=== PATIENT | female | born 1955 | race Caucasian/White ===

== ENCOUNTER 2017-12-28 16:37 | Inpatient (IN) | payer OTHER ==
--- NOTE | 2017-12-28 17:05 | PDOC ---
Attending Attestation - HPI HPI: 12/28/17 20:10 CC: Left sided weakness and pain HPI: The patient is a 62 year old female, with a significant past medical history of COPD, diabetes, CVA with TPA in 02/07, CVA in 04/09, valve replacement, graves, and cholecystectomy, who presents to the emergency department via EMS with, 5 hours of left sided chest and shoulder pain. As per EMS, the patient had hyperglycemia within the 380s. Within the emergency department, the patient reports left arm weakness beginning at 3pm. Secondary to her symptoms she reports, shortness of breath. The patient reports to have a left arm and leg deficit in the past secondary to her CVA, however, reports that her left arm feels weaker now. She denies recent fevers, chills, headache or dizziness. She denies recent nausea, vomit, diarrhea or constipation. She denies recent dysuria, frequency, urgency or hematuria. Primary Care Physician: Dr. Gregg Patten - Physicial Exam PE: 12/28/17 20:35 Vitals: Triage vital signs reviewed General Appearance: No acute distress, well nourished, well developed Head: Atraumatic Eyes: Pupils equal reactive round, extraocular movement intact Neck: Supple; No nuchal rigidity Chest Wall: Nontender Cardiac: Regular rate and rhythm, no murmurs, no rubs, no gallops Lungs: Clear to auscultation bilateral, good air movement bilaterally Abdomen: Soft, nondistended, normal bowel sounds, nontender to palpation Genitourinary: Rectal: Exam deferred Extremities: No cyanosis, clubbing, or edema Skin: Warm and dry, no rashes or lesions, no rash, no petechiae Neuro: +Left sided weakness to the upper and lower extremities. AOX3; Cranial Nerves 2-12 grossly intact Psych: Normal mood, normal affect - Medical Decision Making 8:15pm Call placed to Dr. Engle's answering service for admission, awaiting call back. 8:50pm Second call placed to Dr. Engle's answering service for admission, awaiting call back. 9:18pm Third call placed to Dr. Engle's answering service for admission, case was discussed. <Ras Marrero - Last Filed: 12/28/17 23:38> - Resident Resident Name: Fred Miranda - ED Attending Attestation I have performed the following: I have examined & evaluated the patient, The case was reviewed & discussed with the resident, I agree w/resident's findings & plan, Exceptions are as noted - Medical Decision Making 12/28/17 18:30 62 years old with multiple medical issues presents to the ED with left-sided weakness since 3 PM Code Akins activated patient sent to CT no evidence of blood Reevaluation case discussed with Dr. Ballard neurology recommends CTA, hold on TPA at this time NIHSS stroke scale 4 Dr. Ballard following CTA no fixed vessel defect. Per discussion with Dr. Ballard Given patient with previous stroke on that side diabetes uncontrolled hyperglycemia and presentation more consistent with worsening of underlying stroke secondary to UTI and hyperglycemia patient not TPA candidate at this time we'll admit to medicine with neurology consulting for further management. <Ismael Roche - Last Filed: 12/29/17 00:08> Attestations - Attestations 12/28/17 20:10 Documentation prepared by Ras Marrero, acting as medical claims representative for Ismael Roche MD. <Ras Marrero - Last Filed: 12/28/17 23:38>
[2017-12-28 17:37] LABS: URINE APPEARANCE SLCLOUDY; URINE BILIRUBIN NEGATIVE (<2.0 mg/dL); URINE BLOOD 1+ (NEGATIVE); URINE COLOR LTYELLOW; URINE GLUCOSE (UA) 3+ (NEGATIVE); URINE KETONE NEGATIVE (NEGATIVE); URINE NITRITE POSITIVE (NEGATIVE); URINE UROBILINOGEN NEGATIVE mg/dL (0.2-1.0)
[2017-12-28 17:42] LABS: BASO % 1.3 % (0-2.0); EOS % 1.3 % (0-4.5); HEMOGLOBIN 16.4 GM/dL (10.7-15.3); LYMPH % 27.7 % (8-40); MCHC 34.1 g/dl (32.0-36.0); MEAN CELL VOLUME 90.8 fl (80-96); MEAN PLT VOLUME 11.2 fl (7.5-11.1); MONO % 4.7 % (3.8-10.2); PLATELET COUNT 129 K/MM3 (134-434); RBC 5.28 M/mm3 (3.60-5.2); RDW 14.2 % (11.6-15.6); WHITE BLOOD COUNT 9.4 K/mm3 (4.0-10.0)
[2017-12-28 17:45] LABS: URINE LEUK ESTERASE 2+ (NEGATIVE); URINE PROTEIN 1+ (NEGATIVE)
[2017-12-28 17:46] LABS: VENOUS PC02 51.7 mmHg (38-52); VENOUS PH 7.36 (7.32-7.42)
[2017-12-28 17:47] LABS: EPI CELLS RARE /HPF (FEW); URINE BACTERIA MANY /hpf (NONE SEEN); URINE MUCUS RARE; YEAST FEW
[2017-12-28 17:58] LABS: INR 1.13 (0.82-1.09); PROTHROMBIN TIME (PATIENT) 12.8 SEC (9.98-11.88)
--- NOTE | 2017-12-28 18:06 | PDOC ---
History of Present Illness - General History Source: Patient Exam Limitations: No Limitations - History of Present Illness Initial Comments: 12/28/17 18:59 Patient is 62F with history of COPD, DM, CVA with TPA in 02/07, CVA in 04/09, valve replacement, Graves, cholecystectomy here today complaining of pain to her left shoulder and chest. EMS reports hyperglycemia to 380s. Patient is also complaining of left arm weakness that started at 3pm. She states that she has had urinary frequency and felt constantly thirsty for the past few days. Her chest pain started at 10am with associated shortness of breath. Denies fevers, chills, nausea, vomiting. Patient reports having a left arm and leg deficit in the past due to her CVA, but says that her left arm feels weaker now. Left leg is at baseline per patient. <Fred Miranda - Last Filed: 12/28/17 19:38> <Ismael Roche - Last Filed: 12/28/17 20:17> - General Chief Complaint: Chest Pain Stated Complaint: HYPERGLYCEMIA Time Seen by Provider: 12/28/17 16:47 Past History - Past Medical History Asthma: Yes Cardiac Disorders: Yes (cardiac arrythmias) CVA: Yes (X2 02/07(TPA) 04/09) COPD: Yes HTN: Yes Hypercholesterolemia: Yes Thyroid Disease: Yes (hypo and hyper thyroid-varies) - Surgical History Cardiac Surgery: Yes (valve replacement) Cholecystectomy: Yes - Suicide/Smoking/Psychosocial Hx Smoking Status: No Smoking History: Current every day smoker Have you smoked in the past 12 months: Yes Number of Cigarettes Smoked Daily: 10 Cigars Per Day: 0 Information on smoking cessation initiated: No 'Breaking Loose' booklet given: 06/10/16 Hx Alcohol Use: No Drug/Substance Use Hx: No Substance Use Type: None Hx Substance Use Treatment: No <Fred Miranda - Last Filed: 12/28/17 19:38> <Ismael Roche - Last Filed: 12/28/17 20:17> - Past Medical History Allergies/Adverse Reactions: Allergies Allergy/AdvReac Type Severity Reaction Status Date / Time WILD Inhibitors Allergy Verified 12/28/17 17:07 Penicillins Allergy Rash Verified 12/28/17 17:07 aspirin AdvReac Verified 12/28/17 17:07 Home Medications: Ambulatory Orders Clopidogrel Bisulfate [Plavix -] 75 mg PO HS 06/04/12 Levothyroxine [Synthroid -] 0.125 mg PO HS 06/04/12 Metformin HCl [Riomet] 500 mg PO BID 06/04/12 Pyridostigmine [Mestinon -] 60 mg PO HS 06/04/12 Albuterol Sulfate [Proair Hfa -] 1 - 2 inh PO TID #0 06/11/12 Folic Acid 1 mg PO HS 06/10/16 Metoprolol Tartrate [Lopressor -] 25 mg PO HS 06/10/16 Mirtazapine 15 mg PO HS 06/10/16 Nifedipine [Procardia Xl] 60 mg PO HS 06/10/16 Albuterol Sulfate Inhaler - [Ventolin HFA Inhaler -] 2 puff IH Q4H PRN #0 inhaler 06/14/16 Insulin (Novolog 70/30) [Novolog Mix 70/30 Vial] 20 units SQ BIDAC #1 vial 06/14 Insulin Sliding Scale [Novolog Vial Sliding Scale -] 1 vial SQ TIDAC #1 units oxyCODONE HCL [Roxicodone -] 5 mg PO Q6H PRN #14 tablet MDD 4 06/14/16 Review of Systems - Review of Systems Comments:: 12/28/17 19:04 GENERAL/CONSTITUTIONAL: No fever or chills. No weakness. HEAD, EYES, EARS, NOSE AND THROAT: No change in vision. No sore throat. CARDIOVASCULAR: Positive chest pain and shortness of breath RESPIRATORY: No cough, wheezing, or hemoptysis. GASTROINTESTINAL: No nausea, vomiting, diarrhea or constipation. GENITOURINARY: No dysuria. Positive for frequency. MUSCULOSKELETAL: No joint or muscle swelling or pain. No neck or back pain. SKIN: No rash NEUROLOGIC: No headache, vertigo, loss of consciousness, or change in strength/ sensation. ENDOCRINE: No increased thirst. No abnormal weight change HEMATOLOGIC/LYMPHATIC: No anemia, easy bleeding, or history of blood clots. ALLERGIC/IMMUNOLOGIC: No hives or skin allergy. <Fred Miranda - Last Filed: 12/28/17 19:38> *Physical Exam - Physical Exam Comments: 12/28/17 19:05 GENERAL: Awake, alert, and fully oriented, in no acute distress HEAD: No signs of trauma, normocephalic, atraumatic EYES: PERRLA, EOMI, sclera anicteric, conjunctiva clear ENT: Auricles normal inspection, hearing grossly normal, nares patent, oropharynx clear without exudates. Moist mucosa NECK: Normal ROM, supple, no lymphadenopathy, JVD, or masses LUNGS: No distress, speaks full sentences, clear to auscultation bilaterally HEART: Regular rate and rhythm, normal S1 and S2, no murmurs, rubs or gallops, peripheral pulses normal and equal bilaterally. ABDOMEN: Soft, nontender, normoactive bowel sounds. No guarding, no rebound. No masses EXTREMITIES: Normal inspection, Normal range of motion, no edema. No clubbing or cyanosis. NEUROLOGICAL: Cranial nerves II through XII grossly intact. Normal speech, 4/5 left arm strength, 5/5 right arm and leg strength, 3/5 left leg strength. Numbness in V2/V3 distribution. SKIN: Warm, Dry, normal turgor, no rashes or lesions noted. <Fred Miranda - Last Filed: 12/28/17 19:38> - Vital Signs Last Vital Signs Temp Pulse Resp BP Pulse Ox 98.6 F 60 20 181/78 99 12/28/17 16:50 12/28/17 20:08 12/28/17 20:08 12/28/17 20:08 12/28/17 20:08 <Ismael Roche - Last Filed: 12/28/17 20:17> NIH Stroke Scale - Last Known Well Date/Time & Onset Date Last Known Well: 12/28/17 Time Last Known Well: 15:00 - Initial Evaluation Level of consciousness: Alert Ask patient the month and their age: Answers both correctly Ask patient to open & close eyes; make fist and let go: Obeys both correctly Best gaze (horizontal eye movement): Normal Visual field testing: No visual field loss Facial paresis (Show teeth/raise eyebrows/close eyes tight): Normal symmetrical movement Motor Function: Left Arm: Drift Motor Function: Right Arm: Normal (extends arm 90 (or 45) degrees for 10 seconds without drift Motor Function: Left Leg: Some effort against gravity Motor Function: Right Leg: Normal (extends leg 30 degrees for 5 seconds without drift) Limb Ataxia: No ataxia Sensory(Use pinprick test arms,legs,trunk,face/side to side): Mild to moderate decrease in sensation Best language (Describe picture, name items, read sentences): No Aphasia Dysarthria (read several words): Normal articulation Extinction and Inattention: No abnormality - Total Score NIH Stroke Scale Score: 4 <DlFred cardona - Last Filed: 12/28/17 19:38> tPA Exclusion checklist 3-4.5h - Time Elapsed Date last known well: 12/28/17 Time last known well: 15:00 Elaspsed time: Day(s) and 4 Hour(s) and 38 Minutes - Exclusion Criteria 3-4.5 hr SBP greater than 185 or DBP greater than 110mmHg despite tx: No Recent IC/spinal surgery,head trauma or stroke<3mos.: No Hx IC hemorrhage, IC neoplasm, AV malformation or aneurysm: No Active internal bleeding: No Blding diathesis(low plt ct, inc PTT,INR>1.7 or use of NOAC): No Symptoms suggest subarachnoid hemorrhage: No CT demonstrates multilobar infarct(>1/3 cerebral hemiphere): No Arterial puncture at noncompressible site in previous 7 days: No Blood glucose concentration less than 50mg/dL (2.7mmol/L): No - Relative Exclusion Criteria 3-4.5 hr Life expectancy <1 yr or severe co-morbid illness: No : No Patient/family refused: No Rapid improvement: No - Add'l Relative Exclusion 3-4.5 hr Age > 80: No Hx of both diabetes AND prior ischemic stroke: Yes Taking an oral anticoagulant regardless of INR: No NIHSS >25: No <RuthFred - Last Filed: 12/28/17 19:38> Critical Care Time/[facility] Note - Medical Decision Making Note: 12/28/17 19:09 Patient is 62F with history of DM, CVA, graves, copd here today with left arm and left leg weakness. Vital signs stable and normal. NIHSS 4, 2 pts for left leg, 1 pt for left arm, 1 point for reported sensory deficit. Code wall activated, taken to ct scan. Concern that patient may have unmasked prior stroke symptoms due to metabolic abnormality. Fingerstick 303 in ED after fluids administrated by paramedics. Differential includes, but is not limited to : DKA, HHS, UTI, Pneumonia, Stroke. 12/28/17 19:[address] shows no acute bleed or clear area of infarct. 12/28/17 19:13 Laboratory Tests 12/28/17 12/28/17 12/28/17 15:33 17:23 17:30 WBC 9.4 D Hgb 16.4 H D Hct 48.0 H Plt Count 129 L D INR POC VBG pO2 Carbon Dioxide Anion Gap POC Glucometer [phone] Random Glucose Troponin I Ur Leukocyte Esterase 2+ H Urine WBC (Auto) 88 12/28/17 12/28/17 12/28/17 17:30 17:30 17:30 WBC Hgb Hct Plt Count INR 1.13 POC VBG pO2 18.0 L* Carbon Dioxide 30 Anion Gap 5 L POC Glucometer Random Glucose 296 H Troponin I < 0.02 Ur Leukocyte Esterase Urine WBC (Auto) CBC shows evidence of hemoconcentration. Glucose normal. INR normal. VBG shows low pO2. Carbon dioxide normal. Gap normal. Troponin undetectable. Neuro Dr Ballard consulted, agrees with unclear picture if this is a candidate for tPA. Suggested getting tPA. Cr level not available at time of decision, shared decision making done with patient, agreed to get CT scan before getting Cr level. CTA results now pending. 12/28/17 19:30 Patient has UTI, labs appear dehydrated. Patient has penicillin allergy listed on chart. She states that she had an unknown reaction when she was [age] years old. She states that she had IM penicillin and keflex without complications. Will give fluids and ceftriaxone. Patient not a candidate for tPA at this point. Patient does not have a clear indication with relative indication of prior stroke with diabetes. Signed out to Dr Leon. <Fred Miranda - Last Filed: 12/28/17 19:38> Discharge Disposition - Discharge Dispostion Last Admission D/C Date: 06/14/16 <Fred Miranda - Last Filed: 12/28/17 19:38> - Discharge Dispostion Admit: Yes <Ismael Roche - Last Filed: 12/28/17 20:17> - Diagnosis UTI (urinary tract infection) Qualifiers: Urinary tract infection type: site unspecified Hematuria presence: without hematuria Qualified Code(s): N39.0 - Urinary tract infection, site not specified - Discharge Dispostion Condition at time of disposition: Stable - Referrals Referrals: Gregg Patten MD [Primary Care Provider] - - Patient Instructions - Post Discharge Activity
[2017-12-28 18:20] LABS: ALBUMIN 3.9 g/dl (3.4-5.0); ANION GAP 5 (8-16); BILIRUBIN,TOTAL 0.6 mg/dL (0.2-1.0); BLOOD UREA NITROGEN 9 mg/dL (7-18); CHLORIDE 102 mmol/L (98-107); CHOLESTEROL 189 mg/dL (50-200); CO2 30 mmol/L (21-32); GLUCOSE,RANDOM 296 mg/dL (74-106); LDL CHOLESTEROL (ONLY SJRH) 115 mg/dL (5-100); POTASSIUM 3.7 mmol/L (3.5-5.1); SGOT/AST 70 U/L (15-37); SGPT/ALT 72 U/L (12-78); SODIUM 137 mmol/L (136-145); TOT PROT 7.1 g/dl (6.4-8.2); TRIGLYCERIDES 294 mg/dL (35-160)
[2017-12-28 18:21] LABS: ALK PHOS 163 U/L (45-117); HDL CHOLESTEROL 35 mg/dL (40-60)
[2017-12-28] MEDS ORDERED: SODIUM CHLORIDE 1,000 ML IV STA (19:30)
[2017-12-28] MEDS ORDERED: CEFTRIAXONE 1,000 MG in DEXTROSE 5%-WATER - 50 ML IVPB ONE (19:35)
[2017-12-28] MEDS ORDERED: CEFTRIAXONE 1 GM/50 ML BAG ONE (19:45)
[2017-12-29 00:24] VITALS: BMI 43.0
[2017-12-29] MEDS: oxyCODONE HCL 5 MG TABLET PO PRN ×3 (02:35→22:47)
[2017-12-29] MEDS ORDERED: INSULIN (NOVOLOG MIX 70/30) 100 UNITS/ML MDV SQ ONE (06:17)
[2017-12-29] MEDS: INSULIN (NOVOLOG MIX 70/30) 100 UNITS/ML MDV SQ SCH ×2 (06:37→16:56)
[2017-12-29] MEDS: TIZANIDINE HCL 2 MG TABLET PO SCH ×3 (06:37→22:50)
[2017-12-29] MEDS: GABAPENTIN 300 MG CAPSULE (FP) PO SCH ×3 (06:37→22:46)
[2017-12-29] MEDS ORDERED: metFORMIN HCL 500 MG TABLET (FP) PO SCH (07:00)
[2017-12-29 08:31] LABS: BASO % 1.2 % (0-2.0); EOS % 1.5 % (0-4.5); HEMOGLOBIN 15.7 GM/dL (10.7-15.3); MCH 30.7 pg (25.7-33.7); MEAN CELL VOLUME 90.1 fl (80-96); MEAN PLT VOLUME 10.8 fl (7.5-11.1); MONO % 5.5 % (3.8-10.2); NEUT % 62.8 % (42.8-82.8); PLATELET COUNT 128 K/MM3 (134-434); RBC 5.11 M/mm3 (3.60-5.2); RDW 13.9 % (11.6-15.6); WHITE BLOOD COUNT 8.2 K/mm3 (4.0-10.0)
[2017-12-29] MEDS: HEPARIN NA (PORCINE) 5,000 UNITS/ML 1ML VIAL SQ SCH ×2 (09:14→22:45)
[2017-12-29] MEDS: CEFTRIAXONE 1 GM in DEXTROSE 5%-WATER - 50 ML IVPB SCH (09:15)
[2017-12-29 09:16] LABS: ALBUMIN 3.7 g/dl (3.4-5.0); ALK PHOS 154 U/L (45-117); ANION GAP 7 (8-16); BILIRUBIN,TOTAL 0.6 mg/dL (0.2-1.0); BLOOD UREA NITROGEN 10 mg/dL (7-18); CALCIUM 8.9 mg/dL (8.5-10.1); CHLORIDE 103 mmol/L (98-107); CO2 27 mmol/L (21-32); CREATININE 0.9 mg/dL (0.55-1.02); POTASSIUM 3.5 mmol/L (3.5-5.1); SGOT/AST 60 U/L (15-37); SGPT/ALT 64 U/L (12-78); SODIUM 137 mmol/L (136-145); TOT PROT 6.6 g/dl (6.4-8.2)
[2017-12-29 10:17] LABS: GLUCOSE,RANDOM 329 mg/dL (74-106)
--- NOTE | 2017-12-29 11:50 | CON.ID ---
Consult - History of Present Illness History of Present Illness: This is a 62 y.o. female with PMH of CVA x 2 on TPA in 2010 with Lt hemiplegia, DM, Graves Disease, valve repair (unclear which), COPD, active smoker, herpes zoster last year, nephrolithiasis 3 yrs ago, previous UTIs presenting with c/o chest tightness and Lt shoulder pain extending down her Lt arm with tingling sensation in her fingers. Pt states she was feeling weaker in her Lt arm than previously. These symptoms began yesterday at approximately 1 pm. States she was not feeling well and called the ambulance. In the ER she was noted to have hyperglycemia with glucose around 380s. Currently she states she feels better other than mild headache. She denies any history of recent fever/chills, cough, abd pain/n/v/d, or urinary f/u/d. 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, Other (Myasthenia Gravis) Cardio/Vascular: Yes: HTN Pulmonary: Yes: COPD Renal/: Yes: Renal Calculi, UTI Infectious Disease: Yes: Herpes Zoster Endocrine: Yes: Diabetes Mellitus - Past Surgical History Past Surgical History: Yes: Cholecystectomy, , Hernia Repair, Tonsillectomy, Tubal Ligation, Valve Replacement - Alcohol/Substance Use Hx Alcohol Use: No - Smoking History Smoking history: Current every day smoker Have you smoked in the past 12 months: Yes Aproximately how many cigarettes per day: 10 - Social History Usual Living Arrangement: With Spouse ADL: Independent 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, 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 Home Medications - Allergies Allergies/Adverse Reactions: Allergies Allergy/AdvReac Type Severity Reaction Status Date / Time WILD Inhibitors Allergy Verified 12/28/17 17:07 Penicillins Allergy Rash Verified 12/28/17 17:07 aspirin AdvReac Verified 12/28/17 17:07 - Home Medications Home Medications: Ambulatory Orders Clopidogrel Bisulfate [Plavix -] 75 mg PO HS 06/04/12 Levothyroxine [Synthroid -] 0.125 mg PO HS 06/04/12 Metformin HCl [Riomet] 500 mg PO BID 06/04/12 Pyridostigmine [Mestinon -] 60 mg PO HS 06/04/12 Albuterol Sulfate [Proair Hfa -] 1 - 2 inh PO TID #0 06/11/12 Folic Acid 1 mg PO HS 06/10/16 Metoprolol Tartrate [Lopressor -] 25 mg PO HS 06/10/16 Mirtazapine 15 mg PO HS 06/10/16 Nifedipine [Procardia Xl] 60 mg PO HS 06/10/16 Albuterol Sulfate Inhaler - [Ventolin HFA Inhaler -] 2 puff IH Q4H PRN #0 inhaler 06/14/16 Insulin (Novolog 70/30) [Novolog Mix 70/30 Vial] 20 units SQ BIDAC #1 vial 06/14 Insulin Sliding Scale [Novolog Vial Sliding Scale -] 1 vial SQ TIDAC #1 units oxyCODONE HCL [Roxicodone -] 5 mg PO Q6H PRN #14 tablet MDD 4 06/14/16 Atorvastatin Ca [Lipitor] 20 mg PO HS 12/29/17 Gabapentin 300 mg PO TID 12/29/17 Montelukast Sodium [Singulair] 10 mg PO HS 12/29/17 Tizanidine HCl 2 TID 12/29/17 Tizanidine HCl 2 mg PO TID 12/29/17 Family Disease History - Family Disease History Family Disease History: Heart Disease: Father ([place]) Review of Systems - Review of Systems Constitutional: reports: No Symptoms Eyes: reports: No Symptoms HENT: reports: No Symptoms Neck: reports: No Symptoms Cardiovascular: reports: No Symptoms Respiratory: reports: No Symptoms Gastrointestinal: reports: No Symptoms Genitourinary: reports: No Symptoms Breasts: reports: No Symptoms Reported Musculoskeletal: reports: No Symptoms Integumentary: reports: No Symptoms Neurological: reports: Headache (mild generalized), Weakness (minimal LUE, chronic LLE) Endocrine: reports: No Symptoms Hematology/Lymphatic: reports: No Symptoms Psychiatric: reports: No Symptoms Physical Exam Vital Signs: Vital Signs Temperature 98.4 F 12/29/17 10:00 Pulse Rate 73 12/29/17 10:00 Respiratory Rate 18 12/29/17 10:00 Blood Pressure 161/76 12/29/17 10:00 O2 Sat by Pulse Oximetry (%) 96 12/29/17 10:00 Constitutional: Yes: No Distress, Calm Eyes: Yes: WNL HENT: Yes: WNL Neck: Yes: WNL Cardiovascular: Yes: Regular Rate and Rhythm Respiratory: Yes: CTA Bilaterally Gastrointestinal: Yes: Normal Bowel Sounds, Soft, Abdomen, Obese Renal/: Yes: WNL Musculoskeletal: Yes: WNL Extremities: Yes: WNL Edema: No Integumentary: Yes: WNL Neurological: Yes: Alert, Oriented ...Motor Strength: LUE (4/5), LLE (3/5) Psychiatric: Yes: Alert, Oriented Labs: CBC, BMP 12/29/17 06:45 12/29/17 06:45 U/A: glucose 3+, Leuk est 2+, wbc 88, bact- many Imaging - Results X-ray: Report Reviewed Problem List - Problems (1) UTI (urinary tract infection) Code(s): N39.0 - URINARY TRACT INFECTION, SITE NOT SPECIFIED Qualifiers: Urinary tract infection type: site unspecified Hematuria presence: without hematuria Qualified Code(s): N39.0 - Urinary tract infection, site not specified (2) Diabetes Code(s): E11.9 - TYPE 2 DIABETES MELLITUS WITHOUT COMPLICATIONS (3) Graves' disease Code(s): E05.00 - THYROTOXICOSIS W DIFFUSE GOITER W/O THYROTOXIC CRISIS (4) Hypertension Code(s): I10 - ESSENTIAL (PRIMARY) HYPERTENSION (5) COPD (chronic obstructive pulmonary disease) Code(s): J44.9 - CHRONIC OBSTRUCTIVE PULMONARY DISEASE, UNSPECIFIED Assessment/Plan 62 y.o. female with PMH of DM, CVA on s/p TPA, Graves disease, COPD, nephrolithiasis, presenting with c/o chest tightness, Lt arm pain and weakness that began yesterday noted to have hyperglycemia and pyuria. UTI DM Hx of CVA Graves COPD Hx of Nephrolithiasis -- continue Ceftriaxone empirically for now -- urine culture -- glycemic control -- Neurology to evaluate, f/u CT/CTA pt currently afebrile, without leukocytosis continue monitor
--- NOTE | 2017-12-29 11:57 | CON.NEURO ---
Consult Consult Specialty:: NEUROLOGY-[facility] - History of Present Illness History of Present Illness: The patient is a 62 year old female, with a significant past medical history of COPD, diabetes, CVA with TPA in 02/07, CVA in 04/09, valve replacement, graves, and cholecystectomy, who presents to the emergency department via EMS with, 5 hours of left sided chest and shoulder pain. As per EMS, the patient had hyperglycemia within the 380s. Within the emergency department, the patient reports left arm weakness beginning at 3pm. Secondary to her symptoms she reports, shortness of breath. The patient reports to have a left arm and leg deficit in the past secondary to her CVA, however, reports that her left arm feels weaker now. She denies recent fevers, chills, headache or dizziness. She denies recent nausea, vomit, diarrhea or constipation. She denies recent dysuria, frequency, urgency or hematuria. -Pt. reports her left arm weakness has now improved but conts. to c/o left shoulder pain, deies numbness/tigling She reports persistent left leg weakess and miniimal left arm weakness since CVA in 2010. 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, Other (Myasthenia Gravis) Cardio/Vascular: Yes: HTN Pulmonary: Yes: COPD Renal/: Yes: Renal Calculi, UTI Infectious Disease: Yes: Herpes Zoster Endocrine: Yes: Diabetes Mellitus - Past Surgical History Past Surgical History: Yes: Cholecystectomy, , Hernia Repair, Tonsillectomy, Tubal Ligation, Valve Replacement - Alcohol/Substance Use Hx Alcohol Use: No - Smoking History Smoking history: Current every day smoker Have you smoked in the past 12 months: Yes Aproximately how many cigarettes per day: 10 - Social History Usual Living Arrangement: With Spouse ADL: Independent 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, 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 Home Medications - Allergies Allergies/Adverse Reactions: Allergies Allergy/AdvReac Type Severity Reaction Status Date / Time WILD Inhibitors Allergy Verified 12/28/17 17:07 Penicillins Allergy Rash Verified 12/28/17 17:07 aspirin AdvReac Verified 12/28/17 17:07 - Home Medications Home Medications: Ambulatory Orders Clopidogrel Bisulfate [Plavix -] 75 mg PO HS 06/04/12 Levothyroxine [Synthroid -] 0.125 mg PO HS 06/04/12 Metformin HCl [Riomet] 500 mg PO BID 06/04/12 Pyridostigmine [Mestinon -] 60 mg PO HS 06/04/12 Albuterol Sulfate [Proair Hfa -] 1 - 2 inh PO TID #0 06/11/12 Folic Acid 1 mg PO HS 06/10/16 Metoprolol Tartrate [Lopressor -] 25 mg PO HS 06/10/16 Mirtazapine 15 mg PO HS 06/10/16 Nifedipine [Procardia Xl] 60 mg PO HS 06/10/16 Albuterol Sulfate Inhaler - [Ventolin HFA Inhaler -] 2 puff IH Q4H PRN #0 inhaler 06/14/16 Insulin (Novolog 70/30) [Novolog Mix 70/30 Vial] 20 units SQ BIDAC #1 vial 06/14 Insulin Sliding Scale [Novolog Vial Sliding Scale -] 1 vial SQ TIDAC #1 units oxyCODONE HCL [Roxicodone -] 5 mg PO Q6H PRN #14 tablet MDD 4 06/14/16 Atorvastatin Ca [Lipitor] 20 mg PO HS 12/29/17 Gabapentin 300 mg PO TID 12/29/17 Montelukast Sodium [Singulair] 10 mg PO HS 12/29/17 Tizanidine HCl 2 TID 12/29/17 Tizanidine HCl 2 mg PO TID 12/29/17 Family Disease History - Family Disease History Family Disease History: Heart Disease: Father ([place]) Physical Exam-Neuro Vital Signs: Vital Signs Temperature 98.4 F 12/29/17 10:00 Pulse Rate 73 12/29/17 10:00 Respiratory Rate 18 12/29/17 10:00 Blood Pressure 161/76 12/29/17 10:00 O2 Sat by Pulse Oximetry (%) 96 12/29/17 10:00 Labs: CBC, BMP 12/29/17 06:45 12/29/17 06:45 INR, PTT INR 1.13 (0.82-1.09) 12/28/17 17:30 - Neuro Exam Cranial Nerves II-XII Intact: No (old left diminished nlf) DTR's: 1+ Right Bicep, 1+ Right Tricep, 1+ Right Brachioradialis, 1+ Right Achilles (left knee jerk-2+, right 1=), 2+ Left Bicep, 2+ Left Tricep, 2+ Left Brachioradialis, 2+ Left Achilles Motor Strength: 3/5: Left Leg (IP-4/5, Q/H-2/5, Df/PF-1/5), 01/02: Left Arm (LUE- limited exam due to pain but she has a left pronator drift and deltoid-4+/5, B/ T5-/5, hand grip5/5), 02/01: Right Arm, Right Leg Gait: Other (Left hemiparetic) Imaging - Results Cat Scan: Report Reviewed (By report from ER physician no new ischemic event noted upon CT head and CTA without stenosis of any large vessels.) Assessment/Plan Pt. with multiple strokes in past, has residual left leg weakness, now presents with resolving left arm weakess. Imaging without evid. of new ischemic event and left arm limited exam due to shoulder pain. She is on Plavix. NIHSS 4(tPA not given) If she has had an ischemic event likely pure motor, subcortical event. Suggest: 1) Cont. Plavix. 2) Will review past imaging and consider adding Dipyridamole to her regimen. 3) PT/Rehab 4) She will f/u in my office. ThanVishnu gonzalez MD
--- NOTE | 2017-12-29 14:55 | HP ---
Admitting History and Physical - Admission History of Present Illness: Pt is a 62 y.o. 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 Pt states she was feeling weaker in her Lt arm than previously. These symptoms began yesterday at approximately 1 pm. States she was not feeling well and called the ambulance. In the ER she was noted to have hyperglycemia with glucose around 380s. 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, Other (Myasthenia Gravis) Cardiovascular: Yes: HTN Pulmonary: Yes: COPD Renal/: Yes: Renal Calculi, UTI Infectious Disease: Yes: Herpes Zoster Endocrine: Yes: Diabetes Mellitus - Past Surgical History Past Surgical History: Yes: Cholecystectomy, , Hernia Repair, Tonsillectomy, Tubal Ligation, Valve Replacement - Smoking History Smoking history: Current every day smoker Have you smoked in the past 12 months: Yes Aproximately how many cigarettes per day: 10 - Alcohol/Substance Use Hx Alcohol Use: No - Social History ADL: Independent 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, 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 Home Medications - Allergies Allergies/Adverse Reactions: Allergies Allergy/AdvReac Type Severity Reaction Status Date / Time WILD Inhibitors Allergy Verified 12/28/17 17:07 Penicillins Allergy Rash Verified 12/28/17 17:07 aspirin AdvReac Verified 12/28/17 17:07 - Home Medications Home Medications: Ambulatory Orders Clopidogrel Bisulfate [Plavix -] 75 mg PO HS 06/04/12 Levothyroxine [Synthroid -] 0.125 mg PO HS 06/04/12 Metformin HCl [Riomet] 500 mg PO BID 06/04/12 Pyridostigmine [Mestinon -] 60 mg PO HS 06/04/12 Albuterol Sulfate [Proair Hfa -] 1 - 2 inh PO TID #0 06/11/12 Folic Acid 1 mg PO HS 06/10/16 Metoprolol Tartrate [Lopressor -] 25 mg PO HS 06/10/16 Mirtazapine 15 mg PO HS 06/10/16 Nifedipine [Procardia Xl] 60 mg PO HS 06/10/16 Albuterol Sulfate Inhaler - [Ventolin HFA Inhaler -] 2 puff IH Q4H PRN #0 inhaler 06/14/16 Insulin (Novolog 70/30) [Novolog Mix 70/30 Vial] 20 units SQ BIDAC #1 vial 06/14 Insulin Sliding Scale [Novolog Vial Sliding Scale -] 1 vial SQ TIDAC #1 units oxyCODONE HCL [Roxicodone -] 5 mg PO Q6H PRN #14 tablet MDD 4 06/14/16 Atorvastatin Ca [Lipitor] 20 mg PO HS 12/29/17 Gabapentin 300 mg PO TID 12/29/17 Montelukast Sodium [Singulair] 10 mg PO HS 12/29/17 Tizanidine HCl 2 TID 12/29/17 Tizanidine HCl 2 mg PO TID 12/29/17 Family Disease History - Family Disease History Family History: Unremarkable Family Disease History: Heart Disease: Father ([place]) Review of Systems - Review of Systems Constitutional: reports: Weakness Neck: reports: No Symptoms Cardiovascular: reports: Chest Pain Respiratory: reports: No Symptoms Gastrointestinal: reports: No Symptoms Physical Examination Vital Signs: Vital Signs Temperature 98.4 F 12/29/17 10:00 Pulse Rate 73 12/29/17 10:00 Respiratory Rate 18 12/29/17 10:00 Blood Pressure 161/76 12/29/17 10:00 O2 Sat by Pulse Oximetry (%) 96 12/29/17 10:00 Constitutional: Yes: Well Nourished Neck: Yes: WNL, Supple Cardiovascular: Yes: WNL, Regular Rate and Rhythm Respiratory: Yes: WNL, Regular, CTA Bilaterally Gastrointestinal: Yes: WNL, Normal Bowel Sounds, Soft Musculoskeletal: Yes: WNL Extremities: Yes: WNL Edema: No Neurological: Yes: WNL, Alert, Oriented ...Motor Strength: WNL Labs: CBC, BMP 12/29/17 06:45 12/29/17 06:45 Problem List - Problems (1) Chest pain Assessment/Plan: Admitted to tele Serial cpk/troponin to r/o ACS Echo Cardio consult Code(s): R07.9 - CHEST PAIN, UNSPECIFIED (2) Weakness Assessment/Plan: Admitted to tele to r/o CVA Check echo/carotid doppler Neuro/cardio consults Code(s): R53.1 - WEAKNESS (3) COPD (chronic obstructive pulmonary disease) Assessment/Plan: Cont inhalers Code(s): J44.9 - CHRONIC OBSTRUCTIVE PULMONARY DISEASE, UNSPECIFIED (4) Diabetes Assessment/Plan: Sliding scale w/ coverage Check HgA1c Code(s): E11.9 - TYPE 2 DIABETES MELLITUS WITHOUT COMPLICATIONS (5) Hypertension Code(s): I10 - ESSENTIAL (PRIMARY) HYPERTENSION
--- NOTE | 2017-12-29 16:11 | EKG ---
Test Reason : Blood Pressure : / mmHG Vent. Rate : 075 BPM Atrial Rate : 075 BPM P-R Int : 148 ms QRS Dur : 090 ms QT Int : 420 ms P-R-T Axes : -09 -32 110 degrees QTc Int : 469 ms SINUS RHYTHM WITH PREMATURE SUPRAVENTRICULAR COMPLEXES LEFT AXIS DEVIATION SEPTAL INFARCT , AGE UNDETERMINED ABNORMAL ECG QT HAS SHORTENED Confirmed by MD YOLANDA, KATE ([id number]) on 12/29/2017 4:10:46 PM Referred By: Confirmed By:KATE GUERRERO MD
[2017-12-29] MEDS: metFORMIN HCL 500 MG TABLET (FP) PO SCH (16:56)
[2017-12-29] MEDS ORDERED: PT OWN MED DRAWER 7, Y5N ONE (22:40)
[2017-12-29] MEDS: CLOPIDOGREL BISULFATE 75 MG TABLET (FP) PO SCH (22:46)
[2017-12-29] MEDS: FOLIC ACID 1 MG TABLET (FP) PO SCH (22:46)
[2017-12-29] MEDS: MONTELUKAST NA 10 MG TABLET PO SCH (22:46)
[2017-12-29] MEDS: NIFEdipine E.R 60 MG TABLET (UD) PO SCH (22:46)
[2017-12-29] MEDS: ATORVASTATIN CA 20 MG TABLET (FP) PO SCH (22:46)
[2017-12-29] MEDS: METOPROLOL TARTRATE 25 MG TABLET (FP) PO SCH (22:46)
[2017-12-29] MEDS: LEVOTHYROXINE NA 125 MCG TABLET (FP) PO SCH (22:47)
[2017-12-29] MEDS: MELATONIN 5 MG TABLETS PO PRN (22:48)
[2017-12-29] MEDS: ALBUTEROL SO4 18 GM HFA INHALER IH PRN (22:48)
[2017-12-30] MEDS ORDERED: PT OWN MED DRAWER 7, Y5N ONE ×5 (06:18→21:23)
[2017-12-30] MEDS: GABAPENTIN 300 MG CAPSULE (FP) PO SCH ×3 (06:20→21:32)
[2017-12-30] MEDS: metFORMIN HCL 500 MG TABLET (FP) PO SCH ×2 (06:20→16:53)
[2017-12-30] MEDS: TIZANIDINE HCL 2 MG TABLET PO SCH ×3 (06:21→21:32)
[2017-12-30] MEDS: INSULIN (NOVOLOG MIX 70/30) 100 UNITS/ML MDV SQ SCH ×2 (06:21→16:53)
[2017-12-30] MEDS ORDERED: INSULIN SLIDING SCALE (NOVOLOG) 1 VIAL SQ SCH (07:00)
[2017-12-30 07:10] LABS: BASO % 1.6 % (0-2.0); EOS % 1.5 % (0-4.5); HEMATOCRIT 47.3 % (32.4-45.2); LYMPH % 35.2 % (8-40); MCH 30.7 pg (25.7-33.7); MCHC 33.7 g/dl (32.0-36.0); MEAN PLT VOLUME 10.9 fl (7.5-11.1); MONO % 5.6 % (3.8-10.2); NEUT % 56.1 % (42.8-82.8); PLATELET COUNT 140 K/MM3 (134-434); WHITE BLOOD COUNT 8.9 K/mm3 (4.0-10.0)
[2017-12-30 08:08] LABS: CHLORIDE 101 mmol/L (98-107); POTASSIUM 3.5 mmol/L (3.5-5.1); SODIUM 136 mmol/L (136-145)
[2017-12-30 08:54] LABS: ALBUMIN 3.7 g/dl (3.4-5.0); ALK PHOS 163 U/L (45-117); ANION GAP 12 (8-16); BILIRUBIN,TOTAL 0.4 mg/dL (0.2-1.0); BLOOD UREA NITROGEN 17 mg/dL (7-18); CALCIUM 9.3 mg/dL (8.5-10.1); CO2 23 mmol/L (21-32); CREATININE 1.1 mg/dL (0.55-1.02); GLUCOSE,RANDOM 290 mg/dL (74-106); SGOT/AST 77 U/L (15-37); SGPT/ALT 65 U/L (12-78); TOT PROT 6.6 g/dl (6.4-8.2)
[2017-12-30] MEDS ORDERED: DEXTROSE 5%-WATER - 50 ML IVPB ONE (08:58)
[2017-12-30] MEDS ORDERED: cefTRIAXone SODIUM 1 GM VIAL ONE (08:58)
[2017-12-30] MEDS: CEFTRIAXONE 1 GM in DEXTROSE 5%-WATER - 50 ML IVPB SCH (09:24)
[2017-12-30] MEDS: HEPARIN NA (PORCINE) 5,000 UNITS/ML 1ML VIAL SQ SCH ×2 (09:24→21:30)
[2017-12-30] MEDS: ALBUTEROL SO4 18 GM HFA INHALER IH PRN ×2 (09:25→21:40)
--- NOTE | 2017-12-30 11:37 | PN ---
Physical Exam: SUBJECTIVE: Patient seen and examined at the bedside. came to ER for left shoulder pain that radiated down her arm with finger numbness. Symptoms better but shoulder still with some discomfort. Feels good, exhausted, did not sleep: melatonin not working>add benadryl for tonight c/o of bilateral flank pain, no pain with urination: will order renal u/s TSH elevated, does not recall last time Synthroid was increased, reports daily compliance: followed by Dr. Beach, will consult OBJECTIVE: Medical coverage for Dr. Engle. Period Temp Pulse Resp BP Sys/Hein Pulse Ox Last 24 Hr 97.7 F-98.3 F 61-91 18-20 118-172/58-98 93-94 GENERAL: The patient is awake, alert, and fully oriented, in no acute distress. HEAD: Normal with no signs of trauma. EYES: PERRL, extraocular movements intact, sclera anicteric, conjunctiva clear. No ptosis. ENT: Ears normal, nares patent, oropharynx clear without exudates, moist mucous membranes. NECK: Trachea midline, full range of motion, supple. LUNGS: Breath sounds equal, clear to auscultation bilaterally, no wheezes, no crackles, no accessory muscle use. HEART: Regular rate and rhythm ABDOMEN: Soft, nontender, nondistended, normoactive bowel sounds, no guarding, no rebound, no hepatosplenomegaly, no masses. EXTREMITIES: left leg with non pitting edema, left ided weakness left arm 3/5, left leg 3/5, right arm 5/5, right leg 5/5 NEUROLOGICAL: Normal speech, gait not observed. PSYCH: Normal mood, normal affect. SKIN: Warm, dry, normal turgor, no rashes or lesions noted Laboratory Results - last 24 hr 12/29/17 12/30/17 12/30/17 16:54 06:11 06:42 WBC 8.9 RBC 5.20 Hgb 16.0 H Hct 47.3 H MCV 91.0 MCH 30.7 MCHC 33.7 RDW 14.0 Plt Count 140 MPV 10.9 Neutrophils % 56.1 Lymphocytes % 35.2 D Monocytes % 5.6 Eosinophils % 1.5 Basophils % 1.6 Sodium Potassium Chloride Carbon Dioxide Anion Gap BUN Creatinine Creat Clearance w eGFR POC Glucometer 350 291 Random Glucose Calcium Total Bilirubin AST ALT Alkaline Phosphatase Total Protein Albumin TSH 12/30/17 06:42 WBC RBC Hgb Hct MCV MCH MCHC RDW Plt Count MPV Neutrophils % Lymphocytes % Monocytes % Eosinophils % Basophils % Sodium 136 Potassium 3.5 Chloride 101 Carbon Dioxide 23 Anion Gap 12 BUN 17 Creatinine 1.1 H Creat Clearance w eGFR 50.33 POC Glucometer Random Glucose 290 H Calcium 9.3 Total Bilirubin 0.4 D AST 77 H ALT 65 Alkaline Phosphatase 163 H Total Protein 6.6 Albumin 3.7 TSH 29.80 H Active Medications Generic Name Dose Route Start Last Admin Trade Name Freq PRN Reason Stop Dose Admin Albuterol Sulfate 2 puff 12/29/17 22:34 12/30/17 09:25 Ventolin Hfa Inhaler - IH 2 inh Q6H PRN Administration SHORTNESS OF BREATH Atorvastatin Calcium 20 mg 12/29/17 22:00 12/29/17 22:46 Lipitor - PO 20 mg HS MICHEAL Administration Clopidogrel Bisulfate 75 mg 12/29/17 22:00 12/29/17 22:46 Plavix - PO 75 mg HS MICHEAL Administration Folic Acid 1 mg 12/29/17 22:00 12/29/17 22:46 Folic Acid - PO 1 mg HS MICHEAL Administration Gabapentin 300 mg 12/29/17 06:00 12/30/17 06:20 Neurontin - PO 300 mg TID MICHEAL Administration Heparin Sodium (Porcine) 5,000 unit 12/29/17 10:00 12/30/17 09:24 Heparin - SQ 5,000 unit BID MICHEAL Administration Ceftriaxone Sodium 1 gm/ 50 mls @ 100 mls/hr 12/29/17 10:00 12/30/17 09:24 Dextrose IVPB 100 mls/hr DAILY MICHEAL Administration Insulin Aspart 20 units 12/29/17 07:00 12/30/17 06:21 Novolog Mix 70/30 Vial SQ 20 units BIDAC MICHEAL Administration Insulin Aspart 1 vial 12/30/17 08:08 Novolog Vial Sliding Scale - SQ ACHS [facility] Protocol Levothyroxine Sodium 125 mcg 12/29/17 22:00 12/29/17 22:47 Synthroid - PO 125 mcg HS MICHEAL Administration Melatonin 5 mg 12/29/17 22:34 12/29/17 22:48 Melatonin PO 5 mg HS PRN Administration INSOMNIA Metformin HCl 1,000 mg 12/29/17 16:30 12/30/17 06:20 Glucophage - PO 1,000 mg BIDAC MICHEAL Administration Metoprolol Tartrate 25 mg 12/29/17 22:00 12/29/17 22:46 Lopressor - PO 25 mg HS MICHEAL Administration Montelukast Sodium 10 mg 12/29/17 22:00 12/29/17 22:46 Singulair - PO 10 mg HS MICHEAL Administration Nifedipine 60 mg 12/29/17 22:00 12/29/17 22:46 Procardia Xl - PO 60 mg HS MICHEAL Administration Oxycodone HCl 5 mg 12/29/17 02:00 12/29/17 22:47 Roxicodone - PO 5 mg Q6H PRN Administration PAIN LEVEL 6-10 Tizanidine HCl 2 mg 12/29/17 06:00 12/30/17 06:21 Tizanidine Hcl PO 2 mg TID MICHEAL Administration ASSESSMENT/PLAN: Patient is a 62 year old female with a significant past medical history of 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 She presents to the ED with left arm shoulder pain radiating down to her left arm and tingling and numbness to her fingers. Also reported chest pain on admission. In the ED she was noted to be hyperglycemic with glucose in the 350s range. Cardiology: Chest pain, left arm pain Monitor on tele Noted to have left arm weakness 3/5 Echo pending Cardiology following Troponins neg x 2 Hypertension, chronic Monitor BP Hyperlipidemia On Lipitor @ HS Neuro: Left arm weakness/left leg weakness Rule out CVA Echo/Carotid doppler ordered and pending Neuro following On Lipitor, has ASA allergy Physical therapy Pulm COPD, chronic Tolerating room air, not in exacerbation Endo: TSH elevation, hx of Graves dx Endocrinology consult with Dr. Thompson Diabetes Mellitus Increased Novolog SS, on Metformin On 70/30 BID Monitor BGMs Diabetic diet HmgA1c 10.7 F.E.N. Fluids: tolerating PO Electrolytes: monitor Nutrition: diabetic Prophy: DVT: Heparin BID Disposition: full code
[2017-12-30] MEDS: INSULIN SLIDING SCALE (NOVOLOG) 1 VIAL SQ SCH ×3 (11:48→21:29)
--- NOTE | 2017-12-30 15:20 | PN ---
Progress Note, Physician History of Present Illness: doing well no complaints says she is feeling a little better still some complain of urination - Current Medication List Current Medications: Active Medications Albuterol Sulfate (Ventolin Hfa Inhaler -) 2 puff IH Q6H PRN PRN Reason: SHORTNESS OF BREATH Last Admin: 12/30/17 09:25 Dose: 2 inh Atorvastatin Calcium (Lipitor -) 20 mg PO HS [facility] Last Admin: 12/29/17 22:46 Dose: 20 mg Clopidogrel Bisulfate (Plavix -) 75 mg PO HS [facility] Last Admin: 12/29/17 22:46 Dose: 75 mg Folic Acid (Folic Acid -) 1 mg PO HS [facility] Last Admin: 12/29/17 22:46 Dose: 1 mg Gabapentin (Neurontin -) 300 mg PO TID [facility] Last Admin: 12/30/17 14:40 Dose: 300 mg Heparin Sodium (Porcine) (Heparin -) 5,000 unit SQ BID MICHEAL Last Admin: 12/30/17 09:24 Dose: 5,000 unit Ceftriaxone Sodium 1 gm/ (Dextrose) 50 mls @ 100 mls/hr IVPB DAILY [facility] Last Admin: 12/30/17 09:24 Dose: 100 mls/hr Insulin Aspart (Novolog Mix 70/30 Vial) 20 units SQ BIDAC [facility] Last Admin: 12/30/17 06:21 Dose: 20 units Insulin Aspart (Novolog Vial Sliding Scale -) 1 vial SQ ACHS MICHEAL PRN Reason: Protocol Last Admin: 12/30/17 11:48 Dose: 6 unit Levothyroxine Sodium (Synthroid -) 125 mcg PO HS [facility] Last Admin: 12/29/17 22:47 Dose: 125 mcg Melatonin (Melatonin) 5 mg PO HS PRN PRN Reason: INSOMNIA Last Admin: 12/29/17 22:48 Dose: 5 mg Metformin HCl (Glucophage -) 1,000 mg PO BIDAC [facility] Last Admin: 12/30/17 06:20 Dose: 1,000 mg Metoprolol Tartrate (Lopressor -) 25 mg PO [facility] Last Admin: 12/29/17 22:46 Dose: 25 mg Montelukast Sodium (Singulair -) 10 mg PO HS [facility] Last Admin: 12/29/17 22:46 Dose: 10 mg Nifedipine (Procardia Xl -) 60 mg PO [facility] Last Admin: 12/29/17 22:46 Dose: 60 mg Oxycodone HCl (Roxicodone -) 5 mg PO Q6H PRN PRN Reason: PAIN LEVEL 6-10 Last Admin: 12/29/17 22:47 Dose: 5 mg Tizanidine HCl (Tizanidine Hcl) 2 mg PO TID [facility] Last Admin: 12/30/17 14:40 Dose: 2 mg - Objective Vital Signs: Vital Signs Temperature 98.5 F 12/30/17 14:40 Pulse Rate 68 12/30/17 14:40 Respiratory Rate 20 12/30/17 14:40 Blood Pressure 183/76 12/30/17 14:40 O2 Sat by Pulse Oximetry (%) 94 L 12/30/17 10:00 Constitutional: Yes: No Distress, Calm, Obese Neck: Yes: Supple Cardiovascular: Yes: Regular Rate and Rhythm Respiratory: Yes: Regular, CTA Bilaterally Gastrointestinal: Yes: Normal Bowel Sounds, Soft Musculoskeletal: Yes: WNL Extremities: Yes: WNL Neurological: Yes: Alert, Oriented Psychiatric: Yes: Alert, Oriented Labs: CBC, BMP 12/30/17 06:42 12/30/17 06:42 INR, PTT INR 1.13 (0.82-1.09) 12/28/17 17:30 Assessment/Plan Problem List - Problems (1) UTI (urinary tract infection) Code(s): N39.0 - URINARY TRACT INFECTION, SITE NOT SPECIFIED Qualifiers: Urinary tract infection type: site unspecified Hematuria presence: without hematuria Qualified Code(s): N39.0 - Urinary tract infection, site not specified (2) Diabetes Code(s): E11.9 - TYPE 2 DIABETES MELLITUS WITHOUT COMPLICATIONS (3) Graves' disease Code(s): E05.00 - THYROTOXICOSIS W DIFFUSE GOITER W/O THYROTOXIC CRISIS (4) Hypertension Code(s): I10 - ESSENTIAL (PRIMARY) HYPERTENSION (5) COPD (chronic obstructive pulmonary disease) Code(s): J44.9 - CHRONIC OBSTRUCTIVE PULMONARY DISEASE, UNSPECIFIED Assessment/Plan 62 y.o. female with PMH of DM, CVA on s/p TPA, Graves disease, COPD, nephrolithiasis, presenting with c/o chest tightness, Lt arm pain and weakness that began yesterday noted to have hyperglycemia and pyuria. plan continue current mgmt abx monitor for any symptoms await for cx report
--- NOTE | 2017-12-30 16:11 | CON.CARD ---
Consult Consult Specialty:: Cardiology dr. Nelson Reason for Consultation:: TIA chest pain - History of Present Illness History of Present Illness: The patient is a 62 year old female, with a significant past medical history of COPD, diabetes, CVA with TPA in 02/07, CVA in 04/09, valve replacement, graves, and cholecystectomy, who presents to the emergency department via EMS with, 5 hours of left sided chest and shoulder pain. As per EMS, the patient had hyperglycemia within the 380s. Within the emergency department, the patient reports left arm weakness beginning at 3pm. Secondary to her symptoms she reports, shortness of breath. The patient reports to have a left arm and leg deficit in the past secondary to her CVA, however, reports that her left arm feels weaker now. She denies recent fevers, chills, headache or dizziness. She denies recent nausea, vomit, diarrhea or constipation. She denies recent dysuria, frequency, urgency or hematuria. Primary Care Physician: Dr. 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: CVA, Other (Myasthenia Gravis) Cardio/Vascular: Yes: HTN Pulmonary: Yes: COPD Renal/: Yes: Renal Calculi, UTI Infectious Disease: Yes: Herpes Zoster Endocrine: Yes: Diabetes Mellitus - Past Surgical History Past Surgical History: Yes: Cholecystectomy, , Hernia Repair, Tonsillectomy, Tubal Ligation, Valve Replacement - Alcohol/Substance Use Hx Alcohol Use: No - Smoking History Smoking history: Current every day smoker Have you smoked in the past 12 months: Yes Aproximately how many cigarettes per day: 10 - Social History Usual Living Arrangement: With Spouse ADL: Independent 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, 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 [employer] Home Medications - Allergies Allergies/Adverse Reactions: Allergies Allergy/AdvReac Type Severity Reaction Status Date / Time WILD Inhibitors Allergy Verified 12/28/17 17:07 Penicillins Allergy Rash Verified 12/28/17 17:07 aspirin AdvReac Verified 12/28/17 17:07 - Home Medications Home Medications: Ambulatory Orders Clopidogrel Bisulfate [Plavix -] 75 mg PO HS 06/04/12 Levothyroxine [Synthroid -] 0.125 mg PO HS 06/04/12 Metformin HCl [Riomet] 500 mg PO BID 06/04/12 Pyridostigmine [Mestinon -] 60 mg PO HS 06/04/12 Albuterol Sulfate [Proair Hfa -] 1 - 2 inh PO TID #0 06/11/12 Folic Acid 1 mg PO HS 06/10/16 Metoprolol Tartrate [Lopressor -] 25 mg PO HS 06/10/16 Mirtazapine 15 mg PO HS 06/10/16 Nifedipine [Procardia Xl] 60 mg PO HS 06/10/16 Albuterol Sulfate Inhaler - [Ventolin HFA Inhaler -] 2 puff IH Q4H PRN #0 inhaler 06/14/16 Insulin (Novolog 70/30) [Novolog Mix 70/30 Vial] 20 units SQ BIDAC #1 vial 06/14 Insulin Sliding Scale [Novolog Vial Sliding Scale -] 1 vial SQ TIDAC #1 units oxyCODONE HCL [Roxicodone -] 5 mg PO Q6H PRN #14 tablet MDD 4 06/14/16 Atorvastatin Ca [Lipitor] 20 mg PO HS 12/29/17 Gabapentin 300 mg PO TID 12/29/17 Montelukast Sodium [Singulair] 10 mg PO HS 12/29/17 Tizanidine HCl 2 TID 12/29/17 Tizanidine HCl 2 mg PO TID 12/29/17 Family Disease History - Family Disease History Family Disease History: Heart Disease: Father ([place]) Review of Systems - Review of Systems Constitutional: reports: No Symptoms Eyes: reports: No Symptoms HENT: reports: No Symptoms Neck: reports: No Symptoms Cardiovascular: reports: Chest Pain Gastrointestinal: reports: No Symptoms Genitourinary: reports: No Symptoms Breasts: reports: No Symptoms Reported Musculoskeletal: reports: No Symptoms Integumentary: reports: No Symptoms Neurological: reports: Weakness Endocrine: reports: No Symptoms Hematology/Lymphatic: reports: No Symptoms Psychiatric: reports: No Symptoms Vital Signs: Vital Signs Temperature 98.5 F 12/30/17 14:40 Pulse Rate 68 12/30/17 14:40 Respiratory Rate 20 12/30/17 14:40 Blood Pressure 183/76 12/30/17 14:40 O2 Sat by Pulse Oximetry (%) 94 L 12/30/17 10:00 Constitutional: Yes: Well Nourished, No Distress, Calm Eyes: Yes: WNL, Conjunctiva Clear, EOM Intact HENT: Yes: WNL, Atraumatic, Normocephalic Neck: Yes: WNL, Supple, Trachea Midline Respiratory: Yes: WNL, Regular, CTA Bilaterally Gastrointestinal: Yes: WNL, Normal Bowel Sounds Renal/: Yes: WNL Cardiovascular: Yes: WNL, Regular Rate and Rhythm Musculoskeletal: Yes: WNL Extremities: Yes: WNL Integumentary: Yes: WNL Neurological: Yes: WNL, Alert, Oriented ...Motor Strength: WNL Psychiatric: Yes: WNL, Alert, Oriented - Other Data Labs, Other Data: CBC, BMP 12/30/17 06:42 12/30/17 06:42 INR, PTT INR 1.13 (0.82-1.09) 12/28/17 17:30 Laboratory Tests 12/28/17 12/28/17 12/28/17 15:33 17:23 17:30 WBC 9.4 D RBC 5.28 H Hgb 16.4 H D Hct 48.0 H MCV 90.8 MCH 31.0 MCHC 34.1 RDW 14.2 Plt Count 129 L D MPV 11.2 H Neutrophils % 65.0 D Lymphocytes % 27.7 D Monocytes % 4.7 D Eosinophils % 1.3 D Basophils % 1.3 PT with INR INR VBG pH POC VBG pCO2 POC VBG pO2 Mixed VBG HCO3 Sodium Potassium Chloride Carbon Dioxide Anion Gap BUN Creatinine Creat Clearance w eGFR POC Glucometer [phone] Random Glucose Hemoglobin A1c % Calcium Total Bilirubin AST ALT Alkaline Phosphatase Creatine Kinase Troponin I Total Protein Albumin Triglycerides Cholesterol Total LDL Cholesterol HDL Cholesterol TSH Urine Color Ltyellow Urine Appearance Slcloudy Urine pH 7.0 D Ur Specific [place] 1.009 Urine Protein 1+ H Urine Glucose (UA) 3+ H Urine Ketones Negative Urine Blood 1+ H Urine Nitrite Positive Urine Bilirubin Negative Urine Urobilinogen Negative Ur Leukocyte Esterase 2+ H Urine WBC (Auto) 88 Urine RBC (Auto) 2 Ur Epithelial Cells Rare Urine Bacteria Many Urine Mucus Rare Urine Yeast Few Acetone, Qual Blood Type Antibody Screen 12/28/17 12/28/17 12/28/17 17:30 17:30 17:30 WBC RBC Hgb Hct MCV MCH MCHC RDW Plt Count MPV Neutrophils % Lymphocytes % Monocytes % Eosinophils % Basophils % PT with INR 12.80 H INR 1.13 VBG pH POC VBG pCO2 POC VBG pO2 Mixed VBG HCO3 Sodium 137 Potassium 3.7 Chloride 102 Carbon Dioxide 30 Anion Gap 5 L BUN 9 Creatinine 1.0 Creat Clearance w eGFR 56.18 POC Glucometer Random Glucose 296 H Hemoglobin A1c % Calcium 9.0 Total Bilirubin 0.6 AST 70 H ALT 72 Alkaline Phosphatase 163 H Creatine Kinase 146 Troponin I < 0.02 < 0.03 Total Protein 7.1 Albumin 3.9 Triglycerides 294 H Cholesterol 189 Total LDL Cholesterol 115 H HDL Cholesterol 35 L TSH Urine Color Urine Appearance Urine pH Ur Specific [place] Urine Protein Urine Glucose (UA) Urine Ketones Urine Blood Urine Nitrite Urine Bilirubin Urine Urobilinogen Ur Leukocyte Esterase Urine WBC (Auto) Urine RBC (Auto) Ur Epithelial Cells Urine Bacteria Urine Mucus Urine Yeast Acetone, Qual Blood Type Antibody Screen 12/28/17 12/28/17 12/28/17 17:30 17:30 17:30 WBC RBC Hgb Hct MCV MCH MCHC RDW Plt Count MPV Neutrophils % Lymphocytes % Monocytes % Eosinophils % Basophils % PT with INR INR VBG pH 7.36 POC VBG pCO2 51.7 POC VBG pO2 18.0 L* Mixed VBG HCO3 28.8 H Sodium Potassium Chloride Carbon Dioxide Anion Gap BUN Creatinine Creat Clearance w eGFR POC Glucometer Random Glucose Hemoglobin A1c % Calcium Total Bilirubin AST ALT Alkaline Phosphatase Creatine Kinase Troponin I Total Protein Albumin Triglycerides Cholesterol Total LDL Cholesterol HDL Cholesterol TSH Urine Color Urine Appearance Urine pH Ur Specific [place] Urine Protein Urine Glucose (UA) Urine Ketones Urine Blood Urine Nitrite Urine Bilirubin Urine Urobilinogen Ur Leukocyte Esterase Urine WBC (Auto) Urine RBC (Auto) Ur Epithelial Cells Urine Bacteria Urine Mucus Urine Yeast Acetone, Qual Negative L Blood Type O POSITIVE Antibody Screen Negative 12/28/17 12/29/17 12/29/17 Unknown 06:14 06:45 WBC 8.2 RBC 5.11 Hgb 15.7 H Hct 46.0 H MCV 90.1 MCH 30.7 MCHC 34.0 RDW 13.9 Plt Count 128 L MPV 10.8 Neutrophils % 62.8 Lymphocytes % 29.0 Monocytes % 5.5 Eosinophils % 1.5 Basophils % 1.2 PT with INR INR VBG pH POC VBG pCO2 POC VBG pO2 Mixed VBG HCO3 Sodium Potassium Chloride Carbon Dioxide Anion Gap BUN Creatinine Creat Clearance w eGFR POC Glucometer 333 Random Glucose Hemoglobin A1c % Calcium Total Bilirubin AST ALT Alkaline Phosphatase Creatine Kinase Troponin I Total Protein Albumin Triglycerides Cholesterol Total LDL Cholesterol HDL Cholesterol TSH 7.52 H Urine Color Urine Appearance Urine pH Ur Specific [place] Urine Protein Urine Glucose (UA) Urine Ketones Urine Blood Urine Nitrite Urine Bilirubin Urine Urobilinogen Ur Leukocyte Esterase Urine WBC (Auto) Urine RBC (Auto) Ur Epithelial Cells Urine Bacteria Urine Mucus Urine Yeast Acetone, Qual Blood Type Antibody Screen 12/29/17 12/29/17 12/30/17 06:45 16:54 06:11 WBC RBC Hgb Hct MCV MCH MCHC RDW Plt Count MPV Neutrophils % Lymphocytes % Monocytes % Eosinophils % Basophils % PT with INR INR VBG pH POC VBG pCO2 POC VBG pO2 Mixed VBG HCO3 Sodium 137 Potassium 3.5 Chloride 103 Carbon Dioxide 27 Anion Gap 7 L BUN 10 Creatinine 0.9 Creat Clearance w eGFR > 60 POC Glucometer 350 291 Random Glucose 329 H* Hemoglobin A1c % Calcium 8.9 Total Bilirubin 0.6 AST 60 H ALT 64 Alkaline Phosphatase 154 H Creatine Kinase Troponin I Total Protein 6.6 Albumin 3.7 Triglycerides Cholesterol Total LDL Cholesterol HDL Cholesterol TSH Urine Color Urine Appearance Urine pH Ur Specific [place] Urine Protein Urine Glucose (UA) Urine Ketones Urine Blood Urine Nitrite Urine Bilirubin Urine Urobilinogen Ur Leukocyte Esterase Urine WBC (Auto) Urine RBC (Auto) Ur Epithelial Cells Urine Bacteria Urine Mucus Urine Yeast Acetone, Qual Blood Type Antibody Screen 12/30/17 12/30/17 12/30/17 06:42 06:42 06:42 WBC 8.9 RBC 5.20 Hgb 16.0 H Hct 47.3 H MCV 91.0 MCH 30.7 MCHC 33.7 RDW 14.0 Plt Count 140 MPV 10.9 Neutrophils % 56.1 Lymphocytes % 35.2 D Monocytes % 5.6 Eosinophils % 1.5 Basophils % 1.6 PT with INR INR VBG pH POC VBG pCO2 POC VBG pO2 Mixed VBG HCO3 Sodium 136 Potassium 3.5 Chloride 101 Carbon Dioxide 23 Anion Gap 12 BUN 17 Creatinine 1.1 H Creat Clearance w eGFR 50.33 POC Glucometer Random Glucose 290 H Hemoglobin A1c % 10.7 H Calcium 9.3 Total Bilirubin 0.4 D AST 77 H ALT 65 Alkaline Phosphatase 163 H Creatine Kinase Troponin I Total Protein 6.6 Albumin 3.7 Triglycerides Cholesterol Total LDL Cholesterol HDL Cholesterol TSH 29.80 H Urine Color Urine Appearance Urine pH Ur Specific [place] Urine Protein Urine Glucose (UA) Urine Ketones Urine Blood Urine Nitrite Urine Bilirubin Urine Urobilinogen Ur Leukocyte Esterase Urine WBC (Auto) Urine RBC (Auto) Ur Epithelial Cells Urine Bacteria Urine Mucus Urine Yeast Acetone, Qual Blood Type Antibody Screen 12/30/17 11:45 WBC RBC Hgb Hct MCV MCH MCHC RDW Plt Count MPV Neutrophils % Lymphocytes % Monocytes % Eosinophils % Basophils % PT with INR INR VBG pH POC VBG pCO2 POC VBG pO2 Mixed VBG HCO3 Sodium Potassium Chloride Carbon Dioxide Anion Gap BUN Creatinine Creat Clearance w eGFR POC Glucometer 207 Random Glucose Hemoglobin A1c % Calcium Total Bilirubin AST ALT Alkaline Phosphatase Creatine Kinase Troponin I Total Protein Albumin Triglycerides Cholesterol Total LDL Cholesterol HDL Cholesterol TSH Urine Color Urine Appearance Urine pH Ur Specific [place] Urine Protein Urine Glucose (UA) Urine Ketones Urine Blood Urine Nitrite Urine Bilirubin Urine Urobilinogen Ur Leukocyte Esterase Urine WBC (Auto) Urine RBC (Auto) Ur Epithelial Cells Urine Bacteria Urine Mucus Urine Yeast Acetone, Qual Blood Type Antibody Screen Imaging - Results Chest X-ray: Image Reviewed (no i/e) EKG: Image Reviewed (sr apc's old septal NE) Problem List - Problems (1) COPD (chronic obstructive pulmonary disease) Code(s): J44.9 - CHRONIC OBSTRUCTIVE PULMONARY DISEASE, UNSPECIFIED (2) Chest pain Code(s): R07.9 - CHEST PAIN, UNSPECIFIED (3) UTI (urinary tract infection) Code(s): N39.0 - URINARY TRACT INFECTION, SITE NOT SPECIFIED Qualifiers: Qualified Code(s): N39.0 - Urinary tract infection, site not specified (4) Weakness Code(s): R53.1 - WEAKNESS (5) Angioedema Code(s): T78.3XXA - ANGIONEUROTIC EDEMA, INITIAL ENCOUNTER Qualifiers: Qualified Code(s): T78.3XXA - Angioneurotic edema, initial encounter (6) DVT prophylaxis Code(s): KJD9906 - (7) Diabetes Code(s): E11.9 - TYPE 2 DIABETES MELLITUS WITHOUT COMPLICATIONS (8) Graves' disease Code(s): E05.00 - THYROTOXICOSIS W DIFFUSE GOITER W/O THYROTOXIC CRISIS (9) Hypertension Code(s): I10 - ESSENTIAL (PRIMARY) HYPERTENSION (10) Myasthenia gravis Code(s): G70.00 - MYASTHENIA GRAVIS WITHOUT (ACUTE) EXACERBATION Assessment/Plan COPD, diabetes mellitus, CVA with TPA in 02/07, CVA in 04/09, valve replacement, graves, and cholecystectomy, TIA r/o NE negative Plan telemetry echo records of prior cardiac w/u cont plavix and dipiramidole will need a stress test if not done recently neurology f/u
[2017-12-30] MEDS ORDERED: INSULIN (NOVOLOG) ASPART 100 UNITS/ML 10ML VIAL ONE (21:22)
--- NOTE | 2017-12-30 21:28 | HOSP ---
Subjective - Review of Symptoms Events since last encounter: Hospitalist Encounter Was notified by the RN to review an EKG that was ordered due to the patient having irregularities on the monitoring specialist The EKG was ordered by GRADING SUPERVISOR Resendez the environmental services associate provider. Physical Examination Vital Signs: Vital Signs Temperature 98.1 F 12/30/17 19:36 Pulse Rate 61 12/30/17 19:36 Respiratory Rate 18 12/30/17 19:36 Blood Pressure 130/67 12/30/17 19:36 O2 Sat by Pulse Oximetry (%) 94 L 12/30/17 10:00 Labs: CBC, BMP 12/30/17 06:42 12/30/17 06:42
[2017-12-30] MEDS: METOPROLOL TARTRATE 25 MG TABLET (FP) PO SCH (21:31)
[2017-12-30] MEDS: MONTELUKAST NA 10 MG TABLET PO SCH (21:32)
[2017-12-30] MEDS: LEVOTHYROXINE NA 125 MCG TABLET (FP) PO SCH (21:32)
[2017-12-30] MEDS: CLOPIDOGREL BISULFATE 75 MG TABLET (FP) PO SCH (21:32)
[2017-12-30] MEDS: FOLIC ACID 1 MG TABLET (FP) PO SCH (21:32)
[2017-12-30] MEDS: NIFEdipine E.R 60 MG TABLET (UD) PO SCH (21:32)
[2017-12-30] MEDS: ATORVASTATIN CA 20 MG TABLET (FP) PO SCH (21:32)
[2017-12-30] MEDS: MELATONIN 5 MG TABLETS PO PRN (21:34)
[2017-12-30] MEDS ORDERED: diphenhydrAMINE HCL 25 MG CAPSULE (FP) PO SCH (22:00)
[2017-12-31] MEDS ORDERED: PT OWN MED DRAWER 7, Y5N ONE ×3 (06:14→21:11)
[2017-12-31] MEDS: GABAPENTIN 300 MG CAPSULE (FP) PO SCH ×3 (06:28→21:22)
[2017-12-31] MEDS: metFORMIN HCL 500 MG TABLET (FP) PO SCH ×2 (06:28→17:09)
[2017-12-31] MEDS: TIZANIDINE HCL 2 MG TABLET PO SCH ×3 (06:29→21:28)
[2017-12-31] MEDS: INSULIN (NOVOLOG MIX 70/30) 100 UNITS/ML MDV SQ SCH ×2 (06:29→17:15)
[2017-12-31] MEDS: INSULIN SLIDING SCALE (NOVOLOG) 1 VIAL SQ SCH ×4 (06:31→21:25)
[2017-12-31] MEDS ORDERED: cefTRIAXone SODIUM 1 GM VIAL ONE (09:02)
[2017-12-31] MEDS ORDERED: DEXTROSE 5%-WATER - 50 ML IVPB ONE (09:03)
[2017-12-31 09:06] LABS: BASO % 1.5 % (0-2.0); EOS % 1.9 % (0-4.5); HEMATOCRIT 47.4 % (32.4-45.2); HEMOGLOBIN 16.1 GM/dL (10.7-15.3); LYMPH % 29.9 % (8-40); MCH 30.8 pg (25.7-33.7); MCHC 33.9 g/dl (32.0-36.0); MEAN CELL VOLUME 90.8 fl (80-96); MEAN PLT VOLUME 11.1 fl (7.5-11.1); MONO % 5.7 % (3.8-10.2); PLATELET COUNT 147 K/MM3 (134-434); RBC 5.22 M/mm3 (3.60-5.2); WHITE BLOOD COUNT 8.5 K/mm3 (4.0-10.0)
[2017-12-31] MEDS: HEPARIN NA (PORCINE) 5,000 UNITS/ML 1ML VIAL SQ SCH ×2 (09:26→21:22)
[2017-12-31] MEDS: CEFTRIAXONE 1 GM in DEXTROSE 5%-WATER - 50 ML IVPB SCH (09:26)
[2017-12-31 09:30] LABS: ANION GAP 6 (8-16); CHLORIDE 106 mmol/L (98-107); CO2 27 mmol/L (21-32); SODIUM 139 mmol/L (136-145)
[2017-12-31 09:39] LABS: ALBUMIN 3.5 g/dl (3.4-5.0); ALK PHOS 147 U/L (45-117); BILIRUBIN,TOTAL 0.5 mg/dL (0.2-1.0); BLOOD UREA NITROGEN 17 mg/dL (7-18); CREATININE 0.9 mg/dL (0.55-1.02); GLUCOSE,RANDOM 131 mg/dL (74-106); MAGNESIUM 1.6 mg/dL (1.8-2.4); SGOT/AST 90 U/L (15-37); SGPT/ALT 64 U/L (12-78); TOT PROT 6.3 g/dl (6.4-8.2)
[2017-12-31] MEDS ORDERED: SODIUM CHLORIDE 250 ML IV STA (10:04)
--- NOTE | 2017-12-31 10:04 | PN ---
Physical Exam: SUBJECTIVE: Patient seen and examined. Called by primary RN that patient was hypotensive this a.m. Patient received Lopressor, oxycodone, Melatonin and Benadryl overnight which may be causing her hypotension as well as dizziness. OBJECTIVE: Patient awake, alert, facial symmetry, no slurred speech Will stop sedating meds, and add parameters to lopressor and other cardiac medications Give 250cc fluid bolus now Hypomag @ 1.6, give Mag 2 grams now Monitor BP Vital Signs Period Temp Pulse Resp BP Sys/Hein Pulse Ox Last 24 Hr 97.6 F-98.7 F 60-68 16-20 87-183/40-79 95 GENERAL: The patient is awake, alert, and fully oriented, in no acute distress. HEAD: Normal with no signs of trauma. EYES: PERRL, extraocular movements intact, sclera anicteric, conjunctiva clear. No ptosis. ENT: Ears normal, nares patent, oropharynx clear without exudates, moist mucous membranes. NECK: Trachea midline, full range of motion, supple. LUNGS: Breath sounds equal, clear to auscultation bilaterally, no wheezes, no crackles, no accessory muscle use. HEART: Regular rate and rhythm ABDOMEN: Soft, nontender, nondistended, normoactive bowel sounds, no guarding, no rebound, no hepatosplenomegaly, no masses. EXTREMITIES: left leg with non pitting edema, left ided weakness left arm 3/5, left leg 3/5, right arm 5/5, right leg 5/5 NEUROLOGICAL: Normal speech, gait not observed. PSYCH: Normal mood, normal affect. SKIN: Warm, dry, normal turgor, no rashes or lesions noted Laboratory Results - last 24 hr 12/30/17 12/30/17 12/30/17 06:42 11:45 16:53 WBC RBC Hgb Hct MCV MCH MCHC RDW Plt Count MPV Neutrophils % Lymphocytes % Monocytes % Eosinophils % Basophils % Sodium Potassium Chloride Carbon Dioxide Anion Gap BUN Creatinine Creat Clearance w eGFR POC Glucometer 207 234 Random Glucose Hemoglobin A1c % 10.7 H Calcium Magnesium Total Bilirubin AST ALT Alkaline Phosphatase Total Protein Albumin 12/30/17 12/31/17 12/31/17 21:28 06:09 08:35 WBC 8.5 RBC 5.22 H Hgb 16.1 H Hct 47.4 H MCV 90.8 MCH 30.8 MCHC 33.9 RDW 14.0 Plt Count 147 MPV 11.1 Neutrophils % 61.0 Lymphocytes % 29.9 Monocytes % 5.7 Eosinophils % 1.9 Basophils % 1.5 Sodium Potassium Chloride Carbon Dioxide Anion Gap BUN Creatinine Creat Clearance w eGFR POC Glucometer 190 175 Random Glucose Hemoglobin A1c % Calcium Magnesium Total Bilirubin AST ALT Alkaline Phosphatase Total Protein Albumin 12/31/17 08:35 WBC RBC Hgb Hct MCV MCH MCHC RDW Plt Count MPV Neutrophils % Lymphocytes % Monocytes % Eosinophils % Basophils % Sodium 139 Potassium 4.0 Chloride 106 Carbon Dioxide 27 Anion Gap 6 L BUN 17 Creatinine 0.9 Creat Clearance w eGFR > 60 POC Glucometer Random Glucose 131 H Hemoglobin A1c % Calcium 10.0 Magnesium 1.6 L Total Bilirubin 0.5 D AST 90 H ALT 64 Alkaline Phosphatase 147 H Total Protein 6.3 L Albumin 3.5 Active Medications Generic Name Dose Route Start Last Admin Trade Name Freq PRN Reason Stop Dose Admin Albuterol Sulfate 2 puff 12/29/17 22:34 12/30/17 21:40 Ventolin Hfa Inhaler - IH 2 inh Q6H PRN Administration SHORTNESS OF BREATH Atorvastatin Calcium 20 mg 12/29/17 22:00 12/30/17 21:32 Lipitor - PO 20 mg HS MICHEAL Administration Clopidogrel Bisulfate 75 mg 12/29/17 22:00 12/30/17 21:32 Plavix - PO 75 mg HS MICHEAL Administration Folic Acid 1 mg 12/29/17 22:00 12/30/17 21:32 Folic Acid - PO 1 mg HS MICHEAL Administration Gabapentin 300 mg 12/29/17 06:00 12/31/17 06:28 Neurontin - PO 300 mg TID MICHEAL Administration Heparin Sodium (Porcine) 5,000 unit 12/29/17 10:00 12/31/17 09:26 Heparin - SQ 5,000 unit BID MICHEAL Administration Ceftriaxone Sodium 1 gm/ 50 mls @ 100 mls/hr 12/29/17 10:00 12/31/17 09:26 Dextrose IVPB 100 mls/hr DAILY MICHEAL Administration Insulin Aspart 20 units 12/29/17 07:00 12/31/17 06:29 Novolog Mix 70/30 Vial SQ 20 units BIDAC MICHEAL Administration Insulin Aspart 1 vial 12/30/17 08:08 12/31/17 06:31 Novolog Vial Sliding Scale - SQ 4 units ACHS MICHEAL Administration Protocol Levothyroxine Sodium 125 mcg 12/29/17 22:00 12/30/17 21:32 Synthroid - PO 125 mcg HS MICHEAL Administration Magnesium Sulfate 2 gm 12/31/17 10:01 Magnesium Sulfate IVPB 12/31/17 10:02 ONCE ONE Metformin HCl 1,000 mg 12/29/17 16:30 12/31/17 06:28 Glucophage - PO 1,000 mg BIDAC MICHEAL Administration Metoprolol Tartrate 25 mg 12/31/17 10:02 Lopressor - PO HS MICHEAL Montelukast Sodium 10 mg 12/29/17 22:00 12/30/17 21:32 Singulair - PO 10 mg HS MICHEAL Administration Nifedipine 60 mg 12/29/17 22:00 12/30/17 21:32 Procardia Xl - PO 60 mg HS MICHEAL Administration Oxycodone HCl 5 mg 12/29/17 02:00 12/29/17 22:47 Roxicodone - PO 5 mg Q6H PRN Administration PAIN LEVEL 6-10 Tizanidine HCl 2 mg 12/29/17 06:00 12/31/17 06:29 Tizanidine Hcl PO 2 mg TID MICHEAL Administration ASSESSMENT/PLAN: Patient is a 62 year old female with a significant past medical history of 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 She presents to the ED with left arm shoulder pain radiating down to her left arm and tingling and numbness to her fingers. Also reported chest pain on admission. In the ED she was noted to be hyperglycemic with glucose in the 350s range. Cardiology: Chest pain, left arm pain Monitor on tele, noted to be SB 50s today Noted to have left arm weakness 3/5 which appears to be chronic Echo EF 55-60%, trace MR, no pericardial effusion, no changes since previous echo 2011 Cardiology following Troponins neg x 2 Hypertension, chronic Hypotensive today, likely secondary to sedating meds overnight with cardiac meds Stop sedating meds, add parameters to BP meds BP now improved Hyperlipidemia On Lipitor @ HS Vascular Left lower leg weaker, now slightly more edematous with intermittent pain Doppler ordered to r/o DVT Neuro: Left arm weakness/left leg weakness Rule out acute CVA Cardotid doppler with no stenosis On Lipitor, has ASA allergy Physical therapy daily Pulm COPD, chronic Tolerating room air, not in exacerbation Endo: TSH elevation, hx of Graves dx Endocrinology consult with Dr. Thompson Continue synthroid at current dose until endocrine evaluates Diabetes Mellitus Increased Novolog SS for elevated blood sugars, on Metformin On 70/30 BID Monitor BGMs Diabetic diet HmgA1c 10.7 F.E.N. Fluids: tolerating PO Electrolytes: monitor Nutrition: diabetic Prophy: DVT: Heparin BID Disposition: full code Visit type - Emergency Visit Emergency Visit: Yes ED Registration Date: 12/28/17 Care time: The patient presented to the Emergency Department on the above date and was hospitalized for further evaluation of their emergent condition. - New Patient This patient is new to me today: No - Critical Care Critical Care patient: No - Discharge Referral Referred to [facility] No
--- NOTE | 2017-12-31 10:08 | EKG ---
Test Reason : Blood Pressure : / mmHG Vent. Rate : 062 BPM Atrial Rate : 062 BPM P-R Int : 164 ms QRS Dur : 096 ms QT Int : 434 ms P-R-T Axes : -04 -25 104 degrees QTc Int : 440 ms SINUS RHYTHM WITH PREMATURE ATRIAL COMPLEXES T WAVE ABNORMALITY, CONSIDER LATERAL ISCHEMIA ABNORMAL ECG Confirmed by Royce Cleaning MD ([id number]) on 12/31/2017 10:07:58 AM Referred By: Confirmed By:Royce Cleaning MD
[2017-12-31] MEDS ORDERED: MAGNESIUM 2GM/50ML STERILE WATER IVPB IVPB ONE (11:00)
[2017-12-31] MEDS ORDERED: INSULIN (NOVOLOG) ASPART 100 UNITS/ML 10ML VIAL ONE ×2 (12:48→21:10)
--- NOTE | 2017-12-31 14:01 | PN ---
Progress Note, Physician History of Present Illness: patient doing well no complaints feels much better today - Current Medication List Current Medications: Active Medications Albuterol Sulfate (Ventolin Hfa Inhaler -) 2 puff IH Q6H PRN PRN Reason: SHORTNESS OF BREATH Last Admin: 12/30/17 21:40 Dose: 2 inh Atorvastatin Calcium (Lipitor -) 20 mg PO HS [facility] Last Admin: 12/30/17 21:32 Dose: 20 mg Clopidogrel Bisulfate (Plavix -) 75 mg PO HS [facility] Last Admin: 12/30/17 21:32 Dose: 75 mg Folic Acid (Folic Acid -) 1 mg PO HS [facility] Last Admin: 12/30/17 21:32 Dose: 1 mg Gabapentin (Neurontin -) 300 mg PO TID [facility] Last Admin: 12/31/17 06:28 Dose: 300 mg Heparin Sodium (Porcine) (Heparin -) 5,000 unit SQ BID [facility] Last Admin: 12/31/17 09:26 Dose: 5,000 unit Ceftriaxone Sodium 1 gm/ (Dextrose) 50 mls @ 100 mls/hr IVPB DAILY [facility] Last Admin: 12/31/17 09:26 Dose: 100 mls/hr Insulin Aspart (Novolog Mix 70/30 Vial) 20 units SQ BIDAC [facility] Last Admin: 12/31/17 06:29 Dose: 20 units Insulin Aspart (Novolog Vial Sliding Scale -) 1 vial SQ ACHS [facility] PRN Reason: Protocol Last Admin: 12/31/17 12:49 Dose: 4 units Levothyroxine Sodium (Synthroid -) 125 mcg PO [facility] Last Admin: 12/30/17 21:32 Dose: 125 mcg Metformin HCl (Glucophage -) 1,000 mg PO BIDAC [facility] Last Admin: 12/31/17 06:28 Dose: 1,000 mg Metoprolol Tartrate (Lopressor -) 25 mg PO HS [facility] Montelukast Sodium (Singulair -) 10 mg PO [facility] Last Admin: 12/30/17 21:32 Dose: 10 mg Nifedipine (Procardia Xl -) 60 mg PO HS [facility] Oxycodone HCl (Roxicodone -) 5 mg PO Q6H PRN PRN Reason: PAIN LEVEL 6-10 Last Admin: 12/29/17 22:47 Dose: 5 mg Tizanidine HCl (Tizanidine Hcl) 2 mg PO TID [facility] Last Admin: 12/31/17 06:29 Dose: 2 mg - Objective Vital Signs: Vital Signs Temperature 98.2 F 12/31/17 09:50 Pulse Rate 64 12/31/17 09:50 Respiratory Rate 16 12/31/17 09:50 Blood Pressure 95/41 12/31/17 09:50 O2 Sat by Pulse Oximetry (%) 95 12/30/17 21:00 Constitutional: Yes: No Distress, Calm, Obese Cardiovascular: Yes: Regular Rate and Rhythm Respiratory: Yes: Regular, CTA Bilaterally Gastrointestinal: Yes: Normal Bowel Sounds, Soft Musculoskeletal: Yes: WNL Extremities: Yes: WNL Neurological: Yes: Alert, Oriented Psychiatric: Yes: Alert, Oriented Labs: CBC, BMP 12/31/17 08:35 12/31/17 08:35 INR, PTT INR 1.13 (0.82-1.09) 12/28/17 17:30 Assessment/Plan Problem List - Problems (1) UTI (urinary tract infection) Code(s): N39.0 - URINARY TRACT INFECTION, SITE NOT SPECIFIED Qualifiers: Urinary tract infection type: site unspecified Hematuria presence: without hematuria Qualified Code(s): N39.0 - Urinary tract infection, site not specified (2) Diabetes Code(s): E11.9 - TYPE 2 DIABETES MELLITUS WITHOUT COMPLICATIONS (3) Graves' disease Code(s): E05.00 - THYROTOXICOSIS W DIFFUSE GOITER W/O THYROTOXIC CRISIS (4) Hypertension Code(s): I10 - ESSENTIAL (PRIMARY) HYPERTENSION (5) COPD (chronic obstructive pulmonary disease) Code(s): J44.9 - CHRONIC OBSTRUCTIVE PULMONARY DISEASE, UNSPECIFIED Assessment/Plan 62 y.o. female with PMH of DM, CVA on s/p TPA, Graves disease, COPD, nephrolithiasis, presenting with c/o chest tightness, Lt arm pain and weakness that began yesterday noted to have hyperglycemia and pyuria. plan cx reports noted abx will consider stopping abx after tomorrows dose
--- NOTE | 2017-12-31 17:35 | PN ---
Progress Note, Physician Chief Complaint: Pt A&Ox3; no chest pain or dyspnea presently. History of Present Illness: The patient is an 62 year old white female, with a significant past medical history of diabetes, CVA with TPA in 02/07, CVA in 04/09, valve repair (?mitral), Grave's disease, bronchial asthma, COPD (cut down, but still smokes 1/2 ppd.) and cholecystectomy, who presents to the emergency department via EMS with, 5 hours of left sided chest and shoulder pain. As per EMS, the patient had hyperglycemia >300. Within the emergency department, the patient reports left arm weakness beginning at 3pm. Secondary to her symptoms she reports, shortness of breath. The patient reports to have a left arm and leg deficit in the past secondary to her CVA, however, reports that her left arm feels weaker now. She denies recent fevers, chills, headache or dizziness. She denies recent nausea, vomit, diarrhea or constipation. She denies recent dysuria, frequency, urgency or hematuria. Primary Care Physician: Dr. Gregg Patten Cardiologistr: Dr. Nelson - Current Medication List Current Medications: Active Medications Albuterol Sulfate (Ventolin Hfa Inhaler -) 2 puff IH Q6H PRN PRN Reason: SHORTNESS OF BREATH Last Admin: 12/30/17 21:40 Dose: 2 inh Atorvastatin Calcium (Lipitor -) 20 mg PO HS [facility] Last Admin: 12/30/17 21:32 Dose: 20 mg Clopidogrel Bisulfate (Plavix -) 75 mg PO HS [facility] Last Admin: 12/30/17 21:32 Dose: 75 mg Folic Acid (Folic Acid -) 1 mg PO HS [facility] Last Admin: 12/30/17 21:32 Dose: 1 mg Gabapentin (Neurontin -) 300 mg PO TID [facility] Last Admin: 12/31/17 17:13 Dose: 300 mg Heparin Sodium (Porcine) (Heparin -) 5,000 unit SQ BID [facility] Last Admin: 12/31/17 09:26 Dose: 5,000 unit Ceftriaxone Sodium 1 gm/ (Dextrose) 50 mls @ 100 mls/hr IVPB DAILY [facility] Last Admin: 12/31/17 09:26 Dose: 100 mls/hr Insulin Aspart (Novolog Mix 70/30 Vial) 20 units SQ BIDAC [facility] Last Admin: 12/31/17 17:15 Dose: 20 units Insulin Aspart (Novolog Vial Sliding Scale -) 1 vial SQ ACHS [facility] PRN Reason: Protocol Last Admin: 12/31/17 17:13 Dose: 4 units Levothyroxine Sodium (Synthroid -) 125 mcg PO HS [facility] Last Admin: 12/30/17 21:32 Dose: 125 mcg Metformin HCl (Glucophage -) 1,000 mg PO BIDAC [facility] Last Admin: 12/31/17 17:09 Dose: 1,000 mg Metoprolol Tartrate (Lopressor -) 25 mg PO HS [facility] Montelukast Sodium (Singulair -) 10 mg PO HS [facility] Last Admin: 12/30/17 21:32 Dose: 10 mg Nifedipine (Procardia Xl -) 60 mg PO HS [facility] Oxycodone HCl (Roxicodone -) 5 mg PO Q6H PRN PRN Reason: PAIN LEVEL 6-10 Last Admin: 12/29/17 22:47 Dose: 5 mg Tizanidine HCl (Tizanidine Hcl) 2 mg PO TID [facility] Last Admin: 12/31/17 17:17 Dose: 2 mg - Objective Vital Signs: Vital Signs Temperature 98.1 F 12/31/17 14:24 Pulse Rate 70 12/31/17 14:24 Respiratory Rate 16 12/31/17 14:24 Blood Pressure 134/68 12/31/17 14:24 O2 Sat by Pulse Oximetry (%) 95 12/31/17 10:00 Constitutional: Yes: Obese Eyes: Yes: WNL HENT: Yes: WNL Neck: Yes: WNL Cardiovascular: Yes: Regular Rate and Rhythm Respiratory: Yes: SOB Gastrointestinal: Yes: Soft, Abdomen, Obese ...Rectal Exam: Yes: Deferred Genitourinary: No: Anuria Breast(s): Yes: WNL Musculoskeletal: Yes: WNL Extremities: Yes: WNL Edema: Yes Edema: LLE: Trace, RLE: Trace Peripheral Pulses WNL: Yes Integumentary: Yes: WNL Neurological: Yes: WNL Psychiatric: Yes: WNL Labs: CBC, BMP 12/31/17 08:35 12/31/17 08:35 INR, PTT INR 1.13 (0.82-1.09) 12/28/17 17:30 - ....Imaging Chest X-ray: Image Reviewed (no acute pathology) Ultrasound: Image Reviewed (no significant carotid artery stenoses) EKG: Image Reviewed (NSR; T wave changes: r/o lateral ischemia) Problem List - Problems (1) Morbid obesity Assessment/Plan: diet change, weight loss will be essential Code(s): E66.01 - MORBID (SEVERE) OBESITY DUE TO EXCESS CALORIES (2) COPD (chronic obstructive pulmonary disease) Assessment/Plan: still smokes; does not want patch or pill presntly Code(s): J44.9 - CHRONIC OBSTRUCTIVE PULMONARY DISEASE, UNSPECIFIED (3) Chest pain Assessment/Plan: TNI < 0.02; f/u serially. EKG: NSR: lateral T wave changes. Multiple CAD risks; last stress test ? 2 [address] Nelson: will do stress MIBI. Code(s): R07.9 - CHEST PAIN, UNSPECIFIED (4) Diabetes Code(s): E11.9 - TYPE 2 DIABETES MELLITUS WITHOUT COMPLICATIONS (5) Graves' disease Assessment/Plan: f/u free Te and Free T4; TSH ? 5-20 within 24 hours Code(s): E05.00 - THYROTOXICOSIS W DIFFUSE GOITER W/O THYROTOXIC CRISIS (6) Hypertension Code(s): I10 - ESSENTIAL (PRIMARY) HYPERTENSION
[2017-12-31] MEDS: FOLIC ACID 1 MG TABLET (FP) PO SCH (21:22)
[2017-12-31] MEDS: LEVOTHYROXINE NA 125 MCG TABLET (FP) PO SCH (21:22)
[2017-12-31] MEDS: NIFEdipine E.R 60 MG TABLET (UD) PO SCH (21:22)
[2017-12-31] MEDS: ATORVASTATIN CA 20 MG TABLET (FP) PO SCH (21:22)
[2017-12-31] MEDS: CLOPIDOGREL BISULFATE 75 MG TABLET (FP) PO SCH (21:22)
[2017-12-31] MEDS: METOPROLOL TARTRATE 25 MG TABLET (FP) PO SCH (21:22)
[2017-12-31] MEDS: ALBUTEROL SO4 18 GM HFA INHALER IH PRN (21:22)
[2017-12-31] MEDS: MONTELUKAST NA 10 MG TABLET PO SCH (21:22)
--- NOTE | 2018-01-01 02:46 | CONSULT ---
Consult Consult Specialty:: ENDOCRINE Referred by:: DR.ROCCO GUTHRIE Reason for Consultation:: HYPOTHYROIDISM - History of Present Illness Chief Complaint: WEAKNESS,AND CHEST PAIN History of Present Illness: 62 y.o. female with PMH of CVA x 2 on TPA in 2010 with Lt hemiplegia, DM, Graves Disease, valve repair (unclear which), COPD, active smoker, herpes zoster last year, nephrolithiasis 3 yrs ago, previous UTIs presenting with c/o chest tightness and Lt shoulder pain extending down her Lt arm with tingling sensation in her fingers. 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, Other (Myasthenia Gravis) Cardio/Vascular: Yes: HTN Pulmonary: Yes: COPD Renal/: Yes: Renal Calculi, UTI Infectious Disease: Yes: Herpes Zoster Endocrine: Yes: Diabetes Mellitus - Past Surgical History Past Surgical History: Yes: Cholecystectomy, , Hernia Repair, Tonsillectomy, Tubal Ligation, Valve Replacement - Alcohol/Substance Use Hx Alcohol Use: No - Smoking History Smoking history: Current every day smoker Have you smoked in the past 12 months: Yes Aproximately how many cigarettes per day: 10 - Social History Usual Living Arrangement: With Spouse ADL: Independent 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, 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 Home Medications - Allergies Allergies/Adverse Reactions: Allergies Allergy/AdvReac Type Severity Reaction Status Date / Time WILD Inhibitors Allergy Verified 12/28/17 17:07 Penicillins Allergy Rash Verified 12/28/17 17:07 aspirin AdvReac Verified 12/28/17 17:07 - Home Medications Home Medications: Ambulatory Orders Clopidogrel Bisulfate [Plavix -] 75 mg PO HS 06/04/12 Levothyroxine [Synthroid -] 0.125 mg PO HS 06/04/12 Metformin HCl [Riomet] 500 mg PO BID 06/04/12 Pyridostigmine [Mestinon -] 60 mg PO HS 06/04/12 Albuterol Sulfate [Proair Hfa -] 1 - 2 inh PO TID #0 06/11/12 Folic Acid 1 mg PO HS 06/10/16 Metoprolol Tartrate [Lopressor -] 25 mg PO HS 06/10/16 Mirtazapine 15 mg PO HS 06/10/16 Nifedipine [Procardia Xl] 60 mg PO HS 06/10/16 Albuterol Sulfate Inhaler - [Ventolin HFA Inhaler -] 2 puff IH Q4H PRN #0 inhaler 06/14/16 Insulin (Novolog 70/30) [Novolog Mix 70/30 Vial] 20 units SQ BIDAC #1 vial 06/14 Insulin Sliding Scale [Novolog Vial Sliding Scale -] 1 vial SQ TIDAC #1 units oxyCODONE HCL [Roxicodone -] 5 mg PO Q6H PRN #14 tablet MDD 4 06/14/16 Atorvastatin Ca [Lipitor] 20 mg PO HS 12/29/17 Gabapentin 300 mg PO TID 12/29/17 Montelukast Sodium [Singulair] 10 mg PO HS 12/29/17 Tizanidine HCl 2 TID 12/29/17 Tizanidine HCl 2 mg PO TID 12/29/17 Family Disease History - Family Disease History Family Disease History: Heart Disease: Father ([place]) Review of Systems - Review of Systems Constitutional: reports: Lethargy, Weakness Eyes: reports: Blurred Vision HENT: reports: No Symptoms Neck: reports: Pain on Movement Cardiovascular: reports: Edema Respiratory: reports: Exercise Intolerance, SOB on Exertion Gastrointestinal: reports: Abdominal Pain Genitourinary: reports: No Symptoms Breasts: reports: No Symptoms Reported Musculoskeletal: reports: Muscle Pain, Muscle Cramps, Muscle Weakness Integumentary: reports: No Symptoms Neurological: reports: Numbness, Weakness Endocrine: reports: Unexplained Weight Gain Physical Exam Vital Signs: Vital Signs Temperature 97.3 F L 01/01/18 02:35 Pulse Rate 55 L 01/01/18 02:35 Respiratory Rate 18 01/01/18 02:35 Blood Pressure 125/63 01/01/18 02:35 O2 Sat by Pulse Oximetry (%) 95 12/31/17 21:00 Constitutional: Yes: Well Nourished Eyes: Yes: EOM Intact, Other HENT: Yes: Normocephalic Neck: Yes: Trachea Midline Cardiovascular: Yes: Regular Rate and Rhythm Respiratory: Yes: CTA Bilaterally Gastrointestinal: Yes: Normal Bowel Sounds ...Rectal Exam: Yes: Deferred Renal/: Yes: WNL Musculoskeletal: Yes: WNL, Muscle Weakness Extremities: Yes: WNL Neurological: Yes: Alert, Oriented, Weakness Labs: CBC, BMP 12/31/17 08:35 12/31/17 08:35 Problem List - Problems (1) Hypothyroidism, unspecified Code(s): E03.9 - HYPOTHYROIDISM, UNSPECIFIED (2) COPD (chronic obstructive pulmonary disease) Code(s): J44.9 - CHRONIC OBSTRUCTIVE PULMONARY DISEASE, UNSPECIFIED (3) Chest pain Code(s): R07.9 - CHEST PAIN, UNSPECIFIED (4) Morbid obesity Code(s): E66.01 - MORBID (SEVERE) OBESITY DUE TO EXCESS CALORIES (5) UTI (urinary tract infection) Code(s): N39.0 - URINARY TRACT INFECTION, SITE NOT SPECIFIED Qualifiers: Urinary tract infection type: site unspecified Hematuria presence: without hematuria Qualified Code(s): N39.0 - Urinary tract infection, site not specified (6) Angioedema Code(s): T78.3XXA - ANGIONEUROTIC EDEMA, INITIAL ENCOUNTER Qualifiers: Encounter type: initial encounter Qualified Code(s): T78.3XXA - Angioneurotic edema, initial encounter Assessment/Plan Current Active Problems Bronchial asthma (Acute) COPD (chronic obstructive pulmonary disease) (Acute) Chest pain (Acute) Morbid obesity (Acute) UTI (urinary tract infection) (Acute) Weakness (Acute) diabetes mellitus hyperglycemia hypothyroidism sp i131 THERAPY Current Active Problems Laboratory Results - last 24 hr 12/31/17 12/31/17 12/31/17 06:09 08:30 08:35 WBC 8.5 RBC 5.22 H Hgb 16.1 H Hct 47.4 H MCV 90.8 MCH 30.8 MCHC 33.9 RDW 14.0 Plt Count 147 MPV 11.1 Neutrophils % 61.0 Lymphocytes % 29.9 Monocytes % 5.7 Eosinophils % 1.9 Basophils % 1.5 Sodium Potassium Chloride Carbon Dioxide Anion Gap BUN Creatinine Creat Clearance w eGFR POC Glucometer 175 Random Glucose Calcium Magnesium Total Bilirubin AST ALT Alkaline Phosphatase Creatine Kinase Creatine Kinase Index CK-MB (CK-2) Troponin I Total Protein Albumin Free T4 Cancelled 12/31/17 12/31/17 12/31/17 08:35 12:47 17:10 WBC RBC Hgb Hct MCV MCH MCHC RDW Plt Count MPV Neutrophils % Lymphocytes % Monocytes % Eosinophils % Basophils % Sodium 139 Potassium 4.0 Chloride 106 Carbon Dioxide 27 Anion Gap 6 L BUN 17 Creatinine 0.9 Creat Clearance w eGFR > 60 POC Glucometer 156 165 Random Glucose 131 H Calcium 10.0 Magnesium 1.6 L Total Bilirubin 0.5 D AST 90 H ALT 64 Alkaline Phosphatase 147 H Creatine Kinase 157 Creatine Kinase Index 0.9 CK-MB (CK-2) 1.483 Troponin I < 0.02 Total Protein 6.3 L Albumin 3.5 Free T4 0.99 12/31/17 21:24 WBC RBC Hgb Hct MCV MCH MCHC RDW Plt Count MPV Neutrophils % Lymphocytes % Monocytes % Eosinophils % Basophils % Sodium Potassium Chloride Carbon Dioxide Anion Gap BUN Creatinine Creat Clearance w eGFR POC Glucometer 131 Random Glucose Calcium Magnesium Total Bilirubin AST ALT Alkaline Phosphatase Creatine Kinase Creatine Kinase Index CK-MB (CK-2) Troponin I Total Protein Albumin Free T4 Laboratory Results - last 24 hr 12/31/17 12/31/17 12/31/17 06:09 08:30 08:35 WBC 8.5 RBC 5.22 H Hgb 16.1 H Hct 47.4 H MCV 90.8 MCH 30.8 MCHC 33.9 RDW 14.0 Plt Count 147 MPV 11.1 Neutrophils % 61.0 Lymphocytes % 29.9 Monocytes % 5.7 Eosinophils % 1.9 Basophils % 1.5 Sodium Potassium Chloride Carbon Dioxide Anion Gap BUN Creatinine Creat Clearance w eGFR POC Glucometer 175 Random Glucose Calcium Magnesium Total Bilirubin AST ALT Alkaline Phosphatase Creatine Kinase Creatine Kinase Index CK-MB (CK-2) Troponin I Total Protein Albumin Free T4 Cancelled 12/31/17 12/31/17 12/31/17 08:35 12:47 17:10 WBC RBC Hgb Hct MCV MCH MCHC RDW Plt Count MPV Neutrophils % Lymphocytes % Monocytes % Eosinophils % Basophils % Sodium 139 Potassium 4.0 Chloride 106 Carbon Dioxide 27 Anion Gap 6 L BUN 17 Creatinine 0.9 Creat Clearance w eGFR > 60 POC Glucometer 156 165 Random Glucose 131 H Calcium 10.0 Magnesium 1.6 L Total Bilirubin 0.5 D AST 90 H ALT 64 Alkaline Phosphatase 147 H Creatine Kinase 157 Creatine Kinase Index 0.9 CK-MB (CK-2) 1.483 Troponin I < 0.02 Total Protein 6.3 L Albumin 3.5 Free T4 0.99 04/03/18 21:24 WBC RBC Hgb Hct MCV MCH MCHC RDW Plt Count MPV Neutrophils % Lymphocytes % Monocytes % Eosinophils % Basophils % Sodium Potassium Chloride Carbon Dioxide Anion Gap BUN Creatinine Creat Clearance w eGFR POC Glucometer 131 Random Glucose Calcium Magnesium Total Bilirubin AST ALT Alkaline Phosphatase Creatine Kinase Creatine Kinase Index CK-MB (CK-2) Troponin I Total Protein Albumin Free T4 PLAN: BGM QID NOVOLOG INSULIN DOSES CONTINUE SYNTHROID 125 MCG DAILY Q AM ALONE METFORMIN 1000MG BID JANUVIA 100MG DAILY
[2018-01-01] MEDS: sitaGLIPtin PHOSPHATE 100 MG TABLET (FP) PO SCH (06:08)
[2018-01-01] MEDS: INSULIN SLIDING SCALE (NOVOLOG) 1 VIAL SQ SCH ×4 (06:08→22:15)
[2018-01-01] MEDS: INSULIN (NOVOLOG MIX 70/30) 100 UNITS/ML MDV SQ SCH ×2 (06:08→17:36)
[2018-01-01] MEDS: TIZANIDINE HCL 2 MG TABLET PO SCH ×3 (06:08→22:15)
[2018-01-01] MEDS: metFORMIN HCL 500 MG TABLET (FP) PO SCH ×2 (06:08→17:34)
[2018-01-01] MEDS: GABAPENTIN 300 MG CAPSULE (FP) PO SCH ×3 (06:08→22:15)
[2018-01-01 09:00] LABS: BASO % 1.5 % (0-2.0); EOS % 2.3 % (0-4.5); HEMATOCRIT 43.4 % (32.4-45.2); HEMOGLOBIN 14.3 GM/dL (10.7-15.3); LYMPH % 34.9 % (8-40); MCH 30.3 pg (25.7-33.7); MEAN PLT VOLUME 11.2 fl (7.5-11.1); NEUT % 54.3 % (42.8-82.8); PLATELET COUNT 123 K/MM3 (134-434); RBC 4.72 M/mm3 (3.60-5.2); RDW 14.3 % (11.6-15.6); WHITE BLOOD COUNT 8.2 K/mm3 (4.0-10.0)
[2018-01-01 09:37] LABS: ALBUMIN 3.3 g/dl (3.4-5.0); ANION GAP 5 (8-16); BILIRUBIN,TOTAL 0.3 mg/dL (0.2-1.0); BLOOD UREA NITROGEN 20 mg/dL (7-18); CALCIUM 9.3 mg/dL (8.5-10.1); CHLORIDE 105 mmol/L (98-107); CO2 29 mmol/L (21-32); GLUCOSE,RANDOM 164 mg/dL (74-106); MAGNESIUM 1.7 mg/dL (1.8-2.4); SGOT/AST 69 U/L (15-37); SGPT/ALT 55 U/L (12-78); SODIUM 139 mmol/L (136-145); TOT PROT 5.8 g/dl (6.4-8.2)
[2018-01-01 09:38] LABS: ALK PHOS 138 U/L (45-117)
[2018-01-01] MEDS ORDERED: cefTRIAXone SODIUM 1 GM VIAL ONE (09:53)
[2018-01-01] MEDS ORDERED: DEXTROSE 5%-WATER - 50 ML IVPB ONE (09:53)
[2018-01-01] MEDS ORDERED: REGADENOSON 0.4 MG/5 ML PRE-FILLED SYRINGE IVPUSH ONE ×2 (10:07→10:30)
--- NOTE | 2018-01-01 10:34 | PN ---
Progress Note, Physician History of Present Illness: patient doing well no complaints - Current Medication List Current Medications: Active Medications Albuterol Sulfate (Ventolin Hfa Inhaler -) 2 puff IH Q6H PRN PRN Reason: SHORTNESS OF BREATH Last Admin: 12/31/17 21:22 Dose: 2 puff Atorvastatin Calcium (Lipitor -) 20 mg PO HS [facility] Last Admin: 12/31/17 21:22 Dose: 20 mg Clopidogrel Bisulfate (Plavix -) 75 mg PO HS [facility] Last Admin: 12/31/17 21:22 Dose: 75 mg Folic Acid (Folic Acid -) 1 mg PO HS [facility] Last Admin: 12/31/17 21:22 Dose: 1 mg Gabapentin (Neurontin -) 300 mg PO TID [facility] Last Admin: 01/01/18 06:08 Dose: Not Given Heparin Sodium (Porcine) (Heparin -) 5,000 unit SQ BID [facility] Last Admin: 12/31/17 21:22 Dose: 5,000 unit Ceftriaxone Sodium 1 gm/ (Dextrose) 50 mls @ 100 mls/hr IVPB DAILY [facility] Last Admin: 12/31/17 09:26 Dose: 100 mls/hr Insulin Aspart (Novolog Mix 70/30 Vial) 20 units SQ BIDAC [facility] Last Admin: 01/01/18 06:08 Dose: Not Given Insulin Aspart (Novolog Vial Sliding Scale -) 1 vial SQ ACHS [facility] PRN Reason: Protocol Last Admin: 01/01/18 06:08 Dose: Not Given Levothyroxine Sodium (Synthroid -) 125 mcg PO [facility] Last Admin: 12/31/17 21:22 Dose: 125 mcg Metformin HCl (Glucophage -) 1,000 mg PO BIDAC [facility] Last Admin: 01/01/18 06:08 Dose: Not Given Metoprolol Tartrate (Lopressor -) 25 mg PO [facility] Last Admin: 12/31/17 21:22 Dose: 25 mg Montelukast Sodium (Singulair -) 10 mg PO [facility] Last Admin: 12/31/17 21:22 Dose: 10 mg Nifedipine (Procardia Xl -) 60 mg PO HS [facility] Last Admin: 12/31/17 21:22 Dose: 60 mg Oxycodone HCl (Roxicodone -) 5 mg PO Q6H PRN PRN Reason: PAIN LEVEL 6-10 Last Admin: 12/29/17 22:47 Dose: 5 mg Sitagliptin Phosphate (Januvia -) 100 mg PO DAILY@0700 [facility] Last Admin: 01/01/18 06:08 Dose: Not Given Tizanidine HCl (Tizanidine Hcl) 2 mg PO TID [facility] Last Admin: 01/01/18 06:08 Dose: Not Given - Objective Vital Signs: Vital Signs Temperature 98.0 F 01/01/18 06:00 Pulse Rate 60 01/01/18 06:00 Respiratory Rate 20 01/01/18 06:00 Blood Pressure 107/50 01/01/18 06:00 O2 Sat by Pulse Oximetry (%) 95 12/31/17 21:00 Constitutional: Yes: No Distress, Calm, Obese Eyes: Yes: Conjunctiva Clear Cardiovascular: Yes: Regular Rate and Rhythm Respiratory: Yes: Regular, CTA Bilaterally Gastrointestinal: Yes: Normal Bowel Sounds, Soft Musculoskeletal: Yes: WNL Extremities: Yes: WNL Neurological: Yes: Alert, Oriented Psychiatric: Yes: Alert, Oriented Labs: CBC, BMP 01/01/18 06:00 01/01/18 06:05 INR, PTT INR 1.13 (0.82-1.09) 12/28/17 17:30 Assessment/Plan Problem List - Problems (1) UTI (urinary tract infection) Code(s): N39.0 - URINARY TRACT INFECTION, SITE NOT SPECIFIED Qualifiers: Urinary tract infection type: site unspecified Hematuria presence: without hematuria Qualified Code(s): N39.0 - Urinary tract infection, site not specified (2) Diabetes Code(s): E11.9 - TYPE 2 DIABETES MELLITUS WITHOUT COMPLICATIONS (3) Graves' disease Code(s): E05.00 - THYROTOXICOSIS W DIFFUSE GOITER W/O THYROTOXIC CRISIS (4) Hypertension Code(s): I10 - ESSENTIAL (PRIMARY) HYPERTENSION (5) COPD (chronic obstructive pulmonary disease) Code(s): J44.9 - CHRONIC OBSTRUCTIVE PULMONARY DISEASE, UNSPECIFIED Assessment/Plan 62 y.o. female with PMH of DM, CVA on s/p TPA, Graves disease, COPD, nephrolithiasis, presenting with c/o chest tightness, Lt arm pain and weakness that began yesterday noted to have hyperglycemia and pyuria. plan continue abx for now will deescaalte abx soon patient says feeling much better no chest pain
--- NOTE | 2018-01-01 11:08 | PN ---
Progress Note, Physician History of Present Illness: The patient is a 62 year old female, with a significant past medical history of COPD, diabetes, CVA with TPA in 02/07, CVA in 04/09, valve replacement, graves, and cholecystectomy, who presents to the emergency department via EMS with, 5 hours of left sided chest and shoulder pain. As per EMS, the patient had hyperglycemia within the 380s. Within the emergency department, the patient reports left arm weakness beginning at 3pm. Secondary to her symptoms she reports, shortness of breath. The patient reports to have a left arm and leg deficit in the past secondary to her CVA, however, reports that her left arm feels weaker now. She denies recent fevers, chills, headache or dizziness. She denies recent nausea, vomit, diarrhea or constipation. She denies recent dysuria, frequency, urgency or hematuria. Primary Care Physician: Dr. Gregg Patten - Current Medication List Current Medications: Active Medications Albuterol Sulfate (Ventolin Hfa Inhaler -) 2 puff IH Q6H PRN PRN Reason: SHORTNESS OF BREATH Last Admin: 12/31/17 21:22 Dose: 2 puff Atorvastatin Calcium (Lipitor -) 20 mg PO HS [facility] Last Admin: 12/31/17 21:22 Dose: 20 mg Clopidogrel Bisulfate (Plavix -) 75 mg PO HS [facility] Last Admin: 12/31/17 21:22 Dose: 75 mg Folic Acid (Folic Acid -) 1 mg PO HS [facility] Last Admin: 12/31/17 21:22 Dose: 1 mg Gabapentin (Neurontin -) 300 mg PO TID [facility] Last Admin: 01/01/18 06:08 Dose: Not Given Heparin Sodium (Porcine) (Heparin -) 5,000 unit SQ BID [facility] Last Admin: 12/31/17 21:22 Dose: 5,000 unit Ceftriaxone Sodium 1 gm/ (Dextrose) 50 mls @ 100 mls/hr IVPB DAILY [facility] Last Admin: 12/31/17 09:26 Dose: 100 mls/hr Insulin Aspart (Novolog Mix 70/30 Vial) 20 units SQ BIDAC [facility] Last Admin: 01/01/18 06:08 Dose: Not Given Insulin Aspart (Novolog Vial Sliding Scale -) 1 vial SQ ACHS [facility] PRN Reason: Protocol Last Admin: 01/01/18 06:08 Dose: Not Given Levothyroxine Sodium (Synthroid -) 125 mcg PO [facility] Last Admin: 12/31/17 21:22 Dose: 125 mcg Metformin HCl (Glucophage -) 1,000 mg PO BIDAC [facility] Last Admin: 01/01/18 06:08 Dose: Not Given Metoprolol Tartrate (Lopressor -) 25 mg PO [facility] Last Admin: 12/31/17 21:22 Dose: 25 mg Montelukast Sodium (Singulair -) 10 mg PO [facility] Last Admin: 12/31/17 21:22 Dose: 10 mg Nifedipine (Procardia Xl -) 60 mg PO [facility] Last Admin: 12/31/17 21:22 Dose: 60 mg Oxycodone HCl (Roxicodone -) 5 mg PO Q6H PRN PRN Reason: PAIN LEVEL 6-10 Last Admin: 12/29/17 22:47 Dose: 5 mg Sitagliptin Phosphate (Januvia -) 100 mg PO DAILY@0700 [facility] Last Admin: 01/01/18 06:08 Dose: Not Given Tizanidine HCl (Tizanidine Hcl) 2 mg PO TID [facility] Last Admin: 01/01/18 06:08 Dose: Not Given - Objective Vital Signs: Vital Signs Temperature 98.0 F 01/01/18 06:00 Pulse Rate 60 01/01/18 06:00 Respiratory Rate 20 01/01/18 06:00 Blood Pressure 107/50 01/01/18 06:00 O2 Sat by Pulse Oximetry (%) 96 01/01/18 10:00 Eyes: Yes: WNL, Conjunctiva Clear, EOM Intact HENT: Yes: WNL, Atraumatic, Normocephalic Neck: Yes: WNL, Supple, Trachea Midline Cardiovascular: Yes: WNL, Regular Rate and Rhythm Respiratory: Yes: WNL, Regular, CTA Bilaterally Gastrointestinal: Yes: WNL, Normal Bowel Sounds Genitourinary: Yes: WNL Musculoskeletal: Yes: WNL Extremities: Yes: WNL Edema: No Integumentary: Yes: WNL Neurological: Yes: WNL, Alert, Oriented ...Motor Strength: WNL Psychiatric: Yes: WNL Labs: CBC, BMP 01/01/18 06:00 01/01/18 06:05 INR, PTT INR 1.13 (0.82-1.09) 12/28/17 17:30 Problem List - Problems (1) COPD (chronic obstructive pulmonary disease) Code(s): J44.9 - CHRONIC OBSTRUCTIVE PULMONARY DISEASE, UNSPECIFIED (2) Chest pain Code(s): R07.9 - CHEST PAIN, UNSPECIFIED (3) UTI (urinary tract infection) Code(s): N39.0 - URINARY TRACT INFECTION, SITE NOT SPECIFIED Qualifiers: Urinary tract infection type: site unspecified Hematuria presence: without hematuria Qualified Code(s): N39.0 - Urinary tract infection, site not specified (4) Weakness Code(s): R53.1 - WEAKNESS (5) Angioedema Code(s): T78.3XXA - ANGIONEUROTIC EDEMA, INITIAL ENCOUNTER Qualifiers: Encounter type: initial encounter Qualified Code(s): T78.3XXA - Angioneurotic edema, initial encounter (6) DVT prophylaxis Code(s): [id number] - (7) Diabetes Code(s): E11.9 - TYPE 2 DIABETES MELLITUS WITHOUT COMPLICATIONS (8) Graves' disease Code(s): E05.00 - THYROTOXICOSIS W DIFFUSE GOITER W/O THYROTOXIC CRISIS (9) Hypertension Code(s): I10 - ESSENTIAL (PRIMARY) HYPERTENSION (10) Myasthenia gravis Code(s): G70.00 - MYASTHENIA GRAVIS WITHOUT (ACUTE) EXACERBATION Assessment/Plan - Problems (1) Morbid obesity Assessment/Plan: diet change, weight loss will be essential Code(s): E66.01 - MORBID (SEVERE) OBESITY DUE TO EXCESS CALORIES (2) COPD (chronic obstructive pulmonary disease) Assessment/Plan: still smokes; does not want patch or pill presntly Code(s): J44.9 - CHRONIC OBSTRUCTIVE PULMONARY DISEASE, UNSPECIFIED (3) Chest pain Assessment/Plan: TNI < 0.02; f/u serially. EKG: NSR: lateral T wave changes. Multiple CAD risks; last stress test ? 2 [address] Nelson: will do stress MIBI. Code(s): R07.9 - CHEST PAIN, UNSPECIFIED (4) Diabetes Code(s): E11.9 - TYPE 2 DIABETES MELLITUS WITHOUT COMPLICATIONS (5) Graves' disease Assessment/Plan: f/u free Te and Free T4; TSH ? 5-20 within 24 hours Code(s): E05.00 - THYROTOXICOSIS W DIFFUSE GOITER W/O THYROTOXIC CRISIS (6) Hypertension Code(s): I10 - ESSENTIAL (PRIMARY) HYPERTENSION
[2018-01-01] MEDS: HEPARIN NA (PORCINE) 5,000 UNITS/ML 1ML VIAL SQ SCH ×2 (12:43→22:15)
[2018-01-01] MEDS: CEFTRIAXONE 1 GM in DEXTROSE 5%-WATER - 50 ML IVPB SCH (12:44)
[2018-01-01] MEDS ORDERED: INSULIN (NOVOLOG) ASPART 100 UNITS/ML 10ML VIAL ONE (12:46)
[2018-01-01] MEDS ORDERED: PT OWN MED DRAWER 7, Y5N ONE ×3 (12:47→22:24)
[2018-01-01] MEDS: oxyCODONE HCL 5 MG TABLET PO PRN ×2 (12:48→22:27)
[2018-01-01] MEDS: LEVOTHYROXINE NA 125 MCG TABLET (FP) PO SCH (22:15)
[2018-01-01] MEDS: CLOPIDOGREL BISULFATE 75 MG TABLET (FP) PO SCH (22:15)
[2018-01-01] MEDS: ATORVASTATIN CA 20 MG TABLET (FP) PO SCH (22:15)
[2018-01-01] MEDS: MONTELUKAST NA 10 MG TABLET PO SCH (22:15)
[2018-01-01] MEDS: FOLIC ACID 1 MG TABLET (FP) PO SCH (22:15)
[2018-01-01] MEDS: NIFEdipine E.R 60 MG TABLET (UD) PO SCH (22:15)
[2018-01-01] MEDS: METOPROLOL TARTRATE 25 MG TABLET (FP) PO SCH (22:15)
[2018-01-01] MEDS: ALBUTEROL SO4 18 GM HFA INHALER IH PRN (22:27)
--- NOTE | 2018-01-01 23:16 | PN ---
Progress Note, Physician History of Present Illness: Pt still complains of intermittent chest pressure - Current Medication List Current Medications: Active Medications Albuterol Sulfate (Ventolin Hfa Inhaler -) 2 puff IH Q6H PRN PRN Reason: SHORTNESS OF BREATH Last Admin: 01/01/18 22:27 Dose: 2 puff Atorvastatin Calcium (Lipitor -) 20 mg PO HS [facility] Last Admin: 01/01/18 22:15 Dose: 20 mg Clopidogrel Bisulfate (Plavix -) 75 mg PO HS [facility] Last Admin: 01/01/18 22:15 Dose: 75 mg Folic Acid (Folic Acid -) 1 mg PO HS [facility] Last Admin: 01/01/18 22:15 Dose: 1 mg Gabapentin (Neurontin -) 300 mg PO TID [facility] Last Admin: 01/01/18 22:15 Dose: 300 mg Heparin Sodium (Porcine) (Heparin -) 5,000 unit SQ BID [facility] Last Admin: 01/01/18 22:15 Dose: 5,000 unit Ceftriaxone Sodium 1 gm/ (Dextrose) 50 mls @ 100 mls/hr IVPB DAILY [facility] Last Admin: 01/01/18 12:44 Dose: 100 mls/hr Insulin Aspart (Novolog Mix 70/30 Vial) 20 units SQ BIDAC [facility] Last Admin: 01/01/18 17:36 Dose: 20 units Insulin Aspart (Novolog Vial Sliding Scale -) 1 vial SQ ACHS [facility] PRN Reason: Protocol Last Admin: 01/01/18 22:15 Dose: Not Given Levothyroxine Sodium (Synthroid -) 125 mcg PO [facility] Last Admin: 01/01/18 22:15 Dose: 125 mcg Metformin HCl (Glucophage -) 1,000 mg PO BIDAC [facility] Last Admin: 01/01/18 17:34 Dose: 1,000 mg Metoprolol Tartrate (Lopressor -) 25 mg PO [facility] Last Admin: 01/01/18 22:15 Dose: 25 mg Montelukast Sodium (Singulair -) 10 mg PO [facility] Last Admin: 01/01/18 22:15 Dose: 10 mg Nifedipine (Procardia Xl -) 60 mg PO HS [facility] Last Admin: 01/01/18 22:15 Dose: 60 mg Oxycodone HCl (Roxicodone -) 5 mg PO Q6H PRN PRN Reason: PAIN LEVEL 6-10 Last Admin: 01/01/18 22:27 Dose: 5 mg Sitagliptin Phosphate (Januvia -) 100 mg PO DAILY@0700 [facility] Last Admin: 01/01/18 06:08 Dose: Not Given Tizanidine HCl (Tizanidine Hcl) 2 mg PO TID [facility] Last Admin: 01/01/18 22:15 Dose: 2 mg - Objective Vital Signs: Vital Signs Temperature 97.9 F 01/01/18 18:24 Pulse Rate 59 L 01/01/18 18:24 Respiratory Rate 18 01/01/18 18:24 Blood Pressure 151/87 01/01/18 18:24 O2 Sat by Pulse Oximetry (%) 96 01/01/18 10:00 Constitutional: Yes: Well Nourished Neck: Yes: WNL, Supple Cardiovascular: Yes: WNL, Regular Rate and Rhythm Respiratory: Yes: WNL, Regular, CTA Bilaterally Gastrointestinal: Yes: WNL, Normal Bowel Sounds, Soft Edema: No Labs: CBC, BMP 01/01/18 06:00 01/01/18 06:05 INR, PTT INR 1.13 (0.82-1.09) 12/28/17 17:30 Problem List - Problems (1) Chest pain Assessment/Plan: Possible dc planning if stress test is negative Code(s): R07.9 - CHEST PAIN, UNSPECIFIED (2) Weakness Assessment/Plan: Improved Code(s): R53.1 - WEAKNESS (3) COPD (chronic obstructive pulmonary disease) Assessment/Plan: Cont inhalers Code(s): J44.9 - CHRONIC OBSTRUCTIVE PULMONARY DISEASE, UNSPECIFIED (4) Diabetes Assessment/Plan: Sliding scale w/ coverage Cont metformin/januvia Code(s): E11.9 - TYPE 2 DIABETES MELLITUS WITHOUT COMPLICATIONS (5) Hypertension Code(s): I10 - ESSENTIAL (PRIMARY) HYPERTENSION
[2018-01-02] MEDS ORDERED: INSULIN (NOVOLOG) ASPART 100 UNITS/ML 10ML VIAL ONE (06:22)
[2018-01-02] MEDS ORDERED: PT OWN MED DRAWER 7, Y5N ONE ×4 (06:23→22:59)
[2018-01-02] MEDS: INSULIN SLIDING SCALE (NOVOLOG) 1 VIAL SQ SCH ×4 (06:39→22:50)
[2018-01-02] MEDS: metFORMIN HCL 500 MG TABLET (FP) PO SCH ×2 (06:39→17:04)
[2018-01-02] MEDS: TIZANIDINE HCL 2 MG TABLET PO SCH ×3 (06:40→22:49)
[2018-01-02] MEDS: sitaGLIPtin PHOSPHATE 100 MG TABLET (FP) PO SCH (06:40)
[2018-01-02] MEDS: GABAPENTIN 300 MG CAPSULE (FP) PO SCH ×3 (06:40→22:49)
[2018-01-02] MEDS: INSULIN (NOVOLOG MIX 70/30) 100 UNITS/ML MDV SQ SCH ×2 (06:40→17:04)
[2018-01-02] MEDS ORDERED: DEXTROSE 5%-WATER - 50 ML IVPB ONE (09:44)
[2018-01-02] MEDS ORDERED: cefTRIAXone SODIUM 1 GM VIAL ONE (09:44)
[2018-01-02] MEDS: CEFTRIAXONE 1 GM in DEXTROSE 5%-WATER - 50 ML IVPB SCH (09:51)
[2018-01-02] MEDS: oxyCODONE HCL 5 MG TABLET PO PRN ×2 (09:52→22:49)
[2018-01-02] MEDS: HEPARIN NA (PORCINE) 5,000 UNITS/ML 1ML VIAL SQ SCH ×2 (09:52→22:45)
--- NOTE | 2018-01-02 12:02 | PN ---
Progress Note, Physician History of Present Illness: patient doing well no complaints - Current Medication List Current Medications: Active Medications Albuterol Sulfate (Ventolin Hfa Inhaler -) 2 puff IH Q6H PRN PRN Reason: SHORTNESS OF BREATH Last Admin: 01/01/18 22:27 Dose: 2 puff Atorvastatin Calcium (Lipitor -) 20 mg PO HS [facility] Last Admin: 01/01/18 22:15 Dose: 20 mg Clopidogrel Bisulfate (Plavix -) 75 mg PO [facility] Last Admin: 01/01/18 22:15 Dose: 75 mg Folic Acid (Folic Acid -) 1 mg PO HS [facility] Last Admin: 01/01/18 22:15 Dose: 1 mg Gabapentin (Neurontin -) 300 mg PO TID [facility] Last Admin: 01/02/18 06:40 Dose: 300 mg Heparin Sodium (Porcine) (Heparin -) 5,000 unit SQ BID [facility] Last Admin: 01/02/18 09:52 Dose: 5,000 unit Ceftriaxone Sodium 1 gm/ (Dextrose) 50 mls @ 100 mls/hr IVPB DAILY [facility] Last Admin: 01/02/18 09:51 Dose: 100 mls/hr Insulin Aspart (Novolog Mix 70/30 Vial) 20 units SQ BIDAC [facility] Last Admin: 01/02/18 06:40 Dose: 20 units Insulin Aspart (Novolog Vial Sliding Scale -) 1 vial SQ ACHS [facility] PRN Reason: Protocol Last Admin: 01/02/18 11:35 Dose: Not Given Levothyroxine Sodium (Synthroid -) 125 mcg PO [facility] Last Admin: 01/01/18 22:15 Dose: 125 mcg Metformin HCl (Glucophage -) 1,000 mg PO BIDAC [facility] Last Admin: 01/02/18 06:39 Dose: 1,000 mg Metoprolol Tartrate (Lopressor -) 25 mg PO [facility] Last Admin: 01/01/18 22:15 Dose: 25 mg Montelukast Sodium (Singulair -) 10 mg PO [facility] Last Admin: 01/01/18 22:15 Dose: 10 mg Nifedipine (Procardia Xl -) 60 mg PO [facility] Last Admin: 01/01/18 22:15 Dose: 60 mg Oxycodone HCl (Roxicodone -) 5 mg PO Q6H PRN PRN Reason: PAIN LEVEL 6-10 Last Admin: 01/02/18 09:52 Dose: 5 mg Sitagliptin Phosphate (Januvia -) 100 mg PO DAILY@0700 [facility] Last Admin: 01/02/18 06:40 Dose: 100 mg Tizanidine HCl (Tizanidine Hcl) 2 mg PO TID [facility] Last Admin: 01/02/18 06:40 Dose: 2 mg - Objective Vital Signs: Vital Signs Temperature 97.6 F 01/02/18 10:00 Pulse Rate 57 L 01/02/18 10:00 Respiratory Rate 19 01/02/18 10:00 Blood Pressure 101/56 01/02/18 10:00 O2 Sat by Pulse Oximetry (%) 97 01/01/18 21:00 Constitutional: Yes: No Distress, Calm, Obese Cardiovascular: Yes: Regular Rate and Rhythm Respiratory: Yes: Regular, CTA Bilaterally Musculoskeletal: Yes: WNL Extremities: Yes: Other (left leg swelling) Neurological: Yes: Alert, Oriented Psychiatric: Yes: Alert, Oriented Labs: CBC, BMP 01/01/18 06:00 01/01/18 06:05 INR, PTT INR 1.13 (0.82-1.09) 12/28/17 17:30 Assessment/Plan Problem List - Problems (1) UTI (urinary tract infection) Code(s): N39.0 - URINARY TRACT INFECTION, SITE NOT SPECIFIED Qualifiers: Urinary tract infection type: site unspecified Hematuria presence: without hematuria Qualified Code(s): N39.0 - Urinary tract infection, site not specified (2) Diabetes Code(s): E11.9 - TYPE 2 DIABETES MELLITUS WITHOUT COMPLICATIONS (3) Graves' disease Code(s): E05.00 - THYROTOXICOSIS W DIFFUSE GOITER W/O THYROTOXIC CRISIS (4) Hypertension Code(s): I10 - ESSENTIAL (PRIMARY) HYPERTENSION (5) COPD (chronic obstructive pulmonary disease) Code(s): J44.9 - CHRONIC OBSTRUCTIVE PULMONARY DISEASE, UNSPECIFIED Assessment/Plan 62 y.o. female with PMH of DM, CVA on s/p TPA, Graves disease, COPD, nephrolithiasis, presenting with c/o chest tightness, Lt arm pain and weakness that began yesterday noted to have hyperglycemia and pyuria. plan will stop abx tomorrow rest continue current mgmt
[2018-01-02] MEDS ORDERED: MAGNESIUM SULFATE IN WATER 2 GM/50 ML IVPB IVPB ONE (12:45)
--- NOTE | 2018-01-02 17:59 | PN ---
Progress Note, Physician Chief Complaint: Pt A&Ox3; no chest pain or dyspnea presently.c/o left leg swelling ("I can cross my right leg, but not my left"). History of Present Illness: The patient is a 62 year old white female, with a significant past medical history of diabetes, CVA with TPA in 02/07, CVA in 04/09, valve repair (?mitral), Grave's disease, bronchial asthma, COPD (cut down, but still smokes 1/2 ppd.) and cholecystectomy, who presents to the emergency department via EMS with, 5 hours of left sided chest and shoulder pain. As per EMS, the patient had hyperglycemia >300. Within the emergency department, the patient reports left arm weakness beginning at 3pm. Secondary to her symptoms she reports, shortness of breath. The patient reports to have a left arm and leg deficit in the past secondary to her CVA, however, reports that her left arm feels weaker now. She denies recent fevers, chills, headache or dizziness. She denies recent nausea, vomit, diarrhea or constipation. She denies recent dysuria, frequency, urgency or hematuria. Primary Care Physician: Dr. Gregg Patten Cardiologistr: Dr. Nelson - Current Medication List Current Medications: Active Medications Albuterol Sulfate (Ventolin Hfa Inhaler -) 2 puff IH Q6H PRN PRN Reason: SHORTNESS OF BREATH Last Admin: 01/01/18 22:27 Dose: 2 puff Atorvastatin Calcium (Lipitor -) 20 mg PO [facility] Last Admin: 01/01/18 22:15 Dose: 20 mg Clopidogrel Bisulfate (Plavix -) 75 mg PO [facility] Last Admin: 01/01/18 22:15 Dose: 75 mg Folic Acid (Folic Acid -) 1 mg PO [facility] Last Admin: 01/01/18 22:15 Dose: 1 mg Gabapentin (Neurontin -) 300 mg PO TID [facility] Last Admin: 01/02/18 13:02 Dose: 300 mg Heparin Sodium (Porcine) (Heparin -) 5,000 unit SQ BID [facility] Last Admin: 01/02/18 09:52 Dose: 5,000 unit Ceftriaxone Sodium 1 gm/ (Dextrose) 50 mls @ 100 mls/hr IVPB DAILY [facility] Last Admin: 01/02/18 09:51 Dose: 100 mls/hr Insulin Aspart (Novolog Mix 70/30 Vial) 20 units SQ BIDAC [facility] Last Admin: 01/02/18 17:04 Dose: 20 units Insulin Aspart (Novolog Vial Sliding Scale -) 1 vial SQ ACHS [facility] PRN Reason: Protocol Last Admin: 01/02/18 17:01 Dose: Not Given Levothyroxine Sodium (Synthroid -) 125 mcg PO [facility] Last Admin: 01/01/18 22:15 Dose: 125 mcg Metformin HCl (Glucophage -) 1,000 mg PO BIDAC [facility] Last Admin: 01/02/18 17:04 Dose: 1,000 mg Metoprolol Succinate (Toprol Xl -) 50 mg PO DAILY [facility] Last Admin: 01/02/18 12:56 Dose: 50 mg Montelukast Sodium (Singulair -) 10 mg PO [facility] Last Admin: 01/01/18 22:15 Dose: 10 mg Nifedipine (Procardia Xl -) 60 mg PO [facility] Last Admin: 01/01/18 22:15 Dose: 60 mg Oxycodone HCl (Roxicodone -) 5 mg PO Q6H PRN PRN Reason: PAIN LEVEL 6-10 Last Admin: 01/02/18 09:52 Dose: 5 mg Sitagliptin Phosphate (Januvia -) 100 mg PO DAILY@0700 [facility] Last Admin: 01/02/18 06:40 Dose: 100 mg Tizanidine HCl (Tizanidine Hcl) 2 mg PO TID [facility] Last Admin: 01/02/18 13:02 Dose: 2 mg - Objective Vital Signs: Vital Signs Temperature 98.3 F 01/02/18 14:00 Pulse Rate 63 01/02/18 14:00 Respiratory Rate 20 01/02/18 14:00 Blood Pressure 155/79 01/02/18 14:00 O2 Sat by Pulse Oximetry (%) 97 01/02/18 09:00 Constitutional: Yes: Obese Eyes: Yes: WNL HENT: Yes: WNL Neck: Yes: WNL Cardiovascular: Yes: Regular Rate and Rhythm Respiratory: Yes: Regular Gastrointestinal: Yes: Soft, Abdomen, Obese ...Rectal Exam: Yes: Deferred Genitourinary: No: Anuria Breast(s): Yes: WNL Musculoskeletal: Yes: Joint Stiffness, Joint Swelling Extremities: Yes: Cool Edema: Yes Edema: LUE: 2+, RUE: 1+ Peripheral Pulses WNL: Yes Integumentary: Yes: WNL Neurological: Yes: WNL Psychiatric: Yes: WNL Labs: CBC, BMP 01/01/18 06:00 01/01/18 06:05 INR, PTT INR 1.13 (0.82-1.09) 12/28/17 17:30 Abnormal Lab Results 01/01/18 05:35 Free T3 1.9 L Problem List - Problems (1) Morbid obesity Assessment/Plan: diet change, weight loss will be essential Code(s): E66.01 - MORBID (SEVERE) OBESITY DUE TO EXCESS CALORIES (2) COPD (chronic obstructive pulmonary disease) Assessment/Plan: still smokes; does not want patch or pill presntly Code(s): J44.9 - CHRONIC OBSTRUCTIVE PULMONARY DISEASE, UNSPECIFIED (3) Chest pain Assessment/Plan: TNI < 0.02; f/u serially. EKG: NSR: lateral T wave changes. Stress Lexiscan MIBI: no myocardial ischemia. Code(s): R07.9 - CHEST PAIN, UNSPECIFIED (4) Diabetes Code(s): E11.9 - TYPE 2 DIABETES MELLITUS WITHOUT COMPLICATIONS (5) Graves' disease Assessment/Plan: Free T4: mildly decreased. On synthroid. Code(s): E05.00 - THYROTOXICOSIS W DIFFUSE GOITER W/O THYROTOXIC CRISIS (6) Hypertension Code(s): I10 - ESSENTIAL (PRIMARY) HYPERTENSION (7) Leg edema, left Assessment/Plan: Left LE edema>right; pain in left kn ee, calf. Venous doppler 12/31/2017: no DVT Code(s): R60.0 - LOCALIZED EDEMA
[2018-01-02] MEDS: NIFEdipine E.R 60 MG TABLET (UD) PO SCH ×3 (22:48→22:58)
[2018-01-02] MEDS: FOLIC ACID 1 MG TABLET (FP) PO SCH (22:49)
[2018-01-02] MEDS: MONTELUKAST NA 10 MG TABLET PO SCH (22:49)
[2018-01-02] MEDS: LEVOTHYROXINE NA 125 MCG TABLET (FP) PO SCH (22:49)
[2018-01-02] MEDS: ATORVASTATIN CA 20 MG TABLET (FP) PO SCH (22:49)
[2018-01-02] MEDS: CLOPIDOGREL BISULFATE 75 MG TABLET (FP) PO SCH (22:49)
[2018-01-02] MEDS: ALBUTEROL SO4 18 GM HFA INHALER IH PRN (22:55)
--- NOTE | 2018-01-02 23:06 | PN ---
Progress Note, Physician - Current Medication List Current Medications: Active Medications Albuterol Sulfate (Ventolin Hfa Inhaler -) 2 puff IH Q6H PRN PRN Reason: SHORTNESS OF BREATH Last Admin: 01/02/18 22:55 Dose: 2 puff Atorvastatin Calcium (Lipitor -) 20 mg PO HS [facility] Last Admin: 01/02/18 22:49 Dose: 20 mg Clopidogrel Bisulfate (Plavix -) 75 mg PO [facility] Last Admin: 01/02/18 22:49 Dose: 75 mg Folic Acid (Folic Acid -) 1 mg PO HS [facility] Last Admin: 01/02/18 22:49 Dose: 1 mg Gabapentin (Neurontin -) 300 mg PO TID [facility] Last Admin: 01/02/18 22:49 Dose: 300 mg Heparin Sodium (Porcine) (Heparin -) 5,000 unit SQ BID [facility] Last Admin: 01/02/18 22:45 Dose: 5,000 unit Ceftriaxone Sodium 1 gm/ (Dextrose) 50 mls @ 100 mls/hr IVPB DAILY [facility] Last Admin: 01/02/18 09:51 Dose: 100 mls/hr Insulin Aspart (Novolog Mix 70/30 Vial) 20 units SQ BIDAC [facility] Last Admin: 01/02/18 17:04 Dose: 20 units Insulin Aspart (Novolog Vial Sliding Scale -) 1 vial SQ ACHS [facility] PRN Reason: Protocol Last Admin: 01/02/18 22:50 Dose: Not Given Levothyroxine Sodium (Synthroid -) 125 mcg PO [facility] Last Admin: 01/02/18 22:49 Dose: 125 mcg Metformin HCl (Glucophage -) 1,000 mg PO BIDAC [facility] Last Admin: 01/02/18 17:04 Dose: 1,000 mg Metoprolol Succinate (Toprol Xl -) 50 mg PO DAILY [facility] Last Admin: 01/02/18 12:56 Dose: 50 mg Montelukast Sodium (Singulair -) 10 mg PO [facility] Last Admin: 01/02/18 22:49 Dose: 10 mg Nifedipine (Procardia Xl -) 60 mg PO [facility] Last Admin: 01/02/18 22:58 Dose: Not Given Oxycodone HCl (Roxicodone -) 5 mg PO Q6H PRN PRN Reason: PAIN LEVEL 6-10 Last Admin: 01/02/18 22:49 Dose: 5 mg Sitagliptin Phosphate (Januvia -) 100 mg PO DAILY@0700 [facility] Last Admin: 01/02/18 06:40 Dose: 100 mg Tizanidine HCl (Tizanidine Hcl) 2 mg PO TID [facility] Last Admin: 01/02/18 22:49 Dose: 2 mg - Objective Vital Signs: Vital Signs Temperature 98.2 F 01/02/18 18:13 Pulse Rate 61 01/02/18 18:13 Respiratory Rate 18 01/02/18 18:13 Blood Pressure 153/75 01/02/18 18:13 O2 Sat by Pulse Oximetry (%) 97 01/02/18 09:00 Labs: CBC, BMP 01/01/18 06:00 01/01/18 06:05 INR, PTT INR 1.13 (0.82-1.09) 12/28/17 17:30 Problem List - Problems (1) Chest pain Code(s): R07.9 - CHEST PAIN, UNSPECIFIED (2) Weakness Code(s): R53.1 - WEAKNESS (3) COPD (chronic obstructive pulmonary disease) Code(s): J44.9 - CHRONIC OBSTRUCTIVE PULMONARY DISEASE, UNSPECIFIED (4) Diabetes Code(s): E11.9 - TYPE 2 DIABETES MELLITUS WITHOUT COMPLICATIONS (5) Hypertension Code(s): I10 - ESSENTIAL (PRIMARY) HYPERTENSION
[2018-01-03] MEDS: INSULIN SLIDING SCALE (NOVOLOG) 1 VIAL SQ SCH ×2 (06:22→12:29)
[2018-01-03] MEDS ORDERED: PT OWN MED DRAWER 7, Y5N ONE ×3 (06:28→06:51)
[2018-01-03] MEDS: metFORMIN HCL 500 MG TABLET (FP) PO SCH (06:30)
[2018-01-03] MEDS: sitaGLIPtin PHOSPHATE 100 MG TABLET (FP) PO SCH (06:30)
[2018-01-03] MEDS: GABAPENTIN 300 MG CAPSULE (FP) PO SCH ×2 (06:30→13:38)
[2018-01-03] MEDS: INSULIN (NOVOLOG MIX 70/30) 100 UNITS/ML MDV SQ SCH (06:30)
[2018-01-03] MEDS: TIZANIDINE HCL 2 MG TABLET PO SCH ×2 (06:30→13:39)
[2018-01-03] MEDS: ALBUTEROL SO4 18 GM HFA INHALER IH PRN (06:39)
[2018-01-03 07:40] LABS: BASO % 1.4 % (0-2.0); EOS % 2.2 % (0-4.5); HEMATOCRIT 42.8 % (32.4-45.2); HEMOGLOBIN 14.3 GM/dL (10.7-15.3); LYMPH % 35.1 % (8-40); MCH 30.6 pg (25.7-33.7); MCHC 33.4 g/dl (32.0-36.0); MEAN CELL VOLUME 91.6 fl (80-96); MEAN PLT VOLUME 11.1 fl (7.5-11.1); MONO % 7.4 % (3.8-10.2); NEUT % 53.9 % (42.8-82.8); PLATELET COUNT 120 K/MM3 (134-434); RBC 4.67 M/mm3 (3.60-5.2); RDW 14.2 % (11.6-15.6); WHITE BLOOD COUNT 7.3 K/mm3 (4.0-10.0)
[2018-01-03 08:15] LABS: ALBUMIN 3.4 g/dl (3.4-5.0); ANION GAP 6 (8-16); BLOOD UREA NITROGEN 23 mg/dL (7-18); CALCIUM 10.2 mg/dL (8.5-10.1); CHLORIDE 104 mmol/L (98-107); CO2 30 mmol/L (21-32); GLUCOSE,RANDOM 135 mg/dL (74-106); POTASSIUM 4.4 mmol/L (3.5-5.1); SGOT/AST 56 U/L (15-37); SGPT/ALT 51 U/L (12-78); SODIUM 140 mmol/L (136-145)
[2018-01-03 08:17] LABS: ALK PHOS 131 U/L (45-117); BILIRUBIN,TOTAL 0.3 mg/dL (0.2-1.0)
[2018-01-03] MEDS ORDERED: cefTRIAXone SODIUM 1 GM VIAL ONE (09:37)
[2018-01-03] MEDS ORDERED: DEXTROSE 5%-WATER - 50 ML IVPB ONE (09:37)
[2018-01-03] MEDS: HEPARIN NA (PORCINE) 5,000 UNITS/ML 1ML VIAL SQ SCH (09:46)
[2018-01-03] MEDS: CEFTRIAXONE 1 GM in DEXTROSE 5%-WATER - 50 ML IVPB SCH (09:46)
--- NOTE | 2018-01-03 11:46 | PN ---
Progress Note, Physician History of Present Illness: The patient is a 62 year old female, with a significant past medical history of COPD, diabetes, CVA with TPA in 02/07, CVA in 04/09, valve replacement, graves, and cholecystectomy, who presents to the emergency department via EMS with, 5 hours of left sided chest and shoulder pain. As per EMS, the patient had hyperglycemia within the 380s. Within the emergency department, the patient reports left arm weakness beginning at 3pm. Secondary to her symptoms she reports, shortness of breath. The patient reports to have a left arm and leg deficit in the past secondary to her CVA, however, reports that her left arm feels weaker now. She denies recent fevers, chills, headache or dizziness. She denies recent nausea, vomit, diarrhea or constipation. She denies recent dysuria, frequency, urgency or hematuria. Primary Care Physician: Dr. Gregg Patten - Current Medication List Current Medications: Active Medications Albuterol Sulfate (Ventolin Hfa Inhaler -) 2 puff IH Q6H PRN PRN Reason: SHORTNESS OF BREATH Last Admin: 01/03/18 06:39 Dose: 2 puff Atorvastatin Calcium (Lipitor -) 20 mg PO HS [facility] Last Admin: 01/02/18 22:49 Dose: 20 mg Clopidogrel Bisulfate (Plavix -) 75 mg PO HS [facility] Last Admin: 01/02/18 22:49 Dose: 75 mg Folic Acid (Folic Acid -) 1 mg PO HS [facility] Last Admin: 01/02/18 22:49 Dose: 1 mg Gabapentin (Neurontin -) 300 mg PO TID [facility] Last Admin: 01/03/18 06:30 Dose: 300 mg Heparin Sodium (Porcine) (Heparin -) 5,000 unit SQ BID [facility] Last Admin: 01/03/18 09:46 Dose: 5,000 unit Ceftriaxone Sodium 1 gm/ (Dextrose) 50 mls @ 100 mls/hr IVPB DAILY [facility] Last Admin: 01/03/18 09:46 Dose: 100 mls/hr Insulin Aspart (Novolog Mix 70/30 Vial) 20 units SQ BIDAC [facility] Last Admin: 01/03/18 06:30 Dose: 20 units Insulin Aspart (Novolog Vial Sliding Scale -) 1 vial SQ ACHS [facility] PRN Reason: Protocol Last Admin: 01/03/18 06:22 Dose: Not Given Levothyroxine Sodium (Synthroid -) 125 mcg PO HS [facility] Last Admin: 01/02/18 22:49 Dose: 125 mcg Metformin HCl (Glucophage -) 1,000 mg PO BIDAC [facility] Last Admin: 01/03/18 06:30 Dose: 1,000 mg Metoprolol Succinate (Toprol Xl -) 50 mg PO DAILY [facility] Last Admin: 01/03/18 09:46 Dose: 50 mg Montelukast Sodium (Singulair -) 10 mg PO [facility] Last Admin: 01/02/18 22:49 Dose: 10 mg Nifedipine (Procardia Xl -) 60 mg PO HS [facility] Last Admin: 01/02/18 22:58 Dose: Not Given Sitagliptin Phosphate (Januvia -) 100 mg PO DAILY@0700 [facility] Last Admin: 01/03/18 06:30 Dose: 100 mg Tizanidine HCl (Tizanidine Hcl) 2 mg PO TID [facility] Last Admin: 01/03/18 06:30 Dose: 2 mg - Objective Vital Signs: Vital Signs Temperature 98.4 F 01/03/18 09:00 Pulse Rate 58 L 01/03/18 09:00 Respiratory Rate 18 01/03/18 09:00 Blood Pressure 150/67 01/03/18 09:00 O2 Sat by Pulse Oximetry (%) 95 01/03/18 09:00 Eyes: Yes: WNL, Conjunctiva Clear, EOM Intact HENT: Yes: WNL, Atraumatic, Normocephalic Neck: Yes: WNL, Supple, Trachea Midline Cardiovascular: Yes: WNL, Regular Rate and Rhythm Respiratory: Yes: WNL, Regular, CTA Bilaterally Gastrointestinal: Yes: WNL, Normal Bowel Sounds Genitourinary: Yes: WNL Musculoskeletal: Yes: WNL Extremities: Yes: WNL Edema: Yes Integumentary: Yes: WNL Neurological: Yes: WNL, Alert, Oriented ...Motor Strength: WNL Psychiatric: Yes: WNL Labs: CBC, BMP 01/03/18 06:30 01/03/18 06:30 INR, PTT INR 1.13 (0.82-1.09) 12/28/17 17:30 Problem List - Problems (1) COPD (chronic obstructive pulmonary disease) Code(s): J44.9 - CHRONIC OBSTRUCTIVE PULMONARY DISEASE, UNSPECIFIED (2) Chest pain Code(s): R07.9 - CHEST PAIN, UNSPECIFIED (3) UTI (urinary tract infection) Code(s): N39.0 - URINARY TRACT INFECTION, SITE NOT SPECIFIED Qualifiers: Urinary tract infection type: site unspecified Hematuria presence: without hematuria Qualified Code(s): N39.0 - Urinary tract infection, site not specified (4) Weakness Code(s): R53.1 - WEAKNESS (5) Angioedema Code(s): T78.3XXA - ANGIONEUROTIC EDEMA, INITIAL ENCOUNTER Qualifiers: Encounter type: initial encounter Qualified Code(s): T78.3XXA - Angioneurotic edema, initial encounter (6) DVT prophylaxis Code(s): [id number] - (7) Diabetes Code(s): E11.9 - TYPE 2 DIABETES MELLITUS WITHOUT COMPLICATIONS (8) Graves' disease Code(s): E05.00 - THYROTOXICOSIS W DIFFUSE GOITER W/O THYROTOXIC CRISIS (9) Hypertension Code(s): I10 - ESSENTIAL (PRIMARY) HYPERTENSION (10) Myasthenia gravis Code(s): G70.00 - MYASTHENIA GRAVIS WITHOUT (ACUTE) EXACERBATION Assessment/Plan - Problems (1) Morbid obesity Assessment/Plan: diet change, weight loss will be essential Code(s): E66.01 - MORBID (SEVERE) OBESITY DUE TO EXCESS CALORIES (2) COPD (chronic obstructive pulmonary disease) Assessment/Plan: still smokes; does not want patch or pill presntly Code(s): J44.9 - CHRONIC OBSTRUCTIVE PULMONARY DISEASE, UNSPECIFIED (3) Chest pain Assessment/Plan: TNI < 0.02; f/u serially. EKG: NSR: lateral T wave changes. Stress Lexiscan MIBI: no myocardial ischemia.?mild TID Code(s): R07.9 - CHEST PAIN, UNSPECIFIED (4) Diabetes Code(s): E11.9 - TYPE 2 DIABETES MELLITUS WITHOUT COMPLICATIONS (5) Graves' disease Assessment/Plan: Free T4: mildly decreased. On synthroid. Code(s): E05.00 - THYROTOXICOSIS W DIFFUSE GOITER W/O THYROTOXIC CRISIS (6) Hypertension Code(s): I10 - ESSENTIAL (PRIMARY) HYPERTENSION (7) Leg edema, left Assessment/Plan: Left LE edema>right; pain in left kn ee, calf. Venous doppler 12/31/2017: no DVT Code(s): R60.0 - LOCALIZED EDEMA
--- NOTE | 2018-01-03 14:29 | PN ---
Progress Note, Physician Chief Complaint: LEFT LEG PAIN AND NUMBNESS SWELLING, History of Present Illness: DM,TYPE 2,NIDDM,HYPOTHYROIDISM CLINICALLY HYPOTHYROID AND WEIGHT GAIN LIKELY SECONDARY - Current Medication List Current Medications: Active Medications Albuterol Sulfate (Ventolin Hfa Inhaler -) 2 puff IH Q6H PRN PRN Reason: SHORTNESS OF BREATH Last Admin: 01/03/18 06:39 Dose: 2 puff Atorvastatin Calcium (Lipitor -) 20 mg PO [facility] Last Admin: 01/02/18 22:49 Dose: 20 mg Clopidogrel Bisulfate (Plavix -) 75 mg PO [facility] Last Admin: 01/02/18 22:49 Dose: 75 mg Folic Acid (Folic Acid -) 1 mg PO HS [facility] Last Admin: 01/02/18 22:49 Dose: 1 mg Gabapentin (Neurontin -) 300 mg PO TID [facility] Last Admin: 01/03/18 13:38 Dose: 300 mg Heparin Sodium (Porcine) (Heparin -) 5,000 unit SQ BID [facility] Last Admin: 01/03/18 09:46 Dose: 5,000 unit Ceftriaxone Sodium 1 gm/ (Dextrose) 50 mls @ 100 mls/hr IVPB DAILY [facility] Last Admin: 01/03/18 09:46 Dose: 100 mls/hr Insulin Aspart (Novolog Mix 70/30 Vial) 20 units SQ BIDAC [facility] Last Admin: 01/03/18 06:30 Dose: 20 units Insulin Aspart (Novolog Vial Sliding Scale -) 1 vial SQ ACHS [facility] PRN Reason: Protocol Last Admin: 01/03/18 12:29 Dose: Not Given Levothyroxine Sodium (Synthroid -) 150 mcg PO [facility] Metformin HCl (Glucophage -) 1,000 mg PO BIDAC [facility] Last Admin: 01/03/18 06:30 Dose: 1,000 mg Metoprolol Succinate (Toprol Xl -) 50 mg PO DAILY [facility] Last Admin: 01/03/18 09:46 Dose: 50 mg Montelukast Sodium (Singulair -) 10 mg PO [facility] Last Admin: 01/02/18 22:49 Dose: 10 mg Nifedipine (Procardia Xl -) 60 mg PO [facility] Last Admin: 01/02/18 22:58 Dose: Not Given Sitagliptin Phosphate (Januvia -) 100 mg PO DAILY@0700 [facility] Last Admin: 01/03/18 06:30 Dose: 100 mg Tizanidine HCl (Tizanidine Hcl) 2 mg PO TID [facility] Last Admin: 01/03/18 13:39 Dose: 2 mg - Objective Vital Signs: Vital Signs Temperature 98.4 F 01/03/18 09:00 Pulse Rate 58 L 01/03/18 09:00 Respiratory Rate 18 01/03/18 09:00 Blood Pressure 150/67 01/03/18 09:00 O2 Sat by Pulse Oximetry (%) 95 01/03/18 09:00 Constitutional: Yes: Well Nourished Eyes: Yes: EOM Intact HENT: Yes: Normocephalic Neck: Yes: Trachea Midline, Thyromegaly Cardiovascular: Yes: Regular Rate and Rhythm Respiratory: Yes: CTA Bilaterally Gastrointestinal: Yes: Normal Bowel Sounds ...Rectal Exam: Yes: Deferred Genitourinary: Yes: WNL Musculoskeletal: Yes: WNL, Muscle Weakness Extremities: Yes: Delayed Capillary Refill Peripheral Pulses WNL: Yes Integumentary: Yes: Onychomycosis Neurological: Yes: Alert, Oriented Labs: CBC, BMP 01/03/18 06:30 01/03/18 06:30 INR, PTT INR 1.13 (0.82-1.09) 12/28/17 17:30 Problem List - Problems (1) Hypothyroidism, unspecified Code(s): E03.9 - HYPOTHYROIDISM, UNSPECIFIED (2) COPD (chronic obstructive pulmonary disease) Code(s): J44.9 - CHRONIC OBSTRUCTIVE PULMONARY DISEASE, UNSPECIFIED (3) Chest pain Code(s): R07.9 - CHEST PAIN, UNSPECIFIED (4) Morbid obesity Code(s): E66.01 - MORBID (SEVERE) OBESITY DUE TO EXCESS CALORIES (5) UTI (urinary tract infection) Code(s): N39.0 - URINARY TRACT INFECTION, SITE NOT SPECIFIED Qualifiers: Urinary tract infection type: site unspecified Hematuria presence: without hematuria Qualified Code(s): N39.0 - Urinary tract infection, site not specified (6) Angioedema Code(s): T78.3XXA - ANGIONEUROTIC EDEMA, INITIAL ENCOUNTER Qualifiers: Encounter type: initial encounter Qualified Code(s): T78.3XXA - Angioneurotic edema, initial encounter Assessment/Plan Current Active Problems COPD (chronic obstructive pulmonary disease) (Acute) Chest pain (Acute) Hypothyroidism, unspecified (Acute) Leg edema, left (Acute) Morbid obesity (Acute) UTI (urinary tract infection) (Acute) Weakness (Acute) Abnormal Lab Results 01/03/18 01/03/18 06:30 06:30 Plt Count 120 L Anion Gap 6 L BUN 23 H Random Glucose 135 H Calcium 10.2 H AST 56 H Alkaline Phosphatase 131 H Total Protein 6.0 L Laboratory Results - last 24 hr 01/02/18 01/02/18 01/03/18 16:57 22:46 06:16 WBC RBC Hgb Hct MCV MCH MCHC RDW Plt Count MPV Neutrophils % Lymphocytes % Monocytes % Eosinophils % Basophils % Sodium Potassium Chloride Carbon Dioxide Anion Gap BUN Creatinine Creat Clearance w eGFR POC Glucometer 143 131 133 Random Glucose Calcium Total Bilirubin AST ALT Alkaline Phosphatase Total Protein Albumin 01/03/18 01/03/18 01/03/18 06:30 06:30 12:13 WBC 7.3 RBC 4.67 Hgb 14.3 Hct 42.8 MCV 91.6 MCH 30.6 MCHC 33.4 RDW 14.2 Plt Count 120 L MPV 11.1 Neutrophils % 53.9 Lymphocytes % 35.1 Monocytes % 7.4 Eosinophils % 2.2 Basophils % 1.4 Sodium 140 Potassium 4.4 Chloride 104 Carbon Dioxide 30 Anion Gap 6 L BUN 23 H Creatinine 1.0 Creat Clearance w eGFR 56.18 POC Glucometer 130 Random Glucose 135 H Calcium 10.2 H Total Bilirubin 0.3 AST 56 H ALT 51 Alkaline Phosphatase 131 H Total Protein 6.0 L Albumin 3.4 Laboratory Tests 12/30/17 06:42 TSH 29.80 H PLAN; SYNTHROID 175 MCG DAILY REPEAT TFT IN 3-4 WEEKS
[2018-01-03 15:09] VITALS: BP 138/99; PULSE 59; TEMP 97.9
--- NOTE | 2018-01-03 15:16 | PN ---
Progress Note, Physician History of Present Illness: patient doing well no complaints feels much better - Current Medication List Current Medications: Active Medications Albuterol Sulfate (Ventolin Hfa Inhaler -) 2 puff IH Q6H PRN PRN Reason: SHORTNESS OF BREATH Last Admin: 01/03/18 06:39 Dose: 2 puff Atorvastatin Calcium (Lipitor -) 20 mg PO [facility] Last Admin: 01/02/18 22:49 Dose: 20 mg Clopidogrel Bisulfate (Plavix -) 75 mg PO [facility] Last Admin: 01/02/18 22:49 Dose: 75 mg Folic Acid (Folic Acid -) 1 mg PO HS [facility] Last Admin: 01/02/18 22:49 Dose: 1 mg Gabapentin (Neurontin -) 300 mg PO TID [facility] Last Admin: 01/03/18 13:38 Dose: 300 mg Heparin Sodium (Porcine) (Heparin -) 5,000 unit SQ BID [facility] Last Admin: 01/03/18 09:46 Dose: 5,000 unit Ceftriaxone Sodium 1 gm/ (Dextrose) 50 mls @ 100 mls/hr IVPB DAILY [facility] Last Admin: 01/03/18 09:46 Dose: 100 mls/hr Insulin Aspart (Novolog Mix 70/30 Vial) 20 units SQ BIDAC [facility] Last Admin: 01/03/18 06:30 Dose: 20 units Insulin Aspart (Novolog Vial Sliding Scale -) 1 vial SQ ACHS [facility] PRN Reason: Protocol Last Admin: 01/03/18 12:29 Dose: Not Given Levothyroxine Sodium (Synthroid -) 150 mcg PO [facility] Metformin HCl (Glucophage -) 1,000 mg PO BIDAC [facility] Last Admin: 01/03/18 06:30 Dose: 1,000 mg Metoprolol Succinate (Toprol Xl -) 50 mg PO DAILY [facility] Last Admin: 01/03/18 09:46 Dose: 50 mg Montelukast Sodium (Singulair -) 10 mg PO [facility] Last Admin: 01/02/18 22:49 Dose: 10 mg Nifedipine (Procardia Xl -) 60 mg PO [facility] Last Admin: 01/02/18 22:58 Dose: Not Given Sitagliptin Phosphate (Januvia -) 100 mg PO DAILY@0700 [facility] Last Admin: 01/03/18 06:30 Dose: 100 mg Tizanidine HCl (Tizanidine Hcl) 2 mg PO TID [facility] Last Admin: 01/03/18 13:39 Dose: 2 mg - Objective Vital Signs: Vital Signs Temperature 97.9 F 01/03/18 13:20 Pulse Rate 59 L 01/03/18 13:20 Respiratory Rate 20 01/03/18 13:20 Blood Pressure 138/99 01/03/18 13:20 O2 Sat by Pulse Oximetry (%) 95 01/03/18 09:00 Constitutional: Yes: No Distress, Calm, Obese Cardiovascular: Yes: Regular Rate and Rhythm Respiratory: Yes: Regular, CTA Bilaterally Gastrointestinal: Yes: Normal Bowel Sounds, Soft Musculoskeletal: Yes: WNL Extremities: Yes: Other (left leg mild swelling) Neurological: Yes: Alert, Oriented Psychiatric: Yes: Alert, Oriented Labs: CBC, BMP 01/03/18 06:30 01/03/18 06:30 INR, PTT INR 1.13 (0.82-1.09) 12/28/17 17:30 Assessment/Plan Problem List - Problems (1) UTI (urinary tract infection) Code(s): N39.0 - URINARY TRACT INFECTION, SITE NOT SPECIFIED Qualifiers: Urinary tract infection type: site unspecified Hematuria presence: without hematuria Qualified Code(s): N39.0 - Urinary tract infection, site not specified (2) Diabetes Code(s): E11.9 - TYPE 2 DIABETES MELLITUS WITHOUT COMPLICATIONS (3) Graves' disease Code(s): E05.00 - THYROTOXICOSIS W DIFFUSE GOITER W/O THYROTOXIC CRISIS (4) Hypertension Code(s): I10 - ESSENTIAL (PRIMARY) HYPERTENSION (5) COPD (chronic obstructive pulmonary disease) Code(s): J44.9 - CHRONIC OBSTRUCTIVE PULMONARY DISEASE, UNSPECIFIED Assessment/Plan 62 y.o. female with PMH of DM, CVA on s/p TPA, Graves disease, COPD, nephrolithiasis, presenting with c/o chest tightness, Lt arm pain and weakness that began yesterday noted to have hyperglycemia and pyuria. plan stopped abx rest continue current mgmt
[2018-01-03] MEDS ORDERED: LEVOTHYROXINE NA 150 MCG TABLET PO SCH (22:00)
== END 2018-01-03 16:13 | disposition home or self-care (01) | DRG 638 ==
LOC: JER 16:37 → JERBED 20:17 → J6S 23:10 → J4S 12-29 09:43
PROVIDERS: ADMIT Internal Medicine; ATTEND Internal Medicine
DX: E11.65 Type 2 diabetes mellitus with hyperglycemia (principal); N39.0 Urinary tract infection, site not specified; I69.354 Hemiplegia and hemiparesis following cerebral infarction affecting left non-dominant side; Z68.43 Body mass index [BMI] 50.0-59.9, adult; Z68.41 Body mass index [BMI] 40.0-44.9, adult; J44.9 Chronic obstructive pulmonary disease, unspecified; Z95.0 Presence of cardiac pacemaker; F17.210 Nicotine dependence, cigarettes, uncomplicated; E78.5 Hyperlipidemia, unspecified; Z79.84 Long term (current) use of oral hypoglycemic drugs; E83.42 Hypomagnesemia; E66.01 Morbid (severe) obesity due to excess calories; E03.9 Hypothyroidism, unspecified; G70.00 Myasthenia gravis without (acute) exacerbation; Z95.4 Presence of other heart-valve replacement; I95.2 Hypotension due to drugs; R42 Dizziness and giddiness; T44.7X5A Adverse effect of beta-adrenoreceptor antagonists, initial encounter; T40.2X5A Adverse effect of other opioids, initial encounter; T45.0X5A Adverse effect of antiallergic and antiemetic drugs, initial encounter
CPT/HCPCS: 36415; 70450-TC; 70496-TC; 71045-TC-FY; 76775-TC; 78452-TC; 80053; 81003; 81015; 82009; 82465; 82550; 82553; 82803; 82962; 83036; 83718; 83721; 83735; 84439; 84443; 84478; 84481; 84484; 85025; 85610; 86850; 86900; 86901; 87086; 93005; 93010; 93017; 93306-TC; 93880-TC; 93971-TC; 97116-GP; 97161-GP; 99282-25; A9502; J1644; J2785; J7030

== ENCOUNTER 2018-11-21 09:45 | Inpatient (IN) | payer OTHER ==
--- NOTE | 2018-11-21 10:24 | PDOC ---
History of Present Illness - General Chief Complaint: Pain Stated Complaint: PAIN Time Seen by Provider: 11/21/18 10:17 History Source: Patient Exam Limitations: No Limitations - History of Present Illness Initial Comments: 11/21/18 10:55 Patient is a 62-year-old female with past medical history of COPD, insulin- dependent diabetes, multiple TIAs and CVAs, Graves' disease, hypertension, hyperlipidemia, morbid obesity, who presents to the ER today from her doctor's office with a complaint of a boil near her butt. She states she has 3 of them and they started approximately 2 days ago. She states they're very painful to touch. She states that one ruptured in the doctor's office and that it "smells" . Denies fevers, chills, numbness and tingling to the area, weakness to the extremity, nausea, vomiting, diarrhea, frequency, urgency, hematuria, chest pain and shortness of breath. Past History - Travel Traveled outside of the country in the last 30 days: No Close contact w/someone who was outside of country & ill: No - Past Medical History Allergies/Adverse Reactions: Allergies Allergy/AdvReac Type Severity Reaction Status Date / Time WILD Inhibitors Allergy Verified 12/28/17 17:07 Penicillins Allergy Rash Verified 12/28/17 17:07 aspirin AdvReac Verified 12/28/17 17:07 Home Medications: Ambulatory Orders Clopidogrel Bisulfate [Plavix -] 75 mg PO HS 06/04/12 Levothyroxine [Synthroid -] 0.125 mg PO HS 06/04/12 Metformin HCl [Riomet] 500 mg PO BID 06/04/12 Pyridostigmine [Mestinon -] 60 mg PO HS 06/04/12 Albuterol Sulfate [Proair Hfa -] 1 - 2 inh PO TID #0 06/11/12 Folic Acid 1 mg PO HS 06/10/16 Metoprolol Tartrate [Lopressor -] 25 mg PO HS 06/10/16 Mirtazapine 15 mg PO HS 06/10/16 Nifedipine [Procardia Xl] 60 mg PO HS 06/10/16 Albuterol Sulfate Inhaler - [Ventolin HFA Inhaler -] 2 puff IH Q4H PRN #0 inhaler 06/14/16 Insulin (Novolog 70/30) [Novolog Mix 70/30 Vial -] 20 units SQ BIDAC #1 vial Insulin Sliding Scale [Novolog Vial Sliding Scale -] 1 vial SQ TIDAC #1 units oxyCODONE HCL [Roxicodone -] 5 mg PO Q6H PRN #14 tablet MDD 4 06/14/16 Atorvastatin Ca [Lipitor] 20 mg PO HS 12/29/17 Gabapentin 300 mg PO TID 12/29/17 Montelukast Sodium [Singulair] 10 mg PO HS 12/29/17 Tizanidine HCl 2 TID 12/29/17 Tizanidine HCl 2 mg PO TID 12/29/17 Sitagliptin Phosphate [Januvia -] 100 mg PO DAILY@0700 #30 ud 01/03/18 Asthma: Yes Cardiac Disorders: Yes (cardiac arrythmias) CVA: Yes (X2 02/07(TPA) 04/09) COPD: Yes HTN: Yes Hypercholesterolemia: Yes Thyroid Disease: Yes (hypo and hyper thyroid-varies) - Surgical History Cardiac Surgery: Yes (valve replacement) Cholecystectomy: Yes - Suicide/Smoking/Psychosocial Hx Smoking Status: No Smoking History: Current every day smoker Have you smoked in the past 12 months: Yes Number of Cigarettes Smoked Daily: 10 Cigars Per Day: 0 'Breaking Loose' booklet given: 06/10/16 Hx Alcohol Use: No Drug/Substance Use Hx: No Substance Use Type: None Hx Substance Use Treatment: No Review of Systems - Review of Systems Able to Perform ROS?: Yes Comments:: 11/21/18 10:56 CONSTITUTIONAL: Absent: fever, chills, diaphoresis, generalized weakness, malaise, loss of appetite HEENT: Absent: rhinorrhea, nasal congestion, throat pain, throat swelling, difficulty swallowing, mouth swelling, ear pain, eye pain, visual Changes CARDIOVASCULAR: Absent: chest pain, loss of consciousness, palpitations, irregular heart rate, peripheral edema RESPIRATORY: Absent: cough, shortness of breath, dyspnea with exertion, orthopnea, wheezing, stridor, hemoptysis GASTROINTESTINAL: Absent: abdominal pain, abdominal distension, nausea, vomiting, diarrhea, constipation, melena, hematochezia GENITOURINARY: Absent: dysuria, frequency, urgency, hesitancy, hematuria, flank pain, genital pain MUSCULOSKELETAL: Absent: myalgia, arthralgia, joint swelling SKIN: Present: abscesses/infection to L upper leg with foul smelling drainage Absent: rash, itching, pallor HEMATOLOGIC/IMMUNOLOGIC: Absent: easy bleeding, easy bruising, lymphadenopathy, frequent infections ENDOCRINE: Absent: unexplained weight gain, unexplained weight loss, heat intolerance, cold intolerance NEUROLOGIC: Absent: headache, focal weakness or paresthesias, dizziness, unsteady gait, seizure, mental status changes, bladder or bowel incontinence PSYCHIATRIC: Absent: anxiety, depression, suicidal or homicidal ideation, hallucinations. Is the patient limited [place] proficient: No *Physical Exam - Physical Exam Comments: 11/21/18 10:57 GENERAL: Well developed, well nourished. Awake and alert. No acute distress. HEENT: Normocephalic, atraumatic. PERRLA, EOMI. No conjunctival pallor. Sclera are non- icteric. Moist mucous membranes. Oropharynx is clear. NECK: Supple. Full ROM. No JVD. Carotid pulses 2+ and symmetric, without bruits. No thyromegaly. No lymphadenopathy. CARDIOVASCULAR: Regular rate and rhythm. No murmurs, rubs, or gallops. Distal pulses are 2+ and symmetric. PULMONARY: No evidence of respiratory distress. Lungs clear to auscultation bilaterally. No wheezing, rales or rhonchi. ABDOMINAL: Soft. Non-tender. Non-distended. No rebound or guarding. No organomegaly. Normoactive bowel sounds. MUSCULOSKELETAL Normal range of motion at all joints. No bony deformities or tenderness. No CVA tenderness. EXTREMITIES: No cyanosis. No clubbing. No edema. No calf tenderness. SKIN: [id number] round area of necrotic tissue to the L medial gluteal fold with TTP with light touch and foul smelling drainage. There is also associated cellulitis traveling up the medial leg. Normal capillary refill. No jaundice. NEUROLOGICAL: Alert, awake, appropriate. Cranial nerves 2-12 intact. No deficits to light touch and temperature in face, upper extremities and lower extremities. No motor deficits in the in face, upper extremities and lower extremities. Normoreflexic in the upper and lower extremities. Normal speech. Toes are down- going bilaterally. Gait is normal without ataxia. PSYCHIATRIC: Cooperative. Good eye contact. Appropriate mood and affect. ED Treatment Course - LABORATORY CBC & Chemistry Diagram: 11/23/18 05:30 11/23/18 05:30 Medical Decision Making - Critical Care Time Total Critical Care Time (minutes): 45 Critical Care Statement: The care of this patient involved high complexity decision making to prevent further life threatening deterioration of the patient 's condition and/or to evaluate & treat vital organ system(s) failure or risk of failure. - Medical Decision Making 11/21/18 10:59 Patient is a 62-year-old female with past medical history of COPD, uncontrolled insulin-dependent diabetes, multiple TIAs and CVAs, Graves' disease, hypertension, hyperlipidemia, morbid obesity, who presents to the ED with a necrotic abscess to her L medial gluteal fold. -Pre-op labs/septic work-up drawn -Given area of necrotic tissue, pen allergic, given clindamycin and vancomycin at this time -Surgery consulted at bedside. Dr. Kramer to take to the OR for debridement/ necrotizing facitits. 11/21/18 11:25 WBC 23,000, Lactic 5.3 Meropenem added; fluids running Last oral intact 5:30 this morning: Half a cup of coffee and banana Spoke with Dr. Engle and discussed case. Accepts for admission at this time. Dr. Hawkins for ID consult. *DC/Admit/Observation/Transfer Diagnosis at time of Disposition: Necrotizing fasciitis - Discharge Dispostion Condition at time of disposition: Improved Decision to Admit order: Yes - Referrals - Patient Instructions - Post Discharge Activity
[2018-11-21] MEDS ORDERED: CLINDAMYCIN 600MG PREMIX IVPB 600 MG/50 ML BAG IVPB ONE ×2 (10:25→10:34)
[2018-11-21 11:00] LABS: BASO % 0.2 % (0-2.0); EOS % 0.1 % (0-4.5); HEMOGLOBIN 16.2 GM/dL (10.7-15.3); LYMPH % 8.7 % (8-40); MCH 32.1 pg (25.7-33.7); MCHC 34.3 g/dl (32.0-36.0); MEAN CELL VOLUME 93.4 fl (80-96); MEAN PLT VOLUME 10.9 fl (7.5-11.1); MONO % 4.8 % (3.8-10.2); NEUT % 86.2 % (42.8-82.8); PLATELET COUNT 96 K/MM3 (134-434); RBC 5.04 M/mm3 (3.60-5.2); RDW 14.3 % (11.6-15.6); WHITE BLOOD COUNT 26.7 K/mm3 (4.0-10.0)
[2018-11-21 11:15] LABS: INR 1.25 (0.83-1.09); PROTHROMBIN TIME (PATIENT) 14.8 SEC (9.7-13.0)
[2018-11-21 11:17] LABS: URINE APPEARANCE CLOUDY; URINE GLUCOSE (UA) 3+ (NEGATIVE); URINE KETONE NEGATIVE (NEGATIVE); URINE LEUK ESTERASE 3+ (NEGATIVE); URINE NITRITE NEGATIVE (NEGATIVE); URINE PROTEIN 2+ (NEGATIVE); URINE UROBILINOGEN 4.0 E.U/dl mg/dL (0.2-1.0)
[2018-11-21] MEDS ORDERED: MEROPENEM 1 GM in DEXTROSE 5%-WATER 100 ML IVPB ONE (11:17)
[2018-11-21] MEDS ORDERED: VANCOMYCIN 1 GM PREMIX - 1 GM/200 ML BAG IVPB ONE (11:17)
--- NOTE | 2018-11-21 11:19 | CONSULT ---
Consult Consult Specialty:: General Surgery Reason for Consultation:: left gluteal soft tissue infection - History of Present Illness Chief Complaint: draining abscess History of Present Illness: 63yo female PMH DM, obesity, HTN, COPD, Myesthenia Gravis, Graves disease with left gluteal necrotizing soft tissue infection noticed 3 days ago by patient. Tender and draining foul smelling odor. We were called to assess. 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, Other (Myasthenia Gravis) Cardio/Vascular: Yes: HTN Pulmonary: Yes: COPD Renal/: Yes: UTI, Renal Calculi Infectious Disease: Yes: Herpes Zoster Endocrine: Yes: Diabetes Mellitus Additional Medical History: obesity - Past Surgical History Past Surgical History: Yes: , Hernia Repair, Tubal Ligation, Tonsillectomy, Cholecystectomy, Valve Replacement - Alcohol/Substance Use Hx Alcohol Use: No - Smoking History Smoking history: Current every day smoker Have you smoked in the past 12 months: Yes Aproximately how many cigarettes per day: 10 - Social History Usual Living Arrangement: With Spouse ADL: Independent 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, 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 Home Medications - Allergies Allergies/Adverse Reactions: Allergies Allergy/AdvReac Type Severity Reaction Status Date / Time WILD Inhibitors Allergy Verified 12/28/17 17:07 Penicillins Allergy Rash Verified 12/28/17 17:07 aspirin AdvReac Verified 12/28/17 17:07 - Home Medications Home Medications: Ambulatory Orders Clopidogrel Bisulfate [Plavix -] 75 mg PO HS 06/04/12 Levothyroxine [Synthroid -] 0.125 mg PO HS 06/04/12 Metformin HCl [Riomet] 500 mg PO BID 06/04/12 Pyridostigmine [Mestinon -] 60 mg PO HS 06/04/12 Albuterol Sulfate [Proair Hfa -] 1 - 2 inh PO TID #0 06/11/12 Folic Acid 1 mg PO HS 06/10/16 Metoprolol Tartrate [Lopressor -] 25 mg PO HS 06/10/16 Mirtazapine 15 mg PO HS 06/10/16 Nifedipine [Procardia Xl] 60 mg PO HS 06/10/16 Albuterol Sulfate Inhaler - [Ventolin HFA Inhaler -] 2 puff IH Q4H PRN #0 inhaler 06/14/16 Insulin (Novolog 70/30) [Novolog Mix 70/30 Vial -] 20 units SQ BIDAC #1 vial Insulin Sliding Scale [Novolog Vial Sliding Scale -] 1 vial SQ TIDAC #1 units oxyCODONE HCL [Roxicodone -] 5 mg PO Q6H PRN #14 tablet MDD 4 06/14/16 Atorvastatin Ca [Lipitor] 20 mg PO HS 12/29/17 Gabapentin 300 mg PO TID 12/29/17 Montelukast Sodium [Singulair] 10 mg PO HS 12/29/17 Tizanidine HCl 2 TID 12/29/17 Tizanidine HCl 2 mg PO TID 12/29/17 Sitagliptin Phosphate [Januvia -] 100 mg PO DAILY@0700 #30 ud 01/03/18 Family Disease History - Family Disease History Family Disease History: Heart Disease: Father (MD) Review of Systems - Review of Systems Constitutional: reports: Chills. denies: Fever Eyes: denies: Blind Spots, Double Vision HENT: denies: Difficult Swallowing, Toothache Neck: denies: Decreased ROM, Pain on Movement Cardiovascular: denies: Chest Pain, Palpitations Respiratory: denies: Cough, SOB Gastrointestinal: denies: Abdominal Pain, Constipation, Diarrhea Genitourinary: denies: Burning, Discharge, Dysuria Breasts: reports: No Symptoms Reported. denies: Breast Implants, Discharge from Nipple, Pain Musculoskeletal: denies: Muscle Cramps, Muscle Weakness Integumentary: denies: Eczema, Rash, Wound Neurological: denies: Seizure, Syncope Endocrine: denies: Unexplained Weight Gain, Unexplained Weight Loss Hematology/Lymphatic: denies: Easily Bruised, Excessive Bleeding Psychiatric: denies: Anxiety, Depression Physical Exam Vital Signs: Vital Signs Temperature 98.7 F 11/21/18 10:00 Pulse Rate 98 H 11/21/18 10:00 Respiratory Rate 16 11/21/18 10:00 Blood Pressure 144/54 L 11/21/18 10:00 O2 Sat by Pulse Oximetry (%) 100 11/21/18 10:00 Vital Signs Period Temp Pulse Resp BP Sys/Hein Pulse Ox Last 24 Hr 98.7 F-98.9 F 98-98 16-18 144-153/54-83 100-100 Constitutional: Yes: Well Nourished, No Distress, Calm Eyes: Yes: Conjunctiva Clear, EOM Intact HENT: Yes: Atraumatic, Normocephalic Neck: Yes: Supple, Trachea Midline Cardiovascular: Yes: Regular Rate and Rhythm, S1, S2 Respiratory: Yes: Regular, CTA Bilaterally Gastrointestinal: Yes: Normal Bowel Sounds, Soft, Abdomen, Obese. No: Tenderness, Tenderness, Epigastrium, Tenderness, Rebound ...Rectal Exam: Yes: Deferred Renal/: No: CVA Tenderness - Left, CVA Tenderness - Right Breast(s): No: Breast Implants, Gynecomastia, Nipple Inversion Musculoskeletal: No: Muscle Pain, Muscle Weakness Extremities: No: Cool, Cyanosis Edema: Yes Peripheral Pulses WNL: Yes Integumentary: No: Jaundice, Pressure Ulcer, Venous Stasis Changes Wound/Incision: Yes: Open to air, Draining (4cm^2 area left gluteal) Neurological: Yes: Alert, Oriented Psychiatric: Yes: Alert, Oriented Labs: CBC, BMP 11/21/18 10:50 Imaging - Results EKG: Report Reviewed, Image Reviewed Problem List - Problems (1) Necrotizing fasciitis Assessment/Plan: 63yo female MMP Diabetic with necrotizing left gluteal soft tissue infection. She will need surgical debridement for source control Consider monitored setting/ ICU NPO and IVF hydration IV antibiotics adequate analgeisa Discussed with patient risks, benefits and alternatives of sharp surgical debridement left gluteal infection, including but not limited to bleeding, infection, injury to adjacent structures, need for further procedures, ; alternatives include antibiotics, delayed or no surgery - risks of this include failure of nonoperative therapy, sepsis, recurrence, . Patient desires to proceed with operation - will take to OR for above. Informed consent signed for same. Thank you for the opportunity to participate in the care of this patient. Code(s): M72.6 - NECROTIZING FASCIITIS (2) COPD (chronic obstructive pulmonary disease) Code(s): J44.9 - CHRONIC OBSTRUCTIVE PULMONARY DISEASE, UNSPECIFIED (3) Diabetes Code(s): E11.9 - TYPE 2 DIABETES MELLITUS WITHOUT COMPLICATIONS (4) Graves' disease Code(s): E05.00 - THYROTOXICOSIS W DIFFUSE GOITER W/O THYROTOXIC CRISIS (5) Hypertension Code(s): I10 - ESSENTIAL (PRIMARY) HYPERTENSION Qualifiers: Qualified Code(s): I10 - Essential (primary) hypertension (6) Hypothyroidism, unspecified Code(s): E03.9 - HYPOTHYROIDISM, UNSPECIFIED (7) Myasthenia gravis Code(s): G70.00 - MYASTHENIA GRAVIS WITHOUT (ACUTE) EXACERBATION
--- NOTE | 2018-11-21 11:21 | PDOC ---
*Physical Exam - Vital Signs Last Vital Signs Temp Pulse Resp BP Pulse Ox 98.7 F 98 H 16 144/54 L 100 11/21/18 10:00 11/21/18 10:00 11/21/18 10:00 11/21/18 10:00 11/21/18 10:00 ED Treatment Course - LABORATORY CBC & Chemistry Diagram: 11/22/18 05:30 11/22/18 05:30 - ADDITIONAL ORDERS Additional order review: Laboratory Results 11/21/18 10:50 PT with INR 14.80 H INR 1.25 H 11/21/18 10:50 RBC 5.04 MCV 93.4 MCHC 34.3 RDW 14.3 MPV 10.9 Neutrophils % 86.2 H D Lymphocytes % 8.7 D Monocytes % 4.8 Eosinophils % 0.1 D Basophils % 0.2 - Medications Given in the ED: ED Medications Discontinued Medications Generic Name Dose Route Start Last Admin Trade Name Freq PRN Reason Stop Dose Admin Clindamycin Phosphate 600 mg in 50 mls @ 100 mls/hr 11/21/18 10:25 11/21/18 10:59 Cleocin 600 Mg Premix Ivpb - IVPB 11/21/18 10:54 100 mls/hr ONCE ONE Administration Protocol Medical Decision Making - Critical Care Time Total Critical Care Time (minutes): 60 Critical Care Statement: The care of this patient involved high complexity decision making to prevent further life threatening deterioration of the patient 's condition and/or to evaluate & treat vital organ system(s) failure or risk of failure. - Medical Decision Making 11/21/18 11:19 Pt seen by Midlevel Provider under my direct supervision Pt interviewed and examined Ancillary studies reviewed I agree with plan as outlined by Midlevel Provider Consult to Dr Kramer who has seen this patient in the ER Will take to the OR broad Spectrum Abx ordered - Vanco/Merop/Clinda Consult to Dr Hawkins EKG - NSR rate of 100 bpm, axis nml, intervals nml, no st elevation or depression 11/21/18 12:07 Laboratory Tests 01/03/18 11/21/18 11/21/18 06:30 10:50 10:50 Sodium 127 L Potassium 3.9 Chloride 92 L Carbon Dioxide 21 Anion Gap 6 L 13 BUN 30 H Creatinine 1.0 2.3 H Random Glucose 135 H 443 H* Lactic Acid 5.4 H* Total Bilirubin 1.7 H AST 62 H ALT 97 H Alkaline Phosphatase 167 H Total Protein 6.2 L Albumin 3.6 Urine Ketones Urine Nitrite Ur Leukocyte Esterase Urine WBC (Auto) Urine RBC (Auto) Urine Bacteria 11/21/18 10:55 Sodium Potassium Chloride Carbon Dioxide Anion Gap BUN Creatinine Random Glucose Lactic Acid Total Bilirubin AST ALT Alkaline Phosphatase Total Protein Albumin Urine Ketones Negative Urine Nitrite Negative Ur Leukocyte Esterase 3+ H Urine WBC (Auto) 432 Urine RBC (Auto) 14 Urine Bacteria Moderate Necrotizing faciitis - abx ordered, to or today Acute kidney injury - IVF Hyperglycemia - IVF ordered UTI - most likely contaminated Transaminitis - unclear cause *DC/Admit/Observation/Transfer Diagnosis at time of Disposition: Necrotizing fasciitis - Discharge Dispostion Condition at time of disposition: Improved - Referrals - Patient Instructions - Post Discharge Activity
[2018-11-21] MEDS ORDERED: SODIUM CHLORIDE 1,000 ML IV STA ×2 (11:26→11:46)
--- NOTE | 2018-11-21 11:26 | OP ---
Operative Note - Note: Operative Date: 11/21/18 Pre-Operative Diagnosis: left gluteal necrotizing soft tissue infection Operation: sharp surgical debridement of Left gluteal soft tissue infection Findings: necrotic plug on left gluteal area [id number], debrided to healthy bleeding tissue Surgeon: Gregg Kramer Anesthesiologist/GRAPPLER: Colin Capone Anesthesia: General Specimens Removed: necrotic plug left gluteal area Estimated Blood Loss (mls): 20 Instrument used (Debridements only): cautery, scapel Drains & Tubes with Location: uribe Fluid Volume Replaced (mls): 500 Operative Report Dictated: Yes
[2018-11-21 11:31] LABS: ALBUMIN 3.6 g/dl (3.4-5.0); ALK PHOS 167 U/L (45-117); ANION GAP 13 MMOL/L (8-16); BILIRUBIN,TOTAL 1.7 mg/dL (0.2-1); BLOOD UREA NITROGEN 30 mg/dL (7-18); CALCIUM 9.7 mg/dL (8.5-10.1); CHLORIDE 92 mmol/L (98-107); CO2 21 mmol/L (21-32); CREATININE 2.3 mg/dL (0.55-1.3); POTASSIUM 3.9 mmol/L (3.5-5.1); SGOT/AST 62 U/L (15-37); SGPT/ALT 97 U/L (13-61); SODIUM 127 mmol/L (136-145); TOT PROT 6.2 g/dl (6.4-8.2)
[2018-11-21 11:32] LABS: GLUCOSE,RANDOM 443 mg/dL (74-106)
[2018-11-21 11:34] LABS: URINE COLOR DK YELLOW
[2018-11-21 11:35] LABS: EPI CELLS MODERATE /HPF (FEW); URINE BACTERIA MODERATE /hpf (NONE SEEN); URINE HYALINE CAST 15 /lpf; URINE MUCUS RARE
[2018-11-21] MEDS ORDERED: INSULIN REGULAR HUMAN 100 UNITS/ML *VIAL IVPUSH ONE ×2 (11:38→20:11)
[2018-11-21] MEDS ORDERED: INSULIN (NOVOLOG) ASPART 100 UNITS/ML 10ML VIAL ONE (11:44)
[2018-11-21] MEDS ORDERED: LACTATED RINGERS SOLUTION 1000 ML INFUS.BAG IV ONE (12:11)
--- NOTE | 2018-11-21 12:44 | CON.ID ---
Consult Consult Specialty:: infectious diseases Referred by:: Reason for Consultation:: wound infection with drainage gluteal region - History of Present Illness Chief Complaint: pain and draining wound in the gluteal region History of Present Illness: 60 year old female with a PMHx of Myasthenia Gravis, Hyperthyroidism/Grave's disease, IDDMII, HTN, Asthma/COPD, depression, morbid obesity, CVA with TPA in 02/07, CVA in 04/09 was send to the hospital due to an abscess near the gluteal area that formed two days prior. Patient reported they were extremely tender to touch with a foul smelling discharge. 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, Other (Myasthenia Gravis) Cardio/Vascular: Yes: HTN Pulmonary: Yes: COPD Renal/: Yes: UTI, Renal Calculi Infectious Disease: Yes: Herpes Zoster Endocrine: Yes: Diabetes Mellitus Additional Medical History: obesity - Past Surgical History Past Surgical History: Yes: , Hernia Repair, Tubal Ligation, Tonsillectomy, Cholecystectomy, Valve Replacement - Alcohol/Substance Use Hx Alcohol Use: No - Smoking History Smoking history: Current every day smoker Have you smoked in the past 12 months: Yes Aproximately how many cigarettes per day: 10 - Social History Usual Living Arrangement: With Spouse ADL: Independent 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, 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 Home Medications - Allergies Allergies/Adverse Reactions: Allergies Allergy/AdvReac Type Severity Reaction Status Date / Time WILD Inhibitors Allergy Verified 12/28/17 17:07 Penicillins Allergy Rash Verified 12/28/17 17:07 aspirin AdvReac Verified 12/28/17 17:07 - Home Medications Home Medications: Ambulatory Orders RX: Clopidogrel Bisulfate [Plavix -] 75 mg PO HS 06/04/12 RX: Levothyroxine [Synthroid -] 0.125 mg PO HS 06/04/12 RX: Metformin HCl [Riomet] 500 mg PO BID 06/04/12 RX: Pyridostigmine [Mestinon -] 60 mg PO HS 06/04/12 RX: Albuterol Sulfate [Proair Hfa -] 1 - 2 inh PO TID #0 06/11/12 RX: Folic Acid 1 mg PO HS 06/10/16 RX: Metoprolol Tartrate [Lopressor -] 25 mg PO HS 06/10/16 RX: Mirtazapine 15 mg PO HS 06/10/16 RX: Nifedipine [Procardia Xl] 60 mg PO HS 06/10/16 RX: Albuterol Sulfate Inhaler - [Ventolin HFA Inhaler -] 2 puff IH Q4H PRN #0 inhaler 06/14/16 RX: Insulin (Novolog 70/30) [Novolog Mix 70/30 Vial -] 20 units SQ BIDAC #1 vial 06/14/16 RX: Insulin Sliding Scale [Novolog Vial Sliding Scale -] 1 vial SQ TIDAC #1 units 06/14/16 RX: oxyCODONE HCL [Roxicodone -] 5 mg PO Q6H PRN #14 tablet MDD 4 06/14/16 RX: Atorvastatin Ca [Lipitor] 20 mg PO HS 12/29/17 RX: Gabapentin 300 mg PO TID 12/29/17 RX: Montelukast Sodium [Singulair] 10 mg PO HS 12/29/17 RX: Tizanidine HCl 2 TID 12/29/17 RX: Tizanidine HCl 2 mg PO TID 12/29/17 RX: Sitagliptin Phosphate [Januvia -] 100 mg PO DAILY@0700 #30 ud 01/03/18 Family Disease History - Family Disease History Family Disease History: Heart Disease: Father ([place]) Review of Systems - Review of Systems Constitutional: reports: No Symptoms Eyes: reports: No Symptoms HENT: reports: No Symptoms Neck: reports: No Symptoms Cardiovascular: reports: No Symptoms Respiratory: reports: No Symptoms Gastrointestinal: reports: No Symptoms Genitourinary: reports: Other (abscess draiaing from the gluteal region) Musculoskeletal: reports: No Symptoms Integumentary: reports: Wound Neurological: reports: No Symptoms Endocrine: reports: No Symptoms Hematology/Lymphatic: reports: No Symptoms Psychiatric: reports: No Symptoms Physical Exam Vital Signs: Vital Signs Temperature 98.7 F 11/21/18 10:00 Pulse Rate 98 H 11/21/18 10:00 Respiratory Rate 16 11/21/18 10:00 Blood Pressure 144/54 L 11/21/18 10:00 O2 Sat by Pulse Oximetry (%) 100 02/22/19 10:00 Constitutional: Yes: Well Nourished, Calm, Mild Distress Eyes: Yes: Conjunctiva Clear HENT: Yes: Atraumatic, Normocephalic Neck: Yes: Supple, Trachea Midline Cardiovascular: Yes: Regular Rate and Rhythm Respiratory: Yes: Regular, CTA Bilaterally Gastrointestinal: Yes: Normal Bowel Sounds, Soft ...Rectal Exam: Yes: Other (abscess in the gluteal region) Musculoskeletal: Yes: WNL Extremities: Yes: WNL Integumentary: Yes: Erythema, Other Wound/Incision: Yes: Draining, Other (Open to air, Draining area left gluteal) Neurological: Yes: Alert, Oriented Psychiatric: Yes: Alert, Oriented Labs: CBC, BMP 11/21/18 10:50 11/21/18 10:50 Imaging - Results Chest X-ray: Report Reviewed, Image Reviewed Assessment/Plan Problem List - Problems (1) Necrotizing fasciitis plkThank you for the opportunity to participate in the care of this patient. Code(s): M72.6 - NECROTIZING FASCIITIS (2) COPD (chronic obstructive pulmonary disease) Code(s): J44.9 - CHRONIC OBSTRUCTIVE PULMONARY DISEASE, UNSPECIFIED (3) Diabetes Code(s): E11.9 - TYPE 2 DIABETES MELLITUS WITHOUT COMPLICATIONS (4) Graves' disease Code(s): E05.00 - THYROTOXICOSIS W DIFFUSE GOITER W/O THYROTOXIC CRISIS (5) Hypertension Code(s): I10 - ESSENTIAL (PRIMARY) HYPERTENSION Qualifiers: Qualified Code(s): I10 - Essential (primary) hypertension (6) Hypothyroidism, unspecified Code(s): E03.9 - HYPOTHYROIDISM, UNSPECIFIED (7) Myasthenia gravis Code(s): G70.00 - MYASTHENIA GRAVIS WITHOUT (ACUTE) EXACERBATION plan will start patient on vanco jamal and clinda going to the or will adjust abx after the or very close watch on the patient going to need icu post op as patient has lot of problems await for all cx reports rest as per surgery
[2018-11-21] MEDS: CLINDAMYCIN 300 MG PREMIX IVPB 300 MG/50 ML BAG IVPB SCH ×2 (14:25→22:01)
[2018-11-21 14:28] LABS: PLATELET ESTIMATE MOD DECREASED
[2018-11-21] MEDS ORDERED: fentaNYL CITRATE 250 MCG/5 ML VIAL ONE ×2 (15:26)
[2018-11-21] MEDS ORDERED: SUCCINYLCHOLINE CHLORIDE 200 MG/10 ML VIAL ONE (15:27)
[2018-11-21] MEDS ORDERED: PROPOFOL 20 ML ONE (15:27)
[2018-11-21] MEDS ORDERED: MIDAZOLAM HCL 2 MG/2 ML SINGLE DOSE VIAL ONE ×2 (15:27)
[2018-11-21] MEDS ORDERED: ROCURONIUM BROMIDE 50 MG/5 ML VIAL ONE ×2 (15:27)
[2018-11-21] MEDS ORDERED: ePHEDrine SULFATE 50 MG/1 ML AMPULE ONE (15:33)
[2018-11-21] MEDS ORDERED: BENZOIN TINCTURE SWABSTICK TP ONE (16:08)
[2018-11-21] MEDS ORDERED: NEOSTIGMINE METHYLSULFATE 0.5 MG/ML - 10 ML MDV ONE (16:56)
--- NOTE | 2018-11-21 17:02 | CONSULT ---
Consultation: REQUESTING PROVIDER: Dr. Engle CONSULT REQUEST: We have been asked to medically evaluate this patient for Necrotizing Gluteal. HISTORY OF PRESENT ILLNESS: Patient currently intubated and unable to obtain information Patient is a 60 year old female with a PMHx of Myasthenia Gravis, Hyperthyroidism/Grave's disease, IDDMII, HTN, Asthma/COPD, depression, morbid obesity, CVA with TPA in 02/07, CVA in 04/09 who presented to the ED from her doctors office due to an abscess near the gluteal area that formed two days prior. Patient reported they were extremely tender to touch with a foul smelling discharge. Patient was evaluated by surgery and was found to have a necrotizing left gluteal necrotizing soft tissue infection. She was taken to the OR for a sharp surgical debridement of Left gluteal soft tissue infection and was intubated. REVIEW OF SYSTEMS: Unable to obtain PHYSICAL EXAMINATION Vital Signs 11/21/18 11/21/18 11/21/18 10:00 12:46 13:55 Temperature 98.7 F 98.7 F 98.9 F Pulse Rate 98 H 98 H 98 H Respiratory 16 18 Rate Blood Pressure 144/54 L 144/54 L 153/83 O2 Sat by Pulse 100 100 Oximetry (%) GENERAL: Intubated and sedated HEAD: Normal with no signs of trauma. EYES: Exophthalmos. Pupils equal, round and reactive to light extraocular movements intact, sclera anicteric, conjunctiva clear. ENT: ET tube in place NECK: (-) JVD. LUNGS: Distant Breath sounds, no wheezes, and no crackles. No accessory muscle use. HEART: Regular rate and rhythm, normal S1 and S2 without murmur, rub or gallop. ABDOMEN: Soft, Obese, nontender, not distended, normoactive bowel sounds. NEUROLOGICAL: Unable to assess. Sedated Laboratory Results 11/21/18 10:50 11/21/18 10:50 11/21/18 11/21/18 10:50 10:50 Lactic Acid 5.4 H* Total Bilirubin 1.7 H AST 62 H ALT 97 H Alkaline Phosphatase 167 H Urine Test Results Urine Color Dk yellow 11/21/18 10:55 Urine Appearance Cloudy 11/21/18 10:55 Urine pH 5.0 (5.0-8.0) D 11/21/18 10:55 Ur Specific [place] 1.021 (1.010-1.035) 11/21/18 10:55 Urine Protein 2+ (NEGATIVE) H 11/21/18 10:55 Urine Glucose (UA) 3+ (NEGATIVE) H 11/21/18 10:55 Urine Ketones Negative (NEGATIVE) 11/21/18 10:55 Urine Blood 1+ (NEGATIVE) H 11/21/18 10:55 Urine Nitrite Negative (NEGATIVE) 11/21/18 10:55 Urine Bilirubin 2.0 (<2.0 mg/dL) 11/21/18 10:55 Ur Leukocyte Esterase 3+ (NEGATIVE) H 11/21/18 10:55 Ur Epithelial Cells Moderate /HPF (FEW) 11/21/18 10:55 Urine Bacteria Moderate /hpf (NONE SEEN) 11/21/18 10:55 Urine Mucus Rare 11/21/18 10:55 Active Medications Generic Name Dose Route Start Last Admin Trade Name Freq PRN Reason Stop Dose Admin Sodium Chloride 1,000 mls @ 125 mls/hr 11/21/18 11:46 Normal Saline - IV 11/21/18 19:45 ASDIR STA Meropenem 1 gm/ Dextrose 100 mls @ 200 mls/hr 11/21/18 22:00 IVPB Q12H MICHEAL Clindamycin Phosphate 300 mg in 50 mls @ 100 mls/hr 11/21/18 15:00 11/21/18 14:25 Cleocin 300 Mg Premix Ivpb IVPB 100 mls/hr Q6H-IV MICHEAL Administration Protocol Vancomycin HCl 1,500 mg/ 500 mls @ 250 mls/hr 11/22/18 11:00 Dextrose IVPB Q24H MICHEAL Protocol ASSESSMENT/PLAN: Patient is a 63 year old female who presented to the ED for a foul smelling, draining and painful gluteal lesion and was found to have a necrotizing soft tissue infection of the left gluteal. Patient was taken to the OR for a debridement and was intubated prior to the surgery and unable to extubate due to comorbidities. Patient transferred to the ICU for further monitoring and management. NEURO -Intubated and Sedated at this time #History of CVA x2 -On no ASA but on Plavix. Will hold for now as patient had recent I&D -Continue to monitor for any focal deficits PULMONARY #COPD/Asthma -DuoNebs standing TID and Albuterol Q6H PRN -Currently intubated -Continue to monitor 02 saturations and maintain >90% INFECTIOUS DISEASE #Necrotizing Soft Tissue Infection of Left Gluteal -S/P sharp surgical debridement of Left gluteal (11/21/18) -Found to have a [id number] necrotic plug of the left gluteal area -Continue IV abx with Meropenem 1gm Q12H and Vancomycin 1500 IVPB, as per ID -Contineu IV Fluids with NS -Wound cultures and blood cultures pending MSK #Myasthenia Gravis -On home medication Pyridostigmine and Tizanidine -Will hold for now as patient is currently intubated and sedated ENDOCRINOLOGY #Hyperthyroidism/Grave's Disease -Resume home medication Levothyroxine 125mcg in the morning #IDDMII -BGM and ISS CARDIOLOGY #HTN -Normotensive currently -Hold medications -Continue to monitor BP #HLD -Will need to med/rec and then resume statin F/E/N -IV NS @100 -Electrolytes wnl -NPO Prophylaxis -SCD's for DVT -Protonix for GI Disposition -Full code -ICU monitoring Katharine Yen [id number] Visit type - Emergency Visit Emergency Visit: Yes ED Registration Date: 11/21/18 Care time: The patient presented to the Emergency Department on the above date and was hospitalized for further evaluation of their emergent condition. - New Patient This patient is new to me today: Yes Date on this admission: 11/21/18 - Critical Care Critical Care patient: Yes Total Critical Care Time (in minutes): 45 Critical Care Statement: The care of this patient involved high complexity decision making to prevent further life threatening deterioration of the patient 's condition and/or to evaluate & treat vital organ system(s) failure or risk of failure.
[2018-11-21] MEDS ORDERED: ALBUTEROL SO4 0.083% IH SOL 2.5 MG/3 ML VIAL.NEB. NEB PRN (17:25)
[2018-11-21] MEDS ORDERED: PT OWN MED DRAWER 7, Y5N ONE (17:34)
[2018-11-21] MEDS ORDERED: PROPOFOL 1,000,000 MCG/100 ML VIAL IVPB SCH (18:15)
[2018-11-21 19:05] LABS: HEMOGLOBIN 15.4 GM/dL (10.7-15.3); MCH 31.8 pg (25.7-33.7); MCHC 34.3 g/dl (32.0-36.0); MEAN CELL VOLUME 92.7 fl (80-96); MEAN PLT VOLUME 10.9 fl (7.5-11.1); PLATELET COUNT 81 K/MM3 (134-434); RBC 4.86 M/mm3 (3.60-5.2); RDW 14.8 % (11.6-15.6); WHITE BLOOD COUNT 23.4 K/mm3 (4.0-10.0)
[2018-11-21 19:28] LABS: ALBUMIN 3.2 g/dl (3.4-5.0); ALK PHOS 155 U/L (45-117); ANION GAP 12 MMOL/L (8-16); BILIRUBIN,TOTAL 1.9 mg/dL (0.2-1); BLOOD UREA NITROGEN 30 mg/dL (7-18); CHLORIDE 93 mmol/L (98-107); CO2 24 mmol/L (21-32); CREATININE 1.6 mg/dL (0.55-1.3); POTASSIUM 3.7 mmol/L (3.5-5.1); SGOT/AST 53 U/L (15-37); SGPT/ALT 90 U/L (13-61); SODIUM 129 mmol/L (136-145); TOT PROT 5.8 g/dl (6.4-8.2)
[2018-11-21 19:32] LABS: GLUCOSE,RANDOM 365 mg/dL (74-106)
[2018-11-21] MEDS ORDERED: INSULIN (NOVOLOG) ASPART 100 UNITS/ML 10ML VIAL SQ ONE (20:18)
[2018-11-21] MEDS: ALBUTEROL SO4 2.5/IPRATROPIUM 0.5 INH SOL 3 ML VIAL.NEB. NEB SCH (21:05)
[2018-11-21] MEDS ORDERED: INSULIN SLIDING SCALE (NOVOLOG) 1 VIAL SQ SCH (22:00)
[2018-11-21] MEDS ORDERED: MEROPENEM 1 GM in DEXTROSE 5%-WATER 100 ML IVPB SCH (22:00)
[2018-11-21] MEDS: MUPIROCIN 2% TOPICAL OINTMENT FOR DECOLONIZATION NS SCH (22:02)
[2018-11-21] MEDS: CHLORHEXIDINE GLUCONATE 4% CLEANSER FOR DECOLONIZATION TP SCH (22:07)
--- NOTE | 2018-11-22 00:40 | HP ---
Admitting History and Physical - Admission History of Present Illness: 60 year old female with a PMHx of Myasthenia Gravis, Hyperthyroidism/Grave's disease, IDDMII, HTN, Asthma/COPD, depression, morbid obesity, CVA with TPA in 02/07, CVA in 04/09 was send to the hospital due to an abscess near the gluteal area that formed two days prior. Patient reported they were extremely tender to touch with a foul smelling discharge. 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, Other (Myasthenia Gravis) Cardiovascular: Yes: HTN Pulmonary: Yes: COPD Renal/: Yes: UTI, Renal Calculi Infectious Disease: Yes: Herpes Zoster Endocrine: Yes: Diabetes Mellitus - Past Surgical History Past Surgical History: Yes: , Hernia Repair, Tubal Ligation, Tonsillectomy, Cholecystectomy, Valve Replacement - Smoking History Smoking history: Current every day smoker Have you smoked in the past 12 months: Yes Aproximately how many cigarettes per day: 10 - Alcohol/Substance Use Hx Alcohol Use: No - Social History ADL: Independent 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, 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 Home Medications - Allergies Allergies/Adverse Reactions: Allergies Allergy/AdvReac Type Severity Reaction Status Date / Time WILD Inhibitors Allergy Verified 12/28/17 17:07 Penicillins Allergy Rash Verified 12/28/17 17:07 aspirin AdvReac Verified 12/28/17 17:07 - Home Medications Home Medications: Ambulatory Orders Clopidogrel Bisulfate [Plavix -] 75 mg PO HS 06/04/12 Levothyroxine [Synthroid -] 0.125 mg PO HS 06/04/12 Metformin HCl [Riomet] 500 mg PO BID 06/04/12 Pyridostigmine [Mestinon -] 60 mg PO HS 06/04/12 Albuterol Sulfate [Proair Hfa -] 1 - 2 inh PO TID #0 06/11/12 Folic Acid 1 mg PO HS 06/10/16 Metoprolol Tartrate [Lopressor -] 25 mg PO HS 06/10/16 Mirtazapine 15 mg PO HS 06/10/16 Nifedipine [Procardia Xl] 60 mg PO HS 06/10/16 Albuterol Sulfate Inhaler - [Ventolin HFA Inhaler -] 2 puff IH Q4H PRN #0 inhaler 06/14/16 Insulin (Novolog 70/30) [Novolog Mix 70/30 Vial -] 20 units SQ BIDAC #1 vial Insulin Sliding Scale [Novolog Vial Sliding Scale -] 1 vial SQ TIDAC #1 units Atorvastatin Ca [Lipitor] 20 mg PO HS 12/29/17 Gabapentin 300 mg PO TID 12/29/17 Montelukast Sodium [Singulair] 10 mg PO HS 12/29/17 Tizanidine HCl 2 TID 12/29/17 Tizanidine HCl 2 mg PO TID 12/29/17 Sitagliptin Phosphate [Januvia -] 100 mg PO DAILY@0700 #30 ud 01/03/18 Acetaminophen [Tylenol .Regular Strength -] 650 mg PO Q6H PRN #100 tablet Clindamycin [Cleocin -] 300 mg PO Q6HPO #20 capsule 12/03/18 Hydrochlorothiazide [Hctz -] 25 mg PO DAILY #30 tablet 12/03/18 Nifedipine ER [Procardia XL -] 90 mg PO DAILY #30 tab.er.24 12/03/18 Pyridostigmine [Mestinon -] 60 mg PO BID tablet 12/03/18 Tizanidine HCl 2 mg PO Q8H PRN tablet 12/03/18 Family Disease History - Family Disease History Family History: Unremarkable Family Disease History: Heart Disease: Father ([place]) Review of Systems - Review of Systems Constitutional: reports: Lethargy, Loss of Appetite, Weakness Eyes: reports: No Symptoms HENT: reports: No Symptoms Neck: reports: No Symptoms Cardiovascular: reports: No Symptoms Respiratory: reports: No Symptoms Gastrointestinal: reports: No Symptoms Genitourinary: reports: No Symptoms Physical Examination Vital Signs: Vital Signs Temperature 98.1 F 11/21/18 23:46 Pulse Rate 83 11/21/18 23:09 Respiratory Rate 14 11/21/18 23:09 Blood Pressure 141/61 11/21/18 23:09 O2 Sat by Pulse Oximetry (%) 98 11/21/18 18:35 Constitutional: Yes: Well Nourished HENT: Yes: WNL Neck: Yes: WNL, Supple Cardiovascular: Yes: WNL, Regular Rate and Rhythm Respiratory: Yes: WNL, Regular, CTA Bilaterally Gastrointestinal: Yes: WNL, Normal Bowel Sounds, Soft Extremities: Yes: Other ((+) erythema Lt thigh and perianal area w/ increased warmth and discharge) Labs: CBC, BMP 11/21/18 18:15 11/21/18 18:15 Problem List - Problems (1) Necrotizing fasciitis Assessment/Plan: Cont IV antibxs Follow cultures ID/Surgical consults noted Code(s): M72.6 - NECROTIZING FASCIITIS (2) Sepsis Code(s): A41.9 - SEPSIS, UNSPECIFIED ORGANISM (3) Diabetes Code(s): E11.9 - TYPE 2 DIABETES MELLITUS WITHOUT COMPLICATIONS Qualifiers: Diabetes mellitus type: type 2 (4) Graves' disease Code(s): E05.00 - THYROTOXICOSIS W DIFFUSE GOITER W/O THYROTOXIC CRISIS (5) Hypertension Code(s): I10 - ESSENTIAL (PRIMARY) HYPERTENSION Qualifiers: Hypertension type: unspecified Qualified Code(s): I10 - Essential (primary ) hypertension (6) Hypothyroidism, unspecified Code(s): E03.9 - HYPOTHYROIDISM, UNSPECIFIED
[2018-11-22] MEDS: CLINDAMYCIN 300 MG PREMIX IVPB 300 MG/50 ML BAG IVPB SCH ×4 (02:37→21:06)
[2018-11-22] MEDS: INSULIN (NOVOLOG MIX 70/30) 100 UNITS/ML MDV SQ SCH ×2 (06:19→16:16)
[2018-11-22] MEDS: INSULIN SLIDING SCALE (NOVOLOG) 1 VIAL SQ SCH ×4 (06:19→21:05)
[2018-11-22] MEDS: LEVOTHYROXINE NA 125 MCG TABLET (FP) PO SCH (06:20)
[2018-11-22] MEDS: GABAPENTIN 300 MG CAPSULE (FP) PO SCH ×3 (06:20→21:05)
[2018-11-22] MEDS: metFORMIN HCL 500 MG TABLET (FP) PO SCH ×2 (06:23→16:16)
[2018-11-22] MEDS: sitaGLIPtin PHOSPHATE 100 MG TABLET (FP) PO SCH (06:23)
[2018-11-22 06:57] LABS: BASO % 0.5 % (0-2.0); EOS % 0.4 % (0-4.5); HEMATOCRIT 42.3 % (32.4-45.2); HEMOGLOBIN 14.5 GM/dL (10.7-15.3); LYMPH % 13.2 % (8-40); MCH 31.7 pg (25.7-33.7); MCHC 34.2 g/dl (32.0-36.0); MEAN CELL VOLUME 92.6 fl (80-96); MEAN PLT VOLUME 10.8 fl (7.5-11.1); MONO % 6.5 % (3.8-10.2); NEUT % 79.4 % (42.8-82.8); PLATELET COUNT 75 K/MM3 (134-434); RBC 4.57 M/mm3 (3.60-5.2); RDW 14.7 % (11.6-15.6); WHITE BLOOD COUNT 17.6 K/mm3 (4.0-10.0)
[2018-11-22] MEDS ORDERED: LEVOTHYROXINE NA 125 MCG TABLET (FP) PO SCH (07:00)
[2018-11-22 07:06] LABS: ALBUMIN 2.8 g/dl (3.4-5.0); ALK PHOS 152 U/L (45-117); ANION GAP 7 MMOL/L (8-16); BILIRUBIN,TOTAL 1.2 mg/dL (0.2-1); BLOOD UREA NITROGEN 25 mg/dL (7-18); CALCIUM 8.8 mg/dL (8.5-10.1); CHLORIDE 98 mmol/L (98-107); CO2 26 mmol/L (21-32); CREATININE 1.3 mg/dL (0.55-1.3); MAGNESIUM 1.5 mg/dL (1.8-2.4); PHOSPHOROUS 2.6 mg/dL (2.5-4.9); POTASSIUM 3.6 mmol/L (3.5-5.1); SGOT/AST 48 U/L (15-37); SGPT/ALT 88 U/L (13-61); SODIUM 131 mmol/L (136-145); TOT PROT 5.3 g/dl (6.4-8.2)
[2018-11-22 07:28] LABS: GLUCOSE,RANDOM 359 mg/dL (74-106)
--- NOTE | 2018-11-22 07:43 | OP ---
DATE OF OPERATION: 11/21/2018 PREOPERATIVE DIAGNOSIS: Left gluteal necrotizing soft tissue infection. POSTOPERATIVE DIAGNOSIS: Left gluteal necrotizing soft tissue infection. PROCEDURE: Sharp surgical debridement left gluteal soft tissue infection. ATTENDING SURGEON: Gregg Kramer MD ASSOCIATE: No one. ANESTHESIA: ANESTHESIA: General. SPECIMEN: Necrotic gluteal plug. ESTIMATED BLOOD LOSS: 20 mL. IV FLUID ADMINISTERED: 500 mL crystalloid. Kramer drained 100 mL intraoperative and was left in place postoperatively. INSTRUMENT USE FOR DEBRIDEMENT: Cautery and scalpel. BRIEF FINDINGS: The patient had a necrotic plug left gluteal area surgical created was 4 cm x 6 cm x 2 cm and was debrided to healthy bleeding tissue. Necrotic plug was sent for pathologic tissue culture. INDICATION: The patient is a 63-year-old female. She has had major medical problems including diabetes. Presented in diabetic ketoacidosis with septic source of a gluteal necrotic soft tissue infection. She was counseled regarding risks, benefits, and alternatives to surgical procedure. Signed informed consent. Was taken to the procedure. DESCRIPTION OF PROCEDURE: The patient was brought to the operating room and placed in a supine position. Lower extremity had SCDs placed to compression. She was induced with general anesthesia and endotracheally intubated. She received intravenous antibiotics prior to the start of surgery. The patient was then placed into lithotripsy padding all areas carefully. With the patient in adequate position, a formal time-out was completed identifying the operative site and operative team. With all parties in agreement, began first with circumferential Bovie cautery incision around the necrotic plug. A swab culture was initially sent. There appeared to be very little actual lashell pus and more necrotic tissue. It was debrided to healthy bleeding edges circumferentially. It was cored out its base and checked for undermining with a digit. When it was clear that no areas were undermined, the necrotic plug was sent for pathologic diagnosis. The remainder of the crater was debrided with a scalpel. Bovie cautery was used to obtain hemostasis throughout dissection of the base of the surgical crater. When hemostasis was obtained, additional hemostatic agents were applied temporarily and then the crater was irrigated with a liter of sterile irrigation fluid. The wound was ultimately packed with 2-inch iodoform packing and dressed after skin was cleaned with sterile 4 x 4's, ABD pad, and tape. The patient tolerated the procedure well and was transferred to the ICU in stable condition. MD FELICIA Sanchez/[id number]
[2018-11-22] MEDS: ALBUTEROL SO4 2.5/IPRATROPIUM 0.5 INH SOL 3 ML VIAL.NEB. NEB SCH ×3 (08:15→20:10)
[2018-11-22] MEDS ORDERED: ALBUTEROL SO4 0.083% IH SOL 2.5 MG/3 ML VIAL.NEB. NEB PRN (08:20)
--- NOTE | 2018-11-22 08:22 | PN ---
Progress Note (short form) - Note Progress Note: PULML/CCM Pt seen and examined in ICU 24HR: -came overnight from OR -extubated -mild pain this am, eating -afebrile, stable hemodynamics Vital Signs Temp 99.3 F 11/22/18 03:57 Pulse 78 11/22/18 03:00 Resp 16 11/22/18 03:00 BP 153/103 H 11/22/18 03:00 Pulse Ox 98 11/21/18 18:35 Intake & Output 11/21/18 11/21/18 11/22/18 11:59 23:59 11:59 Intake Total 500 1041 Output Total 120 1800 Balance 380 -759 Weight 81.647 kg 81.647 kg Intake: IV 500 1041 Normal Saline - 1,000 ml 1041 @ 125 mls/hr IV ASDIR STA Rx#:[id number] Oral 0 Output: Urine 100 1800 Kramer 1800 Estimated Blood Loss 20 Other: Voiding Method Indwelling Catheter Height 5 ft 4 in 5 ft 4 in Body Mass Index (BMI) 30.9 30.9 CBC, BMP 11/22/18 05:30 11/22/18 05:30 Active Medications Albuterol Sulfate (Ventolin 0.083% Nebulizer Soln -) 1 amp NEB Q6H PRN PRN Reason: SHORT OF BREATH/WHEEZING Albuterol/Ipratropium (Duoneb -) 1 amp NEB RTID [facility] Atorvastatin Calcium (Lipitor -) 20 mg PO HS [facility] Chlorhexidine Gluconate (Hibiclens For Decolonization -) 1 applic TP HS [facility] Last Admin: 11/21/18 22:07 Dose: 1 applic Clopidogrel Bisulfate (Plavix -) 75 mg PO HS [facility] Folic Acid (Folic Acid -) 1 mg PO HS [facility] Gabapentin (Neurontin -) 300 mg PO TID [facility] Last Admin: 11/22/18 06:20 Dose: 300 mg Heparin Sodium (Porcine) (Heparin -) 5,000 unit SQ BID [facility] Clindamycin Phosphate (Cleocin 300 Mg Premix Ivpb) 300 mg in 50 mls @ 100 mls/ hr IVPB Q6H-IV [facility]; Protocol Meropenem 1 gm/ Dextrose 100 mls @ 200 mls/hr IVPB Q12H [facility] Vancomycin HCl 1,500 mg/ (Dextrose) 500 mls @ 250 mls/hr IVPB Q24H [facility]; Protocol Insulin Aspart (Novolog Mix 70/30 Vial) 20 units SQ BIDAC [facility] Last Admin: 11/22/18 06:19 Dose: 20 units Insulin Aspart (Novolog Vial Sliding Scale -) 1 vial SQ ACHS [facility]; Protocol Last Admin: 11/22/18 06:19 Dose: 10 units Levothyroxine Sodium (Synthroid -) 125 mcg PO DAILY@0700 [facility] Last Admin: 11/22/18 06:20 Dose: 125 mcg Metformin HCl (Glucophage -) 500 mg PO BIDAC [facility] Last Admin: 11/22/18 06:23 Dose: Not Given Metoprolol Tartrate (Lopressor -) 25 mg PO HS [facility] Mirtazapine (Remeron -) 15 mg PO HS [facility] Montelukast Sodium (Singulair -) 10 mg PO HS [facility] Morphine Sulfate (Morphine Sulfate) 2 mg IVPUSH Q3H PRN PRN Reason: PAIN LEVEL 1-5 Mupirocin (Bactroban Ointment (For Decolonization) -) 1 applic NS BID [facility] Stop: 11/26/18 21:59 Last Admin: 11/21/18 22:02 Dose: 1 applic Nifedipine (Procardia Xl -) 60 mg PO HS [facility] Pantoprazole Sodium (Protonix Iv) 40 mg IVPUSH DAILY [facility] Sitagliptin Phosphate (Januvia -) 100 mg PO DAILY@0700 [facility] Last Admin: 11/22/18 06:23 Dose: Not Given PE: Gen: awake, alert, non-toxic appearing HEENT: NCAT, neck supple PULM: clear anterior, no wheezes CV: Regular, normal s1 s2 ABD: obese, soft, NT, +BS EXT: dressed L gluetal fold, minimal drainage NEURO: grossly intact ASSESSMENT/PLAN: 63 year old female w/ necrotizing soft tissue infection of the left gluteal now s/p surgical debridement. NEURO: hx of myasthenia gravis, pain at surgical site - restart Pyridostigmine and Tizanidine - morphine PRN, transition to PO PULMONARY : hx of COPD -DuoNebs standing TID and Albuterol Q6H PRN -Continue to monitor 02 saturations and maintain >90% INFECTIOUS DISEASE: Necrotizing Soft Tissue Infection of Left Gluteal -S/P sharp surgical debridement of Left gluteal (11/21/18) with [place] -cont Vanc, jamal, clinda, narrow on cxl/clinical status -Wound cultures and blood cultures pending ENDO: hypothyroid, NIDDM - Levothyroxine 125mcg -januvia and metformin -BGM and ISS F/E/N -diabetic diet Prophylaxis -SCD's for DVT -Protonix for GI Disposition -Full code -OK for med surg floor today Sara ACNP [id number]
[2018-11-22] MEDS ORDERED: TIZANIDINE HCL 2 MG TABLET PO PRN (08:31)
[2018-11-22] MEDS: MORPHINE SULFATE 2 MG/ML VIAL IVPUSH PRN ×3 (08:34→19:21)
[2018-11-22] MEDS: MEROPENEM 1 GM in DEXTROSE 5%-WATER 100 ML IVPB SCH ×2 (09:41→21:06)
[2018-11-22] MEDS: HEPARIN NA (PORCINE) 5,000 UNITS/ML 1ML VIAL SQ SCH ×2 (09:43→21:06)
[2018-11-22] MEDS: PANTOPRAZOLE SODIUM 40 MG VIAL IVPUSH SCH (09:44)
[2018-11-22] MEDS ORDERED: PANTOPRAZOLE SODIUM 40 MG VIAL IVPUSH SCH (10:00)
[2018-11-22] MEDS: MUPIROCIN 2% TOPICAL OINTMENT FOR DECOLONIZATION NS SCH ×2 (10:10→21:06)
[2018-11-22] MEDS ORDERED: metFORMIN HCL 500 MG TABLET (FP) PO ONE (10:52)
[2018-11-22] MEDS ORDERED: sitaGLIPtin PHOSPHATE 100 MG TABLET (FP) PO ONE (10:53)
--- NOTE | 2018-11-22 10:58 | PN ---
Progress Note, Physician Chief Complaint: gluteal pain and swelling History of Present Illness: 63yo female PMH DM, obesity, HTN, COPD, Myesthenia Gravis, Graves disease with left gluteal necrotizing soft tissue infection noticed 3 days ago by patient. stable post operatively. Extubated yesterday. - Current Medication List Current Medications: Active Medications Albuterol Sulfate (Ventolin 0.083% Nebulizer Soln -) 1 amp NEB Q6H PRN PRN Reason: SHORT OF BREATH/WHEEZING Albuterol/Ipratropium (Duoneb -) 1 amp NEB RTID [facility] Atorvastatin Calcium (Lipitor -) 20 mg PO HS [facility] Chlorhexidine Gluconate (Hibiclens For Decolonization -) 1 applic TP HS [facility] Last Admin: 11/21/18 22:07 Dose: 1 applic Clopidogrel Bisulfate (Plavix -) 75 mg PO HS [facility] Folic Acid (Folic Acid -) 1 mg PO HS [facility] Gabapentin (Neurontin -) 300 mg PO TID [facility] Last Admin: 11/22/18 06:20 Dose: 300 mg Heparin Sodium (Porcine) (Heparin -) 5,000 unit SQ BID [facility] Last Admin: 11/22/18 09:43 Dose: 5,000 unit Clindamycin Phosphate (Cleocin 300 Mg Premix Ivpb) 300 mg in 50 mls @ 100 mls/ hr IVPB Q6H-IV [facility]; Protocol Last Admin: 11/22/18 09:41 Dose: 100 mls/hr Meropenem 1 gm/ Dextrose 100 mls @ 200 mls/hr IVPB BID [facility] Last Admin: 11/22/18 09:41 Dose: 200 mls/hr Vancomycin HCl 1,500 mg/ (Dextrose) 500 mls @ 250 mls/hr IVPB Q24H [facility]; Protocol Insulin Aspart (Novolog Mix 70/30 Vial) 20 units SQ BIDAC [facility] Last Admin: 11/22/18 06:19 Dose: 20 units Insulin Aspart (Novolog Vial Sliding Scale -) 1 vial SQ ACHS [facility]; Protocol Last Admin: 11/22/18 06:19 Dose: 10 units Levothyroxine Sodium (Synthroid -) 125 mcg PO DAILY@0700 [facility] Last Admin: 11/22/18 06:20 Dose: 125 mcg Metformin HCl (Glucophage -) 500 mg PO BIDAC [facility] Last Admin: 11/22/18 06:23 Dose: Not Given Metformin HCl (Glucophage -) 500 mg PO ONCE ONE Stop: 11/22/18 10:53 Metoprolol Tartrate (Lopressor -) 25 mg PO HS [facility] Mirtazapine (Remeron -) 15 mg PO HS [facility] Montelukast Sodium (Singulair -) 10 mg PO HS [facility] Morphine Sulfate (Morphine Sulfate) 2 mg IVPUSH Q3H PRN PRN Reason: PAIN LEVEL 1-5 Last Admin: 11/22/18 08:34 Dose: 2 mg Mupirocin (Bactroban Ointment (For Decolonization) -) 1 applic NS BID [facility] Stop: 11/26/18 21:59 Last Admin: 11/22/18 10:10 Dose: 1 applic Nifedipine (Procardia Xl -) 60 mg PO HS [facility] Pantoprazole Sodium (Protonix Iv) 40 mg IVPUSH DAILY [facility] Last Admin: 11/22/18 09:44 Dose: 40 mg Sitagliptin Phosphate (Januvia -) 100 mg PO DAILY@0700 [facility] Last Admin: 11/22/18 06:23 Dose: Not Given Sitagliptin Phosphate (Januvia -) 100 mg PO ONCE ONE Stop: 11/22/18 10:54 Tizanidine HCl (Tizanidine Hcl) 2 mg PO Q8H PRN PRN Reason: MUSCLE SPASMS - Objective Vital Signs: Vital Signs Temperature 99.3 F 11/22/18 03:57 Pulse Rate 78 11/22/18 03:00 Respiratory Rate 16 11/22/18 03:00 Blood Pressure 153/103 H 11/22/18 03:00 O2 Sat by Pulse Oximetry (%) 98 11/21/18 18:35 Intake & Output 11/21/18 11/22/18 11/22/18 23:59 07:59 15:59 Intake Total 500 1041 120 Output Total 120 1800 Balance 380 -759 120 Intake: IV 500 1041 Normal Saline - 1,000 ml 1041 @ 125 mls/hr IV ASDIR STA Rx#:[id number] Oral 120 Output: Urine 100 1800 Kramer 1800 Estimated Blood Loss 20 Other: Voiding Method Indwelling Catheter Constitutional: Yes: Well Nourished, No Distress, Calm, Obese Eyes: Yes: Conjunctiva Clear, EOM Intact HENT: Yes: Atraumatic, Normocephalic Neck: Yes: Supple, Trachea Midline Cardiovascular: Yes: Regular Rate and Rhythm, S1, S2 Respiratory: Yes: Regular, CTA Bilaterally Gastrointestinal: Yes: Normal Bowel Sounds, Soft. No: Tenderness, Tenderness, Epigastrium, Tenderness, Rebound ...Rectal Exam: Yes: Deferred Genitourinary: No: CVA Tenderness - Left, CVA Tenderness - Right Musculoskeletal: No: Muscle Pain, Muscle Weakness Extremities: No: Cool, Cyanosis Peripheral Pulses WNL: Yes Peripheral Pulses: Left Radial: 2+, Right Radial: 2+, Left Doralis Pedis: 2+, Right Dorsalis Pedis: 2+, Left Femoral: 2+, Right Femoral: 2+ Integumentary: Yes: Venous Stasis Changes. No: Jaundice Wound/Incision: Yes: Clean/Dry, Open to air, Unapproximated (4.5cm circular, clean base) Neurological: Yes: Alert, Oriented Psychiatric: Yes: Alert, Oriented Labs: CBC, BMP 11/22/18 05:30 11/22/18 05:30 INR, PTT INR 1.25 (0.83-1.09) H 11/21/18 10:50 Problem List - Problems (1) Necrotizing fasciitis Assessment/Plan: 63yo female MMP Diabetic with necrotizing left gluteal soft tissue infection. POD#1 s/p Debridement of left gluteal area for necrotizing soft tissue infection. Dressing change Diet as tolerated continue IV antibiotics f/u cultures OOB and ambulate adequate analgesia transfer to floor This patient is in guarded condition. Time spent reviewing chart, examining patient, talking with providers and/or family and documentation is XX minutes. Code(s): M72.6 - NECROTIZING FASCIITIS (2) COPD (chronic obstructive pulmonary disease) Code(s): J44.9 - CHRONIC OBSTRUCTIVE PULMONARY DISEASE, UNSPECIFIED Qualifiers: COPD type: chronic bronchitis (3) Diabetes Code(s): E11.9 - TYPE 2 DIABETES MELLITUS WITHOUT COMPLICATIONS Qualifiers: Diabetes mellitus type: type 2 (4) Graves' disease Code(s): E05.00 - THYROTOXICOSIS W DIFFUSE GOITER W/O THYROTOXIC CRISIS (5) Hypertension Code(s): I10 - ESSENTIAL (PRIMARY) HYPERTENSION Qualifiers: Hypertension type: unspecified Qualified Code(s): I10 - Essential (primary ) hypertension (6) Hypothyroidism, unspecified Code(s): E03.9 - HYPOTHYROIDISM, UNSPECIFIED (7) Myasthenia gravis Code(s): G70.00 - MYASTHENIA GRAVIS WITHOUT (ACUTE) EXACERBATION
[2018-11-22] MEDS ORDERED: VANCOMYCIN HCL 1,500 MG in DEXTROSE 5%-WATER - 500 ML IVPB SCH (11:00)
[2018-11-22] MEDS: VANCOMYCIN HCL 1,500 MG in DEXTROSE 5%-WATER - 500 ML IVPB SCH (11:06)
[2018-11-22] MEDS ORDERED: PT OWN MED DRAWER 7, Y5N ONE ×2 (15:54→21:03)
--- NOTE | 2018-11-22 17:30 | PN ---
Progress Note, Physician History of Present Illness: Pt seen and examined. Records reviewed, labs/imaging results noted. Pt is s/p debridement of Lt gluteal region, extubated. States she feels much better, no current pain. Has no specific complaints. and daughter at bedside. - Current Medication List Current Medications: Active Medications Albuterol Sulfate (Ventolin 0.083% Nebulizer Soln -) 1 amp NEB Q6H PRN PRN Reason: SHORT OF BREATH/WHEEZING Albuterol/Ipratropium (Duoneb -) 1 amp NEB RTID [facility] Last Admin: 11/22/18 14:00 Dose: 1 amp Atorvastatin Calcium (Lipitor -) 20 mg PO HS [facility] Chlorhexidine Gluconate (Hibiclens For Decolonization -) 1 applic TP HS [facility] Last Admin: 11/21/18 22:07 Dose: 1 applic Clopidogrel Bisulfate (Plavix -) 75 mg PO HS [facility] Folic Acid (Folic Acid -) 1 mg PO HS [facility] Gabapentin (Neurontin -) 300 mg PO TID [facility] Last Admin: 11/22/18 14:08 Dose: 300 mg Heparin Sodium (Porcine) (Heparin -) 5,000 unit SQ BID [facility] Last Admin: 11/22/18 09:43 Dose: 5,000 unit Clindamycin Phosphate (Cleocin 300 Mg Premix Ivpb) 300 mg in 50 mls @ 100 mls/ hr IVPB Q6H-IV [facility]; Protocol Last Admin: 11/22/18 15:56 Dose: 100 mls/hr Meropenem 1 gm/ Dextrose 100 mls @ 200 mls/hr IVPB BID [facility] Last Admin: 11/22/18 09:41 Dose: 200 mls/hr Vancomycin HCl 1,500 mg/ (Dextrose) 500 mls @ 250 mls/hr IVPB Q24H [facility]; Protocol Last Admin: 11/22/18 11:06 Dose: 250 mls/hr Insulin Aspart (Novolog Mix 70/30 Vial) 20 units SQ BIDAC [facility] Last Admin: 11/22/18 16:16 Dose: 20 units Insulin Aspart (Novolog Vial Sliding Scale -) 1 vial SQ ACHS [facility]; Protocol Last Admin: 11/22/18 16:03 Dose: 12 units Levothyroxine Sodium (Synthroid -) 125 mcg PO DAILY@0700 [facility] Last Admin: 11/22/18 06:20 Dose: 125 mcg Metformin HCl (Glucophage -) 500 mg PO BIDAC [facility] Last Admin: 11/22/18 16:16 Dose: 500 mg Metoprolol Tartrate (Lopressor -) 25 mg PO HS [facility] Mirtazapine (Remeron -) 15 mg PO HS [facility] Montelukast Sodium (Singulair -) 10 mg PO HS [facility] Morphine Sulfate (Morphine Sulfate) 2 mg IVPUSH Q3H PRN PRN Reason: PAIN LEVEL 1-5 Last Admin: 11/22/18 14:07 Dose: 2 mg Mupirocin (Bactroban Ointment (For Decolonization) -) 1 applic NS BID [facility] Stop: 11/26/18 21:59 Last Admin: 11/22/18 10:10 Dose: 1 applic Nifedipine (Procardia Xl -) 60 mg PO HS [facility] Pantoprazole Sodium (Protonix Iv) 40 mg IVPUSH DAILY [facility] Last Admin: 11/22/18 09:44 Dose: 40 mg Pyridostigmine [place] (Mestinon -) 60 mg PO BID [facility] Sitagliptin Phosphate (Januvia -) 100 mg PO DAILY@0700 [facility] Last Admin: 11/22/18 06:23 Dose: Not Given Tizanidine HCl (Tizanidine Hcl) 2 mg PO Q8H PRN PRN Reason: MUSCLE SPASMS - Objective Vital Signs: Vital Signs Temperature 98.2 F 11/22/18 16:53 Pulse Rate 86 11/22/18 16:53 Respiratory Rate 17 11/22/18 16:53 Blood Pressure 144/57 L 11/22/18 16:53 O2 Sat by Pulse Oximetry (%) 96 11/22/18 09:00 Constitutional: Yes: No Distress, Calm Cardiovascular: Yes: Regular Rate and Rhythm Respiratory: Yes: Regular Gastrointestinal: Yes: Normal Bowel Sounds, Soft, Abdomen, Obese Genitourinary: Yes: Kramer Present (draining clear yellow urine) Wound/Incision: Yes: Other (Gluteal dressing intact) Neurological: Yes: Alert, Oriented Labs: CBC, BMP 11/22/18 05:30 11/22/18 05:30 INR, PTT INR 1.25 (0.83-1.09) H 11/21/18 10:50 Laboratory Tests 11/21/18 11/21/18 11/21/18 10:50 10:50 10:50 WBC 26.7 H RBC 5.04 Hgb 16.2 H Hct 47.0 H MCV 93.4 MCH 32.1 MCHC 34.3 RDW 14.3 Plt Count 96 L MPV 10.9 Absolute Neuts (auto) 23.0 H Total Counted 100 Neutrophils % 86.2 H D Neutrophils % (Manual) 77.0 Band Neutrophils % 6.0 Lymphocytes % 8.7 D Lymphocytes % (Manual) 14.0 Monocytes % 4.8 Monocytes % (Manual) 2 L Eosinophils % 0.1 D Eosinophils % (Manual) 0.0 Basophils % 0.2 Basophils % (Manual) 1.0 Nucleated RBC % 0 Platelet Estimate Mod decreased Platelet Comment No clumping noted PT with INR 14.80 H INR 1.25 H Sodium 127 L Potassium 3.9 Chloride 92 L Carbon Dioxide 21 Anion Gap 13 BUN 30 H Creatinine 2.3 H Creat Clearance w eGFR 21.42 POC Glucometer Random Glucose 443 H* Hemoglobin A1c % Lactic Acid Calcium 9.7 Phosphorus Magnesium Total Bilirubin 1.7 H AST 62 H ALT 97 H Alkaline Phosphatase 167 H Total Protein 6.2 L Albumin 3.6 Urine Color Urine Appearance Urine pH Ur Specific [place] Urine Protein Urine Glucose (UA) Urine Ketones Urine Blood Urine Nitrite Urine Bilirubin Urine Urobilinogen Ur Leukocyte Esterase Urine WBC (Auto) Urine RBC (Auto) Ur Epithelial Cells Urine Bacteria Hyaline Casts Urine Mucus Urine Yeast Blood Type Antibody Screen 11/21/18 11/21/18 11/21/18 10:50 10:50 10:55 WBC RBC Hgb Hct MCV MCH MCHC RDW Plt Count MPV Absolute Neuts (auto) Total Counted Neutrophils % Neutrophils % (Manual) Band Neutrophils % Lymphocytes % Lymphocytes % (Manual) Monocytes % Monocytes % (Manual) Eosinophils % Eosinophils % (Manual) Basophils % Basophils % (Manual) Nucleated RBC % Platelet Estimate Platelet Comment PT with INR INR Sodium Potassium Chloride Carbon Dioxide Anion Gap BUN Creatinine Creat Clearance w eGFR POC Glucometer Random Glucose Hemoglobin A1c % Lactic Acid 5.4 H* Calcium Phosphorus Magnesium Total Bilirubin AST ALT Alkaline Phosphatase Total Protein Albumin Urine Color Dk yellow Urine Appearance Cloudy Urine pH 5.0 D Ur Specific [place] 1.021 Urine Protein 2+ H Urine Glucose (UA) 3+ H Urine Ketones Negative Urine Blood 1+ H Urine Nitrite Negative Urine Bilirubin 2.0 Urine Urobilinogen 4.0 e.u/dl H Ur Leukocyte Esterase 3+ H Urine WBC (Auto) 432 Urine RBC (Auto) 14 Ur Epithelial Cells Moderate Urine Bacteria Moderate Hyaline Casts 15 Urine Mucus Rare Urine Yeast No Result Required. Blood Type O POSITIVE Antibody Screen Negative 11/21/18 11/21/18 11/21/18 18:15 18:15 18:15 WBC 23.4 H RBC 4.86 Hgb 15.4 H Hct 45.0 MCV 92.7 MCH 31.8 MCHC 34.3 RDW 14.8 Plt Count 81 L MPV 10.9 Absolute Neuts (auto) Total Counted Neutrophils % Neutrophils % (Manual) Band Neutrophils % Lymphocytes % Lymphocytes % (Manual) Monocytes % Monocytes % (Manual) Eosinophils % Eosinophils % (Manual) Basophils % Basophils % (Manual) Nucleated RBC % Platelet Estimate Platelet Comment PT with INR INR Sodium 129 L Potassium 3.7 Chloride 93 L Carbon Dioxide 24 Anion Gap 12 BUN 30 H Creatinine 1.6 H Creat Clearance w eGFR 32.55 POC Glucometer Random Glucose 365 H* Hemoglobin A1c % Lactic Acid 2.0 Calcium 9.0 Phosphorus Magnesium Total Bilirubin 1.9 H AST 53 H ALT 90 H Alkaline Phosphatase 155 H Total Protein 5.8 L Albumin 3.2 L Urine Color Urine Appearance Urine pH Ur Specific [place] Urine Protein Urine Glucose (UA) Urine Ketones Urine Blood Urine Nitrite Urine Bilirubin Urine Urobilinogen Ur Leukocyte Esterase Urine WBC (Auto) Urine RBC (Auto) Ur Epithelial Cells Urine Bacteria Hyaline Casts Urine Mucus Urine Yeast Blood Type Antibody Screen 11/21/18 11/21/18 11/22/18 20:22 21:30 05:30 WBC RBC Hgb Hct MCV MCH MCHC RDW Plt Count MPV Absolute Neuts (auto) Total Counted Neutrophils % Neutrophils % (Manual) Band Neutrophils % Lymphocytes % Lymphocytes % (Manual) Monocytes % Monocytes % (Manual) Eosinophils % Eosinophils % (Manual) Basophils % Basophils % (Manual) Nucleated RBC % Platelet Estimate Platelet Comment PT with INR INR Sodium Potassium Chloride Carbon Dioxide Anion Gap BUN Creatinine Creat Clearance w eGFR POC Glucometer 424 384 Random Glucose Hemoglobin A1c % 12.2 H Lactic Acid Calcium Phosphorus Magnesium Total Bilirubin AST ALT Alkaline Phosphatase Total Protein Albumin Urine Color Urine Appearance Urine pH Ur Specific [place] Urine Protein Urine Glucose (UA) Urine Ketones Urine Blood Urine Nitrite Urine Bilirubin Urine Urobilinogen Ur Leukocyte Esterase Urine WBC (Auto) Urine RBC (Auto) Ur Epithelial Cells Urine Bacteria Hyaline Casts Urine Mucus Urine Yeast Blood Type Antibody Screen 11/22/18 11/22/18 11/22/18 05:30 05:30 05:30 WBC 17.6 H RBC 4.57 Hgb 14.5 Hct 42.3 MCV 92.6 MCH 31.7 MCHC 34.2 RDW 14.7 Plt Count 75 L MPV 10.8 Absolute Neuts (auto) 13.9 H Total Counted Neutrophils % 79.4 Neutrophils % (Manual) Band Neutrophils % Lymphocytes % 13.2 D Lymphocytes % (Manual) Monocytes % 6.5 Monocytes % (Manual) Eosinophils % 0.4 D Eosinophils % (Manual) Basophils % 0.5 Basophils % (Manual) Nucleated RBC % 0 Platelet Estimate Platelet Comment PT with INR INR Sodium 131 L Potassium 3.6 Chloride 98 Carbon Dioxide 26 Anion Gap 7 L BUN 25 H Creatinine 1.3 Creat Clearance w eGFR 41.37 POC Glucometer 363 Random Glucose 359 H* Hemoglobin A1c % Lactic Acid Calcium 8.8 Phosphorus 2.6 Magnesium 1.5 L Total Bilirubin 1.2 H AST 48 H ALT 88 H Alkaline Phosphatase 152 H Total Protein 5.3 L Albumin 2.8 L Urine Color Urine Appearance Urine pH Ur Specific [place] Urine Protein Urine Glucose (UA) Urine Ketones Urine Blood Urine Nitrite Urine Bilirubin Urine Urobilinogen Ur Leukocyte Esterase Urine WBC (Auto) Urine RBC (Auto) Ur Epithelial Cells Urine Bacteria Hyaline Casts Urine Mucus Urine Yeast Blood Type Antibody Screen 11/22/18 11/22/18 11:04 16:00 WBC RBC Hgb Hct MCV MCH MCHC RDW Plt Count MPV Absolute Neuts (auto) Total Counted Neutrophils % Neutrophils % (Manual) Band Neutrophils % Lymphocytes % Lymphocytes % (Manual) Monocytes % Monocytes % (Manual) Eosinophils % Eosinophils % (Manual) Basophils % Basophils % (Manual) Nucleated RBC % Platelet Estimate Platelet Comment PT with INR INR Sodium Potassium Chloride Carbon Dioxide Anion Gap BUN Creatinine Creat Clearance w eGFR POC Glucometer 425 432 Random Glucose Hemoglobin A1c % Lactic Acid Calcium Phosphorus Magnesium Total Bilirubin AST ALT Alkaline Phosphatase Total Protein Albumin Urine Color Urine Appearance Urine pH Ur Specific [place] Urine Protein Urine Glucose (UA) Urine Ketones Urine Blood Urine Nitrite Urine Bilirubin Urine Urobilinogen Ur Leukocyte Esterase Urine WBC (Auto) Urine RBC (Auto) Ur Epithelial Cells Urine Bacteria Hyaline Casts Urine Mucus Urine Yeast Blood Type Antibody Screen Microbiology 11/21/18 16:40 Buttock - Left Gram Stain - Final 11/21/18 10:50 Blood - Peripheral Venous Blood Culture - Preliminary NO GROWTH OBTAINED AFTER 24 HOURS, INCUBATION TO CONTINUE FOR 4 DAYS. 11/21/18 10:50 Blood - Peripheral Venous Blood Culture - Preliminary NO GROWTH OBTAINED AFTER 24 HOURS, INCUBATION TO CONTINUE FOR 4 DAYS. 11/21/18 10:55 Urine - Urine Clean Catch Urine Culture - Preliminary Non Lactose Fermenting Gnb Pending Organism - ....Imaging Chest X-ray: Report Reviewed Problem List - Problems (1) Necrotizing fasciitis Code(s): M72.6 - NECROTIZING FASCIITIS (2) COPD (chronic obstructive pulmonary disease) Code(s): J44.9 - CHRONIC OBSTRUCTIVE PULMONARY DISEASE, UNSPECIFIED Qualifiers: COPD type: chronic bronchitis (3) Diabetes Code(s): E11.9 - TYPE 2 DIABETES MELLITUS WITHOUT COMPLICATIONS Qualifiers: Diabetes mellitus type: type 2 (4) Graves' disease Code(s): E05.00 - THYROTOXICOSIS W DIFFUSE GOITER W/O THYROTOXIC CRISIS (5) Hypertension Code(s): I10 - ESSENTIAL (PRIMARY) HYPERTENSION Qualifiers: Hypertension type: unspecified Qualified Code(s): I10 - Essential (primary ) hypertension (6) Hypothyroidism, unspecified Code(s): E03.9 - HYPOTHYROIDISM, UNSPECIFIED (7) Morbid obesity Code(s): E66.01 - MORBID (SEVERE) OBESITY DUE TO EXCESS CALORIES (8) Myasthenia gravis Code(s): G70.00 - MYASTHENIA GRAVIS WITHOUT (ACUTE) EXACERBATION Assessment/Plan 63 y.o. female with PMH of Uncontrolled DM, morbid obesity, Myasthenia gravis, COPD presenting with Lt buttock necrotizing infection/pain with malodor/ drainage and leukocytosis Lt gluteus Necrotizing soft tissue infection s/p debridement Leukocytosis MARKO UTI Uncontrolled DM MG COPD Morbid obesity -- pt alert/vitals stable, wbc trending down, afebrile -- continue current antibiotics -- follow up wound and urine culture results -- renal function improving -- continue monitor cbc/bmp -- wound care, surgery following -- needs tight glycemic control cc time: 40 min
[2018-11-22] MEDS: MONTELUKAST NA 10 MG TABLET PO SCH (21:04)
[2018-11-22] MEDS: MIRTAZAPINE 15 MG TABLET (FP) PO SCH (21:05)
[2018-11-22] MEDS: ATORVASTATIN CA 20 MG TABLET (FP) PO SCH (21:05)
[2018-11-22] MEDS: FOLIC ACID 1 MG TABLET (FP) PO SCH (21:05)
[2018-11-22] MEDS: METOPROLOL TARTRATE 25 MG TABLET (FP) PO SCH (21:05)
[2018-11-22] MEDS: CLOPIDOGREL BISULFATE 75 MG TABLET (FP) PO SCH (21:05)
[2018-11-22] MEDS: NIFEdipine E.R 60 MG TABLET (UD) PO SCH (21:07)
[2018-11-22] MEDS: CHLORHEXIDINE GLUCONATE 4% CLEANSER FOR DECOLONIZATION TP SCH (21:32)
[2018-11-22] MEDS: PYRIDOSTIGMINE BROMIDE 60 MG TABLET PO SCH (21:32)
[2018-11-22] MEDS ORDERED: PYRIDOSTIGMINE BROMIDE 180 MG PO SCH (22:00)
--- NOTE | 2018-11-22 22:08 | EKG ---
Test Reason : Blood Pressure : / mmHG Vent. Rate : 100 BPM Atrial Rate : 100 BPM P-R Int : 154 ms QRS Dur : 100 ms QT Int : 332 ms P-R-T Axes : 017 -27 144 degrees QTc Int : 428 ms NORMAL SINUS RHYTHM ABNORMAL ECG WHEN COMPARED WITH ECG OF 30-DEC-2017 21:04, PREMATURE ATRIAL COMPLEXES ARE NO LONGER PRESENT VENT. RATE HAS INCREASED BY 38 BPM Confirmed by ANNA DEL ANGEL MD ([id number]) on 11/22/2018 10:08:04 PM Referred By: Confirmed By:ANNA DEL ANGEL MD
[2018-11-23] MEDS ORDERED: PT OWN MED DRAWER 7, Y5N ONE ×3 (01:43→11:27)
[2018-11-23] MEDS: CLINDAMYCIN 300 MG PREMIX IVPB 300 MG/50 ML BAG IVPB SCH ×4 (02:06→22:14)
[2018-11-23] MEDS: GABAPENTIN 300 MG CAPSULE (FP) PO SCH ×3 (05:51→22:17)
[2018-11-23 06:03] LABS: HEMATOCRIT 43.8 % (32.4-45.2); MCH 31.6 pg (25.7-33.7); MCHC 34.2 g/dl (32.0-36.0); MEAN CELL VOLUME 92.6 fl (80-96); MEAN PLT VOLUME 10.6 fl (7.5-11.1); PLATELET COUNT 105 K/MM3 (134-434); RBC 4.73 M/mm3 (3.60-5.2); RDW 14.5 % (11.6-15.6); WHITE BLOOD COUNT 14.8 K/mm3 (4.0-10.0)
[2018-11-23 06:31] LABS: ANION GAP 7 MMOL/L (8-16); BLOOD UREA NITROGEN 18 mg/dL (7-18); CHLORIDE 98 mmol/L (98-107); CO2 27 mmol/L (21-32); GLUCOSE,RANDOM 256 mg/dL (74-106); MAGNESIUM 1.4 mg/dL (1.8-2.4); PHOSPHOROUS 2.5 mg/dL (2.5-4.9); POTASSIUM 3.5 mmol/L (3.5-5.1); SODIUM 133 mmol/L (136-145)
[2018-11-23] MEDS: metFORMIN HCL 500 MG TABLET (FP) PO SCH ×2 (06:33→16:47)
[2018-11-23] MEDS: LEVOTHYROXINE NA 125 MCG TABLET (FP) PO SCH (06:33)
[2018-11-23] MEDS: INSULIN SLIDING SCALE (NOVOLOG) 1 VIAL SQ SCH ×4 (06:33→22:24)
[2018-11-23] MEDS: sitaGLIPtin PHOSPHATE 100 MG TABLET (FP) PO SCH (06:34)
[2018-11-23] MEDS: INSULIN (NOVOLOG MIX 70/30) 100 UNITS/ML MDV SQ SCH ×2 (06:34→16:47)
[2018-11-23] MEDS: MORPHINE SULFATE 2 MG/ML VIAL IVPUSH PRN ×4 (06:51→22:24)
[2018-11-23] MEDS: ALBUTEROL SO4 2.5/IPRATROPIUM 0.5 INH SOL 3 ML VIAL.NEB. NEB SCH ×3 (08:33→19:50)
[2018-11-23] MEDS: MEROPENEM 1 GM in DEXTROSE 5%-WATER 100 ML IVPB SCH ×2 (09:24→22:14)
[2018-11-23] MEDS: PANTOPRAZOLE SODIUM 40 MG VIAL IVPUSH SCH (09:25)
[2018-11-23] MEDS: HEPARIN NA (PORCINE) 5,000 UNITS/ML 1ML VIAL SQ SCH ×2 (09:26→22:18)
[2018-11-23] MEDS: PYRIDOSTIGMINE BROMIDE 60 MG TABLET PO SCH ×2 (09:26→22:15)
[2018-11-23] MEDS: MUPIROCIN 2% TOPICAL OINTMENT FOR DECOLONIZATION NS SCH ×2 (09:27→22:15)
[2018-11-23] MEDS: VANCOMYCIN HCL 1,500 MG in DEXTROSE 5%-WATER - 500 ML IVPB SCH (11:32)
--- NOTE | 2018-11-23 14:39 | PN ---
Progress Note, Physician History of Present Illness: patient doing well pain main issue but her pain is better from the initial pain - Current Medication List Current Medications: Active Medications Albuterol Sulfate (Ventolin 0.083% Nebulizer Soln -) 1 amp NEB Q6H PRN PRN Reason: SHORT OF BREATH/WHEEZING Albuterol/Ipratropium (Duoneb -) 1 amp NEB RTID [facility] Last Admin: 11/23/18 13:17 Dose: 1 amp Atorvastatin Calcium (Lipitor -) 20 mg PO HS [facility] Last Admin: 11/22/18 21:05 Dose: 20 mg Chlorhexidine Gluconate (Hibiclens For Decolonization -) 1 applic TP HS [facility] Last Admin: 11/22/18 21:32 Dose: 1 applic Clopidogrel Bisulfate (Plavix -) 75 mg PO HS [facility] Last Admin: 11/22/18 21:05 Dose: 75 mg Folic Acid (Folic Acid -) 1 mg PO HS [facility] Last Admin: 11/22/18 21:05 Dose: 1 mg Gabapentin (Neurontin -) 300 mg PO TID [facility] Last Admin: 11/23/18 05:51 Dose: 300 mg Heparin Sodium (Porcine) (Heparin -) 5,000 unit SQ BID [facility] Last Admin: 11/23/18 09:26 Dose: 5,000 unit Clindamycin Phosphate (Cleocin 300 Mg Premix Ivpb) 300 mg in 50 mls @ 100 mls/ hr IVPB Q6H-IV [facility]; Protocol Last Admin: 11/23/18 09:24 Dose: 100 mls/hr Meropenem 1 gm/ Dextrose 100 mls @ 200 mls/hr IVPB BID [facility] Last Admin: 11/23/18 09:24 Dose: 200 mls/hr Vancomycin HCl 1,500 mg/ (Dextrose) 500 mls @ 250 mls/hr IVPB Q24H [facility]; Protocol Last Admin: 11/23/18 11:32 Dose: 250 mls/hr Influenza Virus Vaccine Quadrival (Flulaval Quad [id number]) 60 mcg IM .ONCE ONE Stop: 11/23/18 18:01 Insulin Aspart (Novolog Mix 70/30 Vial) 20 units SQ BIDAC [facility] Last Admin: 11/23/18 06:34 Dose: 20 units Insulin Aspart (Novolog Vial Sliding Scale -) 1 vial SQ ACHS [facility]; Protocol Last Admin: 11/23/18 11:36 Dose: 10 units Levothyroxine Sodium (Synthroid -) 125 mcg PO DAILY@0700 [facility] Last Admin: 11/23/18 06:33 Dose: 125 mcg Metformin HCl (Glucophage -) 500 mg PO BIDAC [facility] Last Admin: 11/23/18 06:33 Dose: 500 mg Metoprolol Tartrate (Lopressor -) 25 mg PO [facility] Last Admin: 11/22/18 21:05 Dose: 25 mg Mirtazapine (Remeron -) 15 mg PO [facility] Last Admin: 11/22/18 21:05 Dose: 15 mg Montelukast Sodium (Singulair -) 10 mg PO [facility] Last Admin: 11/22/18 21:04 Dose: 10 mg Morphine Sulfate (Morphine Sulfate) 2 mg IVPUSH Q3H PRN PRN Reason: PAIN LEVEL 1-5 Last Admin: 11/23/18 11:39 Dose: 2 mg Mupirocin (Bactroban Ointment (For Decolonization) -) 1 applic NS BID [facility] Stop: 11/26/18 21:59 Last Admin: 11/23/18 09:27 Dose: 1 applic Nifedipine (Procardia Xl -) 60 mg PO [facility] Last Admin: 11/22/18 21:07 Dose: 60 mg Pantoprazole Sodium (Protonix Iv) 40 mg IVPUSH DAILY [facility] Last Admin: 11/23/18 09:25 Dose: 40 mg Pyridostigmine [place] (Mestinon -) 60 mg PO BID [facility] Last Admin: 11/23/18 09:26 Dose: 60 mg Sitagliptin Phosphate (Januvia -) 100 mg PO DAILY@0700 [facility] Last Admin: 11/23/18 06:34 Dose: 100 mg Tizanidine HCl (Tizanidine Hcl) 2 mg PO Q8H PRN PRN Reason: MUSCLE SPASMS - Objective Vital Signs: Vital Signs Temperature 98.2 F 11/23/18 11:43 Pulse Rate 81 11/23/18 11:43 Respiratory Rate 18 11/23/18 11:43 Blood Pressure 139/63 11/23/18 11:43 O2 Sat by Pulse Oximetry (%) 98 11/23/18 09:00 Constitutional: Yes: Calm, Mild Distress Cardiovascular: Yes: Regular Rate and Rhythm Respiratory: Yes: Regular, CTA Bilaterally Gastrointestinal: Yes: Normal Bowel Sounds, Soft Musculoskeletal: Yes: WNL Extremities: Yes: Other Wound/Incision: Yes: Dressing Dry and Intact Neurological: Yes: Alert, Oriented Psychiatric: Yes: Alert, Oriented Labs: CBC, BMP 11/23/18 05:30 11/23/18 05:30 INR, PTT INR 1.25 (0.83-1.09) H 11/21/18 10:50 Assessment/Plan Problem List - Problems (1) Necrotizing fasciitis plkThank you for the opportunity to participate in the care of this patient. Code(s): M72.6 - NECROTIZING FASCIITIS (2) COPD (chronic obstructive pulmonary disease) Code(s): J44.9 - CHRONIC OBSTRUCTIVE PULMONARY DISEASE, UNSPECIFIED (3) Diabetes Code(s): E11.9 - TYPE 2 DIABETES MELLITUS WITHOUT COMPLICATIONS (4) Graves' disease Code(s): E05.00 - THYROTOXICOSIS W DIFFUSE GOITER W/O THYROTOXIC CRISIS (5) Hypertension Code(s): I10 - ESSENTIAL (PRIMARY) HYPERTENSION Qualifiers: Qualified Code(s): I10 - Essential (primary) hypertension (6) Hypothyroidism, unspecified Code(s): E03.9 - HYPOTHYROIDISM, UNSPECIFIED (7) Myasthenia gravis Code(s): G70.00 - MYASTHENIA GRAVIS WITHOUT (ACUTE) EXACERBATION plan continue abx close watch rest as per icu wound care as per surgery wound cx noted urine cx noted cc 40 min
[2018-11-23] MEDS ORDERED: INSULIN (NOVOLOG MIX 70/30) 100 UNITS/ML MDV SQ ONE ×2 (16:46→17:06)
[2018-11-23] MEDS ORDERED: FLU VACCINE QUAD 60 MCG/0.5 ML (MDV 18-19) IM ONE (18:00)
[2018-11-23] MEDS: CLOPIDOGREL BISULFATE 75 MG TABLET (FP) PO SCH (22:16)
[2018-11-23] MEDS: METOPROLOL TARTRATE 25 MG TABLET (FP) PO SCH (22:16)
[2018-11-23] MEDS: FOLIC ACID 1 MG TABLET (FP) PO SCH (22:16)
[2018-11-23] MEDS: ATORVASTATIN CA 20 MG TABLET (FP) PO SCH (22:16)
[2018-11-23] MEDS: NIFEdipine E.R 60 MG TABLET (UD) PO SCH (22:16)
[2018-11-23] MEDS: MIRTAZAPINE 15 MG TABLET (FP) PO SCH (22:17)
[2018-11-23] MEDS: MONTELUKAST NA 10 MG TABLET PO SCH (22:17)
[2018-11-23] MEDS: CHLORHEXIDINE GLUCONATE 4% CLEANSER FOR DECOLONIZATION TP SCH (22:18)
--- NOTE | 2018-11-23 23:23 | PN ---
Progress Note, Physician History of Present Illness: No new complaints - Current Medication List Current Medications: Active Medications Albuterol Sulfate (Ventolin 0.083% Nebulizer Soln -) 1 amp NEB Q6H PRN PRN Reason: SHORT OF BREATH/WHEEZING Albuterol/Ipratropium (Duoneb -) 1 amp NEB RTID [facility] Last Admin: 11/23/18 19:50 Dose: 1 amp Atorvastatin Calcium (Lipitor -) 20 mg PO HS [facility] Last Admin: 11/23/18 22:16 Dose: 20 mg Chlorhexidine Gluconate (Hibiclens For Decolonization -) 1 applic TP HS [facility] Last Admin: 11/23/18 22:18 Dose: Not Given Clopidogrel Bisulfate (Plavix -) 75 mg PO HS [facility] Last Admin: 11/23/18 22:16 Dose: 75 mg Folic Acid (Folic Acid -) 1 mg PO HS [facility] Last Admin: 11/23/18 22:16 Dose: 1 mg Gabapentin (Neurontin -) 300 mg PO TID [facility] Last Admin: 11/23/18 22:17 Dose: 300 mg Heparin Sodium (Porcine) (Heparin -) 5,000 unit SQ BID [facility] Last Admin: 11/23/18 22:18 Dose: 5,000 unit Clindamycin Phosphate (Cleocin 300 Mg Premix Ivpb) 300 mg in 50 mls @ 100 mls/ hr IVPB Q6H-IV [facility]; Protocol Last Admin: 11/23/18 22:14 Dose: 100 mls/hr Meropenem 1 gm/ Dextrose 100 mls @ 200 mls/hr IVPB BID [facility] Last Admin: 11/23/18 22:14 Dose: 200 mls/hr Vancomycin HCl 1,500 mg/ (Dextrose) 500 mls @ 250 mls/hr IVPB Q24H [facility]; Protocol Last Admin: 11/23/18 11:32 Dose: 250 mls/hr Insulin Aspart (Novolog Mix 70/30 Vial) 20 units SQ BIDAC [facility] Last Admin: 11/23/18 16:47 Dose: 20 units Insulin Aspart (Novolog Vial Sliding Scale -) 1 vial SQ ACHS [facility]; Protocol Last Admin: 11/23/18 22:24 Dose: 4 units Levothyroxine Sodium (Synthroid -) 125 mcg PO DAILY@0700 [facility] Last Admin: 11/23/18 06:33 Dose: 125 mcg [facility]) [facility] Admin: 11/23/18 16:47 Dose: 500 mg Metoprolol Tartrate (Lopressor -) 25 mg PO [facility] Last Admin: 11/23/18 22:16 Dose: 25 mg Mirtazapine (Remeron -) 15 mg PO [facility] Last Admin: 11/23/18 22:17 Dose: 15 mg Montelukast Sodium (Singulair -) 10 mg PO [facility] Last Admin: 11/23/18 22:17 Dose: 10 mg Morphine Sulfate (Morphine Sulfate) 2 mg IVPUSH Q3H PRN PRN Reason: PAIN LEVEL 1-5 Last Admin: 11/23/18 22:24 Dose: 2 mg Mupirocin (Bactroban Ointment (For Decolonization) -) 1 applic NS BID [facility] Stop: 11/26/18 21:59 Last Admin: 11/23/18 22:15 Dose: Not Given Nifedipine (Procardia Xl -) 60 mg PO [facility] Last Admin: 11/23/18 22:16 Dose: 60 mg Pantoprazole Sodium (Protonix Iv) 40 mg IVPUSH DAILY [facility] Last Admin: 11/23/18 09:25 Dose: 40 mg Pyridostigmine [place] (Mestinon -) 60 mg PO BID [facility] Last Admin: 11/23/18 22:15 Dose: 60 mg Sitagliptin Phosphate (Januvia -) 100 mg PO DAILY@0700 [facility] Last Admin: 11/23/18 06:34 Dose: 100 mg Tizanidine HCl (Tizanidine Hcl) 2 mg PO Q8H PRN PRN Reason: MUSCLE SPASMS - Objective Vital Signs: Vital Signs Temperature 98.3 F 11/23/18 15:30 Pulse Rate 88 11/23/18 15:30 Respiratory Rate 18 11/23/18 15:40 Blood Pressure 164/75 11/23/18 15:30 O2 Sat by Pulse Oximetry (%) 98 11/23/18 15:40 Neck: Yes: WNL, Supple Cardiovascular: Yes: WNL, Regular Rate and Rhythm Respiratory: Yes: WNL, Regular, CTA Bilaterally Gastrointestinal: Yes: WNL, Normal Bowel Sounds, Soft Wound/Incision: Yes: Other ((+) Lt gluteal dressing) Labs: CBC, BMP 11/23/18 05:30 11/23/18 05:30 INR, PTT INR 1.25 (0.83-1.09) H 11/21/18 10:50 Problem List - Problems (1) Necrotizing fasciitis Assessment/Plan: S/P debridement t gluteal abscess Cont Iv meropenem/vanco/clinda BC/woud culture remain negative Code(s): M72.6 - NECROTIZING FASCIITIS (2) Diabetes Assessment/Plan: Cont sliding scale w/ coverage Cont januvia/Novolog 70/30/metformin Code(s): E11.9 - TYPE 2 DIABETES MELLITUS WITHOUT COMPLICATIONS Qualifiers: Diabetes mellitus type: type 2 (3) Graves' disease Assessment/Plan: Cont pyridostigmine/tizanidine Code(s): E05.00 - THYROTOXICOSIS W DIFFUSE GOITER W/O THYROTOXIC CRISIS (4) Hypertension Assessment/Plan: Cont metoprolol/nifedipine Code(s): I10 - ESSENTIAL (PRIMARY) HYPERTENSION Qualifiers: Hypertension type: unspecified Qualified Code(s): I10 - Essential (primary ) hypertension (5) Hypothyroidism, unspecified Assessment/Plan: Cont levothyroxine Code(s): E03.9 - HYPOTHYROIDISM, UNSPECIFIED (6) COPD (chronic obstructive pulmonary disease) Assessment/Plan: Cont nebulizer prn Code(s): J44.9 - CHRONIC OBSTRUCTIVE PULMONARY DISEASE, UNSPECIFIED Qualifiers: COPD type: chronic bronchitis
[2018-11-24] MEDS: CLINDAMYCIN 300 MG PREMIX IVPB 300 MG/50 ML BAG IVPB SCH ×4 (03:30→23:26)
[2018-11-24] MEDS: metFORMIN HCL 500 MG TABLET (FP) PO SCH ×2 (06:48→17:22)
[2018-11-24] MEDS: LEVOTHYROXINE NA 125 MCG TABLET (FP) PO SCH (06:48)
[2018-11-24] MEDS: sitaGLIPtin PHOSPHATE 100 MG TABLET (FP) PO SCH (06:48)
[2018-11-24] MEDS: INSULIN (NOVOLOG MIX 70/30) 100 UNITS/ML MDV SQ SCH ×2 (06:48→17:21)
[2018-11-24] MEDS: GABAPENTIN 300 MG CAPSULE (FP) PO SCH ×3 (06:48→23:19)
[2018-11-24] MEDS: INSULIN SLIDING SCALE (NOVOLOG) 1 VIAL SQ SCH ×4 (06:49→23:36)
[2018-11-24] MEDS: ALBUTEROL SO4 2.5/IPRATROPIUM 0.5 INH SOL 3 ML VIAL.NEB. NEB SCH ×3 (07:31→19:06)
[2018-11-24] MEDS ORDERED: PT OWN MED DRAWER 7, Y5N ONE ×4 (10:02→17:44)
[2018-11-24] MEDS: MORPHINE SULFATE 2 MG/ML VIAL IVPUSH PRN ×2 (10:07→17:48)
[2018-11-24] MEDS: PANTOPRAZOLE SODIUM 40 MG VIAL IVPUSH SCH (10:13)
[2018-11-24] MEDS: PYRIDOSTIGMINE BROMIDE 60 MG TABLET PO SCH ×2 (10:13→23:26)
[2018-11-24] MEDS: HEPARIN NA (PORCINE) 5,000 UNITS/ML 1ML VIAL SQ SCH ×2 (10:15→23:27)
[2018-11-24] MEDS: MUPIROCIN 2% TOPICAL OINTMENT FOR DECOLONIZATION NS SCH ×2 (10:16→23:27)
[2018-11-24] MEDS: MEROPENEM 1 GM in DEXTROSE 5%-WATER 100 ML IVPB SCH ×2 (10:22→23:37)
--- NOTE | 2018-11-24 11:08 | PN ---
Progress Note, Physician History of Present Illness: patient stable no new issues patients perineal area red pain present - Current Medication List Current Medications: Active Medications Albuterol Sulfate (Ventolin 0.083% Nebulizer Soln -) 1 amp NEB Q6H PRN PRN Reason: SHORT OF BREATH/WHEEZING Albuterol/Ipratropium (Duoneb -) 1 amp NEB RTID [facility] Last Admin: 11/24/18 07:31 Dose: 1 amp Atorvastatin Calcium (Lipitor -) 20 mg PO HS [facility] Last Admin: 11/23/18 22:16 Dose: 20 mg Chlorhexidine Gluconate (Hibiclens For Decolonization -) 1 applic TP HS [facility] Last Admin: 11/23/18 22:18 Dose: Not Given Clopidogrel Bisulfate (Plavix -) 75 mg PO [facility] Last Admin: 11/23/18 22:16 Dose: 75 mg Folic Acid (Folic Acid -) 1 mg PO HS [facility] Last Admin: 11/23/18 22:16 Dose: 1 mg Gabapentin (Neurontin -) 300 mg PO TID [facility] Last Admin: 11/24/18 06:48 Dose: 300 mg Heparin Sodium (Porcine) (Heparin -) 5,000 unit SQ BID [facility] Last Admin: 11/24/18 10:15 Dose: 5,000 unit Clindamycin Phosphate (Cleocin 300 Mg Premix Ivpb) 300 mg in 50 mls @ 100 mls/ hr IVPB Q6H-IV [facility]; Protocol Last Admin: 11/24/18 03:30 Dose: 100 mls/hr Meropenem 1 gm/ Dextrose 100 mls @ 200 mls/hr IVPB BID [facility] Last Admin: 11/24/18 10:22 Dose: 200 mls/hr Vancomycin HCl 1,500 mg/ (Dextrose) 500 mls @ 250 mls/hr IVPB Q24H [facility]; Protocol Last Admin: 11/23/18 11:32 Dose: 250 mls/hr Insulin Aspart (Novolog Mix 70/30 Vial) 20 units SQ BIDAC [facility] Last Admin: 11/24/18 06:48 Dose: 20 units Insulin Aspart (Novolog Vial Sliding Scale -) 1 vial SQ ACHS [facility]; Protocol Last Admin: 11/24/18 06:49 Dose: 2 units Levothyroxine Sodium (Synthroid -) 125 mcg PO DAILY@0700 [facility] Last Admin: 11/24/18 06:48 Dose: 125 mcg Metformin [facility] ([facility] -) [facility] Admin: 11/24/18 06:48 Dose: 500 mg Metoprolol Tartrate (Lopressor -) 25 mg PO [facility] Last Admin: 11/23/18 22:16 Dose: 25 mg Mirtazapine (Remeron -) 15 mg PO [facility] Last Admin: 11/23/18 22:17 Dose: 15 mg Montelukast Sodium (Singulair -) 10 mg PO [facility] Last Admin: 11/23/18 22:17 Dose: 10 mg Morphine Sulfate (Morphine Sulfate) 2 mg IVPUSH Q3H PRN PRN Reason: PAIN LEVEL 1-5 Last Admin: 11/24/18 10:07 Dose: 2 mg Mupirocin (Bactroban Ointment (For Decolonization) -) 1 applic NS BID [facility] Stop: 11/26/18 21:59 Last Admin: 11/24/18 10:16 Dose: Not Given Nifedipine (Procardia Xl -) 60 mg PO [facility] Last Admin: 11/23/18 22:16 Dose: 60 mg Pantoprazole Sodium (Protonix Iv) 40 mg IVPUSH DAILY [facility] Last Admin: 11/24/18 10:13 Dose: 40 mg Pyridostigmine [place] (Mestinon -) 60 mg PO BID [facility] Last Admin: 11/24/18 10:13 Dose: 60 mg Sitagliptin Phosphate (Januvia -) 100 mg PO DAILY@0700 [facility] Last Admin: 11/24/18 06:48 Dose: 100 mg Tizanidine HCl (Tizanidine Hcl) 2 mg PO Q8H PRN PRN Reason: MUSCLE SPASMS - Objective Vital Signs: Vital Signs Temperature 98.4 F 11/24/18 06:00 Pulse Rate 64 11/24/18 06:00 Respiratory Rate 20 11/24/18 06:00 Blood Pressure 143/74 11/24/18 06:00 O2 Sat by Pulse Oximetry (%) 97 11/23/18 21:00 Constitutional: Yes: No Distress, Calm Cardiovascular: Yes: Regular Rate and Rhythm Respiratory: Yes: Regular, CTA Bilaterally Gastrointestinal: Yes: Normal Bowel Sounds, Soft Genitourinary: Yes: Other (perineal area red still) Musculoskeletal: Yes: WNL Extremities: Yes: WNL Neurological: Yes: Alert, Oriented Psychiatric: Yes: Alert, Oriented Labs: CBC, BMP 11/23/18 05:30 11/23/18 05:30 INR, PTT INR 1.25 (0.83-1.09) H 11/21/18 10:50 Assessment/Plan Problem List - Problems (1) Necrotizing fasciitis plSkylerhank you for the opportunity to participate in the care of this patient. Code(s): M72.6 - NECROTIZING FASCIITIS (2) COPD (chronic obstructive pulmonary disease) Code(s): J44.9 - CHRONIC OBSTRUCTIVE PULMONARY DISEASE, UNSPECIFIED (3) Diabetes Code(s): E11.9 - TYPE 2 DIABETES MELLITUS WITHOUT COMPLICATIONS (4) Graves' disease Code(s): E05.00 - THYROTOXICOSIS W DIFFUSE GOITER W/O THYROTOXIC CRISIS (5) Hypertension Code(s): I10 - ESSENTIAL (PRIMARY) HYPERTENSION Qualifiers: Qualified Code(s): I10 - Essential (primary) hypertension (6) Hypothyroidism, unspecified Code(s): E03.9 - HYPOTHYROIDISM, UNSPECIFIED (7) Myasthenia gravis Code(s): G70.00 - MYASTHENIA GRAVIS WITHOUT (ACUTE) EXACERBATION plan continue abx close watch await for cx reports will deescalte abx once we know the cx reports wound care
--- NOTE | 2018-11-24 12:32 | PN ---
Progress Note, Physician Chief Complaint: gluteal pain and swelling History of Present Illness: 63yo female PMH DM, obesity, HTN, COPD, Myesthenia Gravis, Graves disease with left gluteal necrotizing soft tissue infection noticed 3 days ago by patient. stable post operatively. Extubated yesterday. - Current Medication List Current Medications: Active Medications Albuterol Sulfate (Ventolin 0.083% Nebulizer Soln -) 1 amp NEB Q6H PRN PRN Reason: SHORT OF BREATH/WHEEZING Albuterol/Ipratropium (Duoneb -) 1 amp NEB RTID [facility] Last Admin: 11/24/18 07:31 Dose: 1 amp Atorvastatin Calcium (Lipitor -) 20 mg PO HS [facility] Last Admin: 11/23/18 22:16 Dose: 20 mg Chlorhexidine Gluconate (Hibiclens For Decolonization -) 1 applic TP HS [facility] Last Admin: 11/23/18 22:18 Dose: Not Given Clopidogrel Bisulfate (Plavix -) 75 mg PO HS [facility] Last Admin: 11/23/18 22:16 Dose: 75 mg Folic Acid (Folic Acid -) 1 mg PO HS [facility] Last Admin: 11/23/18 22:16 Dose: 1 mg Gabapentin (Neurontin -) 300 mg PO TID [facility] Last Admin: 11/24/18 06:48 Dose: 300 mg Heparin Sodium (Porcine) (Heparin -) 5,000 unit SQ BID [facility] Last Admin: 11/24/18 10:15 Dose: 5,000 unit Clindamycin Phosphate (Cleocin 300 Mg Premix Ivpb) 300 mg in 50 mls @ 100 mls/ hr IVPB Q6H-IV [facility]; Protocol Last Admin: 11/24/18 11:33 Dose: 100 mls/hr Meropenem 1 gm/ Dextrose 100 mls @ 200 mls/hr IVPB BID [facility] Last Admin: 11/24/18 10:22 Dose: 200 mls/hr Vancomycin HCl 1,500 mg/ (Dextrose) 500 mls @ 250 mls/hr IVPB Q24H [facility]; Protocol Last Admin: 11/23/18 11:32 Dose: 250 mls/hr Insulin Aspart (Novolog Mix 70/30 Vial) 20 units SQ BIDAC [facility] Last Admin: 11/24/18 06:48 Dose: 20 units Insulin Aspart (Novolog Vial Sliding Scale -) 1 vial SQ ACHS [facility]; Protocol Last Admin: 11/24/18 12:02 Dose: 6 units Levothyroxine Sodium (Synthroid -) 125 mcg PO DAILY@0700 [facility] Last Admin: 11/24/18 06:48 Dose: 125 mcg Metformin HCl (Glucophage -) 500 mg PO BIDAC [facility] Last Admin: 11/24/18 06:48 Dose: 500 mg Metoprolol Tartrate (Lopressor -) 25 mg PO [facility] Last Admin: 11/23/18 22:16 Dose: 25 mg Mirtazapine (Remeron -) 15 mg PO [facility] Last Admin: 11/23/18 22:17 Dose: 15 mg Montelukast Sodium (Singulair -) 10 mg PO [facility] Last Admin: 11/23/18 22:17 Dose: 10 mg Morphine Sulfate (Morphine Sulfate) 2 mg IVPUSH Q3H PRN PRN Reason: PAIN LEVEL 1-5 Last Admin: 11/24/18 10:07 Dose: 2 mg Mupirocin (Bactroban Ointment (For Decolonization) -) 1 applic NS BID [facility] Stop: 11/26/18 21:59 Last Admin: 11/24/18 10:16 Dose: Not Given Nifedipine (Procardia Xl -) 60 mg PO [facility] Last Admin: 11/23/18 22:16 Dose: 60 mg Pantoprazole Sodium (Protonix Iv) 40 mg IVPUSH DAILY [facility] Last Admin: 11/24/18 10:13 Dose: 40 mg Pyridostigmine [place] (Mestinon -) 60 mg PO BID [facility] Last Admin: 11/24/18 10:13 Dose: 60 mg Sitagliptin Phosphate (Januvia -) 100 mg PO DAILY@0700 [facility] Last Admin: 11/24/18 06:48 Dose: 100 mg Tizanidine HCl (Tizanidine Hcl) 2 mg PO Q8H PRN PRN Reason: MUSCLE SPASMS - Objective Vital Signs: Vital Signs Temperature 98.4 F 11/24/18 06:00 Pulse Rate 80 11/24/18 10:00 Respiratory Rate 18 11/24/18 10:00 Blood Pressure 144/76 11/24/18 10:00 O2 Sat by Pulse Oximetry (%) 97 11/23/18 21:00 Vital Signs Period Temp Pulse Resp BP Sys/Hein Pulse Ox Last 24 Hr 97.5 F-98.2 F 65-85 18-22 136-190/60-94 95 Constitutional: Yes: Well Nourished, No Distress, Calm, Obese, Poor Hygeine Eyes: Yes: Conjunctiva Clear, EOM Intact HENT: Yes: Atraumatic, Normocephalic Neck: Yes: Supple, Trachea Midline Cardiovascular: Yes: Regular Rate and Rhythm, S1, S2 Respiratory: Yes: Regular, CTA Bilaterally Gastrointestinal: Yes: Normal Bowel Sounds, Soft, Abdomen, Obese. No: Tenderness, Tenderness, Epigastrium ...Rectal Exam: Yes: Deferred Genitourinary: No: CVA Tenderness - Left, CVA Tenderness - Right Breast(s): No: Discharge from Nipple, Gynecomastia Musculoskeletal: No: Joint Stiffness, Joint Swelling Extremities: Yes: Erythema (Left leg). No: Amputation, Cool, Cyanosis Edema: Yes Edema: LLE: 2+ Peripheral Pulses: Left Radial: 2+, Right Radial: 2+, Left Doralis Pedis: 2+, Right Dorsalis Pedis: 2+, Left Femoral: 2+, Right Femoral: 2+ Integumentary: Yes: Incision. No: Jaundice, Rash, Skin Tear Wound/Incision: Yes: Clean/Dry, Open to air, Draining, Reddened, Unapproximated Neurological: Yes: Alert, Oriented Psychiatric: Yes: Alert, Oriented Labs: CBC, BMP // 05:30 11/23/18 05:30 INR, PTT INR 1.25 (0.83-1.09) H 11/21/18 10:50 Problem List - Problems (1) Necrotizing fasciitis Assessment/Plan: 63yo female MMP Diabetic with necrotizing left gluteal soft tissue infection. POD#1 s/p Debridement of left gluteal area for necrotizing soft tissue infection. Dressing change Diet as tolerated continue IV antibiotics f/u cultures OOB and ambulate adequate analgesia transfer to floor Code(s): M72.6 - NECROTIZING FASCIITIS (2) COPD (chronic obstructive pulmonary disease) Code(s): J44.9 - CHRONIC OBSTRUCTIVE PULMONARY DISEASE, UNSPECIFIED Qualifiers: COPD type: chronic bronchitis (3) Diabetes Code(s): E11.9 - TYPE 2 DIABETES MELLITUS WITHOUT COMPLICATIONS Qualifiers: Diabetes mellitus type: type 2 (4) Graves' disease Code(s): E05.00 - THYROTOXICOSIS W DIFFUSE GOITER W/O THYROTOXIC CRISIS (5) Hypertension Code(s): I10 - ESSENTIAL (PRIMARY) HYPERTENSION Qualifiers: Hypertension type: unspecified Qualified Code(s): I10 - Essential (primary ) hypertension (6) Hypothyroidism, unspecified Code(s): E03.9 - HYPOTHYROIDISM, UNSPECIFIED (7) Myasthenia gravis Code(s): G70.00 - MYASTHENIA GRAVIS WITHOUT (ACUTE) EXACERBATION
[2018-11-24] MEDS: VANCOMYCIN HCL 1,500 MG in DEXTROSE 5%-WATER - 500 ML IVPB SCH (13:47)
--- NOTE | 2018-11-24 19:30 | FALL ---
<Alessia Chaudhari - Last Filed: 11/28/18 00:46> Fall Exam - Event Witnessed fall: No Location of Fall: Bathroom Fall from: Toilet - Pre-Fall Mental Status: Alert Current Medications: Current Medications Generic Name Dose Route Start Last Admin Trade Name Freq PRN Reason Stop Dose Admin Albuterol Sulfate 1 amp 11/22/18 08:20 Ventolin 0.083% Nebulizer Soln - NEB Q6H PRN SHORT OF BREATH/WHEEZING Albuterol/Ipratropium 1 amp 11/22/18 14:00 11/24/18 19:06 Duoneb - NEB 1 amp RTID [facility] Administration Atorvastatin Calcium 20 mg 11/22/18 22:00 11/23/18 22:16 Lipitor - PO 20 mg HS [facility] Administration Chlorhexidine Gluconate 1 applic 11/21/18 22:00 11/23/18 22:18 Hibiclens For Decolonization - TP Not Given HS [facility] Clopidogrel Bisulfate 75 mg 11/22/18 22:00 11/23/18 22:16 Plavix - PO 75 mg HS [facility] Administration Folic Acid 1 mg 11/22/18 22:00 11/23/18 22:16 Folic Acid - PO 1 mg HS [facility] Administration Gabapentin 300 mg 11/22/18 06:00 11/24/18 13:46 Neurontin - PO 300 mg TID [facility] Administration Heparin Sodium (Porcine) 5,000 unit 11/22/18 10:00 11/24/18 10:15 Heparin - SQ 5,000 unit BID [facility] Administration Clindamycin Phosphate 300 mg in 50 mls @ 100 mls/hr 11/22/18 09:00 11/24/18 17:45 Cleocin 300 Mg Premix Ivpb IVPB 100 mls/hr Q6H-IV [facility] Administration Protocol Meropenem 1 gm/ Dextrose 100 mls @ 200 mls/hr 11/22/18 10:00 11/24/18 10:22 IVPB 200 mls/hr BID [facility] Administration Vancomycin HCl 1,500 mg/ 500 mls @ 250 mls/hr 11/22/18 11:00 11/24/18 13:47 Dextrose IVPB 250 mls/hr Q24H [facility] Administration Protocol Insulin Aspart 20 units 11/22/18 07:00 11/24/18 17:21 Novolog Mix 70/30 Vial SQ 20 units BIDAC [facility] Administration Insulin Aspart 1 vial 11/22/18 07:00 11/24/18 17:17 Novolog Vial Sliding Scale - SQ 6 units ACHS [facility] Administration Protocol Levothyroxine Sodium 125 mcg 11/22/18 07:00 11/24/18 06:48 Synthroid - PO 125 mcg DAILY@0700 [facility] Administration Metformin HCl 500 mg 11/22/18 07:00 11/24/18 17:22 Glucophage - PO 500 mg BIDAC [facility] Administration Metoprolol Tartrate 25 mg 11/22/18 22:00 11/23/18 22:16 Lopressor - PO 25 mg HS [facility] Administration Mirtazapine 15 mg 11/22/18 22:00 11/23/18 22:17 Remeron - PO 15 mg HS [facility] Administration Montelukast Sodium 10 mg 11/22/18 22:00 11/23/18 22:17 Singulair - PO 10 mg HS [facility] Administration Morphine Sulfate 2 mg 11/22/18 08:17 11/24/18 17:48 Morphine Sulfate IVPUSH 2 mg Q3H PRN Administration PAIN LEVEL 1-5 Mupirocin 1 applic 11/21/18 22:00 11/24/18 10:16 Bactroban Ointment (For Decolonization) - NS 11/26/18 21:59 Not Given BID [facility] Nifedipine 60 mg 11/22/18 22:00 11/23/18 22:16 Procardia Xl - PO 60 mg HS [facility] Administration Pantoprazole Sodium 40 mg 11/22/18 10:00 11/24/18 10:13 Protonix Iv IVPUSH 40 mg DAILY [facility] Administration Pyridostigmine [place] 60 mg 11/22/18 22:00 11/24/18 10:13 Mestinon - PO 60 mg BID [facility] Administration Sitagliptin Phosphate 100 mg 11/22/18 07:00 11/24/18 06:48 Januvia - PO 100 mg DAILY@0700 [facility] Administration Tizanidine HCl 2 mg 11/22/18 08:31 Tizanidine Hcl PO Q8H PRN MUSCLE SPASMS - Post-Fall Patient Outcome: No Injury Treatment: None Vital Signs: Vital Signs Temperature 98.1 F 11/24/18 19:00 Pulse Rate 88 11/24/18 19:00 Respiratory Rate 18 11/24/18 19:00 Blood Pressure 176/80 H 11/24/18 19:00 O2 Sat by Pulse Oximetry (%) 95 11/24/18 09:00 LOC Post-Fall: Awake, Alert, Oriented Identify factors for HIGH RISK for Head Injury: Pt on anticoagulant (Heparin 5000u BId) <Kye Isaac - Last Filed: 12/08/18 21:25> Fall Exam - Post-Fall Vital Signs: Vital Signs Temperature 98.7 F 12/04/18 14:48 Pulse Rate 65 12/04/18 14:48 Respiratory Rate 20 12/04/18 14:48 Blood Pressure 139/71 12/04/18 14:48 O2 Sat by Pulse Oximetry (%) 95 12/04/18 09:00 Critical Care Critical Care Statement: Seen and examined; agree with the above aside from what is supplemented by myself in my own documentation. Reviewed all rose parts of history and exam with resident team and verified independently.
--- NOTE | 2018-11-24 22:54 | PN ---
Progress Note, Physician History of Present Illness: Pt having increased perianal pain - Current Medication List Current Medications: Active Medications Albuterol Sulfate (Ventolin 0.083% Nebulizer Soln -) 1 amp NEB Q6H PRN PRN Reason: SHORT OF BREATH/WHEEZING Albuterol/Ipratropium (Duoneb -) 1 amp NEB RTID [facility] Last Admin: 11/24/18 19:06 Dose: 1 amp Atorvastatin Calcium (Lipitor -) 20 mg PO HS [facility] Last Admin: 11/23/18 22:16 Dose: 20 mg Chlorhexidine Gluconate (Hibiclens For Decolonization -) 1 applic TP HS [facility] Last Admin: 11/23/18 22:18 Dose: Not Given Clopidogrel Bisulfate (Plavix -) 75 mg PO [facility] Last Admin: 11/23/18 22:16 Dose: 75 mg Folic Acid (Folic Acid -) 1 mg PO HS [facility] Last Admin: 11/23/18 22:16 Dose: 1 mg Gabapentin (Neurontin -) 300 mg PO TID [facility] Last Admin: 11/24/18 13:46 Dose: 300 mg Heparin Sodium (Porcine) (Heparin -) 5,000 unit SQ BID [facility] Last Admin: 11/24/18 10:15 Dose: 5,000 unit Clindamycin Phosphate (Cleocin 300 Mg Premix Ivpb) 300 mg in 50 mls @ 100 mls/ hr IVPB Q6H-IV [facility]; Protocol Last Admin: 11/24/18 17:45 Dose: 100 mls/hr Meropenem 1 gm/ Dextrose 100 mls @ 200 mls/hr IVPB BID [facility] Last Admin: 11/24/18 10:22 Dose: 200 mls/hr Vancomycin HCl 1,500 mg/ (Dextrose) 500 mls @ 250 mls/hr IVPB Q24H [facility]; Protocol Last Admin: 11/24/18 13:47 Dose: 250 mls/hr Insulin Aspart (Novolog Mix 70/30 Vial) 20 units SQ BIDAC [facility] Last Admin: 11/24/18 17:21 Dose: 20 units Insulin Aspart (Novolog Vial Sliding Scale -) 1 vial SQ ACHS [facility]; Protocol Last Admin: 11/24/18 17:17 Dose: 6 units Levothyroxine Sodium (Synthroid -) 125 mcg PO DAILY@0700 [facility] Last Admin: 11/24/18 06:48 Dose: 125 mcg [facility] -) [facility] Last Admin: 11/24/18 17:22 Dose: 500 mg Metoprolol Tartrate (Lopressor -) 25 mg PO [facility] Last Admin: 11/23/18 22:16 Dose: 25 mg Mirtazapine (Remeron -) 15 mg PO [facility] Last Admin: 11/23/18 22:17 Dose: 15 mg Montelukast Sodium (Singulair -) 10 mg PO [facility] Last Admin: 11/23/18 22:17 Dose: 10 mg Morphine Sulfate (Morphine Sulfate) 2 mg IVPUSH Q3H PRN PRN Reason: PAIN LEVEL 1-5 Last Admin: 11/24/18 17:48 Dose: 2 mg Mupirocin (Bactroban Ointment (For Decolonization) -) 1 applic NS BID [facility] Stop: 11/26/18 21:59 Last Admin: 11/24/18 10:16 Dose: Not Given Nifedipine (Procardia Xl -) 60 mg PO [facility] Last Admin: 11/23/18 22:16 Dose: 60 mg Pantoprazole Sodium (Protonix Iv) 40 mg IVPUSH DAILY [facility] Last Admin: 11/24/18 10:13 Dose: 40 mg Pyridostigmine [place] (Mestinon -) 60 mg PO BID [facility] Last Admin: 11/24/18 10:13 Dose: 60 mg Sitagliptin Phosphate (Januvia -) 100 mg PO DAILY@0700 [facility] Last Admin: 11/24/18 06:48 Dose: 100 mg Tizanidine HCl (Tizanidine Hcl) 2 mg PO Q8H PRN PRN Reason: MUSCLE SPASMS - Objective Vital Signs: Vital Signs Temperature 98.1 F 11/24/18 19:00 Pulse Rate 80 11/24/18 19:30 Respiratory Rate 18 11/24/18 19:30 Blood Pressure 146/70 11/24/18 19:30 O2 Sat by Pulse Oximetry (%) 95 11/24/18 09:00 HENT: Yes: WNL Neck: Yes: WNL, Supple Cardiovascular: Yes: WNL, Regular Rate and Rhythm Respiratory: Yes: WNL, Regular, CTA Bilaterally Gastrointestinal: Yes: WNL, Normal Bowel Sounds, Soft Integumentary: Yes: Other ((+) erythema perineal area) Labs: CBC, BMP 11/23/18 05:30 11/23/18 05:30 INR, PTT INR 1.25 (0.83-1.09) H 11/21/18 10:50 Problem List - Problems (1) Necrotizing fasciitis Assessment/Plan: S/P debridement of gluteal abscess Cont Iv meropenem/vanco/clinda BC/woud culture remain negative Code(s): M72.6 - NECROTIZING FASCIITIS (2) Diabetes Assessment/Plan: Cont sliding scale w/ coverage Cont januvia/Novolog 70/30/metformin Code(s): E11.9 - TYPE 2 DIABETES MELLITUS WITHOUT COMPLICATIONS Qualifiers: Diabetes mellitus type: type 2 (3) Graves' disease Assessment/Plan: Cont pyridostigmine/tizanidine Code(s): E05.00 - THYROTOXICOSIS W DIFFUSE GOITER W/O THYROTOXIC CRISIS (4) Hypertension Assessment/Plan: Cont metoprolol/nifedipine Code(s): I10 - ESSENTIAL (PRIMARY) HYPERTENSION Qualifiers: Hypertension type: unspecified Qualified Code(s): I10 - Essential (primary ) hypertension (5) Hypothyroidism, unspecified Assessment/Plan: Cont levothyroxine Code(s): E03.9 - HYPOTHYROIDISM, UNSPECIFIED (6) COPD (chronic obstructive pulmonary disease) Assessment/Plan: Cont nebulizer prn Code(s): J44.9 - CHRONIC OBSTRUCTIVE PULMONARY DISEASE, UNSPECIFIED Qualifiers: COPD type: chronic bronchitis
[2018-11-24] MEDS: CLOPIDOGREL BISULFATE 75 MG TABLET (FP) PO SCH (23:19)
[2018-11-24] MEDS: FOLIC ACID 1 MG TABLET (FP) PO SCH (23:19)
[2018-11-24] MEDS: METOPROLOL TARTRATE 25 MG TABLET (FP) PO SCH (23:19)
[2018-11-24] MEDS: MONTELUKAST NA 10 MG TABLET PO SCH (23:19)
[2018-11-24] MEDS: NIFEdipine E.R 60 MG TABLET (UD) PO SCH (23:19)
[2018-11-24] MEDS: ATORVASTATIN CA 20 MG TABLET (FP) PO SCH (23:20)
[2018-11-24] MEDS: MIRTAZAPINE 15 MG TABLET (FP) PO SCH (23:21)
[2018-11-24] MEDS: CHLORHEXIDINE GLUCONATE 4% CLEANSER FOR DECOLONIZATION TP SCH (23:27)
[2018-11-25] MEDS: MORPHINE SULFATE 2 MG/ML VIAL IVPUSH PRN ×2 (00:08→22:16)
[2018-11-25] MEDS: CLINDAMYCIN 300 MG PREMIX IVPB 300 MG/50 ML BAG IVPB SCH ×4 (03:16→22:13)
[2018-11-25] MEDS: metFORMIN HCL 500 MG TABLET (FP) PO SCH ×2 (06:33→17:44)
[2018-11-25] MEDS: sitaGLIPtin PHOSPHATE 100 MG TABLET (FP) PO SCH (06:33)
[2018-11-25] MEDS: LEVOTHYROXINE NA 125 MCG TABLET (FP) PO SCH (06:33)
[2018-11-25] MEDS: GABAPENTIN 300 MG CAPSULE (FP) PO SCH ×3 (06:33→22:15)
[2018-11-25] MEDS: INSULIN (NOVOLOG MIX 70/30) 100 UNITS/ML MDV SQ SCH ×2 (06:34→17:40)
[2018-11-25] MEDS: INSULIN SLIDING SCALE (NOVOLOG) 1 VIAL SQ SCH ×4 (06:36→22:16)
[2018-11-25] MEDS ORDERED: INSULIN (NOVOLOG) ASPART 100 UNITS/ML 10ML VIAL ONE ×2 (07:05→19:55)
[2018-11-25 07:43] LABS: BASO % 1.3 % (0-2.0); EOS % 3.1 % (0-4.5); HEMATOCRIT 44.4 % (32.4-45.2); HEMOGLOBIN 15.3 GM/dL (10.7-15.3); LYMPH % 20.5 % (8-40); MCH 31.9 pg (25.7-33.7); MCHC 34.4 g/dl (32.0-36.0); MEAN CELL VOLUME 92.7 fl (80-96); MEAN PLT VOLUME 10.6 fl (7.5-11.1); MONO % 8.3 % (3.8-10.2); NEUT % 66.8 % (42.8-82.8); PLATELET COUNT 134 K/MM3 (134-434); RBC 4.79 M/mm3 (3.60-5.2); RDW 14.4 % (11.6-15.6); WHITE BLOOD COUNT 10.3 K/mm3 (4.0-10.0)
[2018-11-25 08:17] LABS: ALBUMIN 2.9 g/dl (3.4-5.0); ALK PHOS 248 U/L (45-117); ANION GAP 8 MMOL/L (8-16); BILIRUBIN,TOTAL 0.7 mg/dL (0.2-1); BLOOD UREA NITROGEN 18 mg/dL (7-18); CALCIUM 9.1 mg/dL (8.5-10.1); CHLORIDE 100 mmol/L (98-107); CO2 28 mmol/L (21-32); GLUCOSE,RANDOM 247 mg/dL (74-106); SGOT/AST 44 U/L (15-37); SGPT/ALT 63 U/L (13-61); SODIUM 136 mmol/L (136-145); TOT PROT 5.8 g/dl (6.4-8.2)
[2018-11-25] MEDS: ALBUTEROL SO4 2.5/IPRATROPIUM 0.5 INH SOL 3 ML VIAL.NEB. NEB SCH ×3 (09:23→21:40)
[2018-11-25 10:08] LABS: ANISOCYTOSIS 0; HELMET CELLS 0; HOWELL-JOLLY BODIES 0; MACROCYTOSIS 0; OVALOCYTE 0; PLATELET ESTIMATE DECREASED; ROULEAU 0; SICKELED CELLS 0; TARGET CELLS 0; TEAR DROP CELLS 0; TOXIC GRANULATION 0
[2018-11-25] MEDS: HEPARIN NA (PORCINE) 5,000 UNITS/ML 1ML VIAL SQ SCH ×2 (10:09→22:15)
[2018-11-25] MEDS: PYRIDOSTIGMINE BROMIDE 60 MG TABLET PO SCH ×2 (10:09→22:15)
[2018-11-25] MEDS: MEROPENEM 1 GM in DEXTROSE 5%-WATER 100 ML IVPB SCH ×2 (10:27→22:13)
[2018-11-25] MEDS ORDERED: PT OWN MED DRAWER 7, Y5N ONE (10:39)
[2018-11-25] MEDS: MUPIROCIN 2% TOPICAL OINTMENT FOR DECOLONIZATION NS SCH ×2 (11:22→22:15)
--- NOTE | 2018-11-25 11:50 | PN ---
Progress Note, Physician Chief Complaint: gluteal pain and swelling History of Present Illness: 63yo female PMH DM, obesity, HTN, COPD, Myesthenia Gravis, Graves disease with left gluteal necrotizing soft tissue infection noticed 3 days ago by patient. stable post operatively. Worseing cellulitis. patient is not allowing local wound care, currently wound is undressed and being contaminated with urine and stool in a diaper. - Current Medication List Current Medications: Active Medications Albuterol Sulfate (Ventolin 0.083% Nebulizer Soln -) 1 amp NEB Q6H PRN PRN Reason: SHORT OF BREATH/WHEEZING Albuterol/Ipratropium (Duoneb -) 1 amp NEB RTID [facility] Last Admin: 11/25/18 09:23 Dose: 1 amp Atorvastatin Calcium (Lipitor -) 20 mg PO HS [facility] Last Admin: 11/24/18 23:20 Dose: 20 mg Chlorhexidine Gluconate (Hibiclens For Decolonization -) 1 applic TP HS [facility] Last Admin: 11/24/18 23:27 Dose: Not Given Clopidogrel Bisulfate (Plavix -) 75 mg PO HS [facility] Last Admin: 11/24/18 23:19 Dose: 75 mg Folic Acid (Folic Acid -) 1 mg PO HS [facility] Last Admin: 11/24/18 23:19 Dose: 1 mg Gabapentin (Neurontin -) 300 mg PO TID [facility] Last Admin: 11/25/18 06:33 Dose: 300 mg Heparin Sodium (Porcine) (Heparin -) 5,000 unit SQ BID [facility] Last Admin: 11/25/18 10:09 Dose: 5,000 unit Clindamycin Phosphate (Cleocin 300 Mg Premix Ivpb) 300 mg in 50 mls @ 100 mls/ hr IVPB Q6H-IV [facility]; Protocol Last Admin: 11/25/18 10:07 Dose: 100 mls/hr Meropenem 1 gm/ Dextrose 100 mls @ 200 mls/hr IVPB BID [facility] Last Admin: 11/25/18 10:27 Dose: 200 mls/hr Vancomycin HCl 1,500 mg/ (Dextrose) 500 mls @ 250 mls/hr IVPB Q24H [facility]; Protocol Last Admin: 11/24/18 13:47 Dose: 250 mls/hr Insulin Aspart (Novolog Mix 70/30 Vial) 20 units SQ BIDAC [facility] Last Admin: 11/25/18 06:34 Dose: 20 units Insulin Aspart (Novolog Vial Sliding Scale -) 1 vial SQ [facility]; Protocol Last Admin: 11/25/18 11:22 Dose: Not Given Levothyroxine Sodium (Synthroid -) 125 mcg PO DAILY@0700 [facility] Last Admin: 11/25/18 06:33 Dose: 125 mcg Metformin HCl ([facility]ucophage -) [facility] Last Admin: 11/25/18 06:33 Dose: 500 mg Metoprolol Tartrate (Lopressor -) 25 mg PO [facility] Last Admin: 11/24/18 23:19 Dose: 25 mg Mirtazapine (Remeron -) 15 mg PO [facility] Last Admin: 11/24/18 23:21 Dose: 15 mg Montelukast Sodium (Singulair -) 10 mg PO [facility] Last Admin: 11/24/18 23:19 Dose: 10 mg Mupirocin (Bactroban Ointment (For Decolonization) -) 1 applic NS BID [facility] Stop: 11/26/18 21:59 Last Admin: 11/25/18 11:22 Dose: Not Given Nifedipine (Procardia Xl -) 60 mg PO [facility] Last Admin: 11/24/18 23:19 Dose: 60 mg Pantoprazole Sodium (Protonix Iv) 40 mg IVPUSH DAILY [facility] Last Admin: 11/24/18 10:13 Dose: 40 mg Pyridostigmine [place] (Mestinon -) 60 mg PO BID [facility] Last Admin: 11/25/18 10:09 Dose: 60 mg Sitagliptin Phosphate (Januvia -) 100 mg PO DAILY@0700 [facility] Last Admin: 11/25/18 06:33 Dose: 100 mg Tizanidine HCl (Tizanidine Hcl) 2 mg PO Q8H PRN PRN Reason: MUSCLE SPASMS - Objective Vital Signs: Vital Signs Temperature 97.9 F 11/25/18 07:30 Pulse Rate 68 11/25/18 07:30 Respiratory Rate 18 11/25/18 07:30 Blood Pressure 140/70 11/25/18 07:30 O2 Sat by Pulse Oximetry (%) 96 11/24/18 21:00 Vital Signs Period Temp Pulse Resp BP Sys/Hein Pulse Ox Last 24 Hr 97.5 F-98.2 F 65-85 18-22 136-190/60-94 95 Constitutional: Yes: Well Nourished, No Distress, Calm, Obese Eyes: Yes: Conjunctiva Clear, EOM Intact HENT: Yes: Atraumatic, Normocephalic Neck: Yes: Supple, Trachea Midline Cardiovascular: Yes: Regular Rate and Rhythm, S1, S2 Respiratory: Yes: Regular, CTA Bilaterally Gastrointestinal: Yes: Normal Bowel Sounds, Soft, Abdomen, Obese. No: Tenderness, Tenderness, Epigastrium, Tenderness, Rebound ...Rectal Exam: Yes: Deferred Genitourinary: No: CVA Tenderness - Left, CVA Tenderness - Right Extremities: No: Cool, Cyanosis Edema: Yes Edema: LLE: 2+ Peripheral Pulses WNL: Yes Peripheral Pulses: Left Radial: 2+, Right Radial: 2+, Left Doralis Pedis: 2+, Right Dorsalis Pedis: 2+, Left Femoral: 2+, Right Femoral: 2+ Integumentary: Yes: Incision, Venous Stasis Changes. No: Jaundice Wound/Incision: Yes: Clean/Dry, Open to air, Draining, Reddened (worseing edema and erythema distally in left leg), Unapproximated Neurological: Yes: Alert, Oriented Psychiatric: Yes: Alert, Oriented Labs: CBC, BMP 11/25/18 06:35 11/25/18 06:35 INR, PTT INR 1.25 (0.83-1.09) H 11/21/18 10:50 Microbiology 11/21/18 15:00 Gram Stain - Final Tissue-Other Tissue Culture - Final Staphylococcus Epidermidis Anaerobic Culture - Preliminary Pending Organism 11/21/18 10:50 Blood Culture - Preliminary Blood - Peripheral Venous NO GROWTH OBTAINED AFTER 96 HOURS, INCUBATION TO CONTINUE FOR 1 DAYS. 11/21/18 10:50 Blood Culture - Preliminary Blood - Peripheral Venous NO GROWTH OBTAINED AFTER 96 HOURS, INCUBATION TO CONTINUE FOR 1 DAYS. Problem List - Problems (1) Necrotizing fasciitis Assessment/Plan: 63yo female MMP Diabetic with necrotizing left gluteal soft tissue infection. POD#4 s/p Debridement of left gluteal area for necrotizing soft tissue infection. The patient is not compliant with local wound care. She refuses dressings siting pain at the site. Strep. Epidermis is very susceptable to current antibiotics regimen. The reason for worsened condition of the wound is the patients non compliance. This was explained to the her at length. Dressing change by RN Diet as tolerated continue IV antibiotics LEG ELAVATION ABOVE HEART LEVEL ADEQUATE ANALGESIA f/u cultures OOB and ambulate This patient is in guarded condition. Time spent reviewing chart, examining patient, talking with providers and/or family and documentation is XX minutes. Code(s): M72.6 - NECROTIZING FASCIITIS (2) COPD (chronic obstructive pulmonary disease) Code(s): J44.9 - CHRONIC OBSTRUCTIVE PULMONARY DISEASE, UNSPECIFIED Qualifiers: COPD type: chronic bronchitis (3) Diabetes Code(s): E11.9 - TYPE 2 DIABETES MELLITUS WITHOUT COMPLICATIONS Qualifiers: Diabetes mellitus type: type 2 (4) Graves' disease Code(s): E05.00 - THYROTOXICOSIS W DIFFUSE GOITER W/O THYROTOXIC CRISIS (5) Hypertension Code(s): I10 - ESSENTIAL (PRIMARY) HYPERTENSION Qualifiers: Hypertension type: unspecified Qualified Code(s): I10 - Essential (primary ) hypertension (6) Hypothyroidism, unspecified Code(s): E03.9 - HYPOTHYROIDISM, UNSPECIFIED (7) Myasthenia gravis Code(s): G70.00 - MYASTHENIA GRAVIS WITHOUT (ACUTE) EXACERBATION
[2018-11-25] MEDS: VANCOMYCIN HCL 1,500 MG in DEXTROSE 5%-WATER - 500 ML IVPB SCH (12:41)
--- NOTE | 2018-11-25 13:05 | PN ---
Progress Note, Physician History of Present Illness: patient c/o of lot of pain thigh left reddened also tender - Current Medication List Current Medications: Active Medications Albuterol Sulfate (Ventolin 0.083% Nebulizer Soln -) 1 amp NEB Q6H PRN PRN Reason: SHORT OF BREATH/WHEEZING Albuterol/Ipratropium (Duoneb -) 1 amp NEB RTID [facility] Last Admin: 11/25/18 09:23 Dose: 1 amp Atorvastatin Calcium (Lipitor -) 20 mg PO HS [facility] Last Admin: 11/24/18 23:20 Dose: 20 mg Chlorhexidine Gluconate (Hibiclens For Decolonization -) 1 applic TP HS [facility] Last Admin: 11/24/18 23:27 Dose: Not Given Clopidogrel Bisulfate (Plavix -) 75 mg PO HS [facility] Last Admin: 11/24/18 23:19 Dose: 75 mg Folic Acid (Folic Acid -) 1 mg PO HS [facility] Last Admin: 11/24/18 23:19 Dose: 1 mg Gabapentin (Neurontin -) 300 mg PO TID [facility] Last Admin: 11/25/18 06:33 Dose: 300 mg Heparin Sodium (Porcine) (Heparin -) 5,000 unit SQ BID [facility] Last Admin: 11/25/18 10:09 Dose: 5,000 unit Clindamycin Phosphate (Cleocin 300 Mg Premix Ivpb) 300 mg in 50 mls @ 100 mls/ hr IVPB Q6H-IV [facility]; Protocol Last Admin: 11/25/18 10:07 Dose: 100 mls/hr Meropenem 1 gm/ Dextrose 100 mls @ 200 mls/hr IVPB BID [facility] Last Admin: 11/25/18 10:27 Dose: 200 mls/hr Vancomycin HCl 1,500 mg/ (Dextrose) 500 mls @ 250 mls/hr IVPB Q24H [facility]; Protocol Last Admin: 11/25/18 12:41 Dose: 250 mls/hr Insulin Aspart (Novolog Mix 70/30 Vial) 20 units SQ BIDAC [facility] Last Admin: 11/25/18 06:34 Dose: 20 units Insulin Aspart (Novolog Vial Sliding Scale -) 1 vial SQ ACHS [facility]; Protocol Last Admin: 11/25/18 11:22 Dose: Not Given Levothyroxine Sodium (Synthroid -) 125 mcg PO DAILY@0700 [facility] Last Admin: 11/25/18 06:33 Dose: 125 mcg Metformin HCl ([facility] -) [facility] Last Admin: 11/25/18 06:33 Dose: 500 mg Metoprolol Tartrate (Lopressor -) 25 mg PO HS [facility] Last Admin: 11/24/18 23:19 Dose: 25 mg Mirtazapine (Remeron -) 15 mg PO HS [facility] Last Admin: 11/24/18 23:21 Dose: 15 mg Montelukast Sodium (Singulair -) 10 mg PO HS [facility] Last Admin: 11/24/18 23:19 Dose: 10 mg Mupirocin (Bactroban Ointment (For Decolonization) -) 1 applic NS BID [facility] Stop: 11/26/18 21:59 Last Admin: 11/25/18 11:22 Dose: Not Given Nifedipine (Procardia Xl -) 60 mg PO [facility] Last Admin: 11/24/18 23:19 Dose: 60 mg Pantoprazole Sodium (Protonix Iv) 40 mg IVPUSH DAILY [facility] Last Admin: 11/24/18 10:13 Dose: 40 mg Pyridostigmine [place] (Mestinon -) 60 mg PO BID [facility] Last Admin: 11/25/18 10:09 Dose: 60 mg Sitagliptin Phosphate (Januvia -) 100 mg PO DAILY@0700 [facility] Last Admin: 11/25/18 06:33 Dose: 100 mg Tizanidine HCl (Tizanidine Hcl) 2 mg PO Q8H PRN PRN Reason: MUSCLE SPASMS - Objective Vital Signs: Vital Signs Temperature 97.9 F 11/25/18 07:30 Pulse Rate 80 11/25/18 10:00 Respiratory Rate 18 11/25/18 10:00 Blood Pressure 180/78 H 11/25/18 10:00 O2 Sat by Pulse Oximetry (%) 94 L 11/25/18 09:00 Constitutional: Yes: Calm, Mild Distress Cardiovascular: Yes: Regular Rate and Rhythm Respiratory: Yes: Regular, CTA Bilaterally Gastrointestinal: Yes: Normal Bowel Sounds, Soft Musculoskeletal: Yes: Other Extremities: Yes: Erythema (left thigh) Neurological: Yes: Alert, Oriented Psychiatric: Yes: Alert, Oriented Labs: CBC, BMP 11/25/18 06:35 11/25/18 06:35 INR, PTT INR 1.25 (0.83-1.09) H 11/21/18 10:50 Assessment/Plan Problem List - Problems (1) Necrotizing fasciitis plkThank you for the opportunity to participate in the care of this patient. Code(s): M72.6 - NECROTIZING FASCIITIS (2) COPD (chronic obstructive pulmonary disease) Code(s): J44.9 - CHRONIC OBSTRUCTIVE PULMONARY DISEASE, UNSPECIFIED (3) Diabetes Code(s): E11.9 - TYPE 2 DIABETES MELLITUS WITHOUT COMPLICATIONS (4) Graves' disease Code(s): E05.00 - THYROTOXICOSIS W DIFFUSE GOITER W/O THYROTOXIC CRISIS (5) Hypertension Code(s): I10 - ESSENTIAL (PRIMARY) HYPERTENSION Qualifiers: Qualified Code(s): I10 - Essential (primary) hypertension (6) Hypothyroidism, unspecified Code(s): E03.9 - HYPOTHYROIDISM, UNSPECIFIED (7) Myasthenia gravis Code(s): G70.00 - MYASTHENIA GRAVIS WITHOUT (ACUTE) EXACERBATION plan continue abx will d/w surgery close watch of cellulitis rest as per the team
[2018-11-25] MEDS: PANTOPRAZOLE SODIUM 40 MG VIAL IVPUSH SCH (14:54)
--- NOTE | 2018-11-25 16:19 | PATH ---
Surgical Pathology Report Patient Name: KERA PRESLEY [facility]. Rec. #: [id number] /Age/Gender: 1955 (Age: 63) / F Account: [id number] Location: [address] [place] [address]/[facility] Taken: 11/21/2018 Received: 11/24/2018 Reported: 11/25/2018 Physicians: Gregg Kramer M.D. Specimen(s) Received LEFT NECROTIC GLUTEAL PLUG Clinical History Necrotizing fasciitis Final Diagnosis LEFT NECROTIC GLUTEAL PLUG, EXCISION: SKIN AND FIBROADIPOSE TISSUE SHOWING GANGRENOUS NECROSIS, SEVERE ACUTE AND CHRONIC INFLAMMATION, WITH ABSCESS FORMATION. Electronically Signed Nat Dinh M.D. Gross Description Received fresh labeled "left necrotic gluteal plug," is a 4.2 x 3.8 cm wall-brown, ovoid portion of necrotic skin excised to depth of 1.3 cm. A hobbies and crafts sales representative section is submitted in one cassette. /11/24/2018 saudi/11/24/2018
[2018-11-25] MEDS ORDERED: INSULIN (NOVOLOG MIX 70/30) 100 UNITS/ML MDV SQ ONE (19:55)
[2018-11-25] MEDS: ATORVASTATIN CA 20 MG TABLET (FP) PO SCH (22:15)
[2018-11-25] MEDS: CLOPIDOGREL BISULFATE 75 MG TABLET (FP) PO SCH (22:15)
[2018-11-25] MEDS: NIFEdipine E.R 60 MG TABLET (UD) PO SCH (22:15)
[2018-11-25] MEDS: METOPROLOL TARTRATE 25 MG TABLET (FP) PO SCH (22:15)
[2018-11-25] MEDS: FOLIC ACID 1 MG TABLET (FP) PO SCH (22:15)
[2018-11-25] MEDS: MONTELUKAST NA 10 MG TABLET PO SCH (22:15)
[2018-11-25] MEDS: CHLORHEXIDINE GLUCONATE 4% CLEANSER FOR DECOLONIZATION TP SCH (22:16)
[2018-11-25] MEDS: MIRTAZAPINE 15 MG TABLET (FP) PO SCH (22:18)
--- NOTE | 2018-11-25 22:23 | PN ---
Progress Note, Physician History of Present Illness: Pt having increased perianal pain and increased warmth/redness - Current Medication List Current Medications: Active Medications Albuterol Sulfate (Ventolin 0.083% Nebulizer Soln -) 1 amp NEB Q6H PRN PRN Reason: SHORT OF BREATH/WHEEZING Albuterol/Ipratropium (Duoneb -) 1 amp NEB RTID [facility] Last Admin: 11/25/18 21:40 Dose: 1 amp Atorvastatin Calcium (Lipitor -) 20 mg PO HS [facility] Last Admin: 11/25/18 22:15 Dose: 20 mg Chlorhexidine Gluconate (Hibiclens For Decolonization -) 1 applic TP HS [facility] Last Admin: 11/25/18 22:16 Dose: Not Given Clopidogrel Bisulfate (Plavix -) 75 mg PO HS [facility] Last Admin: 11/25/18 22:15 Dose: 75 mg Folic Acid (Folic Acid -) 1 mg PO HS [facility] Last Admin: 11/25/18 22:15 Dose: 1 mg Gabapentin (Neurontin -) 300 mg PO TID [facility] Last Admin: 11/25/18 22:15 Dose: 300 mg Heparin Sodium (Porcine) (Heparin -) 5,000 unit SQ BID [facility] Last Admin: 11/25/18 22:15 Dose: 5,000 unit Clindamycin Phosphate (Cleocin 300 Mg Premix Ivpb) 300 mg in 50 mls @ 100 mls/ hr IVPB Q6H-IV MICHEAL; Protocol Last Admin: 11/25/18 22:13 Dose: 100 mls/hr Meropenem 1 gm/ Dextrose 100 mls @ 200 mls/hr IVPB BID [facility] Last Admin: 11/25/18 22:13 Dose: 200 mls/hr Vancomycin HCl 1,500 mg/ (Dextrose) 500 mls @ 250 mls/hr IVPB Q24H [facility]; Protocol Last Admin: 11/25/18 12:41 Dose: 250 mls/hr Insulin Aspart (Novolog Mix 70/30 Vial) 20 units SQ BIDAC [facility] Last Admin: 11/25/18 17:40 Dose: 20 units Insulin Aspart (Novolog Vial Sliding Scale -) 1 vial SQ ACHS [facility]; Protocol Last Admin: 11/25/18 22:16 Dose: 2 units Levothyroxine Sodium (Synthroid -) 125 mcg PO DAILY@0700 [facility] Last Admin: 11/25/18 06:33 Dose: 125 mcg [facility] Admin: 11/25/18 17:44 Dose: 500 mg Metoprolol Tartrate (Lopressor -) 25 mg PO HS [facility] Last Admin: 11/25/18 22:15 Dose: 25 mg Mirtazapine (Remeron -) 15 mg PO HS [facility] Last Admin: 11/25/18 22:18 Dose: 15 mg Montelukast Sodium (Singulair -) 10 mg PO HS [facility] Last Admin: 11/25/18 22:15 Dose: 10 mg Morphine Sulfate (Morphine Sulfate) 2 mg IVPUSH Q6H PRN PRN Reason: pain Last Admin: 11/25/18 22:16 Dose: 2 mg Mupirocin (Bactroban Ointment (For Decolonization) -) 1 applic NS BID [facility] Stop: 11/26/18 21:59 Last Admin: 11/25/18 22:15 Dose: Not Given Nifedipine (Procardia Xl -) 60 mg PO [facility] Last Admin: 11/25/18 22:15 Dose: 60 mg Pantoprazole Sodium (Protonix Iv) 40 mg IVPUSH DAILY [facility] Last Admin: 11/25/18 14:54 Dose: 40 mg Pyridostigmine [place] (Mestinon -) 60 mg PO BID [facility] Last Admin: 11/25/18 22:15 Dose: 60 mg Sitagliptin Phosphate (Januvia -) 100 mg PO DAILY@0700 [facility] Last Admin: 11/25/18 06:33 Dose: 100 mg Tizanidine HCl (Tizanidine Hcl) 2 mg PO Q8H PRN PRN Reason: MUSCLE SPASMS Zolpidem Tartrate (Ambien -) 5 mg PO HS PRN PRN Reason: INSOMNIA - Objective Vital Signs: Vital Signs Temperature 98.2 F 11/25/18 18:00 Pulse Rate 80 11/25/18 18:00 Respiratory Rate 20 11/25/18 18:00 Blood Pressure 177/94 H 11/25/18 18:00 O2 Sat by Pulse Oximetry (%) 94 L 11/25/18 09:00 Neck: Yes: WNL, Supple Cardiovascular: Yes: WNL, Regular Rate and Rhythm Respiratory: Yes: WNL, Regular, CTA Bilaterally Gastrointestinal: Yes: WNL, Normal Bowel Sounds, Soft Extremities: Yes: Other ((+) erthyema/warmth Lt thigh) Labs: CBC, BMP 11/25/18 06:35 11/25/18 06:35 INR, PTT INR 1.25 (0.83-1.09) H 11/21/18 10:50 Problem List - Problems (1) Necrotizing fasciitis Assessment/Plan: S/P debridement of gluteal abscess Cont Iv meropenem/vanco/clinda BC/woud culture remain negative Reconsult surgery Check doppler LLE Code(s): M72.6 - NECROTIZING FASCIITIS (2) Diabetes Assessment/Plan: Cont sliding scale w/ coverage Cont januvia/Novolog 70/30/metformin Code(s): E11.9 - TYPE 2 DIABETES MELLITUS WITHOUT COMPLICATIONS Qualifiers: Diabetes mellitus type: type 2 (3) Graves' disease Assessment/Plan: Cont pyridostigmine/tizanidine Code(s): E05.00 - THYROTOXICOSIS W DIFFUSE GOITER W/O THYROTOXIC CRISIS (4) Hypertension Assessment/Plan: Cont metoprolol/nifedipine Code(s): I10 - ESSENTIAL (PRIMARY) HYPERTENSION Qualifiers: Hypertension type: unspecified Qualified Code(s): I10 - Essential (primary ) hypertension (5) Hypothyroidism, unspecified Assessment/Plan: Cont levothyroxine Code(s): E03.9 - HYPOTHYROIDISM, UNSPECIFIED (6) COPD (chronic obstructive pulmonary disease) Assessment/Plan: Cont nebulizer prn Code(s): J44.9 - CHRONIC OBSTRUCTIVE PULMONARY DISEASE, UNSPECIFIED Qualifiers: COPD type: chronic bronchitis
[2018-11-26] MEDS: CLINDAMYCIN 300 MG PREMIX IVPB 300 MG/50 ML BAG IVPB SCH ×2 (03:39→10:16)
[2018-11-26] MEDS: metFORMIN HCL 500 MG TABLET (FP) PO SCH ×2 (07:10→16:58)
[2018-11-26] MEDS: GABAPENTIN 300 MG CAPSULE (FP) PO SCH ×3 (07:11→21:37)
[2018-11-26] MEDS: INSULIN (NOVOLOG MIX 70/30) 100 UNITS/ML MDV SQ SCH ×2 (07:11→17:32)
[2018-11-26] MEDS: sitaGLIPtin PHOSPHATE 100 MG TABLET (FP) PO SCH (07:11)
[2018-11-26] MEDS: LEVOTHYROXINE NA 125 MCG TABLET (FP) PO SCH (07:11)
[2018-11-26] MEDS: INSULIN SLIDING SCALE (NOVOLOG) 1 VIAL SQ SCH ×4 (07:12→21:55)
[2018-11-26 07:38] LABS: BASO % 1.1 % (0-2.0); EOS % 3.5 % (0-4.5); HEMATOCRIT 45.4 % (32.4-45.2); HEMOGLOBIN 15.5 GM/dL (10.7-15.3); LYMPH % 23.1 % (8-40); MCH 31.9 pg (25.7-33.7); MCHC 34.2 g/dl (32.0-36.0); MEAN CELL VOLUME 93.1 fl (80-96); MONO % 6.9 % (3.8-10.2); NEUT % 65.4 % (42.8-82.8); PLATELET COUNT 151 K/MM3 (134-434); RBC 4.88 M/mm3 (3.60-5.2); RDW 14.7 % (11.6-15.6); WHITE BLOOD COUNT 9.5 K/mm3 (4.0-10.0)
[2018-11-26 08:03] LABS: ALK PHOS 236 U/L (45-117); ANION GAP 6 MMOL/L (8-16); BILIRUBIN,TOTAL 0.7 mg/dL (0.2-1); BLOOD UREA NITROGEN 15 mg/dL (7-18); CALCIUM 9.6 mg/dL (8.5-10.1); CHLORIDE 102 mmol/L (98-107); CO2 30 mmol/L (21-32); CREATININE 0.9 mg/dL (0.55-1.3); GLUCOSE,RANDOM 263 mg/dL (74-106); POTASSIUM 4.9 mmol/L (3.5-5.1); SGOT/AST 49 U/L (15-37); SGPT/ALT 61 U/L (13-61); SODIUM 138 mmol/L (136-145); TOT PROT 6.3 g/dl (6.4-8.2)
[2018-11-26] MEDS: ALBUTEROL SO4 2.5/IPRATROPIUM 0.5 INH SOL 3 ML VIAL.NEB. NEB SCH ×3 (09:30→21:57)
[2018-11-26] MEDS ORDERED: INSULIN (LEVEMIR) 100 UNITS/ML UNITS SQ ONE (09:35)
[2018-11-26] MEDS: MORPHINE SULFATE 2 MG/ML VIAL IVPUSH PRN (10:00)
[2018-11-26] MEDS ORDERED: PT OWN MED DRAWER 7, Y5N ONE ×5 (10:09→21:00)
[2018-11-26] MEDS: PANTOPRAZOLE SODIUM 40 MG VIAL IVPUSH SCH (10:16)
[2018-11-26] MEDS: HEPARIN NA (PORCINE) 5,000 UNITS/ML 1ML VIAL SQ SCH ×2 (10:17→21:35)
[2018-11-26] MEDS: PYRIDOSTIGMINE BROMIDE 60 MG TABLET PO SCH ×2 (10:17→21:37)
[2018-11-26 10:49] LABS: ANISOCYTOSIS 0; HELMET CELLS 0; HOWELL-JOLLY BODIES 0; MACROCYTOSIS 0; OVALOCYTE 0; ROULEAU 0; SICKELED CELLS 0; TARGET CELLS 0; TEAR DROP CELLS 0; TOXIC GRANULATION 0
[2018-11-26 11:00] LABS: PLATELET ESTIMATE ADEQUATE
[2018-11-26] MEDS: MUPIROCIN 2% TOPICAL OINTMENT FOR DECOLONIZATION NS SCH (11:32)
[2018-11-26] MEDS: MEROPENEM 1 GM in DEXTROSE 5%-WATER 100 ML IVPB SCH ×2 (11:33→21:36)
--- NOTE | 2018-11-26 12:59 | PN ---
Progress Note, Physician History of Present Illness: cellulitis of the thigh improving pain better - Current Medication List Current Medications: Active Medications Albuterol Sulfate (Ventolin 0.083% Nebulizer Soln -) 1 amp NEB Q6H PRN PRN Reason: SHORT OF BREATH/WHEEZING Albuterol/Ipratropium (Duoneb -) 1 amp NEB RTID [facility]PL[facility] Last Admin: 11/26/18 09:30 Dose: Not Given Atorvastatin Calcium (Lipitor -) 20 mg PO HS [facility] Last Admin: 11/25/18 22:15 Dose: 20 mg Chlorhexidine Gluconate (Hibiclens For Decolonization -) 1 applic TP HS [facility] Last Admin: 11/25/18 22:16 Dose: Not Given Clopidogrel Bisulfate (Plavix -) 75 mg PO [facility] Last Admin: 11/25/18 22:15 Dose: 75 mg Folic Acid (Folic Acid -) 1 mg PO HS [facility] Last Admin: 11/25/18 22:15 Dose: 1 mg Gabapentin (Neurontin -) 300 mg PO TID [facility] Last Admin: 11/26/18 07:11 Dose: 300 mg Heparin Sodium (Porcine) (Heparin -) 5,000 unit SQ BID [facility] Last Admin: 11/26/18 10:17 Dose: 5,000 unit Clindamycin Phosphate (Cleocin 300 Mg Premix Ivpb) 300 mg in 50 mls @ 100 mls/ hr IVPB Q6H-IV [facility]; Protocol Last Admin: 11/26/18 10:16 Dose: 100 mls/hr Meropenem 1 gm/ Dextrose 100 mls @ 200 mls/hr IVPB BID [facility] Last Admin: 11/26/18 11:33 Dose: 200 mls/hr Vancomycin HCl 1,500 mg/ (Dextrose) 500 mls @ 250 mls/hr IVPB Q24H [facility]; Protocol Last Admin: 11/25/18 12:41 Dose: 250 mls/hr Insulin Aspart (Novolog Mix 70/30 Vial) 20 units SQ BIDAC [facility] Last Admin: 11/26/18 07:11 Dose: 20 units Insulin Aspart (Novolog Vial Sliding Scale -) 1 vial SQ ACHS [facility]; Protocol Last Admin: 11/26/18 12:25 Dose: Not Given Levothyroxine Sodium (Synthroid -) 125 mcg PO DAILY@0700 [facility] Last Admin: 11/26/18 07:11 Dose: 125 mcg Metformin [facility] ([facility] -) [facility] Last Admin: 11/26/18 07:10 Dose: 500 mg Metoprolol Tartrate (Lopressor -) 25 mg PO [facility] Last Admin: 11/25/18 22:15 Dose: 25 mg Mirtazapine (Remeron -) 15 mg PO HS [facility] Last Admin: 11/25/18 22:18 Dose: 15 mg Montelukast Sodium (Singulair -) 10 mg PO [facility] Last Admin: 11/25/18 22:15 Dose: 10 mg Morphine Sulfate (Morphine Sulfate) 2 mg IVPUSH Q6H PRN PRN Reason: pain Last Admin: 11/26/18 10:00 Dose: 2 mg Mupirocin (Bactroban Ointment (For Decolonization) -) 1 applic NS BID [facility] Stop: 11/26/18 21:59 Last Admin: 11/26/18 11:32 Dose: Not Given Nifedipine (Procardia Xl -) 60 mg PO [facility] Last Admin: 11/25/18 22:15 Dose: 60 mg Pantoprazole Sodium (Protonix Iv) 40 mg IVPUSH DAILY [facility] Last Admin: 11/26/18 10:16 Dose: 40 mg Pyridostigmine [place] (Mestinon -) 60 mg PO BID [facility] Last Admin: 11/26/18 10:17 Dose: 60 mg Sitagliptin Phosphate (Januvia -) 100 mg PO DAILY@0700 [facility] Last Admin: 11/26/18 07:11 Dose: 100 mg Tizanidine HCl (Tizanidine Hcl) 2 mg PO Q8H PRN PRN Reason: MUSCLE SPASMS Zolpidem Tartrate (Ambien -) 5 mg PO HS PRN PRN Reason: INSOMNIA - Objective Vital Signs: Vital Signs Temperature 98.2 F 11/26/18 09:30 Pulse Rate 76 11/26/18 09:05 Respiratory Rate 20 11/26/18 09:05 Blood Pressure 153/84 11/26/18 09:05 O2 Sat by Pulse Oximetry (%) 95 11/25/18 21:00 Constitutional: Yes: Calm, Mild Distress Cardiovascular: Yes: Regular Rate and Rhythm Respiratory: Yes: Regular, CTA Bilaterally Gastrointestinal: Yes: Normal Bowel Sounds, Soft Musculoskeletal: Yes: Other Extremities: Yes: Erythema (of the left thigh), Other Neurological: Yes: Alert, Oriented Psychiatric: Yes: Alert, Oriented Labs: CBC, BMP 11/26/18 06:39 11/26/18 06:39 INR, PTT INR 1.25 (0.83-1.09) H 11/21/18 10:50 Assessment/Plan Problem List - Problems (1) Necrotizing fasciitis plSkylerhank you for the opportunity to participate in the care of this patient. Code(s): M72.6 - NECROTIZING FASCIITIS (2) COPD (chronic obstructive pulmonary disease) Code(s): J44.9 - CHRONIC OBSTRUCTIVE PULMONARY DISEASE, UNSPECIFIED (3) Diabetes Code(s): E11.9 - TYPE 2 DIABETES MELLITUS WITHOUT COMPLICATIONS (4) Graves' disease Code(s): E05.00 - THYROTOXICOSIS W DIFFUSE GOITER W/O THYROTOXIC CRISIS (5) Hypertension Code(s): I10 - ESSENTIAL (PRIMARY) HYPERTENSION Qualifiers: Qualified Code(s): I10 - Essential (primary) hypertension (6) Hypothyroidism, unspecified Code(s): E03.9 - HYPOTHYROIDISM, UNSPECIFIED (7) Myasthenia gravis Code(s): G70.00 - MYASTHENIA GRAVIS WITHOUT (ACUTE) EXACERBATION plan continue abx close watch will stop clinda rest as per the surgery
[2018-11-26] MEDS: VANCOMYCIN HCL 1,500 MG in DEXTROSE 5%-WATER - 500 ML IVPB SCH (15:18)
[2018-11-26] MEDS: NIFEdipine E.R 60 MG TABLET (UD) PO SCH ×2 (17:52→23:00)
[2018-11-26] MEDS: FOLIC ACID 1 MG TABLET (FP) PO SCH (21:34)
[2018-11-26] MEDS: CHLORHEXIDINE GLUCONATE 4% CLEANSER FOR DECOLONIZATION TP SCH (21:35)
[2018-11-26] MEDS: METOPROLOL TARTRATE 25 MG TABLET (FP) PO SCH (21:36)
[2018-11-26] MEDS: ATORVASTATIN CA 20 MG TABLET (FP) PO SCH (21:36)
[2018-11-26] MEDS: MONTELUKAST NA 10 MG TABLET PO SCH (21:39)
[2018-11-26] MEDS: MIRTAZAPINE 15 MG TABLET (FP) PO SCH (21:39)
[2018-11-26] MEDS: CLOPIDOGREL BISULFATE 75 MG TABLET (FP) PO SCH (21:40)
[2018-11-26] MEDS: ZOLPIDEM TARTRATE 5 MG TABLET PO PRN (23:01)
--- NOTE | 2018-11-27 00:22 | PN ---
Progress Note, Physician History of Present Illness: No new complaints Improvement in the erythema Pt seen and examined on 09/25/19 however note is being entered now - Current Medication List Current Medications: Active Medications Albuterol Sulfate (Ventolin 0.083% Nebulizer Soln -) 1 amp NEB Q6H PRN PRN Reason: SHORT OF BREATH/WHEEZING Albuterol/Ipratropium (Duoneb -) 1 amp NEB RTID [facility] Last Admin: 11/26/18 21:57 Dose: 1 amp Atorvastatin Calcium (Lipitor -) 20 mg PO HS [facility] Last Admin: 11/26/18 21:36 Dose: 20 mg Chlorhexidine Gluconate (Hibiclens For Decolonization -) 1 applic TP HS [facility] Last Admin: 11/26/18 21:35 Dose: Not Given Clopidogrel Bisulfate (Plavix -) 75 mg PO HS [facility] Last Admin: 11/26/18 21:40 Dose: 75 mg Folic Acid (Folic Acid -) 1 mg PO HS [facility] Last Admin: 11/26/18 21:34 Dose: 1 mg Gabapentin (Neurontin -) 300 mg PO TID [facility] Last Admin: 11/26/18 21:37 Dose: 300 mg Heparin Sodium (Porcine) (Heparin -) 5,000 unit SQ BID [facility] Last Admin: 11/26/18 21:35 Dose: 5,000 unit Meropenem 1 gm/ Dextrose 100 mls @ 200 mls/hr IVPB BID [facility] Last Admin: 11/26/18 21:36 Dose: 200 mls/hr Vancomycin HCl 1,500 mg/ (Dextrose) 500 mls @ 250 mls/hr IVPB Q24H [facility]; Protocol Last Admin: 11/26/18 15:18 Dose: 250 mls/hr Insulin Aspart (Novolog Mix 70/30 Vial) 20 units SQ BIDAC [facility] Last Admin: 11/26/18 17:32 Dose: 20 units Insulin Aspart (Novolog Vial Sliding Scale -) 1 vial SQ ACHS [facility]; Protocol Last Admin: 11/26/18 21:55 Dose: 4 units Levothyroxine Sodium (Synthroid -) 125 mcg PO DAILY@0700 [facility] Last Admin: 11/26/18 07:11 Dose: 125 mcg Metformin HCl (Glucophage -) 500 mg PO BIDAC [facility] Last Admin: 11/26/18 16:58 Dose: 500 mg Metoprolol Tartrate (Lopressor -) 25 mg PO HS [facility] Last Admin: 11/26/18 21:36 Dose: 25 mg Mirtazapine (Remeron -) 15 mg PO [facility] Last Admin: 11/26/18 21:39 Dose: 15 mg Montelukast Sodium (Singulair -) 10 mg PO HS [facility] Last Admin: 11/26/18 21:39 Dose: 10 mg Morphine Sulfate (Morphine Sulfate) 2 mg IVPUSH Q6H PRN PRN Reason: pain Last Admin: 11/26/18 10:00 Dose: 2 mg Nifedipine (Procardia Xl -) 60 mg PO [facility] Last Admin: 11/26/18 23:00 Dose: 60 mg Pantoprazole Sodium (Protonix Iv) 40 mg IVPUSH DAILY [facility] Last Admin: 11/26/18 10:16 Dose: 40 mg Pyridostigmine [place] (Mestinon -) 60 mg PO BID [facility] Last Admin: 11/26/18 21:37 Dose: 60 mg Sitagliptin Phosphate (Januvia -) 100 mg PO DAILY@0700 [facility] Last Admin: 11/26/18 07:11 Dose: 100 mg Tizanidine HCl (Tizanidine Hcl) 2 mg PO Q8H PRN PRN Reason: MUSCLE SPASMS Zolpidem Tartrate (Ambien -) 5 mg PO HS PRN PRN Reason: INSOMNIA Last Admin: 11/26/18 23:01 Dose: 5 mg - Objective Vital Signs: Vital Signs Temperature 98.2 F 11/26/18 18:10 Pulse Rate 85 11/26/18 19:10 Respiratory Rate 20 11/26/18 19:10 Blood Pressure 162/82 11/26/18 19:10 O2 Sat by Pulse Oximetry (%) 96 11/26/18 10:05 Neck: Yes: WNL, Supple Cardiovascular: Yes: WNL, Regular Rate and Rhythm Respiratory: Yes: WNL, Regular, CTA Bilaterally Gastrointestinal: Yes: WNL, Normal Bowel Sounds, Soft Extremities: Yes: Other (Decreased warmth erythma LLE) Labs: CBC, BMP 11/26/18 06:39 11/26/18 06:39 INR, PTT INR 1.25 (0.83-1.09) H 11/21/18 10:50 Problem List - Problems (1) Necrotizing fasciitis Assessment/Plan: S/P debridement of gluteal abscess Cont Iv meropenem/vanco/clinda BC/woud culture remain negative Doppler LLE negative for DVT Code(s): M72.6 - NECROTIZING FASCIITIS (2) Diabetes Assessment/Plan: Cont sliding scale w/ coverage Cont januvia/Novolog 70/30/metformin Code(s): E11.9 - TYPE 2 DIABETES MELLITUS WITHOUT COMPLICATIONS Qualifiers: Diabetes mellitus type: type 2 (3) Graves' disease Assessment/Plan: Cont pyridostigmine/tizanidine Code(s): E05.00 - THYROTOXICOSIS W DIFFUSE GOITER W/O THYROTOXIC CRISIS (4) Hypertension Assessment/Plan: Cont metoprolol/nifedipine Code(s): I10 - ESSENTIAL (PRIMARY) HYPERTENSION Qualifiers: Hypertension type: unspecified Qualified Code(s): I10 - Essential (primary ) hypertension (5) Hypothyroidism, unspecified Assessment/Plan: Cont levothyroxine Code(s): E03.9 - HYPOTHYROIDISM, UNSPECIFIED (6) COPD (chronic obstructive pulmonary disease) Assessment/Plan: Cont nebulizer prn Code(s): J44.9 - CHRONIC OBSTRUCTIVE PULMONARY DISEASE, UNSPECIFIED Qualifiers: COPD type: chronic bronchitis
[2018-11-27] MEDS: GABAPENTIN 300 MG CAPSULE (FP) PO SCH ×3 (06:02→22:04)
[2018-11-27] MEDS: metFORMIN HCL 500 MG TABLET (FP) PO SCH ×2 (06:02→17:46)
[2018-11-27] MEDS: sitaGLIPtin PHOSPHATE 100 MG TABLET (FP) PO SCH (06:02)
[2018-11-27] MEDS: LEVOTHYROXINE NA 125 MCG TABLET (FP) PO SCH (06:02)
[2018-11-27] MEDS: INSULIN (NOVOLOG MIX 70/30) 100 UNITS/ML MDV SQ SCH ×2 (06:03→17:45)
[2018-11-27] MEDS: INSULIN SLIDING SCALE (NOVOLOG) 1 VIAL SQ SCH ×4 (06:04→22:10)
[2018-11-27] MEDS ORDERED: INSULIN (NOVOLOG MIX 70/30) 100 UNITS/ML MDV SQ ONE ×2 (06:31→18:43)
[2018-11-27] MEDS: ALBUTEROL SO4 2.5/IPRATROPIUM 0.5 INH SOL 3 ML VIAL.NEB. NEB SCH ×3 (09:00→20:15)
--- NOTE | 2018-11-27 09:49 | PN ---
Progress Note, Physician History of Present Illness: stable doing well cellulitis improving wound cx result noted - Current Medication List Current Medications: Active Medications Albuterol Sulfate (Ventolin 0.083% Nebulizer Soln -) 1 amp NEB Q6H PRN PRN Reason: SHORT OF BREATH/WHEEZING Albuterol/Ipratropium (Duoneb -) 1 amp NEB RTID [facility] Last Admin: 11/26/18 21:57 Dose: 1 amp Atorvastatin Calcium (Lipitor -) 20 mg PO [facility] Last Admin: 11/26/18 21:36 Dose: 20 mg Chlorhexidine Gluconate (Hibiclens For Decolonization -) 1 applic TP [facility] Last Admin: 11/26/18 21:35 Dose: Not Given Clopidogrel Bisulfate (Plavix -) 75 mg PO [facility] Last Admin: 11/26/18 21:40 Dose: 75 mg Folic Acid (Folic Acid -) 1 mg PO [facility] Last Admin: 11/26/18 21:34 Dose: 1 mg Gabapentin (Neurontin -) 300 mg PO TID [facility] Last Admin: 11/27/18 06:02 Dose: 300 mg Heparin Sodium (Porcine) (Heparin -) 5,000 unit SQ BID [facility] Last Admin: 11/26/18 21:35 Dose: 5,000 unit Meropenem 1 gm/ Dextrose 100 mls @ 200 mls/hr IVPB BID [facility] Last Admin: 11/26/18 21:36 Dose: 200 mls/hr Vancomycin HCl 1,500 mg/ (Dextrose) 500 mls @ 250 mls/hr IVPB Q24H [facility]; Protocol Last Admin: 11/26/18 15:18 Dose: 250 mls/hr Insulin Aspart (Novolog Mix 70/30 Vial) 20 units SQ BIDAC [facility] Last Admin: 11/27/18 06:03 Dose: 20 units Insulin Aspart (Novolog Vial Sliding Scale -) 1 vial SQ ACHS [facility]; Protocol Last Admin: 11/27/18 06:04 Dose: 2 units Levothyroxine Sodium (Synthroid -) 125 mcg PO DAILY@0700 [facility] Last Admin: 11/27/18 06:02 Dose: 125 mcg Metformin HCl (Glucophage -) 500 mg PO BIDAC [facility] Last Admin: 11/27/18 06:02 Dose: 500 mg Metoprolol Tartrate (Lopressor -) 25 mg PO [facility] Last Admin: 11/26/18 21:36 Dose: 25 mg Mirtazapine (Remeron -) 15 mg PO HS [facility] Last Admin: 11/26/18 21:39 Dose: 15 mg Montelukast Sodium (Singulair -) 10 mg PO HS [facility] Last Admin: 11/26/18 21:39 Dose: 10 mg Morphine Sulfate (Morphine Sulfate) 2 mg IVPUSH Q6H PRN PRN Reason: pain Last Admin: 11/26/18 10:00 Dose: 2 mg Nifedipine (Procardia Xl -) 60 mg PO HS [facility] Last Admin: 11/26/18 23:00 Dose: 60 mg Pantoprazole Sodium (Protonix Iv) 40 mg IVPUSH DAILY [facility] Last Admin: 11/26/18 10:16 Dose: 40 mg Pyridostigmine [place] (Mestinon -) 60 mg PO BID [facility] Last Admin: 11/26/18 21:37 Dose: 60 mg Sitagliptin Phosphate (Januvia -) 100 mg PO DAILY@0700 [facility] Last Admin: 11/27/18 06:02 Dose: 100 mg Tizanidine HCl (Tizanidine Hcl) 2 mg PO Q8H PRN PRN Reason: MUSCLE SPASMS Zolpidem Tartrate (Ambien -) 5 mg PO HS PRN PRN Reason: INSOMNIA Last Admin: 11/26/18 23:01 Dose: 5 mg - Objective Vital Signs: Vital Signs Temperature 98.0 F 11/27/18 06:00 Pulse Rate 70 11/27/18 06:00 Respiratory Rate 20 11/27/18 06:00 Blood Pressure 148/80 11/27/18 06:00 O2 Sat by Pulse Oximetry (%) 96 11/26/18 21:00 Constitutional: Yes: No Distress, Calm Respiratory: Yes: Regular, CTA Bilaterally Gastrointestinal: Yes: Normal Bowel Sounds, Soft Musculoskeletal: Yes: WNL Extremities: Yes: Erythema (improving), Other Neurological: Yes: Alert, Oriented Psychiatric: Yes: Alert, Oriented Labs: CBC, BMP 11/26/18 06:39 11/26/18 06:39 INR, PTT INR 1.25 (0.83-1.09) H 11/21/18 10:50 Assessment/Plan Problem List - Problems (1) Necrotizing fasciitis Trinityk you for the opportunity to participate in the care of this patient. Code(s): M72.6 - NECROTIZING FASCIITIS (2) COPD (chronic obstructive pulmonary disease) Code(s): J44.9 - CHRONIC OBSTRUCTIVE PULMONARY DISEASE, UNSPECIFIED (3) Diabetes Code(s): E11.9 - TYPE 2 DIABETES MELLITUS WITHOUT COMPLICATIONS (4) Graves' disease Code(s): E05.00 - THYROTOXICOSIS W DIFFUSE GOITER W/O THYROTOXIC CRISIS (5) Hypertension Code(s): I10 - ESSENTIAL (PRIMARY) HYPERTENSION Qualifiers: Qualified Code(s): I10 - Essential (primary) hypertension (6) Hypothyroidism, unspecified Code(s): E03.9 - HYPOTHYROIDISM, UNSPECIFIED (7) Myasthenia gravis Code(s): G70.00 - MYASTHENIA GRAVIS WITHOUT (ACUTE) EXACERBATION plan continue abx will d/w surgery close watch of cellulitis rest as per the team
[2018-11-27] MEDS ORDERED: PT OWN MED DRAWER 7, Y5N ONE ×3 (11:06→21:29)
[2018-11-27] MEDS: MEROPENEM 1 GM in DEXTROSE 5%-WATER 100 ML IVPB SCH ×2 (11:15→22:06)
[2018-11-27] MEDS: PYRIDOSTIGMINE BROMIDE 60 MG TABLET PO SCH ×2 (11:16→22:03)
[2018-11-27] MEDS: PANTOPRAZOLE SODIUM 40 MG VIAL IVPUSH SCH (11:17)
[2018-11-27] MEDS: HEPARIN NA (PORCINE) 5,000 UNITS/ML 1ML VIAL SQ SCH ×2 (11:17→22:03)
[2018-11-27] MEDS: CLINDAMYCIN 600MG PREMIX IVPB 600 MG/50 ML BAG IVPB SCH ×4 (12:28→21:30)
[2018-11-27] MEDS ORDERED: INSULIN (NOVOLOG) ASPART 100 UNITS/ML 10ML VIAL ONE (17:42)
[2018-11-27] MEDS: MORPHINE SULFATE 2 MG/ML VIAL IVPUSH PRN (18:11)
[2018-11-27] MEDS: NIFEdipine E.R 60 MG TABLET (UD) PO SCH ×2 (20:01→22:03)
[2018-11-27] MEDS: CHLORHEXIDINE GLUCONATE 4% CLEANSER FOR DECOLONIZATION TP SCH (22:03)
[2018-11-27] MEDS: CLOPIDOGREL BISULFATE 75 MG TABLET (FP) PO SCH (22:03)
[2018-11-27] MEDS: ATORVASTATIN CA 20 MG TABLET (FP) PO SCH (22:03)
[2018-11-27] MEDS: FOLIC ACID 1 MG TABLET (FP) PO SCH (22:04)
[2018-11-27] MEDS: MONTELUKAST NA 10 MG TABLET PO SCH (22:04)
[2018-11-27] MEDS: METOPROLOL TARTRATE 25 MG TABLET (FP) PO SCH (22:04)
[2018-11-27] MEDS: MIRTAZAPINE 15 MG TABLET (FP) PO SCH (22:04)
[2018-11-27] MEDS: ZOLPIDEM TARTRATE 5 MG TABLET PO PRN (22:05)
--- NOTE | 2018-11-28 00:59 | PN ---
Progress Note, Physician History of Present Illness: No new complaints Pt seen and examined on 11/27/18 however note is being entered now - Current Medication List Current Medications: Active Medications Albuterol Sulfate (Ventolin 0.083% Nebulizer Soln -) 1 amp NEB Q6H PRN PRN Reason: SHORT OF BREATH/WHEEZING Albuterol/Ipratropium (Duoneb -) 1 amp NEB RTID [facility] Last Admin: 11/27/18 20:15 Dose: 1 amp Atorvastatin Calcium (Lipitor -) 20 mg PO HS [facility] Last Admin: 11/27/18 22:03 Dose: 20 mg Chlorhexidine Gluconate (Hibiclens For Decolonization -) 1 applic TP HS [facility] Last Admin: 11/27/18 22:03 Dose: Not Given Clopidogrel Bisulfate (Plavix -) 75 mg PO HS [facility] Last Admin: 11/27/18 22:03 Dose: 75 mg Folic Acid (Folic Acid -) 1 mg PO HS [facility] Last Admin: 11/27/18 22:04 Dose: 1 mg Gabapentin (Neurontin -) 300 mg PO TID [facility] Last Admin: 11/27/18 22:04 Dose: 300 mg Heparin Sodium (Porcine) (Heparin -) 5,000 unit SQ BID [facility] Last Admin: 11/27/18 22:03 Dose: 5,000 unit Meropenem 1 gm/ Dextrose 100 mls @ 200 mls/hr IVPB BID [facility] Last Admin: 11/27/18 22:06 Dose: 200 mls/hr Clindamycin Phosphate (Cleocin 600 Mg Premix Ivpb -) 600 mg in 50 mls @ 100 mls /hr IVPB Q6H-IV [facility]; Protocol Last Admin: 11/27/18 21:30 Dose: 100 mls/hr Insulin Aspart (Novolog Mix 70/30 Vial) 20 units SQ BIDAC [facility] Last Admin: 11/27/18 17:45 Dose: 20 units Insulin Aspart (Novolog Vial Sliding Scale -) 1 vial SQ ACHS [facility]; Protocol Last Admin: 11/27/18 22:10 Dose: 4 units Levothyroxine Sodium (Synthroid -) 125 mcg PO DAILY@0700 [facility] Last Admin: 11/27/18 06:02 Dose: 125 mcg Metformin HCl (Glucophage -) 500 mg PO BIDAC [facility] Last Admin: 11/27/18 17:46 Dose: 500 mg Metoprolol Tartrate (Lopressor -) 25 mg PO [facility] Last Admin: 11/27/18 22:04 Dose: 25 mg Mirtazapine (Remeron -) 15 mg PO [facility] Last Admin: 11/27/18 22:04 Dose: 15 mg Montelukast Sodium (Singulair -) 10 mg PO [facility] Last Admin: 11/27/18 22:04 Dose: 10 mg Morphine Sulfate (Morphine Sulfate) 2 mg IVPUSH Q6H PRN PRN Reason: pain Last Admin: 11/27/18 18:11 Dose: 2 mg Nifedipine (Procardia Xl -) 60 mg PO [facility] Last Admin: 11/27/18 22:03 Dose: Not Given Pantoprazole Sodium (Protonix Iv) 40 mg IVPUSH DAILY [facility] Last Admin: 11/27/18 11:17 Dose: 40 mg Pyridostigmine [place] (Mestinon -) 60 mg PO BID [facility] Last Admin: 11/27/18 22:03 Dose: 60 mg Sitagliptin Phosphate (Januvia -) 100 mg PO DAILY@0700 [facility] Last Admin: 11/27/18 06:02 Dose: 100 mg Tizanidine HCl (Tizanidine Hcl) 2 mg PO Q8H PRN PRN Reason: MUSCLE SPASMS Zolpidem Tartrate (Ambien -) 5 mg PO HS PRN PRN Reason: INSOMNIA Last Admin: 11/27/18 22:05 Dose: 5 mg - Objective Vital Signs: Vital Signs Temperature 98.1 F 11/27/18 22:18 Pulse Rate 76 11/27/18 22:18 Respiratory Rate 20 11/27/18 22:18 Blood Pressure 160/76 11/27/18 22:18 O2 Sat by Pulse Oximetry (%) 96 11/27/18 11:01 Constitutional: Yes: Well Nourished Neck: Yes: WNL, Supple Cardiovascular: Yes: WNL, Regular Rate and Rhythm Respiratory: Yes: WNL, Regular, CTA Bilaterally Gastrointestinal: Yes: WNL, Normal Bowel Sounds, Soft Extremities: Yes: Other (Increased erythema LLE) Edema: LLE: 1+, RLE: Trace Labs: CBC, BMP 11/26/18 06:39 11/26/18 06:39 INR, PTT INR 1.25 (0.83-1.09) H 11/21/18 10:50 Problem List - Problems (1) Necrotizing fasciitis Assessment/Plan: S/P debridement of gluteal abscess Cont Iv meropenem/clinda Doppler LLE negative for DVT Spoke to pt about keeping LLE elevated Code(s): M72.6 - NECROTIZING FASCIITIS (2) UTI (urinary tract infection) Assessment/Plan: Due to E.Coli Sensitive to meropenem Code(s): N39.0 - URINARY TRACT INFECTION, SITE NOT SPECIFIED (3) Hypertension Assessment/Plan: Cont metoprolol/nifedipine Bp slightly elevated Will add hctz Code(s): I10 - ESSENTIAL (PRIMARY) HYPERTENSION Qualifiers: Hypertension type: unspecified Qualified Code(s): I10 - Essential (primary ) hypertension (4) Diabetes Assessment/Plan: Cont sliding scale w/ coverage Cont januvia/Novolog 70/30/metformin Code(s): E11.9 - TYPE 2 DIABETES MELLITUS WITHOUT COMPLICATIONS Qualifiers: Diabetes mellitus type: type 2 (5) Graves' disease Code(s): E05.00 - THYROTOXICOSIS W DIFFUSE GOITER W/O THYROTOXIC CRISIS (6) Hypothyroidism, unspecified Code(s): E03.9 - HYPOTHYROIDISM, UNSPECIFIED (7) COPD (chronic obstructive pulmonary disease) Code(s): J44.9 - CHRONIC OBSTRUCTIVE PULMONARY DISEASE, UNSPECIFIED Qualifiers: COPD type: chronic bronchitis
[2018-11-28] MEDS: MORPHINE SULFATE 2 MG/ML VIAL IVPUSH PRN ×4 (01:37→22:53)
[2018-11-28] MEDS: CLINDAMYCIN 600MG PREMIX IVPB 600 MG/50 ML BAG IVPB SCH ×4 (03:50→22:47)
[2018-11-28] MEDS: GABAPENTIN 300 MG CAPSULE (FP) PO SCH ×3 (06:38→22:49)
[2018-11-28] MEDS: sitaGLIPtin PHOSPHATE 100 MG TABLET (FP) PO SCH (06:38)
[2018-11-28] MEDS: LEVOTHYROXINE NA 125 MCG TABLET (FP) PO SCH (06:38)
[2018-11-28] MEDS: INSULIN SLIDING SCALE (NOVOLOG) 1 VIAL SQ SCH ×4 (06:38→22:50)
[2018-11-28] MEDS: metFORMIN HCL 500 MG TABLET (FP) PO SCH ×2 (06:38→16:53)
[2018-11-28] MEDS: INSULIN (NOVOLOG MIX 70/30) 100 UNITS/ML MDV SQ SCH ×2 (06:38→16:52)
--- NOTE | 2018-11-28 07:05 | PN ---
Progress Note, Physician Chief Complaint: gluteal pain and swelling History of Present Illness: 63yo female PMH DM, obesity, HTN, COPD, Myesthenia Gravis, Graves disease with left gluteal necrotizing soft tissue infection noticed 3 days ago by patient. stable post operatively. She is refusing all wound care by nursing. - Current Medication List Current Medications: Active Medications Albuterol Sulfate (Ventolin 0.083% Nebulizer Soln -) 1 amp NEB Q6H PRN PRN Reason: SHORT OF BREATH/WHEEZING Albuterol/Ipratropium (Duoneb -) 1 amp NEB RTID [facility] Last Admin: 11/27/18 20:15 Dose: 1 amp Atorvastatin Calcium (Lipitor -) 20 mg PO HS [facility] Last Admin: 11/27/18 22:03 Dose: 20 mg Chlorhexidine Gluconate (Hibiclens For Decolonization -) 1 applic TP HS [facility] Last Admin: 11/27/18 22:03 Dose: Not Given Clopidogrel Bisulfate (Plavix -) 75 mg PO HS [facility] Last Admin: 11/27/18 22:03 Dose: 75 mg Folic Acid (Folic Acid -) 1 mg PO HS [facility] Last Admin: 11/27/18 22:04 Dose: 1 mg Gabapentin (Neurontin -) 300 mg PO TID [facility] Last Admin: 11/28/18 06:38 Dose: 300 mg Heparin Sodium (Porcine) (Heparin -) 5,000 unit SQ BID [facility] Last Admin: 11/27/18 22:03 Dose: 5,000 unit Hydrochlorothiazide (Hctz -) 25 mg PO DAILY [facility] Meropenem 1 gm/ Dextrose 100 mls @ 200 mls/hr IVPB BID [facility] Last Admin: 11/27/18 22:06 Dose: 200 mls/hr Clindamycin Phosphate (Cleocin 600 Mg Premix Ivpb -) 600 mg in 50 mls @ 100 mls /hr IVPB Q6H-IV [facility]; Protocol Last Admin: 11/28/18 03:50 Dose: 100 mls/hr Insulin Aspart (Novolog Mix 70/30 Vial) 20 units SQ BIDAC [facility] Last Admin: 11/28/18 06:38 Dose: 20 units Insulin Aspart (Novolog Vial Sliding Scale -) 1 vial SQ ACHS [facility]; Protocol Last Admin: 11/28/18 06:38 Dose: 4 units Levothyroxine Sodium (Synthroid -) 125 mcg PO DAILY@0700 [facility] Last Admin: 11/28/18 06:38 Dose: 125 mcg [facility] Admin: 11/28/18 06:38 Dose: 500 mg Metoprolol Tartrate (Lopressor -) 25 mg PO HS [facility] Last Admin: 11/27/18 22:04 Dose: 25 mg Mirtazapine (Remeron -) 15 mg PO [facility] Last Admin: 11/27/18 22:04 Dose: 15 mg Montelukast Sodium (Singulair -) 10 mg PO HS [facility] Last Admin: 11/27/18 22:04 Dose: 10 mg Morphine Sulfate (Morphine Sulfate) 2 mg IVPUSH Q6H PRN PRN Reason: pain Last Admin: 11/28/18 01:37 Dose: 2 mg Nifedipine (Procardia Xl -) 60 mg PO [facility] Last Admin: 11/27/18 22:03 Dose: Not Given Pantoprazole Sodium (Protonix Iv) 40 mg IVPUSH DAILY [facility] Last Admin: 11/27/18 11:17 Dose: 40 mg Pyridostigmine [place] (Mestinon -) 60 mg PO BID [facility] Last Admin: 11/27/18 22:03 Dose: 60 mg Sitagliptin Phosphate (Januvia -) 100 mg PO DAILY@0700 [facility] Last Admin: 11/28/18 06:38 Dose: 100 mg Tizanidine HCl (Tizanidine Hcl) 2 mg PO Q8H PRN PRN Reason: MUSCLE SPASMS Zolpidem Tartrate (Ambien -) 5 mg PO HS PRN PRN Reason: INSOMNIA Last Admin: 11/27/18 22:05 Dose: 5 mg - Objective Vital Signs: Vital Signs Temperature 98.1 F 11/28/18 02:00 Pulse Rate 72 11/28/18 02:00 Respiratory Rate 20 11/28/18 02:00 Blood Pressure 129/64 11/28/18 02:00 O2 Sat by Pulse Oximetry (%) 96 11/27/18 21:00 Vital Signs Period Temp Pulse Resp BP Sys/Hein Pulse Ox Last 24 Hr 97.7 F-98.1 F 72-79 20-20 129-160/49-91 96-96 Constitutional: Yes: No Distress, Calm, Obese, Poor Hygeine Eyes: Yes: Conjunctiva Clear, EOM Intact, Other (exopthalmus) HENT: Yes: Atraumatic, Normocephalic Neck: Yes: Supple, Trachea Midline Cardiovascular: Yes: Regular Rate and Rhythm, S1, S2 Respiratory: Yes: Regular, CTA Bilaterally Gastrointestinal: Yes: Normal Bowel Sounds, Soft, Abdomen, Obese. No: Tenderness ...Rectal Exam: Yes: Deferred Genitourinary: No: CVA Tenderness - Left, CVA Tenderness - Right Breast(s): No: Gynecomastia, Mass Musculoskeletal: No: Muscle Pain, Muscle Weakness Extremities: No: Cool, Cyanosis Edema: Yes Edema: LLE: 1+ Peripheral Pulses WNL: Yes Peripheral Pulses: Left Radial: 2+, Right Radial: 2+, Left Doralis Pedis: 2+, Right Dorsalis Pedis: 2+, Left Femoral: 2+, Right Femoral: 2+ Integumentary: No: Jaundice, Venous Stasis Changes Wound/Incision: Yes: Clean/Dry, Draining, Reddened, Unapproximated Neurological: Yes: Alert, Oriented Psychiatric: Yes: Alert, Oriented Labs: CBC, BMP 11/26/18 06:39 11/26/18 06:39 INR, PTT INR 1.25 (0.83-1.09) H 11/21/18 10:50 Problem List - Problems (1) Necrotizing fasciitis Assessment/Plan: 63yo female MMP Diabetic with necrotizing left gluteal soft tissue infection. POD#7 s/p Debridement of left gluteal area for necrotizing soft tissue infection. Dressing change Diet as tolerated continue IV antibiotics f/u cultures OOB and ambulate adequate analgesia discharge planning Code(s): M72.6 - NECROTIZING FASCIITIS (2) COPD (chronic obstructive pulmonary disease) Code(s): J44.9 - CHRONIC OBSTRUCTIVE PULMONARY DISEASE, UNSPECIFIED Qualifiers: COPD type: chronic bronchitis (3) Diabetes Code(s): E11.9 - TYPE 2 DIABETES MELLITUS WITHOUT COMPLICATIONS Qualifiers: Diabetes mellitus type: type 2 (4) Graves' disease Code(s): E05.00 - THYROTOXICOSIS W DIFFUSE GOITER W/O THYROTOXIC CRISIS (5) Hypertension Code(s): I10 - ESSENTIAL (PRIMARY) HYPERTENSION Qualifiers: Hypertension type: unspecified Qualified Code(s): I10 - Essential (primary ) hypertension (6) Hypothyroidism, unspecified Code(s): E03.9 - HYPOTHYROIDISM, UNSPECIFIED (7) Myasthenia gravis Code(s): G70.00 - MYASTHENIA GRAVIS WITHOUT (ACUTE) EXACERBATION
[2018-11-28 07:33] LABS: BASO % 1.2 % (0-2.0); EOS % 4.4 % (0-4.5); HEMATOCRIT 44.1 % (32.4-45.2); HEMOGLOBIN 15.2 GM/dL (10.7-15.3); LYMPH % 34.2 % (8-40); MCH 32.4 pg (25.7-33.7); MCHC 34.4 g/dl (32.0-36.0); MEAN CELL VOLUME 94.4 fl (80-96); MEAN PLT VOLUME 10.1 fl (7.5-11.1); MONO % 7.6 % (3.8-10.2); NEUT % 52.6 % (42.8-82.8); PLATELET COUNT 178 K/MM3 (134-434); RBC 4.67 M/mm3 (3.60-5.2); RDW 14.6 % (11.6-15.6); WHITE BLOOD COUNT 7.5 K/mm3 (4.0-10.0)
[2018-11-28] MEDS: ALBUTEROL SO4 2.5/IPRATROPIUM 0.5 INH SOL 3 ML VIAL.NEB. NEB SCH ×3 (08:18→20:30)
[2018-11-28 08:35] LABS: ALBUMIN 3.1 g/dl (3.4-5.0); ALK PHOS 235 U/L (45-117); ANION GAP 7 MMOL/L (8-16); BILIRUBIN,TOTAL 0.6 mg/dL (0.2-1); BLOOD UREA NITROGEN 18 mg/dL (7-18); CALCIUM 9.9 mg/dL (8.5-10.1); CHLORIDE 102 mmol/L (98-107); CO2 29 mmol/L (21-32); GLUCOSE,RANDOM 191 mg/dL (74-106); POTASSIUM 4.6 mmol/L (3.5-5.1); SGOT/AST 55 U/L (15-37); SGPT/ALT 59 U/L (13-61); SODIUM 138 mmol/L (136-145); TOT PROT 6.3 g/dl (6.4-8.2)
[2018-11-28] MEDS ORDERED: PT OWN MED DRAWER 7, Y5N ONE ×2 (09:33→16:51)
[2018-11-28] MEDS ORDERED: HYDROCHLOROTHIAZIDE 25 MG TABLET (FP) PO SCH (10:00)
[2018-11-28] MEDS: MEROPENEM 1 GM in DEXTROSE 5%-WATER 100 ML IVPB SCH ×2 (10:02→18:16)
[2018-11-28] MEDS: HEPARIN NA (PORCINE) 5,000 UNITS/ML 1ML VIAL SQ SCH ×2 (10:02→22:48)
[2018-11-28] MEDS: PANTOPRAZOLE SODIUM 40 MG VIAL IVPUSH SCH (10:02)
[2018-11-28] MEDS: PYRIDOSTIGMINE BROMIDE 60 MG TABLET PO SCH ×2 (10:03→22:48)
[2018-11-28] MEDS ORDERED: INSULIN (NOVOLOG) ASPART 100 UNITS/ML 10ML VIAL ONE (11:03)
[2018-11-28 12:06] LABS: ANISOCYTOSIS 0; MACROCYTOSIS 0; PLATELET ESTIMATE NORMAL
--- NOTE | 2018-11-28 13:59 | PN ---
Progress Note, Physician History of Present Illness: patient stable wound still draining leg redness improving - Current Medication List Current Medications: Active Medications Albuterol Sulfate (Ventolin 0.083% Nebulizer Soln -) 1 amp NEB Q6H PRN PRN Reason: SHORT OF BREATH/WHEEZING Albuterol/Ipratropium (Duoneb -) 1 amp NEB RTID [facility] Last Admin: 11/28/18 08:18 Dose: Not Given Atorvastatin Calcium (Lipitor -) [address] [facility] Last Admin: 11/27/18 22:03 Dose: 20 mg Chlorhexidine Gluconate (Hibiclens For Decolonization -) [address] [facility] Last Admin: 11/27/18 22:03 Dose: Not Given Clopidogrel Bisulfate (Plavix -) [address] [facility] Last Admin: 11/27/18 22:03 Dose: 75 mg Folic Acid (Folic Acid -) [address] [facility] Last Admin: 11/27/18 22:04 Dose: 1 mg Gabapentin (Neurontin -) 300 mg PO TID [facility] Last Admin: 11/28/18 06:38 Dose: 300 mg Heparin Sodium (Porcine) (Heparin -) 5,000 unit SQ BID [facility] Last Admin: 11/28/18 10:02 Dose: 5,000 unit Hydrochlorothiazide (Hctz -) 25 mg PO DAILY [facility] Last Admin: 11/28/18 10:01 Dose: 25 mg Clindamycin Phosphate (Cleocin 600 Mg Premix Ivpb -) 600 mg in 50 mls @ 100 mls /hr IVPB Q6H-IV [facility]; Protocol Last Admin: 11/28/18 10:02 Dose: 100 mls/hr Insulin Aspart (Novolog Mix 70/30 Vial) 20 units SQ BIDAC [facility] Last Admin: 11/28/18 06:38 Dose: 20 units Insulin Aspart (Novolog Vial Sliding Scale -) 1 vial SQ ACHS [facility]; Protocol Last Admin: 11/28/18 11:37 Dose: Not Given Levothyroxine Sodium (Synthroid -) 125 mcg PO DAILY@0700 [facility] Last Admin: 11/28/18 06:38 Dose: 125 mcg Metformin HCl (Glucophage -) 500 mg PO BIDAC [facility] Last Admin: 11/28/18 06:38 Dose: 500 mg Metoprolol Tartrate (Lopressor -) [address] [facility] Last Admin: 11/27/18 22:04 Dose: 25 mg Mirtazapine (Remeron -) 15 mg PO HS [facility] Last Admin: 11/27/18 22:04 Dose: 15 mg Montelukast Sodium (Singulair -) 10 mg PO HS [facility] Last Admin: 11/27/18 22:04 Dose: 10 mg Morphine Sulfate (Morphine Sulfate) 2 mg IVPUSH Q6H PRN PRN Reason: pain Last Admin: 11/28/18 10:09 Dose: 2 mg Nifedipine (Procardia Xl -) 60 mg PO HS [facility] Last Admin: 11/27/18 22:03 Dose: Not Given Pantoprazole Sodium (Protonix Iv) 40 mg IVPUSH DAILY [facility] Last Admin: 11/28/18 10:02 Dose: 40 mg Pyridostigmine [place] (Mestinon -) 60 mg PO BID [facility] Last Admin: 11/28/18 10:03 Dose: 60 mg Sitagliptin Phosphate (Januvia -) 100 mg PO DAILY@0700 [facility] Last Admin: 11/28/18 06:38 Dose: 100 mg Tizanidine HCl (Tizanidine Hcl) 2 mg PO Q8H PRN PRN Reason: MUSCLE SPASMS Zolpidem Tartrate (Ambien -) 5 mg PO HS PRN PRN Reason: INSOMNIA Last Admin: 11/27/18 22:05 Dose: 5 mg - Objective Vital Signs: Vital Signs Temperature 98.2 F 11/28/18 09:40 Pulse Rate 65 11/28/18 09:40 Respiratory Rate 18 11/28/18 09:40 Blood Pressure 158/68 11/28/18 09:40 O2 Sat by Pulse Oximetry (%) 96 11/28/18 10:10 Constitutional: Yes: Calm, Mild Distress Cardiovascular: Yes: Regular Rate and Rhythm Respiratory: Yes: Regular, CTA Bilaterally Gastrointestinal: Yes: Normal Bowel Sounds, Soft Musculoskeletal: Yes: Other Extremities: Yes: Erythema (of the left thigh), Other Neurological: Yes: Alert, Oriented Psychiatric: Yes: Alert, Oriented Labs: CBC, BMP 11/28/18 06:20 11/28/18 06:20 INR, PTT INR 1.25 (0.83-1.09) H 11/21/18 10:50 Assessment/Plan Problem List - Problems (1) Necrotizing fasciitis [place] wood for the opportunity to participate in the care of this patient. Code(s): M72.6 - NECROTIZING FASCIITIS (2) COPD (chronic obstructive pulmonary disease) Code(s): J44.9 - CHRONIC OBSTRUCTIVE PULMONARY DISEASE, UNSPECIFIED (3) Diabetes Code(s): E11.9 - TYPE 2 DIABETES MELLITUS WITHOUT COMPLICATIONS (4) Graves' disease Code(s): E05.00 - THYROTOXICOSIS W DIFFUSE GOITER W/O THYROTOXIC CRISIS (5) Hypertension Code(s): I10 - ESSENTIAL (PRIMARY) HYPERTENSION Qualifiers: Qualified Code(s): I10 - Essential (primary) hypertension (6) Hypothyroidism, unspecified Code(s): E03.9 - HYPOTHYROIDISM, UNSPECIFIED (7) Myasthenia gravis Code(s): G70.00 - MYASTHENIA GRAVIS WITHOUT (ACUTE) EXACERBATION plan continue abx will d/w surgery close watch of cellulitis rest as per the team
[2018-11-28] MEDS: FOLIC ACID 1 MG TABLET (FP) PO SCH (22:48)
[2018-11-28] MEDS: ZOLPIDEM TARTRATE 5 MG TABLET PO PRN (22:48)
[2018-11-28] MEDS: METOPROLOL TARTRATE 25 MG TABLET (FP) PO SCH (22:48)
[2018-11-28] MEDS: ATORVASTATIN CA 20 MG TABLET (FP) PO SCH (22:48)
[2018-11-28] MEDS: CHLORHEXIDINE GLUCONATE 4% CLEANSER FOR DECOLONIZATION TP SCH (22:49)
[2018-11-28] MEDS: CLOPIDOGREL BISULFATE 75 MG TABLET (FP) PO SCH (22:49)
[2018-11-28] MEDS: MONTELUKAST NA 10 MG TABLET PO SCH (22:49)
[2018-11-28] MEDS: NIFEdipine E.R 60 MG TABLET (UD) PO SCH (22:50)
[2018-11-28] MEDS: MIRTAZAPINE 15 MG TABLET (FP) PO SCH (22:50)
--- NOTE | 2018-11-28 23:06 | PN ---
Progress Note, Physician History of Present Illness: No new complaints - Current Medication List Current Medications: Active Medications Albuterol Sulfate (Ventolin 0.083% Nebulizer Soln -) 1 amp NEB Q6H PRN PRN Reason: SHORT OF BREATH/WHEEZING Albuterol/Ipratropium (Duoneb -) 1 amp NEB RTID [facility] Last Admin: 11/28/18 20:30 Dose: 1 amp Atorvastatin Calcium (Lipitor -) 20 mg PO HS [facility] Last Admin: 11/28/18 22:48 Dose: 20 mg Chlorhexidine Gluconate (Hibiclens For Decolonization -) 1 applic TP [facility] Last Admin: 11/28/18 22:49 Dose: Not Given Clopidogrel Bisulfate (Plavix -) 75 mg PO [facility] Last Admin: 11/28/18 22:49 Dose: 75 mg Folic Acid (Folic Acid -) 1 mg PO [facility] Last Admin: 11/28/18 22:48 Dose: 1 mg Gabapentin (Neurontin -) 300 mg PO TID [facility] Last Admin: 11/28/18 22:49 Dose: 300 mg Heparin Sodium (Porcine) (Heparin -) 5,000 unit SQ BID [facility] Last Admin: 11/28/18 22:48 Dose: 5,000 unit Hydrochlorothiazide (Hctz -) 25 mg PO DAILY [facility] Last Admin: 11/28/18 10:01 Dose: 25 mg Clindamycin Phosphate (Cleocin 600 Mg Premix Ivpb -) 600 mg in 50 mls @ 100 mls /hr IVPB Q6H-IV [facility]; Protocol Last Admin: 11/28/18 22:47 Dose: 100 mls/hr Meropenem 1 gm/ Dextrose 100 mls @ 200 mls/hr IVPB Q8H-IV [facility] Last Admin: 11/28/18 18:16 Dose: 200 mls/hr Insulin Aspart (Novolog Mix 70/30 Vial) 20 units SQ BIDAC [facility] Last Admin: 11/28/18 16:52 Dose: 20 units Insulin Aspart (Novolog Vial Sliding Scale -) 1 vial SQ ACHS [facility]; Protocol Last Admin: 11/28/18 22:50 Dose: Not Given Levothyroxine Sodium (Synthroid -) 125 mcg PO DAILY@0700 [facility] Last Admin: 11/28/18 06:38 Dose: 125 mcg Metformin HCl (Glucophage -) 500 mg PO BIDAC [facility] Last Admin: 11/28/18 16:53 Dose: 500 mg Metoprolol Tartrate (Lopressor -) 25 mg PO HS [facility] Last Admin: 11/28/18 22:48 Dose: 25 mg Mirtazapine (Remeron -) 15 mg PO HS [facility] Last Admin: 11/28/18 22:50 Dose: 15 mg Montelukast Sodium (Singulair -) 10 mg PO HS [facility] Last Admin: 11/28/18 22:49 Dose: 10 mg Morphine Sulfate (Morphine Sulfate) 2 mg IVPUSH Q6H PRN PRN Reason: pain Last Admin: 11/28/18 22:53 Dose: 2 mg Nifedipine (Procardia Xl -) 60 mg PO HS [facility] Last Admin: 11/28/18 22:50 Dose: 60 mg Pantoprazole Sodium (Protonix Iv) 40 mg IVPUSH DAILY [facility] Last Admin: 11/28/18 10:02 Dose: 40 mg Pyridostigmine [place] (Mestinon -) 60 mg PO BID [facility] Last Admin: 11/28/18 22:48 Dose: 60 mg Sitagliptin Phosphate (Januvia -) 100 mg PO DAILY@0700 [facility] Last Admin: 11/28/18 06:38 Dose: 100 mg Tizanidine HCl (Tizanidine Hcl) 2 mg PO Q8H PRN PRN Reason: MUSCLE SPASMS Zolpidem Tartrate (Ambien -) 5 mg PO HS PRN PRN Reason: INSOMNIA Last Admin: 11/28/18 22:48 Dose: 5 mg - Objective Vital Signs: Vital Signs Temperature 98.8 F 11/28/18 18:00 Pulse Rate 73 11/28/18 18:00 Respiratory Rate 18 11/28/18 18:00 Blood Pressure 151/80 11/28/18 18:00 O2 Sat by Pulse Oximetry (%) 96 11/28/18 10:10 Neck: Yes: WNL, Supple Cardiovascular: Yes: WNL, Regular Rate and Rhythm Respiratory: Yes: WNL, Regular, CTA Bilaterally Gastrointestinal: Yes: WNL, Normal Bowel Sounds, Soft Extremities: Yes: Other ((+) erythema perianal/Lt thigh area) Edema: LLE: Trace, RLE: Trace Labs: CBC, BMP 11/28/18 06:20 11/28/18 06:20 INR, PTT INR 1.25 (0.83-1.09) H 11/21/18 10:50 Problem List - Problems (1) Necrotizing fasciitis Code(s): M72.6 - NECROTIZING FASCIITIS (2) UTI (urinary tract infection) Code(s): N39.0 - URINARY TRACT INFECTION, SITE NOT SPECIFIED (3) Hypertension Code(s): I10 - ESSENTIAL (PRIMARY) HYPERTENSION Qualifiers: Hypertension type: unspecified Qualified Code(s): I10 - Essential (primary ) hypertension (4) Diabetes Code(s): E11.9 - TYPE 2 DIABETES MELLITUS WITHOUT COMPLICATIONS Qualifiers: Diabetes mellitus type: type 2 (5) Graves' disease Code(s): E05.00 - THYROTOXICOSIS W DIFFUSE GOITER W/O THYROTOXIC CRISIS (6) Hypothyroidism, unspecified Code(s): E03.9 - HYPOTHYROIDISM, UNSPECIFIED (7) COPD (chronic obstructive pulmonary disease) Code(s): J44.9 - CHRONIC OBSTRUCTIVE PULMONARY DISEASE, UNSPECIFIED Qualifiers: COPD type: chronic bronchitis
[2018-11-29] MEDS: MEROPENEM 1 GM in DEXTROSE 5%-WATER 100 ML IVPB SCH ×3 (02:55→17:20)
[2018-11-29] MEDS: CLINDAMYCIN 600MG PREMIX IVPB 600 MG/50 ML BAG IVPB SCH ×4 (02:56→20:10)
[2018-11-29] MEDS ORDERED: INSULIN (NOVOLOG MIX 70/30) 100 UNITS/ML MDV SQ ONE ×2 (07:03→07:12)
[2018-11-29] MEDS: LEVOTHYROXINE NA 125 MCG TABLET (FP) PO SCH (07:05)
[2018-11-29] MEDS: sitaGLIPtin PHOSPHATE 100 MG TABLET (FP) PO SCH (07:05)
[2018-11-29] MEDS: metFORMIN HCL 500 MG TABLET (FP) PO SCH ×2 (07:05→17:27)
[2018-11-29] MEDS: INSULIN (NOVOLOG MIX 70/30) 100 UNITS/ML MDV SQ SCH ×2 (07:06→17:27)
[2018-11-29] MEDS: GABAPENTIN 300 MG CAPSULE (FP) PO SCH ×3 (07:06→22:48)
[2018-11-29] MEDS: INSULIN SLIDING SCALE (NOVOLOG) 1 VIAL SQ SCH ×4 (07:07→22:52)
[2018-11-29] MEDS ORDERED: INSULIN (LEVEMIR) 100 UNITS/ML UNITS SQ ONE (07:11)
[2018-11-29] MEDS ORDERED: INSULIN (NOVOLOG) ASPART 100 UNITS/ML 10ML VIAL ONE (07:11)
[2018-11-29 07:18] LABS: BASO % 1.4 % (0-2.0); EOS % 4.4 % (0-4.5); HEMOGLOBIN 14.6 GM/dL (10.7-15.3); LYMPH % 34.1 % (8-40); MCH 32.7 pg (25.7-33.7); MCHC 34.7 g/dl (32.0-36.0); MEAN CELL VOLUME 94.1 fl (80-96); MEAN PLT VOLUME 9.3 fl (7.5-11.1); MONO % 7.3 % (3.8-10.2); NEUT % 52.8 % (42.8-82.8); PLATELET COUNT 182 K/MM3 (134-434); RBC 4.47 M/mm3 (3.60-5.2); RDW 14.3 % (11.6-15.6); WHITE BLOOD COUNT 7.9 K/mm3 (4.0-10.0)
[2018-11-29 07:58] LABS: ALBUMIN 2.9 g/dl (3.4-5.0); ALK PHOS 187 U/L (45-117); ANION GAP 6 MMOL/L (8-16); BILIRUBIN,TOTAL 0.7 mg/dL (0.2-1); BLOOD UREA NITROGEN 22 mg/dL (7-18); CALCIUM 9.5 mg/dL (8.5-10.1); CHLORIDE 103 mmol/L (98-107); CO2 28 mmol/L (21-32); CREATININE 1.1 mg/dL (0.55-1.3); GLUCOSE,RANDOM 171 mg/dL (74-106); POTASSIUM 4.1 mmol/L (3.5-5.1); SGOT/AST 73 U/L (15-37); SGPT/ALT 59 U/L (13-61); SODIUM 137 mmol/L (136-145); TOT PROT 6.4 g/dl (6.4-8.2)
[2018-11-29] MEDS: ALBUTEROL SO4 2.5/IPRATROPIUM 0.5 INH SOL 3 ML VIAL.NEB. NEB SCH ×3 (08:38→21:00)
[2018-11-29] MEDS ORDERED: PT OWN MED DRAWER 7, Y5N ONE ×2 (10:38→13:19)
[2018-11-29] MEDS: HEPARIN NA (PORCINE) 5,000 UNITS/ML 1ML VIAL SQ SCH ×2 (10:51→22:48)
[2018-11-29] MEDS: PYRIDOSTIGMINE BROMIDE 60 MG TABLET PO SCH ×2 (10:52→22:48)
[2018-11-29] MEDS: FUROSEMIDE 40 MG/4 ML INJECTABLE VIAL IVPUSH SCH (12:00)
[2018-11-29] MEDS: PANTOPRAZOLE SODIUM 40 MG VIAL IVPUSH SCH (12:05)
--- NOTE | 2018-11-29 13:36 | PN ---
Progress Note, Physician History of Present Illness: Pt seen and examined. Has some posterior Lt thigh pain but no other specific complaints. Pt had dressing off wound, discussed importance of proper wound care. Remains afebrile. - Current Medication List Current Medications: Active Medications Albuterol Sulfate (Ventolin 0.083% Nebulizer Soln -) 1 amp NEB Q6H PRN PRN Reason: SHORT OF BREATH/WHEEZING Albuterol/Ipratropium (Duoneb -) 1 amp NEB RTID [facility] Last Admin: 11/29/18 08:38 Dose: Not Given Atorvastatin Calcium (Lipitor -) 20 mg PO HS [facility] Last Admin: 11/28/18 22:48 Dose: 20 mg Chlorhexidine Gluconate (Hibiclens For Decolonization -) 1 applic TP HS [facility] Last Admin: 11/28/18 22:49 Dose: Not Given Clopidogrel Bisulfate (Plavix -) 75 mg PO HS [facility] Last Admin: 11/28/18 22:49 Dose: 75 mg Folic Acid (Folic Acid -) 1 mg PO HS [facility] Last Admin: 11/28/18 22:48 Dose: 1 mg Furosemide (Lasix Injection -) 20 mg IVPUSH DAILY [facility] Last Admin: 11/29/18 12:00 Dose: 20 mg Gabapentin (Neurontin -) 300 mg PO TID [facility] Last Admin: 11/29/18 13:18 Dose: 300 mg Heparin Sodium (Porcine) (Heparin -) 5,000 unit SQ BID [facility] Last Admin: 11/29/18 10:51 Dose: 5,000 unit Clindamycin Phosphate (Cleocin 600 Mg Premix Ivpb -) 600 mg in 50 mls @ 100 mls /hr IVPB Q6H-IV [facility]; Protocol Last Admin: 11/29/18 10:41 Dose: 100 mls/hr Meropenem 1 gm/ Dextrose 100 mls @ 200 mls/hr IVPB Q8H-IV [facility] Last Admin: 11/29/18 11:15 Dose: 200 mls/hr Insulin Aspart (Novolog Mix 70/30 Vial) 20 units SQ BIDAC [facility] Last Admin: 11/29/18 07:06 Dose: 20 units Insulin Aspart (Novolog Vial Sliding Scale -) 1 vial SQ ACHS [facility]; Protocol Last Admin: 11/29/18 11:41 Dose: Not Given Levothyroxine Sodium (Synthroid -) 125 mcg PO DAILY@0700 [facility] Last Admin: 11/29/18 07:05 Dose: 125 mcg [facility]formin HCl ([facility]ucophage -) [facility] Last Admin: 11/29/18 07:05 Dose: 500 mg Metoprolol Tartrate (Lopressor -) 25 mg PO HS [facility] Last Admin: 11/28/18 22:48 Dose: 25 mg Mirtazapine (Remeron -) 15 mg PO [facility] Last Admin: 11/28/18 22:50 Dose: 15 mg Montelukast Sodium (Singulair -) 10 mg PO HS [facility] Last Admin: 11/28/18 22:49 Dose: 10 mg Morphine Sulfate (Morphine Sulfate) 2 mg IVPUSH Q6H PRN PRN Reason: pain Last Admin: 11/28/18 22:53 Dose: 2 mg Nifedipine (Procardia Xl -) 60 mg PO [facility] Last Admin: 11/28/18 22:50 Dose: 60 mg Pantoprazole Sodium (Protonix Iv) 40 mg IVPUSH DAILY [facility] Last Admin: 11/29/18 12:05 Dose: 40 mg Pyridostigmine [place] (Mestinon -) 60 mg PO BID [facility] Last Admin: 11/29/18 10:52 Dose: 60 mg Sitagliptin Phosphate (Januvia -) 100 mg PO DAILY@0700 [facility] Last Admin: 11/29/18 07:05 Dose: 100 mg Tizanidine HCl (Tizanidine Hcl) 2 mg PO Q8H PRN PRN Reason: MUSCLE SPASMS Zolpidem Tartrate (Ambien -) 5 mg PO HS PRN PRN Reason: INSOMNIA Last Admin: 11/28/18 22:48 Dose: 5 mg - Objective Vital Signs: Vital Signs Temperature 97.9 F 11/29/18 06:28 Pulse Rate 72 11/29/18 10:00 Respiratory Rate 18 11/29/18 10:00 Blood Pressure 160/90 11/29/18 10:00 O2 Sat by Pulse Oximetry (%) 95 11/29/18 09:00 Constitutional: Yes: No Distress, Calm Cardiovascular: Yes: Regular Rate and Rhythm Respiratory: Yes: Regular Gastrointestinal: Yes: Normal Bowel Sounds, Soft, Abdomen, Obese Wound/Incision: Yes: Other (Lt gluteal wound, no purulence/malodor Lt posterior thigh mild erythema/no warmth or induration) Neurological: Yes: Alert Labs: CBC, BMP 11/29/18 06:45 11/29/18 06:45 INR, PTT INR 1.25 (0.83-1.09) H 11/21/18 10:50 Problem List - Problems (1) Necrotizing fasciitis Code(s): M72.6 - NECROTIZING FASCIITIS (2) COPD (chronic obstructive pulmonary disease) Code(s): J44.9 - CHRONIC OBSTRUCTIVE PULMONARY DISEASE, UNSPECIFIED Qualifiers: COPD type: chronic bronchitis (3) Diabetes Code(s): E11.9 - TYPE 2 DIABETES MELLITUS WITHOUT COMPLICATIONS Qualifiers: Diabetes mellitus type: type 2 (4) Graves' disease Code(s): E05.00 - THYROTOXICOSIS W DIFFUSE GOITER W/O THYROTOXIC CRISIS (5) Hypertension Code(s): I10 - ESSENTIAL (PRIMARY) HYPERTENSION Qualifiers: Hypertension type: unspecified Qualified Code(s): I10 - Essential (primary ) hypertension (6) Hypothyroidism, unspecified Code(s): E03.9 - HYPOTHYROIDISM, UNSPECIFIED (7) Morbid obesity Code(s): E66.01 - MORBID (SEVERE) OBESITY DUE TO EXCESS CALORIES (8) Myasthenia gravis Code(s): G70.00 - MYASTHENIA GRAVIS WITHOUT (ACUTE) EXACERBATION Assessment/Plan 63 y.o. female with PMH of Uncontrolled DM, morbid obesity, Myasthenia gravis, COPD presenting with Lt buttock necrotizing infection/pain with malodor/ drainage and leukocytosis Lt gluteus Necrotizing soft tissue infection s/p debridement Lt thigh cellulitis - appears to be improving Leukocytosis - resolved UTI Uncontrolled DM MG COPD Morbid obesity -- Pt afebrile, stable, wbc now normal -- continue current antibiotics -- culture results noted -- continue wound care
[2018-11-29] MEDS: MORPHINE SULFATE 2 MG/ML VIAL IVPUSH PRN (20:09)
--- NOTE | 2018-11-29 22:27 | PN ---
Progress Note, Physician History of Present Illness: No new complaints - Current Medication List Current Medications: Active Medications Albuterol Sulfate (Ventolin 0.083% Nebulizer Soln -) 1 amp NEB Q6H PRN PRN Reason: SHORT OF BREATH/WHEEZING Albuterol/Ipratropium (Duoneb -) 1 amp NEB RTID [facility] Last Admin: 11/29/18 21:00 Dose: 1 amp Atorvastatin Calcium (Lipitor -) 20 mg PO HS [facility] Last Admin: 11/28/18 22:48 Dose: 20 mg Chlorhexidine Gluconate (Hibiclens For Decolonization -) 1 applic TP [facility] Last Admin: 11/28/18 22:49 Dose: Not Given Clopidogrel Bisulfate (Plavix -) 75 mg PO [facility] Last Admin: 11/28/18 22:49 Dose: 75 mg Folic Acid (Folic Acid -) 1 mg PO [facility] Last Admin: 11/28/18 22:48 Dose: 1 mg Furosemide (Lasix Injection -) 20 mg IVPUSH DAILY [facility] Last Admin: 11/29/18 12:00 Dose: 20 mg Gabapentin (Neurontin -) 300 mg PO TID [facility] Last Admin: 11/29/18 13:18 Dose: 300 mg Heparin Sodium (Porcine) (Heparin -) 5,000 unit SQ BID [facility] Last Admin: 11/29/18 10:51 Dose: 5,000 unit Clindamycin Phosphate (Cleocin 600 Mg Premix Ivpb -) 600 mg in 50 mls @ 100 mls /hr IVPB Q6H-IV [facility]; Protocol Last Admin: 11/29/18 20:10 Dose: 100 mls/hr Meropenem 1 gm/ Dextrose 100 mls @ 200 mls/hr IVPB Q8H-IV [facility] Last Admin: 11/29/18 17:20 Dose: 200 mls/hr Insulin Aspart (Novolog Mix 70/30 Vial) 20 units SQ BIDAC [facility] Last Admin: 11/29/18 17:27 Dose: 20 units Insulin Aspart (Novolog Vial Sliding Scale -) 1 vial SQ ACHS [facility]; Protocol Last Admin: 11/29/18 17:20 Dose: 4 units Levothyroxine Sodium (Synthroid -) 125 mcg PO DAILY@0700 [facility] Last Admin: 11/29/18 07:05 Dose: 125 mcg Metformin HCl (Glucophage -) 500 mg PO BIDAC [facility] Last Admin: 11/29/18 17:27 Dose: 500 mg Metoprolol Tartrate (Lopressor -) 25 mg PO HS [facility] Last Admin: 11/28/18 22:48 Dose: 25 mg Mirtazapine (Remeron -) 15 mg PO HS [facility] Last Admin: 11/28/18 22:50 Dose: 15 mg Montelukast Sodium (Singulair -) 10 mg PO HS [facility] Last Admin: 11/28/18 22:49 Dose: 10 mg Morphine Sulfate (Morphine Sulfate) 2 mg IVPUSH Q6H PRN PRN Reason: pain Last Admin: 11/29/18 20:09 Dose: 2 mg Nifedipine (Procardia Xl -) 60 mg PO HS [facility] Last Admin: 11/28/18 22:50 Dose: 60 mg Pantoprazole Sodium (Protonix Iv) 40 mg IVPUSH DAILY [facility] Last Admin: 11/29/18 12:05 Dose: 40 mg Pyridostigmine [place] (Mestinon -) 60 mg PO BID [facility] Last Admin: 11/29/18 10:52 Dose: 60 mg Sitagliptin Phosphate (Januvia -) 100 mg PO DAILY@0700 [facility] Last Admin: 11/29/18 07:05 Dose: 100 mg Tizanidine HCl (Tizanidine Hcl) 2 mg PO Q8H PRN PRN Reason: MUSCLE SPASMS Zolpidem Tartrate (Ambien -) 5 mg PO HS PRN PRN Reason: INSOMNIA Last Admin: 11/28/18 22:48 Dose: 5 mg - Objective Vital Signs: Vital Signs Temperature 97.4 F L 11/29/18 20:24 Pulse Rate 73 11/29/18 20:24 Respiratory Rate 20 11/29/18 20:24 Blood Pressure 155/89 11/29/18 20:24 O2 Sat by Pulse Oximetry (%) 95 11/29/18 09:00 Constitutional: Yes: Well Nourished Neck: Yes: WNL, Supple Cardiovascular: Yes: WNL, Regular Rate and Rhythm Respiratory: Yes: WNL, Regular, CTA Bilaterally Gastrointestinal: Yes: WNL, Normal Bowel Sounds, Soft Extremities: Yes: Other (decreased erythema LLE) Labs: CBC, BMP 11/29/18 06:45 11/29/18 06:45 INR, PTT INR 1.25 (0.83-1.09) H 11/21/18 10:50 Problem List - Problems (1) Necrotizing fasciitis Assessment/Plan: S/P debridement of gluteal abscess Cont IV meropenem/clinda Doppler LLE negative for DVT Code(s): M72.6 - NECROTIZING FASCIITIS (2) UTI (urinary tract infection) Assessment/Plan: Due to E.Coli Sensitive to meropenem Code(s): N39.0 - URINARY TRACT INFECTION, SITE NOT SPECIFIED (3) Hypertension Assessment/Plan: Cont metoprolol/nifedipine Bp slightly elevated Cont IV lasix Code(s): I10 - ESSENTIAL (PRIMARY) HYPERTENSION Qualifiers: Hypertension type: unspecified Qualified Code(s): I10 - Essential (primary ) hypertension (4) Diabetes Assessment/Plan: Cont sliding scale w/ coverage Cont januvia/Novolog 70/30/metformin Code(s): E11.9 - TYPE 2 DIABETES MELLITUS WITHOUT COMPLICATIONS Qualifiers: Diabetes mellitus type: type 2 (5) Graves' disease Assessment/Plan: Cont pyridostigmine/tizanidine Code(s): E05.00 - THYROTOXICOSIS W DIFFUSE GOITER W/O THYROTOXIC CRISIS (6) Hypothyroidism, unspecified Assessment/Plan: Cont levothyroxine Code(s): E03.9 - HYPOTHYROIDISM, UNSPECIFIED (7) COPD (chronic obstructive pulmonary disease) Assessment/Plan: Cont nebulizer prn Code(s): J44.9 - CHRONIC OBSTRUCTIVE PULMONARY DISEASE, UNSPECIFIED Qualifiers: COPD type: chronic bronchitis
[2018-11-29] MEDS: NIFEdipine E.R 60 MG TABLET (UD) PO SCH (22:48)
[2018-11-29] MEDS: ZOLPIDEM TARTRATE 5 MG TABLET PO PRN (22:48)
[2018-11-29] MEDS: CHLORHEXIDINE GLUCONATE 4% CLEANSER FOR DECOLONIZATION TP SCH (22:48)
[2018-11-29] MEDS: MONTELUKAST NA 10 MG TABLET PO SCH (22:48)
[2018-11-29] MEDS: FOLIC ACID 1 MG TABLET (FP) PO SCH (22:48)
[2018-11-29] MEDS: METOPROLOL TARTRATE 25 MG TABLET (FP) PO SCH (22:48)
[2018-11-29] MEDS: CLOPIDOGREL BISULFATE 75 MG TABLET (FP) PO SCH (22:48)
[2018-11-29] MEDS: ATORVASTATIN CA 20 MG TABLET (FP) PO SCH (22:48)
[2018-11-29] MEDS: MIRTAZAPINE 15 MG TABLET (FP) PO SCH (22:49)
[2018-11-30] MEDS: MEROPENEM 1 GM in DEXTROSE 5%-WATER 100 ML IVPB SCH ×3 (02:27→18:14)
[2018-11-30] MEDS: CLINDAMYCIN 600MG PREMIX IVPB 600 MG/50 ML BAG IVPB SCH ×4 (03:40→21:05)
[2018-11-30] MEDS: GABAPENTIN 300 MG CAPSULE (FP) PO SCH ×3 (06:37→21:06)
[2018-11-30] MEDS: metFORMIN HCL 500 MG TABLET (FP) PO SCH ×2 (06:37→17:16)
[2018-11-30] MEDS: LEVOTHYROXINE NA 125 MCG TABLET (FP) PO SCH (06:37)
[2018-11-30] MEDS: sitaGLIPtin PHOSPHATE 100 MG TABLET (FP) PO SCH (06:37)
[2018-11-30] MEDS: INSULIN SLIDING SCALE (NOVOLOG) 1 VIAL SQ SCH ×4 (06:39→22:03)
[2018-11-30] MEDS: INSULIN (NOVOLOG MIX 70/30) 100 UNITS/ML MDV SQ SCH ×2 (06:40→17:16)
[2018-11-30] MEDS: ALBUTEROL SO4 2.5/IPRATROPIUM 0.5 INH SOL 3 ML VIAL.NEB. NEB SCH ×2 (08:26→14:31)
[2018-11-30] MEDS: HEPARIN NA (PORCINE) 5,000 UNITS/ML 1ML VIAL SQ SCH ×2 (09:30→21:06)
[2018-11-30] MEDS: FUROSEMIDE 40 MG/4 ML INJECTABLE VIAL IVPUSH SCH (09:30)
[2018-11-30] MEDS: PYRIDOSTIGMINE BROMIDE 60 MG TABLET PO SCH ×2 (09:31→21:06)
[2018-11-30] MEDS: PANTOPRAZOLE SODIUM 40 MG VIAL IVPUSH SCH (09:31)
[2018-11-30] MEDS: MORPHINE SULFATE 2 MG/ML VIAL IVPUSH PRN (11:22)
--- NOTE | 2018-11-30 15:55 | PN ---
Progress Note, Physician History of Present Illness: Pt stable, afebrile. c/o some pain in gluteal wound site but ambulating/moving without difficulty. Again has removed dressing and leaving wound open despite discussing importance of proper wound care. - Current Medication List Current Medications: Active Medications Albuterol Sulfate (Ventolin 0.083% Nebulizer Soln -) 1 amp NEB Q6H PRN PRN Reason: SHORT OF BREATH/WHEEZING Atorvastatin Calcium (Lipitor -) 20 mg PO HS [facility] Last Admin: 11/29/18 22:48 Dose: 20 mg Chlorhexidine Gluconate (Hibiclens For Decolonization -) 1 applic TP [facility] Last Admin: 11/29/18 22:48 Dose: Not Given Clopidogrel Bisulfate (Plavix -) 75 mg PO [facility] Last Admin: 11/29/18 22:48 Dose: 75 mg Folic Acid (Folic Acid -) 1 mg PO [facility] Last Admin: 11/29/18 22:48 Dose: 1 mg Furosemide (Lasix Injection -) 20 mg IVPUSH DAILY [facility] Last Admin: 11/30/18 09:30 Dose: 20 mg Gabapentin (Neurontin -) 300 mg PO TID [facility] Last Admin: 11/30/18 14:54 Dose: 300 mg Heparin Sodium (Porcine) (Heparin -) 5,000 unit SQ BID [facility] Last Admin: 11/30/18 09:30 Dose: 5,000 unit Clindamycin Phosphate (Cleocin 600 Mg Premix Ivpb -) 600 mg in 50 mls @ 100 mls /hr IVPB Q6H-IV [facility]; Protocol Last Admin: 11/30/18 09:30 Dose: 100 mls/hr Meropenem 1 gm/ Dextrose 100 mls @ 200 mls/hr IVPB Q8H-IV [facility] Last Admin: 11/30/18 09:32 Dose: 200 mls/hr Insulin Aspart (Novolog Mix 70/30 Vial) 20 units SQ BIDAC [facility] Last Admin: 11/30/18 06:40 Dose: 20 units Insulin Aspart (Novolog Vial Sliding Scale -) 1 vial SQ ACHS [facility]; Protocol Last Admin: 11/30/18 12:12 Dose: Not Given Levothyroxine Sodium (Synthroid -) 125 mcg PO DAILY@0700 [facility] Last Admin: 11/30/18 06:37 Dose: 125 mcg Metformin HCl (Glucophage -) 500 mg PO BIDAC [facility] Last Admin: 11/30/18 06:37 Dose: 500 mg Metoprolol Tartrate (Lopressor -) 25 mg PO HS [facility] Last Admin: 11/29/18 22:48 Dose: 25 mg Mirtazapine (Remeron -) 15 mg PO HS [facility] Last Admin: 11/29/18 22:49 Dose: 15 mg Montelukast Sodium (Singulair -) 10 mg PO HS [facility] Last Admin: 11/29/18 22:48 Dose: 10 mg Morphine Sulfate (Morphine Sulfate) 2 mg IVPUSH Q6H PRN PRN Reason: pain Last Admin: 11/30/18 11:22 Dose: 2 mg Nifedipine (Procardia Xl -) 60 mg PO HS [facility] Last Admin: 11/29/18 22:48 Dose: 60 mg Pantoprazole Sodium (Protonix Iv) 40 mg IVPUSH DAILY [facility] Last Admin: 11/30/18 09:31 Dose: 40 mg Pyridostigmine [place] (Mestinon -) 60 mg PO BID [facility] Last Admin: 11/30/18 09:31 Dose: 60 mg Sitagliptin Phosphate (Januvia -) 100 mg PO DAILY@0700 [facility] Last Admin: 11/30/18 06:37 Dose: 100 mg Tizanidine HCl (Tizanidine Hcl) 2 mg PO Q8H PRN PRN Reason: MUSCLE SPASMS Zolpidem Tartrate (Ambien -) 5 mg PO HS PRN PRN Reason: INSOMNIA Last Admin: 11/29/18 22:48 Dose: 5 mg - Objective Vital Signs: Vital Signs Temperature 98.4 F 11/30/18 14:53 Pulse Rate 70 11/30/18 14:53 Respiratory Rate 20 11/30/18 14:53 Blood Pressure 140/79 11/30/18 14:53 O2 Sat by Pulse Oximetry (%) 96 11/29/18 21:00 Constitutional: Yes: No Distress, Calm Cardiovascular: Yes: Regular Rate and Rhythm Respiratory: Yes: Regular Gastrointestinal: Yes: Normal Bowel Sounds, Soft, Abdomen, Obese Wound/Incision: Yes: Other (Lt gluteal wound clean, mild serous drainage, no necrosis, less erythema) Labs: CBC, BMP 11/29/18 06:45 11/29/18 06:45 INR, PTT INR 1.25 (0.83-1.09) H 11/21/18 10:50 Microbiology 11/21/18 15:00 Tissue-Other Gram Stain - Final 11/21/18 15:00 Tissue-Other Tissue Culture - Final Staphylococcus Epidermidis 11/21/18 15:00 Tissue-Other Anaerobic Culture - Final Clostridium Perfringens 11/21/18 10:50 Blood - Peripheral Venous Blood Culture - Final NO GROWTH AFTER 5 DAYS INCUBATION 11/21/18 10:50 Blood - Peripheral Venous Blood Culture - Final NO GROWTH AFTER 5 DAYS INCUBATION 11/21/18 10:55 Urine - Urine Clean Catch Urine Culture - Final Escherichia Coli Escherichia Coli#2 11/21/18 16:40 Buttock - Left Gram Stain - Final 11/21/18 16:40 Buttock - Left Wound Culture - Final Staphylococcus Coagulase Neg Problem List - Problems (1) Necrotizing fasciitis Code(s): M72.6 - NECROTIZING FASCIITIS (2) COPD (chronic obstructive pulmonary disease) Code(s): J44.9 - CHRONIC OBSTRUCTIVE PULMONARY DISEASE, UNSPECIFIED Qualifiers: COPD type: chronic bronchitis (3) Diabetes Code(s): E11.9 - TYPE 2 DIABETES MELLITUS WITHOUT COMPLICATIONS Qualifiers: Diabetes mellitus type: type 2 (4) Graves' disease Code(s): E05.00 - THYROTOXICOSIS W DIFFUSE GOITER W/O THYROTOXIC CRISIS (5) Hypertension Code(s): I10 - ESSENTIAL (PRIMARY) HYPERTENSION Qualifiers: Hypertension type: unspecified Qualified Code(s): I10 - Essential (primary ) hypertension (6) Hypothyroidism, unspecified Code(s): E03.9 - HYPOTHYROIDISM, UNSPECIFIED (7) Morbid obesity Code(s): E66.01 - MORBID (SEVERE) OBESITY DUE TO EXCESS CALORIES (8) Myasthenia gravis Code(s): G70.00 - MYASTHENIA GRAVIS WITHOUT (ACUTE) EXACERBATION Assessment/Plan 63 y.o. female with PMH of Uncontrolled DM, morbid obesity, Myasthenia gravis, COPD presenting with Lt buttock necrotizing infection/pain with malodor/ drainage and leukocytosis Lt gluteus Necrotizing soft tissue infection s/p debridement Lt thigh cellulitis - improving Leukocytosis - resolved UTI Uncontrolled DM MG COPD Morbid obesity -- continue antibiotics -- wound culture results noted, probable contaminants -- continue wound care -- diabetes control
[2018-11-30] MEDS ORDERED: PT OWN MED DRAWER 7, Y5N ONE (18:10)
[2018-11-30] MEDS ORDERED: INSULIN (NOVOLOG MIX 70/30) 100 UNITS/ML MDV SQ ONE (18:11)
[2018-11-30] MEDS: NIFEdipine E.R 60 MG TABLET (UD) PO SCH (21:05)
[2018-11-30] MEDS: CLOPIDOGREL BISULFATE 75 MG TABLET (FP) PO SCH (21:05)
[2018-11-30] MEDS: FOLIC ACID 1 MG TABLET (FP) PO SCH (21:05)
[2018-11-30] MEDS: ATORVASTATIN CA 20 MG TABLET (FP) PO SCH (21:06)
[2018-11-30] MEDS: MONTELUKAST NA 10 MG TABLET PO SCH (21:06)
[2018-11-30] MEDS: METOPROLOL TARTRATE 25 MG TABLET (FP) PO SCH (21:06)
[2018-11-30] MEDS: MIRTAZAPINE 15 MG TABLET (FP) PO SCH (21:07)
[2018-11-30] MEDS: CHLORHEXIDINE GLUCONATE 4% CLEANSER FOR DECOLONIZATION TP SCH (21:07)
--- NOTE | 2018-11-30 23:37 | PN ---
Progress Note, Physician History of Present Illness: No new complaints - Current Medication List Current Medications: Active Medications Albuterol Sulfate (Ventolin 0.083% Nebulizer Soln -) 1 amp NEB Q6H PRN PRN Reason: SHORT OF BREATH/WHEEZING Atorvastatin Calcium (Lipitor -) 20 mg PO [facility] Last Admin: 11/30/18 21:06 Dose: 20 mg Chlorhexidine Gluconate (Hibiclens For Decolonization -) 1 applic TP [facility] Last Admin: 11/30/18 21:07 Dose: Not Given Clopidogrel Bisulfate (Plavix -) 75 mg PO [facility] Last Admin: 11/30/18 21:05 Dose: 75 mg Folic Acid (Folic Acid -) 1 mg PO [facility] Last Admin: 11/30/18 21:05 Dose: 1 mg Furosemide (Lasix Injection -) 20 mg IVPUSH DAILY [facility] Last Admin: 11/30/18 09:30 Dose: 20 mg Gabapentin (Neurontin -) 300 mg PO TID [facility] Last Admin: 11/30/18 21:06 Dose: 300 mg Heparin Sodium (Porcine) (Heparin -) 5,000 unit SQ BID [facility] Last Admin: 11/30/18 21:06 Dose: 5,000 unit Clindamycin Phosphate (Cleocin 600 Mg Premix Ivpb -) 600 mg in 50 mls @ 100 mls /hr IVPB Q6H-IV [facility]; Protocol Last Admin: 11/30/18 21:05 Dose: 100 mls/hr Meropenem 1 gm/ Dextrose 100 mls @ 200 mls/hr IVPB Q8H-IV [facility] Last Admin: 11/30/18 18:14 Dose: 200 mls/hr Insulin Aspart (Novolog Mix 70/30 Vial) 20 units SQ BIDAC [facility] Last Admin: 11/30/18 17:16 Dose: 20 units Insulin Aspart (Novolog Vial Sliding Scale -) 1 vial SQ ACHS [facility]; Protocol Last Admin: 11/30/18 22:03 Dose: 2 units Levothyroxine Sodium (Synthroid -) 125 mcg PO DAILY@0700 [facility] Last Admin: 11/30/18 06:37 Dose: 125 mcg Metformin HCl (Glucophage -) 500 mg PO BIDAC [facility] Last Admin: 11/30/18 17:16 Dose: 500 mg Metoprolol Tartrate (Lopressor -) 25 mg PO [facility] Last Admin: 11/30/18 21:06 Dose: 25 mg Mirtazapine (Remeron -) 15 mg PO HS [facility] Last Admin: 11/30/18 21:07 Dose: 15 mg Montelukast Sodium (Singulair -) 10 mg PO HS [facility] Last Admin: 11/30/18 21:06 Dose: 10 mg Morphine Sulfate (Morphine Sulfate) 2 mg IVPUSH Q6H PRN PRN Reason: pain Last Admin: 11/30/18 11:22 Dose: 2 mg Nifedipine (Procardia Xl -) 60 mg PO HS [facility] Last Admin: 11/30/18 21:05 Dose: 60 mg Pantoprazole Sodium (Protonix Iv) 40 mg IVPUSH DAILY [facility] Last Admin: 11/30/18 09:31 Dose: 40 mg Pyridostigmine [place] (Mestinon -) 60 mg PO BID [facility] Last Admin: 11/30/18 21:06 Dose: 60 mg Sitagliptin Phosphate (Januvia -) 100 mg PO DAILY@0700 [facility] Last Admin: 11/30/18 06:37 Dose: 100 mg Tizanidine HCl (Tizanidine Hcl) 2 mg PO Q8H PRN PRN Reason: MUSCLE SPASMS Zolpidem Tartrate (Ambien -) 5 mg PO HS PRN PRN Reason: INSOMNIA Last Admin: 11/29/18 22:48 Dose: 5 mg - Objective Vital Signs: Vital Signs Temperature 98.1 F 11/30/18 18:05 Pulse Rate 70 11/30/18 19:48 Respiratory Rate 18 11/30/18 19:48 Blood Pressure 172/66 H 11/30/18 19:48 O2 Sat by Pulse Oximetry (%) 94 L 11/30/18 21:00 Neck: Yes: WNL, Supple Cardiovascular: Yes: WNL, Regular Rate and Rhythm Respiratory: Yes: WNL, Regular, CTA Bilaterally Gastrointestinal: Yes: WNL, Normal Bowel Sounds, Soft Extremities: Yes: Other (Decreased erythema LLE) Labs: CBC, BMP 11/29/18 06:45 11/29/18 06:45 INR, PTT INR 1.25 (0.83-1.09) H 11/21/18 10:50 Problem List - Problems (1) Necrotizing fasciitis Assessment/Plan: S/P debridement of gluteal abscess Cont IV meropenem/clinda Doppler LLE negative for DVT Pt allowed dressing to be applied today and pt was told importance/necessity of keeping wound dressed and clean Spoke to pt about keeping LLE elevated Code(s): M72.6 - NECROTIZING FASCIITIS (2) UTI (urinary tract infection) Assessment/Plan: Due to E.Coli Sensitive to meropenem Code(s): N39.0 - URINARY TRACT INFECTION, SITE NOT SPECIFIED (3) Hypertension Assessment/Plan: Cont metoprolol/nifedipine Bp slightly elevated Cont IV lasix Increase dose of nifedipine Code(s): I10 - ESSENTIAL (PRIMARY) HYPERTENSION Qualifiers: Hypertension type: unspecified Qualified Code(s): I10 - Essential (primary ) hypertension (4) Diabetes Assessment/Plan: Cont sliding scale w/ coverage Cont januvia/Novolog 70/30/metformin Code(s): E11.9 - TYPE 2 DIABETES MELLITUS WITHOUT COMPLICATIONS Qualifiers: Diabetes mellitus type: type 2 (5) Graves' disease Assessment/Plan: Cont pyridostigmine/tizanidine Code(s): E05.00 - THYROTOXICOSIS W DIFFUSE GOITER W/O THYROTOXIC CRISIS (6) Hypothyroidism, unspecified Assessment/Plan: Cont levothyroxine Code(s): E03.9 - HYPOTHYROIDISM, UNSPECIFIED (7) COPD (chronic obstructive pulmonary disease) Assessment/Plan: Cont nebulizer prn Code(s): J44.9 - CHRONIC OBSTRUCTIVE PULMONARY DISEASE, UNSPECIFIED Qualifiers: COPD type: chronic bronchitis
[2018-12-01] MEDS: MEROPENEM 1 GM in DEXTROSE 5%-WATER 100 ML IVPB SCH ×2 (01:14→09:54)
[2018-12-01] MEDS: ZOLPIDEM TARTRATE 5 MG TABLET PO PRN ×2 (01:24→22:52)
[2018-12-01] MEDS: CLINDAMYCIN 600MG PREMIX IVPB 600 MG/50 ML BAG IVPB SCH ×4 (02:42→22:43)
[2018-12-01] MEDS: GABAPENTIN 300 MG CAPSULE (FP) PO SCH ×3 (05:31→22:45)
[2018-12-01] MEDS: sitaGLIPtin PHOSPHATE 100 MG TABLET (FP) PO SCH (06:06)
[2018-12-01] MEDS: metFORMIN HCL 500 MG TABLET (FP) PO SCH ×2 (06:06→16:14)
[2018-12-01] MEDS: LEVOTHYROXINE NA 125 MCG TABLET (FP) PO SCH (06:06)
[2018-12-01] MEDS: INSULIN SLIDING SCALE (NOVOLOG) 1 VIAL SQ SCH ×4 (06:07→22:54)
[2018-12-01] MEDS: INSULIN (NOVOLOG MIX 70/30) 100 UNITS/ML MDV SQ SCH ×2 (06:07→16:10)
[2018-12-01] MEDS ORDERED: PT OWN MED DRAWER 7, Y5N ONE (09:35)
[2018-12-01] MEDS: HEPARIN NA (PORCINE) 5,000 UNITS/ML 1ML VIAL SQ SCH ×2 (09:54→22:45)
[2018-12-01] MEDS: PYRIDOSTIGMINE BROMIDE 60 MG TABLET PO SCH ×2 (09:55→22:54)
[2018-12-01] MEDS: NIFEdipine E.R. 90 MG TABLET (FP) PO SCH (09:55)
[2018-12-01] MEDS: FUROSEMIDE 40 MG/4 ML INJECTABLE VIAL IVPUSH SCH (09:55)
[2018-12-01] MEDS: PANTOPRAZOLE SODIUM 40 MG VIAL IVPUSH SCH (09:55)
--- NOTE | 2018-12-01 14:24 | PN ---
Progress Note, Physician History of Present Illness: stable doing well no new issues thigh cellulitis has nearly resolved - Current Medication List Current Medications: Active Medications Acetaminophen (Tylenol -) 650 mg PO Q6H PRN PRN Reason: PAIN LEVEL 1-5 Albuterol Sulfate (Ventolin 0.083% Nebulizer Soln -) 1 amp NEB Q6H PRN PRN Reason: SHORT OF BREATH/WHEEZING Atorvastatin Calcium (Lipitor -) 20 mg PO HS [facility] Last Admin: 11/30/18 21:06 Dose: 20 mg Chlorhexidine Gluconate (Hibiclens For Decolonization -) 1 applic TP [facility] Last Admin: 11/30/18 21:07 Dose: Not Given Clopidogrel Bisulfate (Plavix -) 75 mg PO [facility] Last Admin: 11/30/18 21:05 Dose: 75 mg Folic Acid (Folic Acid -) 1 mg PO [facility] Last Admin: 11/30/18 21:05 Dose: 1 mg Furosemide (Lasix Injection -) 20 mg IVPUSH DAILY [facility] Last Admin: 12/01/18 09:55 Dose: 20 mg Gabapentin (Neurontin -) 300 mg PO TID [facility] [place] Last Admin: 12/01/18 05:31 Dose: 300 mg Heparin Sodium (Porcine) (Heparin -) 5,000 unit SQ BID [facility] Last Admin: 12/01/18 09:54 Dose: 5,000 unit Clindamycin Phosphate (Cleocin 600 Mg Premix Ivpb -) 600 mg in 50 mls @ 100 mls /hr IVPB Q6H-IV [facility]; Protocol Last Admin: 12/01/18 09:54 Dose: 100 mls/hr Meropenem 1 gm/ Dextrose 100 mls @ 200 mls/hr IVPB Q8H-IV [facility] [place] Last Admin: 12/01/18 09:54 Dose: 200 mls/hr Insulin Aspart (Novolog Mix 70/30 Vial) 20 units SQ BIDAC [facility] [place] Last Admin: 12/01/18 06:07 Dose: 20 units Insulin Aspart (Novolog Vial Sliding Scale -) 1 vial SQ ACHS [facility] [place]; Protocol Last Admin: 12/01/18 12:01 Dose: 2 units Levothyroxine Sodium (Synthroid -) 125 mcg PO DAILY@0700 [facility] [place] Last Admin: 12/01/18 06:06 Dose: 125 mcg Metformin HCl (Glucophage -) 500 mg PO BIDAC [facility] [place] Last Admin: 12/01/18 06:06 Dose: 500 mg Metoprolol Tartrate (Lopressor -) 25 mg PO HS [facility] [place] Last Admin: 11/30/18 21:06 Dose: 25 mg Mirtazapine (Remeron -) 15 mg PO HS [facility] [place] Last Admin: 11/30/18 21:07 Dose: 15 mg Montelukast Sodium (Singulair -) 10 mg PO HS [facility] [place] Last Admin: 11/30/18 21:06 Dose: 10 mg Nifedipine (Procardia Xl -) 90 mg PO DAILY [facility] [place] Last Admin: 12/01/18 09:55 Dose: 90 mg Pantoprazole Sodium (Protonix Iv) 40 mg IVPUSH DAILY [facility] [place] Last Admin: 12/01/18 09:55 Dose: 40 mg Pyridostigmine [place] (Mestinon -) 60 mg PO BID [facility] [place] Last Admin: 12/01/18 09:55 Dose: 60 mg Sitagliptin Phosphate (Januvia -) 100 mg PO DAILY@0700 [facility] [place] Last Admin: 12/01/18 06:06 Dose: 100 mg Tizanidine HCl (Tizanidine Hcl) 2 mg PO Q8H PRN PRN Reason: MUSCLE SPASMS Zolpidem Tartrate (Ambien -) 5 mg PO HS PRN PRN Reason: INSOMNIA Last Admin: 12/01/18 01:24 Dose: 5 mg - Objective Vital Signs: Vital Signs Temperature 98.2 F 12/01/18 01:56 Pulse Rate 65 12/01/18 05:58 Respiratory Rate 18 12/01/18 05:58 Blood Pressure 130/55 L 12/01/18 05:58 O2 Sat by Pulse Oximetry (%) 94 L 11/30/18 21:00 Constitutional: Yes: No Distress, Calm Cardiovascular: Yes: Regular Rate and Rhythm Respiratory: Yes: Regular, CTA Bilaterally Gastrointestinal: Yes: Normal Bowel Sounds, Soft Musculoskeletal: Yes: WNL Extremities: Yes: Erythema (resolved), Other Wound/Incision: Yes: Open to air Neurological: Yes: Alert, Oriented Psychiatric: Yes: Alert, Oriented Labs: CBC, BMP 11/29/18 06:45 11/29/18 06:45 INR, PTT INR 1.25 (0.83-1.09) H 11/21/18 10:50 Assessment/Plan Problem List - Problems (1) Necrotizing fasciitis plSkylerhank you for the opportunity to participate in the care of this patient. Code(s): M72.6 - NECROTIZING FASCIITIS (2) COPD (chronic obstructive pulmonary disease) Code(s): J44.9 - CHRONIC OBSTRUCTIVE PULMONARY DISEASE, UNSPECIFIED (3) Diabetes Code(s): E11.9 - TYPE 2 DIABETES MELLITUS WITHOUT COMPLICATIONS (4) Graves' disease Code(s): E05.00 - THYROTOXICOSIS W DIFFUSE GOITER W/O THYROTOXIC CRISIS (5) Hypertension Code(s): I10 - ESSENTIAL (PRIMARY) HYPERTENSION Qualifiers: Qualified Code(s): I10 - Essential (primary) hypertension (6) Hypothyroidism, unspecified Code(s): E03.9 - HYPOTHYROIDISM, UNSPECIFIED (7) Myasthenia gravis Code(s): G70.00 - MYASTHENIA GRAVIS WITHOUT (ACUTE) EXACERBATION plan will stop meropenam continue clinda wound care rest as per the team
[2018-12-01 15:53] VITALS: BMI 41.7
[2018-12-01] MEDS: ACETAMINOPHEN 325 MG TABLET (FP) PO PRN (19:45)
[2018-12-01] MEDS ORDERED: INSULIN (NOVOLOG MIX 70/30) 100 UNITS/ML MDV SQ ONE (19:48)
--- NOTE | 2018-12-01 22:03 | PN ---
Progress Note, Physician History of Present Illness: No new complaints - Current Medication List Current Medications: Active Medications Acetaminophen (Tylenol -) 650 mg PO Q6H PRN PRN Reason: PAIN LEVEL 1-5 Last Admin: 12/01/18 19:45 Dose: 650 mg Albuterol Sulfate (Ventolin 0.083% Nebulizer Soln -) 1 amp NEB Q6H PRN PRN Reason: SHORT OF BREATH/WHEEZING Last Admin: 12/01/18 20:53 Dose: 1 amp Atorvastatin Calcium (Lipitor -) 20 mg PO [facility] Last Admin: 11/30/18 21:06 Dose: 20 mg Chlorhexidine Gluconate (Hibiclens For Decolonization -) 1 applic TP [facility] Last Admin: 11/30/18 21:07 Dose: Not Given Clopidogrel Bisulfate (Plavix -) 75 mg PO [facility] Last Admin: 11/30/18 21:05 Dose: 75 mg Folic Acid (Folic Acid -) 1 mg PO [facility] Last Admin: 11/30/18 21:05 Dose: 1 mg Furosemide (Lasix Injection -) 20 mg IVPUSH DAILY [facility] Last Admin: 12/01/18 09:55 Dose: 20 mg Gabapentin (Neurontin -) 300 mg PO TID [facility] Last Admin: 12/01/18 14:27 Dose: 300 mg Heparin Sodium (Porcine) (Heparin -) 5,000 unit SQ BID [facility] Last Admin: 12/01/18 09:54 Dose: 5,000 unit Clindamycin Phosphate (Cleocin 600 Mg Premix Ivpb -) 600 mg in 50 mls @ 100 mls /hr IVPB Q6H-IV [facility]; Protocol Last Admin: 12/01/18 16:02 Dose: 100 mls/hr Insulin Aspart (Novolog Mix 70/30 Vial) 20 units SQ BIDAC [facility] Last Admin: 12/01/18 16:10 Dose: 20 units Insulin Aspart (Novolog Vial Sliding Scale -) 1 vial SQ ACHS [facility]; Protocol Last Admin: 12/01/18 16:10 Dose: 4 units Levothyroxine Sodium (Synthroid -) 125 mcg PO DAILY@0700 [facility] Last Admin: 12/01/18 06:06 Dose: 125 mcg Metformin HCl (Glucophage -) 500 mg PO BIDAC [facility] Last Admin: 12/01/18 16:14 Dose: 500 mg Metoprolol Tartrate (Lopressor -) 25 mg PO HS [facility] Last Admin: 11/30/18 21:06 Dose: 25 mg Mirtazapine (Remeron -) 15 mg PO HS [facility] Last Admin: 11/30/18 21:07 Dose: 15 mg Montelukast Sodium (Singulair -) 10 mg PO HS [facility] Last Admin: 11/30/18 21:06 Dose: 10 mg Nifedipine (Procardia Xl -) 90 mg PO DAILY [facility] Last Admin: 12/01/18 09:55 Dose: 90 mg Pantoprazole Sodium (Protonix Iv) 40 mg IVPUSH DAILY [facility] Last Admin: 12/01/18 09:55 Dose: 40 mg Pyridostigmine [place] (Mestinon -) 60 mg PO BID [facility] Last Admin: 12/01/18 09:55 Dose: 60 mg Sitagliptin Phosphate (Januvia -) 100 mg PO DAILY@0700 [facility] Last Admin: 12/01/18 06:06 Dose: 100 mg Tizanidine HCl (Tizanidine Hcl) 2 mg PO Q8H PRN PRN Reason: MUSCLE SPASMS Zolpidem Tartrate (Ambien -) 5 mg PO HS PRN PRN Reason: INSOMNIA Last Admin: 12/01/18 01:24 Dose: 5 mg - Objective Vital Signs: Vital Signs Temperature 98.0 F 12/01/18 18:00 Pulse Rate 88 12/01/18 18:00 Respiratory Rate 18 12/01/18 18:00 Blood Pressure 143/69 12/01/18 18:00 O2 Sat by Pulse Oximetry (%) 95 12/01/18 09:00 Constitutional: Yes: Well Nourished Neck: Yes: WNL, Supple Cardiovascular: Yes: WNL, Regular Rate and Rhythm Respiratory: Yes: WNL, Regular, CTA Bilaterally Gastrointestinal: Yes: WNL, Normal Bowel Sounds, Soft Edema: LLE: 1+, RLE: Trace Labs: CBC, BMP 11/29/18 06:45 11/29/18 06:45 INR, PTT INR 1.25 (0.83-1.09) H 11/21/18 10:50 Problem List - Problems (1) Necrotizing fasciitis Assessment/Plan: S/P debridement of gluteal abscess Cont IV clinda Change to PO antibxs as per ID Doppler LLE negative for DVT Code(s): M72.6 - NECROTIZING FASCIITIS (2) UTI (urinary tract infection) Assessment/Plan: Due to E.Coli Contaminant as per ID Code(s): N39.0 - URINARY TRACT INFECTION, SITE NOT SPECIFIED (3) Hypertension Assessment/Plan: Cont metoprolol/nifedipine Bp slightly elevated Will dc IV lasix and start hctz Code(s): I10 - ESSENTIAL (PRIMARY) HYPERTENSION Qualifiers: Hypertension type: unspecified Qualified Code(s): I10 - Essential (primary ) hypertension (4) Diabetes Assessment/Plan: Cont sliding scale w/ coverage Cont januvia/Novolog 70/30/metformin Code(s): E11.9 - TYPE 2 DIABETES MELLITUS WITHOUT COMPLICATIONS Qualifiers: Diabetes mellitus type: type 2 (5) Graves' disease Assessment/Plan: Cont pyridostigmine/tizanidine Code(s): E05.00 - THYROTOXICOSIS W DIFFUSE GOITER W/O THYROTOXIC CRISIS (6) Hypothyroidism, unspecified Assessment/Plan: Cont levothyroxine Code(s): E03.9 - HYPOTHYROIDISM, UNSPECIFIED (7) COPD (chronic obstructive pulmonary disease) Assessment/Plan: Cont nebulizer prn Code(s): J44.9 - CHRONIC OBSTRUCTIVE PULMONARY DISEASE, UNSPECIFIED Qualifiers: COPD type: chronic bronchitis
[2018-12-01] MEDS: MONTELUKAST NA 10 MG TABLET PO SCH (22:45)
[2018-12-01] MEDS: FOLIC ACID 1 MG TABLET (FP) PO SCH (22:45)
[2018-12-01] MEDS: ATORVASTATIN CA 20 MG TABLET (FP) PO SCH (22:45)
[2018-12-01] MEDS: CLOPIDOGREL BISULFATE 75 MG TABLET (FP) PO SCH (22:45)
[2018-12-01] MEDS: METOPROLOL TARTRATE 25 MG TABLET (FP) PO SCH (22:45)
[2018-12-01] MEDS: MIRTAZAPINE 15 MG TABLET (FP) PO SCH (22:45)
[2018-12-01] MEDS: CHLORHEXIDINE GLUCONATE 4% CLEANSER FOR DECOLONIZATION TP SCH (22:55)
[2018-12-02] MEDS: CLINDAMYCIN 600MG PREMIX IVPB 600 MG/50 ML BAG IVPB SCH ×2 (04:07→10:10)
[2018-12-02] MEDS ORDERED: INSULIN (NOVOLOG) ASPART 100 UNITS/ML 10ML VIAL ONE (06:29)
[2018-12-02] MEDS: LEVOTHYROXINE NA 125 MCG TABLET (FP) PO SCH (06:48)
[2018-12-02] MEDS: GABAPENTIN 300 MG CAPSULE (FP) PO SCH ×3 (06:48→21:32)
[2018-12-02] MEDS: metFORMIN HCL 500 MG TABLET (FP) PO SCH ×2 (06:48→17:20)
[2018-12-02] MEDS: sitaGLIPtin PHOSPHATE 100 MG TABLET (FP) PO SCH (06:48)
[2018-12-02] MEDS: INSULIN SLIDING SCALE (NOVOLOG) 1 VIAL SQ SCH ×4 (06:49→21:33)
[2018-12-02] MEDS: INSULIN (NOVOLOG MIX 70/30) 100 UNITS/ML MDV SQ SCH ×2 (06:49→17:20)
[2018-12-02] MEDS ORDERED: PT OWN MED DRAWER 7, Y5N ONE (09:50)
[2018-12-02] MEDS: NIFEdipine E.R. 90 MG TABLET (FP) PO SCH (10:09)
[2018-12-02] MEDS: HYDROCHLOROTHIAZIDE 25 MG TABLET (FP) PO SCH (10:09)
[2018-12-02] MEDS: HEPARIN NA (PORCINE) 5,000 UNITS/ML 1ML VIAL SQ SCH ×2 (10:09→21:34)
[2018-12-02] MEDS: PYRIDOSTIGMINE BROMIDE 60 MG TABLET PO SCH ×2 (10:10→21:33)
[2018-12-02] MEDS: ACETAMINOPHEN 325 MG TABLET (FP) PO PRN ×2 (10:11→17:24)
[2018-12-02] MEDS: PANTOPRAZOLE SODIUM 40 MG VIAL IVPUSH SCH (10:11)
--- NOTE | 2018-12-02 12:40 | PN ---
Progress Note, Physician History of Present Illness: stable doing well cellulitis has resolved - Current Medication List Current Medications: Active Medications Acetaminophen (Tylenol -) 650 mg PO Q6H PRN PRN Reason: PAIN LEVEL 1-5 Last Admin: 12/02/18 10:11 Dose: 650 mg Albuterol Sulfate (Ventolin 0.083% Nebulizer Soln -) 1 amp NEB Q6H PRN PRN Reason: SHORT OF BREATH/WHEEZING Last Admin: 12/01/18 20:53 Dose: 1 amp Atorvastatin Calcium (Lipitor -) [address] [facility] Last Admin: 12/01/18 22:45 Dose: 20 mg Chlorhexidine Gluconate (Hibiclens For Decolonization -) [address] [facility] Last Admin: 12/01/18 22:55 Dose: Not Given Clopidogrel Bisulfate (Plavix -) [address] [facility] Last Admin: 12/01/18 22:45 Dose: 75 mg Folic Acid (Folic Acid -) [address] [facility] Last Admin: 12/01/18 22:45 Dose: 1 mg Gabapentin (Neurontin -) 300 mg PO TID [facility] Last Admin: 12/02/18 06:48 Dose: 300 mg Heparin Sodium (Porcine) (Heparin -) 5,000 unit SQ BID [facility] Last Admin: 12/02/18 10:09 Dose: 5,000 unit Hydrochlorothiazide (Hctz -) 25 mg PO DAILY [facility] Last Admin: 12/02/18 10:09 Dose: 25 mg Clindamycin Phosphate (Cleocin 600 Mg Premix Ivpb -) 600 mg in 50 mls @ 100 mls /hr IVPB Q6H-IV [facility]; Protocol Last Admin: 12/02/18 10:10 Dose: 100 mls/hr Insulin Aspart (Novolog Mix 70/30 Vial) 20 units SQ BIDAC [facility] Last Admin: 12/02/18 06:49 Dose: 20 units Insulin Aspart (Novolog Vial Sliding Scale -) 1 vial SQ ACHS [facility]; Protocol Last Admin: 12/02/18 12:06 Dose: 2 units Levothyroxine Sodium (Synthroid -) 125 mcg PO DAILY@0700 [facility] Last Admin: 12/02/18 06:48 Dose: 125 mcg Metformin HCl (Glucophage -) 500 mg PO BIDAC [facility] Last Admin: 12/02/18 06:48 Dose: 500 mg Metoprolol Tartrate (Lopressor -) 25 mg PO HS [facility] Last Admin: 12/01/18 22:45 Dose: 25 mg Mirtazapine (Remeron -) 15 mg PO HS [facility] Last Admin: 12/01/18 22:45 Dose: 15 mg Montelukast Sodium (Singulair -) 10 mg PO HS [facility] Last Admin: 12/01/18 22:45 Dose: 10 mg Nifedipine (Procardia Xl -) 90 mg PO DAILY [facility] Last Admin: 12/02/18 10:09 Dose: 90 mg Pantoprazole Sodium (Protonix Iv) 40 mg IVPUSH DAILY [facility] Last Admin: 12/02/18 10:11 Dose: 40 mg Pyridostigmine [place] (Mestinon -) 60 mg PO BID [facility] Last Admin: 12/02/18 10:10 Dose: 60 mg Sitagliptin Phosphate (Januvia -) 100 mg PO DAILY@0700 [facility] Last Admin: 12/02/18 06:48 Dose: 100 mg Tizanidine HCl (Tizanidine Hcl) 2 mg PO Q8H PRN PRN Reason: MUSCLE SPASMS Zolpidem Tartrate (Ambien -) 5 mg PO HS PRN PRN Reason: INSOMNIA Last Admin: 12/01/18 22:52 Dose: 5 mg - Objective Vital Signs: Vital Signs Temperature 98.1 F 12/02/18 09:51 Pulse Rate 68 12/02/18 09:51 Respiratory Rate 18 12/02/18 09:51 Blood Pressure 154/92 12/02/18 09:51 O2 Sat by Pulse Oximetry (%) 98 12/02/18 10:15 Constitutional: Yes: No Distress, Calm Cardiovascular: Yes: Regular Rate and Rhythm Respiratory: Yes: Regular, CTA Bilaterally Gastrointestinal: Yes: Normal Bowel Sounds, Soft Musculoskeletal: Yes: WNL Extremities: Yes: WNL Neurological: Yes: Alert, Oriented Psychiatric: Yes: Alert, Oriented Labs: CBC, BMP 11/29/18 06:45 11/29/18 06:45 INR, PTT INR 1.25 (0.83-1.09) H 11/21/18 10:50 Assessment/Plan Problem List - Problems (1) Necrotizing fasciitis plkThank you for the opportunity to participate in the care of this patient. Code(s): M72.6 - NECROTIZING FASCIITIS (2) COPD (chronic obstructive pulmonary disease) Code(s): J44.9 - CHRONIC OBSTRUCTIVE PULMONARY DISEASE, UNSPECIFIED (3) Diabetes Code(s): E11.9 - TYPE 2 DIABETES MELLITUS WITHOUT COMPLICATIONS (4) Graves' disease Code(s): E05.00 - THYROTOXICOSIS W DIFFUSE GOITER W/O THYROTOXIC CRISIS (5) Hypertension Code(s): I10 - ESSENTIAL (PRIMARY) HYPERTENSION Qualifiers: Qualified Code(s): I10 - Essential (primary) hypertension (6) Hypothyroidism, unspecified Code(s): E03.9 - HYPOTHYROIDISM, UNSPECIFIED (7) Myasthenia gravis Code(s): G70.00 - MYASTHENIA GRAVIS WITHOUT (ACUTE) EXACERBATION plan will switch clinda to oral rest continue current mgmt will see how patient does on oral abx rest as per the team
[2018-12-02] MEDS: CLINDAMYCIN HCL 150 MG CAPSULE (FP) PO SCH ×2 (17:20→23:23)
[2018-12-02] MEDS: ATORVASTATIN CA 20 MG TABLET (FP) PO SCH (21:32)
[2018-12-02] MEDS: FOLIC ACID 1 MG TABLET (FP) PO SCH (21:32)
[2018-12-02] MEDS: CLOPIDOGREL BISULFATE 75 MG TABLET (FP) PO SCH (21:32)
[2018-12-02] MEDS: METOPROLOL TARTRATE 25 MG TABLET (FP) PO SCH (21:32)
[2018-12-02] MEDS: MONTELUKAST NA 10 MG TABLET PO SCH (21:33)
[2018-12-02] MEDS: MIRTAZAPINE 15 MG TABLET (FP) PO SCH (21:34)
[2018-12-02] MEDS: CHLORHEXIDINE GLUCONATE 4% CLEANSER FOR DECOLONIZATION TP SCH (21:34)
--- NOTE | 2018-12-02 21:41 | PN ---
Progress Note, Physician Chief Complaint: gluteal pain and swelling History of Present Illness: 63yo female PMH DM, obesity, HTN, COPD, Myesthenia Gravis, Graves disease with left gluteal necrotizing soft tissue infection noticed 3 days ago by patient. stable post operatively. She is refusing all wound care by nursing. - Current Medication List Current Medications: Active Medications Acetaminophen (Tylenol -) 650 mg PO Q6H PRN PRN Reason: PAIN LEVEL 1-5 Last Admin: 12/02/18 17:24 Dose: 650 mg Albuterol Sulfate (Ventolin 0.083% Nebulizer Soln -) 1 amp NEB Q6H PRN PRN Reason: SHORT OF BREATH/WHEEZING Last Admin: 12/01/18 20:53 Dose: 1 amp Atorvastatin Calcium (Lipitor -) 20 mg PO HS [facility] Last Admin: 12/02/18 21:32 Dose: 20 mg Chlorhexidine Gluconate (Hibiclens For Decolonization -) 1 applic TP HS [facility] Last Admin: 12/02/18 21:34 Dose: Not Given Clindamycin HCl (Cleocin -) 300 mg PO Q6HPO [facility] Last Admin: 12/02/18 17:20 Dose: 300 mg Clopidogrel Bisulfate (Plavix -) 75 mg PO [facility] Last Admin: 12/02/18 21:32 Dose: 75 mg Folic Acid (Folic Acid -) 1 mg PO HS [facility] Last Admin: 12/02/18 21:32 Dose: 1 mg Gabapentin (Neurontin -) 300 mg PO TID [facility] Last Admin: 12/02/18 21:32 Dose: 300 mg Heparin Sodium (Porcine) (Heparin -) 5,000 unit SQ BID [facility] Last Admin: 12/02/18 21:34 Dose: 5,000 unit Hydrochlorothiazide (Hctz -) 25 mg PO DAILY [facility] Last Admin: 12/02/18 10:09 Dose: 25 mg Insulin Aspart (Novolog Mix 70/30 Vial) 20 units SQ BIDAC [facility] Last Admin: 12/02/18 17:20 Dose: 20 units Insulin Aspart (Novolog Vial Sliding Scale -) 1 vial SQ ACHS [facility]; Protocol Last Admin: 12/02/18 21:33 Dose: 2 units Levothyroxine Sodium (Synthroid -) 125 mcg PO DAILY@0700 [facility] Last Admin: 12/02/18 06:48 Dose: 125 mcg Metformin HCl (Glucophage -) 500 mg PO BIDAC [facility] Last Admin: 12/02/18 17:20 Dose: 500 mg Metoprolol Tartrate (Lopressor -) 25 mg PO HS [facility] Last Admin: 12/02/18 21:32 Dose: 25 mg Mirtazapine (Remeron -) 15 mg PO HS [facility] Last Admin: 12/02/18 21:34 Dose: 15 mg Montelukast Sodium (Singulair -) 10 mg PO HS [facility] Last Admin: 12/02/18 21:33 Dose: 10 mg Nifedipine (Procardia Xl -) 90 mg PO DAILY [facility] Last Admin: 12/02/18 10:09 Dose: 90 mg Pantoprazole Sodium (Protonix Iv) 40 mg IVPUSH DAILY [facility] Last Admin: 12/02/18 10:11 Dose: 40 mg Pyridostigmine [place] (Mestinon -) 60 mg PO BID [facility] Last Admin: 12/02/18 21:33 Dose: 60 mg Sitagliptin Phosphate (Januvia -) 100 mg PO DAILY@0700 [facility] Last Admin: 12/02/18 06:48 Dose: 100 mg Tizanidine HCl (Tizanidine Hcl) 2 mg PO Q8H PRN PRN Reason: MUSCLE SPASMS Zolpidem Tartrate (Ambien -) 5 mg PO HS PRN PRN Reason: INSOMNIA Last Admin: 12/01/18 22:52 Dose: 5 mg - Objective Vital Signs: Vital Signs Temperature 99.1 F 12/02/18 18:00 Pulse Rate 74 12/02/18 18:00 Respiratory Rate 18 12/02/18 18:00 Blood Pressure 152/73 12/02/18 18:00 O2 Sat by Pulse Oximetry (%) 98 12/02/18 10:15 Constitutional: Yes: No Distress, Calm, Obese, Poor Hygeine Eyes: Yes: Conjunctiva Clear, EOM Intact, Other (exopthalmus) HENT: Yes: Atraumatic, Normocephalic Neck: Yes: Supple, Trachea Midline Cardiovascular: Yes: Regular Rate and Rhythm, S1, S2 Respiratory: Yes: Regular, CTA Bilaterally Gastrointestinal: Yes: Normal Bowel Sounds, Soft, Abdomen, Obese. No: Tenderness ...Rectal Exam: Yes: Deferred Genitourinary: No: CVA Tenderness - Left, CVA Tenderness - Right Breast(s): No: Discharge from Nipple, Nipple Inversion, Skin Changes Musculoskeletal: No: Muscle Pain, Muscle Weakness Extremities: No: Cool, Cyanosis Edema: Yes Edema: LLE: Trace Peripheral Pulses WNL: Yes Peripheral Pulses: Left Radial: 2+, Right Radial: 2+, Left Doralis Pedis: 2+, Right Dorsalis Pedis: 2+, Left Femoral: 2+, Right Femoral: 2+ Integumentary: Yes: Incision. No: Jaundice, Rash Wound/Incision: Yes: Clean/Dry, Open to air, Draining, Unapproximated Neurological: Yes: Alert, Oriented Psychiatric: Yes: Alert, Oriented Labs: CBC, BMP 11/29/18 06:45 11/29/18 06:45 INR, PTT INR 1.25 (0.83-1.09) H 11/21/18 10:50 Problem List - Problems (1) Necrotizing fasciitis Assessment/Plan: 63yo female MMP Diabetic with necrotizing left gluteal soft tissue infection. POD#12 s/p Debridement of left gluteal area for necrotizing soft tissue infection. Dressing change Diet as tolerated continue IV antibiotics f/u cultures OOB and ambulate adequate analgesia discharge planning Code(s): M72.6 - NECROTIZING FASCIITIS (2) COPD (chronic obstructive pulmonary disease) Code(s): J44.9 - CHRONIC OBSTRUCTIVE PULMONARY DISEASE, UNSPECIFIED Qualifiers: COPD type: chronic bronchitis (3) Diabetes Code(s): E11.9 - TYPE 2 DIABETES MELLITUS WITHOUT COMPLICATIONS Qualifiers: Diabetes mellitus type: type 2 (4) Graves' disease Code(s): E05.00 - THYROTOXICOSIS W DIFFUSE GOITER W/O THYROTOXIC CRISIS (5) Hypertension Code(s): I10 - ESSENTIAL (PRIMARY) HYPERTENSION Qualifiers: Hypertension type: unspecified Qualified Code(s): I10 - Essential (primary ) hypertension (6) Hypothyroidism, unspecified Code(s): E03.9 - HYPOTHYROIDISM, UNSPECIFIED (7) Myasthenia gravis Code(s): G70.00 - MYASTHENIA GRAVIS WITHOUT (ACUTE) EXACERBATION
[2018-12-02] MEDS: ZOLPIDEM TARTRATE 5 MG TABLET PO PRN (23:23)
--- NOTE | 2018-12-02 23:27 | PN ---
Progress Note, Physician - Current Medication List Current Medications: Active Medications Acetaminophen (Tylenol -) 650 mg PO Q6H PRN PRN Reason: PAIN LEVEL 1-5 Last Admin: 12/02/18 17:24 Dose: 650 mg Albuterol Sulfate (Ventolin 0.083% Nebulizer Soln -) 1 amp NEB Q6H PRN PRN Reason: SHORT OF BREATH/WHEEZING Last Admin: 12/01/18 20:53 Dose: 1 amp Atorvastatin Calcium (Lipitor -) 20 mg PO [facility] Last Admin: 12/02/18 21:32 Dose: 20 mg Chlorhexidine Gluconate (Hibiclens For Decolonization -) 1 applic TP [facility] Last Admin: 12/02/18 21:34 Dose: Not Given Clindamycin HCl (Cleocin -) 300 mg PO Q6HPO [facility] Last Admin: 12/02/18 23:23 Dose: 300 mg Clopidogrel Bisulfate (Plavix -) 75 mg PO [facility] Last Admin: 12/02/18 21:32 Dose: 75 mg Folic Acid (Folic Acid -) 1 mg PO [facility] Last Admin: 12/02/18 21:32 Dose: 1 mg Gabapentin (Neurontin -) 300 mg PO TID [facility] Last Admin: 12/02/18 21:32 Dose: 300 mg Heparin Sodium (Porcine) (Heparin -) 5,000 unit SQ BID [facility] Last Admin: 12/02/18 21:34 Dose: 5,000 unit Hydrochlorothiazide (Hctz -) 25 mg PO DAILY [facility] Last Admin: 12/02/18 10:09 Dose: 25 mg Insulin Aspart (Novolog Mix 70/30 Vial) 20 units SQ BIDAC [facility] Last Admin: 12/02/18 17:20 Dose: 20 units Insulin Aspart (Novolog Vial Sliding Scale -) 1 vial SQ [facility]; Protocol Last Admin: 12/02/18 21:33 Dose: 2 units Levothyroxine Sodium (Synthroid -) 125 mcg PO DAILY@0700 [facility] Last Admin: 12/02/18 06:48 Dose: 125 mcg Metformin HCl (Glucophage -) 500 mg PO BIDAC [facility] Last Admin: 12/02/18 17:20 Dose: 500 mg Metoprolol Tartrate (Lopressor -) 25 mg PO [facility] Last Admin: 12/02/18 21:32 Dose: 25 mg Mirtazapine (Remeron -) 15 mg PO [facility] Last Admin: 12/02/18 21:34 Dose: 15 mg Montelukast Sodium (Singulair -) 10 mg PO HS [facility] Last Admin: 12/02/18 21:33 Dose: 10 mg Nifedipine (Procardia Xl -) 90 mg PO DAILY [facility] Last Admin: 12/02/18 10:09 Dose: 90 mg Pantoprazole Sodium (Protonix Iv) 40 mg IVPUSH DAILY [facility] Last Admin: 12/02/18 10:11 Dose: 40 mg Pyridostigmine [place] (Mestinon -) 60 mg PO BID [facility] Last Admin: 12/02/18 21:33 Dose: 60 mg Sitagliptin Phosphate (Januvia -) 100 mg PO DAILY@0700 [facility] Last Admin: 12/02/18 06:48 Dose: 100 mg Tizanidine HCl (Tizanidine Hcl) 2 mg PO Q8H PRN PRN Reason: MUSCLE SPASMS Zolpidem Tartrate (Ambien -) 5 mg PO HS PRN PRN Reason: INSOMNIA Last Admin: 12/02/18 23:23 Dose: 5 mg - Objective Vital Signs: Vital Signs Temperature 99.1 F 12/02/18 18:00 Pulse Rate 74 12/02/18 18:00 Respiratory Rate 18 12/02/18 18:00 Blood Pressure 152/73 12/02/18 18:00 O2 Sat by Pulse Oximetry (%) 98 12/02/18 10:15 Neck: Yes: WNL, Supple Cardiovascular: Yes: WNL, Regular Rate and Rhythm Respiratory: Yes: WNL, Regular, CTA Bilaterally Gastrointestinal: Yes: WNL, Normal Bowel Sounds, Soft Edema: LLE: Trace, RLE: Trace Labs: CBC, BMP 11/29/18 06:45 11/29/18 06:45 INR, PTT INR 1.25 (0.83-1.09) H 11/21/18 10:50 Problem List - Problems (1) Necrotizing fasciitis Assessment/Plan: S/P debridement of gluteal abscess No on PO clinda Long D/W pt about need for wound care Explained to pt about dC planning for am Doppler LLE negative for DVT Code(s): M72.6 - NECROTIZING FASCIITIS (2) UTI (urinary tract infection) Code(s): N39.0 - URINARY TRACT INFECTION, SITE NOT SPECIFIED (3) Hypertension Code(s): I10 - ESSENTIAL (PRIMARY) HYPERTENSION Qualifiers: Hypertension type: unspecified Qualified Code(s): I10 - Essential (primary ) hypertension (4) Diabetes Code(s): E11.9 - TYPE 2 DIABETES MELLITUS WITHOUT COMPLICATIONS Qualifiers: Diabetes mellitus type: type 2 (5) Graves' disease Code(s): E05.00 - THYROTOXICOSIS W DIFFUSE GOITER W/O THYROTOXIC CRISIS (6) Hypothyroidism, unspecified Code(s): E03.9 - HYPOTHYROIDISM, UNSPECIFIED (7) COPD (chronic obstructive pulmonary disease) Code(s): J44.9 - CHRONIC OBSTRUCTIVE PULMONARY DISEASE, UNSPECIFIED Qualifiers: COPD type: chronic bronchitis
[2018-12-03] MEDS: CLINDAMYCIN HCL 150 MG CAPSULE (FP) PO SCH ×4 (06:51→23:32)
[2018-12-03] MEDS: GABAPENTIN 300 MG CAPSULE (FP) PO SCH ×3 (06:51→21:58)
[2018-12-03] MEDS: metFORMIN HCL 500 MG TABLET (FP) PO SCH ×2 (06:51→17:51)
[2018-12-03] MEDS: sitaGLIPtin PHOSPHATE 100 MG TABLET (FP) PO SCH (06:51)
[2018-12-03] MEDS: INSULIN (NOVOLOG MIX 70/30) 100 UNITS/ML MDV SQ SCH ×2 (06:51→17:52)
[2018-12-03] MEDS: LEVOTHYROXINE NA 125 MCG TABLET (FP) PO SCH (06:51)
[2018-12-03] MEDS: INSULIN SLIDING SCALE (NOVOLOG) 1 VIAL SQ SCH ×4 (06:51→21:59)
[2018-12-03] MEDS ORDERED: PT OWN MED DRAWER 7, Y5N ONE (09:38)
[2018-12-03] MEDS: HEPARIN NA (PORCINE) 5,000 UNITS/ML 1ML VIAL SQ SCH ×2 (09:41→21:59)
[2018-12-03] MEDS: NIFEdipine E.R. 90 MG TABLET (FP) PO SCH (09:41)
[2018-12-03] MEDS: HYDROCHLOROTHIAZIDE 25 MG TABLET (FP) PO SCH (09:42)
[2018-12-03] MEDS: PYRIDOSTIGMINE BROMIDE 60 MG TABLET PO SCH ×2 (09:43→21:57)
[2018-12-03] MEDS: PANTOPRAZOLE SODIUM 40 MG VIAL IVPUSH SCH (10:16)
--- NOTE | 2018-12-03 12:23 | PN ---
Progress Note, Physician History of Present Illness: patient stable no complaints - Current Medication List Current Medications: Active Medications Acetaminophen (Tylenol -) 650 mg PO Q6H PRN PRN Reason: PAIN LEVEL 1-5 Last Admin: 12/02/18 17:24 Dose: 650 mg Albuterol Sulfate (Ventolin 0.083% Nebulizer Soln -) 1 amp NEB Q6H PRN PRN Reason: SHORT OF BREATH/WHEEZING Last Admin: 12/01/18 20:53 Dose: 1 amp Atorvastatin Calcium (Lipitor -) 20 mg PO [facility] Last Admin: 12/02/18 21:32 Dose: 20 mg Chlorhexidine Gluconate (Hibiclens For Decolonization -) 1 applic TP [facility] Last Admin: 12/02/18 21:34 Dose: Not Given Clindamycin HCl (Cleocin -) 300 mg PO Q6HPO [facility] Last Admin: 12/03/18 06:51 Dose: 300 mg Clopidogrel Bisulfate (Plavix -) 75 mg PO [facility] Last Admin: 12/02/18 21:32 Dose: 75 mg Folic Acid (Folic Acid -) 1 mg PO [facility] Last Admin: 12/02/18 21:32 Dose: 1 mg Gabapentin (Neurontin -) 300 mg PO TID [facility] Last Admin: 12/03/18 06:51 Dose: 300 mg Heparin Sodium (Porcine) (Heparin -) 5,000 unit SQ BID [facility] Last Admin: 12/03/18 09:41 Dose: 5,000 unit Hydrochlorothiazide (Hctz -) 25 mg PO DAILY [facility] Last Admin: 12/03/18 09:42 Dose: 25 mg Insulin Aspart (Novolog Mix 70/30 Vial) 20 units SQ BIDAC [facility] Last Admin: 12/03/18 06:51 Dose: 20 units Insulin Aspart (Novolog Vial Sliding Scale -) 1 vial SQ [facility]; Protocol Last Admin: 12/03/18 11:25 Dose: Not Given Levothyroxine Sodium (Synthroid -) 125 mcg PO DAILY@0700 [facility] Last Admin: 12/03/18 06:51 Dose: 125 mcg Metformin HCl (Glucophage -) 500 mg PO BIDAC [facility] Last Admin: 12/03/18 06:51 Dose: 500 mg Metoprolol Tartrate (Lopressor -) 25 mg PO [facility] Last Admin: 12/02/18 21:32 Dose: 25 mg Mirtazapine (Remeron -) 15 mg PO HS [facility] Last Admin: 12/02/18 21:34 Dose: 15 mg Montelukast Sodium (Singulair -) 10 mg PO HS [facility] Last Admin: 12/02/18 21:33 Dose: 10 mg Nifedipine (Procardia Xl -) 90 mg PO DAILY [facility] Last Admin: 12/03/18 09:41 Dose: 90 mg Pantoprazole Sodium (Protonix Iv) 40 mg IVPUSH DAILY [facility] Last Admin: 12/03/18 10:16 Dose: 40 mg Pyridostigmine [place] (Mestinon -) 60 mg PO BID [facility] Last Admin: 12/03/18 09:43 Dose: 60 mg Sitagliptin Phosphate (Januvia -) 100 mg PO DAILY@0700 [facility] Last Admin: 12/03/18 06:51 Dose: 100 mg Tizanidine HCl (Tizanidine Hcl) 2 mg PO Q8H PRN PRN Reason: MUSCLE SPASMS Zolpidem Tartrate (Ambien -) 5 mg PO HS PRN PRN Reason: INSOMNIA Last Admin: 12/02/18 23:23 Dose: 5 mg - Objective Vital Signs: Vital Signs Temperature 98.8 F 12/03/18 09:16 Pulse Rate 66 12/03/18 09:16 Respiratory Rate 20 12/03/18 09:16 Blood Pressure 152/75 12/03/18 09:16 O2 Sat by Pulse Oximetry (%) 95 12/03/18 09:00 Constitutional: Yes: No Distress, Calm Cardiovascular: Yes: Regular Rate and Rhythm Respiratory: Yes: Regular, CTA Bilaterally Gastrointestinal: Yes: Normal Bowel Sounds, Soft Musculoskeletal: Yes: WNL Extremities: Yes: WNL Wound/Incision: Yes: Clean/Dry Neurological: Yes: Alert, Oriented Psychiatric: Yes: Alert, Oriented Labs: CBC, BMP 11/29/18 06:45 11/29/18 06:45 INR, PTT INR 1.25 (0.83-1.09) H 11/21/18 10:50 Assessment/Plan Problem List - Problems (1) Necrotizing fasciitis plkThank you for the opportunity to participate in the care of this patient. Code(s): M72.6 - NECROTIZING FASCIITIS (2) COPD (chronic obstructive pulmonary disease) Code(s): J44.9 - CHRONIC OBSTRUCTIVE PULMONARY DISEASE, UNSPECIFIED (3) Diabetes Code(s): E11.9 - TYPE 2 DIABETES MELLITUS WITHOUT COMPLICATIONS (4) Graves' disease Code(s): E05.00 - THYROTOXICOSIS W DIFFUSE GOITER W/O THYROTOXIC CRISIS (5) Hypertension Code(s): I10 - ESSENTIAL (PRIMARY) HYPERTENSION Qualifiers: Qualified Code(s): I10 - Essential (primary) hypertension (6) Hypothyroidism, unspecified Code(s): E03.9 - HYPOTHYROIDISM, UNSPECIFIED (7) Myasthenia gravis Code(s): G70.00 - MYASTHENIA GRAVIS WITHOUT (ACUTE) EXACERBATION plan continue oral clinda for 5 more days wound care rest as per the team if surgery clears patient can be discharged
--- NOTE | 2018-12-03 12:29 | PN ---
Progress Note, Physician History of Present Illness: PULMONARY ALERT,COMFORTABLE AT REST ,-SOB,-COUGH,-CP - Current Medication List Current Medications: Active Medications Acetaminophen (Tylenol -) 650 mg PO Q6H PRN PRN Reason: PAIN LEVEL 1-5 Last Admin: 12/02/18 17:24 Dose: 650 mg Albuterol Sulfate (Ventolin 0.083% Nebulizer Soln -) 1 amp NEB Q6H PRN PRN Reason: SHORT OF BREATH/WHEEZING Last Admin: 12/01/18 20:53 Dose: 1 amp Atorvastatin Calcium (Lipitor -) 20 mg PO [facility] Last Admin: 12/02/18 21:32 Dose: 20 mg Chlorhexidine Gluconate (Hibiclens For Decolonization -) 1 applic TP [facility] Last Admin: 12/02/18 21:34 Dose: Not Given Clindamycin HCl (Cleocin -) 300 mg PO Q6HPO [facility] Last Admin: 12/03/18 06:51 Dose: 300 mg Clopidogrel Bisulfate (Plavix -) 75 mg PO [facility] Last Admin: 12/02/18 21:32 Dose: 75 mg Folic Acid (Folic Acid -) 1 mg PO [facility] Last Admin: 12/02/18 21:32 Dose: 1 mg Gabapentin (Neurontin -) 300 mg PO TID [facility] Last Admin: 12/03/18 06:51 Dose: 300 mg Heparin Sodium (Porcine) (Heparin -) 5,000 unit SQ BID [facility] Last Admin: 12/03/18 09:41 Dose: 5,000 unit Hydrochlorothiazide (Hctz -) 25 mg PO DAILY [facility] Last Admin: 12/03/18 09:42 Dose: 25 mg Insulin Aspart (Novolog Mix 70/30 Vial) 20 units SQ BIDAC [facility] Last Admin: 12/03/18 06:51 Dose: 20 units Insulin Aspart (Novolog Vial Sliding Scale -) 1 vial SQ [facility]; Protocol Last Admin: 12/03/18 11:25 Dose: Not Given Levothyroxine Sodium (Synthroid -) 125 mcg PO DAILY@0700 [facility] Last Admin: 12/03/18 06:51 Dose: 125 mcg Metformin HCl (Glucophage -) 500 mg PO BIDAC [facility] Last Admin: 12/03/18 06:51 Dose: 500 mg Metoprolol Tartrate (Lopressor -) 25 mg PO [facility] Last Admin: 12/02/18 21:32 Dose: 25 mg Mirtazapine (Remeron -) 15 mg PO HS [facility] Last Admin: 12/02/18 21:34 Dose: 15 mg Montelukast Sodium (Singulair -) 10 mg PO HS [facility] Last Admin: 12/02/18 21:33 Dose: 10 mg Nifedipine (Procardia Xl -) 90 mg PO DAILY [facility] Last Admin: 12/03/18 09:41 Dose: 90 mg Pantoprazole Sodium (Protonix Iv) 40 mg IVPUSH DAILY [facility] Last Admin: 12/03/18 10:16 Dose: 40 mg Pyridostigmine [place] (Mestinon -) 60 mg PO BID [facility] Last Admin: 12/03/18 09:43 Dose: 60 mg Sitagliptin Phosphate (Januvia -) 100 mg PO DAILY@0700 [facility] Last Admin: 12/03/18 06:51 Dose: 100 mg Tizanidine HCl (Tizanidine Hcl) 2 mg PO Q8H PRN PRN Reason: MUSCLE SPASMS Zolpidem Tartrate (Ambien -) 5 mg PO HS PRN PRN Reason: INSOMNIA Last Admin: 12/02/18 23:23 Dose: 5 mg - Objective Vital Signs: Vital Signs Temperature 98.8 F 12/03/18 09:16 Pulse Rate 66 12/03/18 09:16 Respiratory Rate 20 12/03/18 09:16 Blood Pressure 152/75 12/03/18 09:16 O2 Sat by Pulse Oximetry (%) 95 12/03/18 09:00 Constitutional: Yes: Well Nourished, Calm Eyes: Yes: WNL HENT: Yes: WNL Neck: Yes: WNL Cardiovascular: Yes: Regular Rate and Rhythm, S1, S2 Respiratory: Yes: CTA Bilaterally Gastrointestinal: Yes: Normal Bowel Sounds, Soft Extremities: Yes: WNL Edema: No Labs: CBC, BMP Assessment/Plan IMP NECROTIZING SOFT TISSUE INFECTION LEFT GLUTEAL S/P DEBRIDEMENT MYASTHENIA GRAVIS COPD HYPOTHYROID NIDDM TOBACCO ABUSE PLAN INHALED BRONCHODILATORS O2 NEEDED ABX PER ID PFTS OUTPATIENT YEARLY LOW DOSE CHEST CT FOR LUNG CANCER SCREENING DR ELENA
[2018-12-03] MEDS: CLOPIDOGREL BISULFATE 75 MG TABLET (FP) PO SCH (21:58)
[2018-12-03] MEDS: FOLIC ACID 1 MG TABLET (FP) PO SCH (21:58)
[2018-12-03] MEDS: MONTELUKAST NA 10 MG TABLET PO SCH (21:58)
[2018-12-03] MEDS: ZOLPIDEM TARTRATE 5 MG TABLET PO PRN (21:59)
[2018-12-03] MEDS: METOPROLOL TARTRATE 25 MG TABLET (FP) PO SCH (21:59)
[2018-12-03] MEDS: CHLORHEXIDINE GLUCONATE 4% CLEANSER FOR DECOLONIZATION TP SCH (21:59)
[2018-12-03] MEDS: ATORVASTATIN CA 20 MG TABLET (FP) PO SCH (21:59)
[2018-12-03] MEDS: MIRTAZAPINE 15 MG TABLET (FP) PO SCH (22:00)
--- NOTE | 2018-12-03 22:35 | PN ---
Progress Note, Physician History of Present Illness: No new complaints - Current Medication List Current Medications: Active Medications Acetaminophen (Tylenol -) 650 mg PO Q6H PRN PRN Reason: PAIN LEVEL 1-5 Last Admin: 12/02/18 17:24 Dose: 650 mg Atorvastatin Calcium (Lipitor -) 20 mg PO [facility] Last Admin: 12/03/18 21:59 Dose: 20 mg Chlorhexidine Gluconate (Hibiclens For Decolonization -) 1 applic TP [facility] Last Admin: 12/03/18 21:59 Dose: Not Given Clindamycin HCl (Cleocin -) 300 mg PO Q6HPO [facility] Last Admin: 12/03/18 17:51 Dose: 300 mg Clopidogrel Bisulfate (Plavix -) 75 mg PO [facility] Last Admin: 12/03/18 21:58 Dose: 75 mg Folic Acid (Folic Acid -) 1 mg PO [facility] Last Admin: 12/03/18 21:58 Dose: 1 mg Gabapentin (Neurontin -) 300 mg PO TID [facility] Last Admin: 12/03/18 21:58 Dose: 300 mg Heparin Sodium (Porcine) (Heparin -) 5,000 unit SQ BID [facility] Last Admin: 12/03/18 21:59 Dose: 5,000 unit Hydrochlorothiazide (Hctz -) 25 mg PO DAILY [facility] Last Admin: 12/03/18 09:42 Dose: 25 mg Insulin Aspart (Novolog Mix 70/30 Vial) [facility] Last Admin: 12/03/18 17:52 Dose: 20 units Insulin Aspart (Novolog Vial Sliding Scale -) 1 vial SQ [facility]; Protocol Last Admin: 12/03/18 21:59 Dose: 2 units Levothyroxine Sodium (Synthroid -) 125 mcg PO DAILY@0700 [facility] Last Admin: 12/03/18 06:51 Dose: 125 mcg Metformin HCl (Glucophage -) 500 mg PO BIDAC [facility] Last Admin: 12/03/18 17:51 Dose: 500 mg Metoprolol Tartrate (Lopressor -) 25 mg PO [facility] Last Admin: 12/03/18 21:59 Dose: 25 mg Mirtazapine (Remeron -) 15 mg PO [facility] Last Admin: 12/03/18 22:00 Dose: 15 mg Montelukast Sodium (Singulair -) 10 mg PO [facility] Last Admin: 12/03/18 21:58 Dose: 10 mg Nifedipine (Procardia Xl -) 90 mg PO DAILY [facility] Last Admin: 12/03/18 09:41 Dose: 90 mg Pantoprazole Sodium (Protonix Iv) 40 mg IVPUSH DAILY [facility] Last Admin: 12/03/18 10:16 Dose: 40 mg Pyridostigmine [place] (Mestinon -) 60 mg PO BID [facility] Last Admin: 12/03/18 21:57 Dose: 60 mg Sitagliptin Phosphate (Januvia -) 100 mg PO DAILY@0700 [facility] Last Admin: 12/03/18 06:51 Dose: 100 mg Tizanidine HCl (Tizanidine Hcl) 2 mg PO Q8H PRN PRN Reason: MUSCLE SPASMS Zolpidem Tartrate (Ambien -) 5 mg PO HS PRN PRN Reason: INSOMNIA Last Admin: 12/03/18 21:59 Dose: 5 mg - Objective Vital Signs: Vital Signs Temperature 99.1 F 12/03/18 18:30 Pulse Rate 73 12/03/18 18:30 Respiratory Rate 20 12/03/18 18:30 Blood Pressure 142/91 12/03/18 18:30 O2 Sat by Pulse Oximetry (%) 95 12/03/18 09:00 Neck: Yes: WNL, Supple Cardiovascular: Yes: WNL, Regular Rate and Rhythm Respiratory: Yes: WNL, Regular, CTA Bilaterally Gastrointestinal: Yes: WNL, Normal Bowel Sounds, Soft Edema: LLE: Trace, RLE: Trace Labs: CBC, BMP 11/29/18 06:45 11/29/18 06:45 INR, PTT INR 1.25 (0.83-1.09) H 11/21/18 10:50 Problem List - Problems (1) Necrotizing fasciitis Code(s): M72.6 - NECROTIZING FASCIITIS (2) UTI (urinary tract infection) Code(s): N39.0 - URINARY TRACT INFECTION, SITE NOT SPECIFIED (3) Hypertension Code(s): I10 - ESSENTIAL (PRIMARY) HYPERTENSION Qualifiers: Hypertension type: unspecified Qualified Code(s): I10 - Essential (primary ) hypertension (4) Diabetes Code(s): E11.9 - TYPE 2 DIABETES MELLITUS WITHOUT COMPLICATIONS Qualifiers: Diabetes mellitus type: type 2 (5) Graves' disease Code(s): E05.00 - THYROTOXICOSIS W DIFFUSE GOITER W/O THYROTOXIC CRISIS (6) Hypothyroidism, unspecified Code(s): E03.9 - HYPOTHYROIDISM, UNSPECIFIED (7) COPD (chronic obstructive pulmonary disease) Code(s): J44.9 - CHRONIC OBSTRUCTIVE PULMONARY DISEASE, UNSPECIFIED Qualifiers: COPD type: chronic bronchitis
[2018-12-04] MEDS: metFORMIN HCL 500 MG TABLET (FP) PO SCH (06:51)
[2018-12-04] MEDS: sitaGLIPtin PHOSPHATE 100 MG TABLET (FP) PO SCH (06:51)
[2018-12-04] MEDS: CLINDAMYCIN HCL 150 MG CAPSULE (FP) PO SCH ×2 (06:51→12:32)
[2018-12-04] MEDS: LEVOTHYROXINE NA 125 MCG TABLET (FP) PO SCH (06:51)
[2018-12-04] MEDS: INSULIN (NOVOLOG MIX 70/30) 100 UNITS/ML MDV SQ SCH (06:52)
[2018-12-04] MEDS: GABAPENTIN 300 MG CAPSULE (FP) PO SCH ×2 (06:52→15:16)
[2018-12-04] MEDS: INSULIN SLIDING SCALE (NOVOLOG) 1 VIAL SQ SCH ×2 (06:53→12:04)
[2018-12-04] MEDS ORDERED: PT OWN MED DRAWER 7, Y5N ONE (10:09)
[2018-12-04] MEDS: PYRIDOSTIGMINE BROMIDE 60 MG TABLET PO SCH (10:22)
[2018-12-04] MEDS: HYDROCHLOROTHIAZIDE 25 MG TABLET (FP) PO SCH (10:22)
[2018-12-04] MEDS: NIFEdipine E.R. 90 MG TABLET (FP) PO SCH (10:22)
[2018-12-04] MEDS: PANTOPRAZOLE SODIUM 40 MG VIAL IVPUSH SCH (10:23)
[2018-12-04] MEDS: HEPARIN NA (PORCINE) 5,000 UNITS/ML 1ML VIAL SQ SCH (10:23)
[2018-12-04 14:51] VITALS: BP 139/71; PULSE 65; TEMP 98.7
--- NOTE | 2018-12-08 11:25 | DS ---
Physical Examination Vital Signs: Vital Signs Temperature 98.7 F 12/04/18 14:48 Pulse Rate 65 12/04/18 14:48 Respiratory Rate 20 12/04/18 14:48 Blood Pressure 139/71 12/04/18 14:48 O2 Sat by Pulse Oximetry (%) 95 12/04/18 09:00 Constitutional: Yes: Well Nourished Neck: Yes: WNL, Supple Cardiovascular: Yes: WNL, Regular Rate and Rhythm Respiratory: Yes: WNL, Regular, CTA Bilaterally Gastrointestinal: Yes: WNL, Normal Bowel Sounds, Soft Extremities: Yes: Other ((+) open wound lt thigh) Labs: CBC, BMP 11/29/18 06:45 11/29/18 06:45 Discharge Summary Reason For Visit: NECROTIZING FASCIITIS,DIABETES MELLITUS,MORBID OBE Necrotizing Fascitis Sepsis HTN Diabetes Grave's dz Hypothyroidism Hospital Course: 60 year old female with a PMHx of Myasthenia Gravis, Hyperthyroidism/Grave's disease, IDDMII, HTN, Asthma/COPD, depression, morbid obesity, CVA with TPA in 02/07, CVA in 04/09 was send to the hospital due to an abscess near the gluteal area that formed two days prior. Pt was started on IV antibxs. Pt seen by ID and surgery consults. Pt underwent I&D of lt gluteal abscess and was continued on IV antibxs. Cultures were (+) for Staph aureus and clostiridium. Pt also found to have (+) urine culture for E.Coli wc was treated with IV atnibxs. Pt also had wound care. Condition: Good - Instructions Diet, Activity, Other Instructions: Postoperative instructions: You had a surgical debridement of left gluteal infection on 11/21/[address] Gregg Kramer of [facility]. Activity: Resume your usual activities gradually, but no heavy exertion or lifting more than 10-15 pounds for 4-6 weeks. Remove dressings 48 hours after surgery, if they are not already off. You may shower daily starting then, just pat the incision areas dry. No bath or swimming until skin incisions have healed. Kaleb should not need to be recovered with any dressings, unless you have been told otherwise. Eat lightly at first, but advance to your usual diet as tolerated. Pain: For pain, you may use and alternate Tylenol (acetaminophen) 1-2 pills and/ or ibuprofen 200 mg (1-3 pills) every 6 hours each as needed; this means that you can take one OR the other at 3-hour intervals. If you are prescribed a Tylenol/narcotic combination for severe pain, use it instead of plain Tylenol as needed and switch back when your pain starts decreasing. Do not take more than 4000 mg of acetaminophen in a day. Take medications as prescribed or indicated on the labeling. Follow-up: Call Dr. Kramer' office at [phone] to make your postop appointment (Saturday in approximately 2 weeks after surgery as advised). Clinic is held in the [facility] on the fifth-WEST floor of [facility]. Call the office if you have: * increasing pain not responsive to pain medication * fever of 101F or higher * vomiting * unusual or increasing bleeding or drainage from wounds * increasing redness or swelling at wound sites * inability to urinate Also, see your primary medical doctor(Dr Gregg Patten) within 1-2 weeks. 2 gram sodium and 2200 calorie diabetic diet Referrals: Gregg Patten MD [Primary Care Provider] - Disposition: VNS/HOME HEALTH CARE - Home Medications Comprehensive Discharge Medication List: Ambulatory Orders Clopidogrel Bisulfate [Plavix -] 75 mg PO HS 06/04/12 Levothyroxine [Synthroid -] 0.125 mg PO HS 06/04/12 Metformin HCl [Riomet] 500 mg PO BID 06/04/12 Pyridostigmine [Mestinon -] 60 mg PO HS 06/04/12 Albuterol Sulfate [Proair Hfa -] 1 - 2 inh PO TID #0 06/11/12 Folic Acid 1 mg PO HS 06/10/16 Metoprolol Tartrate [Lopressor -] 25 mg PO HS 06/10/16 Mirtazapine 15 mg PO HS 06/10/16 Nifedipine [Procardia Xl] 60 mg PO HS 06/10/16 Albuterol Sulfate Inhaler - [Ventolin HFA Inhaler -] 2 puff IH Q4H PRN #0 inhaler 06/14/16 Insulin (Novolog 70/30) [Novolog Mix 70/30 Vial -] 20 units SQ BIDAC #1 vial Insulin Sliding Scale [Novolog Vial Sliding Scale -] 1 vial SQ TIDAC #1 units Atorvastatin Ca [Lipitor] 20 mg PO HS 12/29/17 Gabapentin 300 mg PO TID 12/29/17 Montelukast Sodium [Singulair] 10 mg PO HS 12/29/17 Tizanidine HCl 2 TID 12/29/17 Tizanidine HCl 2 mg PO TID 12/29/17 Sitagliptin Phosphate [Januvia -] 100 mg PO DAILY@0700 #30 ud 01/03/18 Acetaminophen [Tylenol .Regular Strength -] 650 mg PO Q6H PRN #100 tablet Clindamycin [Cleocin -] 300 mg PO Q6HPO #20 capsule 12/03/18 Hydrochlorothiazide [Hctz -] 25 mg PO DAILY #30 tablet 12/03/18 Nifedipine ER [Procardia XL -] 90 mg PO DAILY #30 tab.er.24 12/03/18 Pyridostigmine [Mestinon -] 60 mg PO BID tablet 12/03/18 Tizanidine HCl 2 mg PO Q8H PRN tablet 12/03/18
== END 2018-12-04 16:54 | disposition home health service (06) | DRG 853 ==
LOC: JER 09:45 → JERBED 11:16 → J6S 12:33 → JICU 17:38 → J5S 11-23 15:16
PROVIDERS: ADMIT Internal Medicine; ATTEND Internal Medicine
PROC: 0JB90ZZ Excision of Buttock Subcutaneous Tissue and Fascia, Open Approach (ICD-10-PCS; principal; 2018-11-21 14:15)
DX: A41.1 Sepsis due to other specified staphylococcus (principal); M72.6 Necrotizing fasciitis; Z68.41 Body mass index [BMI] 40.0-44.9, adult; N17.9 Acute kidney failure, unspecified; N39.0 Urinary tract infection, site not specified; L03.116 Cellulitis of left lower limb; E11.628 Type 2 diabetes mellitus with other skin complications; E66.01 Morbid (severe) obesity due to excess calories; G70.00 Myasthenia gravis without (acute) exacerbation; J44.9 Chronic obstructive pulmonary disease, unspecified; I10 Essential (primary) hypertension; E78.5 Hyperlipidemia, unspecified; F17.210 Nicotine dependence, cigarettes, uncomplicated; E11.65 Type 2 diabetes mellitus with hyperglycemia; B96.20 Unspecified Escherichia coli [E. coli] as the cause of diseases classified elsewhere; D72.829 Elevated white blood cell count, unspecified; E03.9 Hypothyroidism, unspecified; Z87.442 Personal history of urinary calculi; Z95.2 Presence of prosthetic heart valve; Z86.73 Personal history of transient ischemic attack (TIA), and cerebral infarction without residual deficits; Z79.4 Long term (current) use of insulin
CPT/HCPCS: 36415; 70450-TC; 71045-TC-FY; 80048; 80053; 81003; 81015; 82962; 83036; 83605; 83735; 84100; 85025; 85027; 85610; 86850; 86900; 86901; 87040; 87070; 87075; 87076; 87077; 87086; 87186; 87205; 88304-TC; 90688; 93005; 93010; 93971-TC; 94002; 94640; 97116-GP; 97161-GP; 99284-25; G0008; G0480; J1644; J7030

== ENCOUNTER 2024-06-23 11:24 | Emergency (ER) | payer OTHER ==
[2024-06-23 11:31] VITALS: BP 197/94; PULSE 74; RESP 18; TEMP 97.7; BMI 35.2
[2024-06-23 13:00] LABS: EPI CELLS 33 /uL (0-25.1); HYALINE CASTS 2 /uL (0-3.1); URINE APPEARANCE CLOUDY; URINE BACTERIA 399 /uL (0-1359); URINE BILIRUBIN NEGATIVE (NEGATIVE); URINE COLOR YELLOW; URINE GLUCOSE (UA) NEGATIVE (NEGATIVE); URINE KETONE NEGATIVE (NEGATIVE); URINE LEUK ESTERASE 2+ (NEGATIVE); URINE NITRITE NEGATIVE (NEGATIVE); URINE PROTEIN 3+ (NEGATIVE); URINE WBC 482 /uL (0-25.8)
[2024-06-23 13:17] LABS: URINE RBC 564.7 /uL (0-23.9)
[2024-06-23] MEDS ORDERED: NITROFURANTOIN MONOHYD/M-CRYST 100 MG CAPSULE PO ONE (13:20)
[2024-06-23] MEDS ORDERED: NITROFURANTOIN MACROCRYSTAL 50 MG CAPSULE (FP) ONE (13:24)
== END 2024-06-23 13:34 | disposition home or self-care (01) ==
LOC: JER 11:24
DX: N30.91 Cystitis, unspecified with hematuria (principal); M79.89 Other specified soft tissue disorders
CPT/HCPCS: 81003; 82272; 87086; 99283-25